=== PATIENT | male | born 1940 | race Caucasian/White ===

== ENCOUNTER 2018-05-14 09:37 | Inpatient (IN) | payer MEDICARE ==
[2018-05-14 10:08] LABS: #Basophils 0.1 thou/uL (0.0-0.2); #Eosinphils 0.3 thou/uL (0.0-0.7); #Lymphocytes 1.8 thou/uL (1.20-3.40); #Monocytes 0.8 thou/uL (0.11-0.59); #Neutrophils 2.3 thou/uL (1.40-6.50); %Basophils 1.3 % (0.0-1.0); %Eosinophils 5.2 % (0.0-10.0); %Lymphocytes 34.8 % (21.0-51.0); %Monocytes 14.3 % (0.0-10.0); %Neutrophils 44.4 % (42.0-75.0); Hemoglobin 14.4 g/dL (14.0-18.0); Mean Corpuscular HGB CONC 33.8 g/dL (32.0-36.0); Mean Corpuscular Hemoglobin 32.2 pg (27.0-31.0); Mean Corpuscular Volume 95.3 fL (78.0-98.0); Mean Platelet Volume 9.7 fL (7.4-10.4); Platelet Count 195 thou/uL (130-400); RBC Distribution Width 12.7 % (11.5-14.5); Red Blood Cell (RBC) Count 4.46 mill/uL (4.70-6.10); White Blood Cell (WBC) Count 5.2 thou/uL (4.8-10.8)
--- NOTE | 2018-05-14 10:18 | RAD ---
FPortable chest radiograph: 05/14/2018 COMPARISON: 12/10/2015 HISTORY:Chest pain FINDINGS: Mild stable increased linear interstitial density. Stable mild prominence of the cardiac si lhouette. No pneumothorax, pleural fluid, focal consolidation, or alveolar edema. IMPRESSION: No acute findings are seen. Recommend PA and lateral imaging of the chest if symptoms per sist.
[2018-05-14 10:28] LABS: ALT (SGPT) 25 U/L (8-55); AST (SGOT) 19 U/L (5-34); Albumin 3.8 g/dL (3.4-4.8); Alkaline Phosphatase 77 U/L (40-150); Anion Gap 12 mmol/L (10-20); BUN (Urea Nitrogen) 21 mg/dL (8.4-25.7); Bilirubin, Total 0.6 mg/dL (0.2-1.2); CK (CPK) 79 U/L (30-200); Calc. Creatinine Clearance 0 mL/min (70-130); Calcium 9.2 mg/dL (7.8-10.44); Carbon Dioxide 26 mmol/L (23-31); Chloride 103 mmol/L (98-107); Estimated GFR-MDRD 69; Globulin 2.6 g/dL (2.4-3.5); Glucose 279 mg/dL (83-110); Lipase 70 U/L (8-78); Potassium 4.3 mmol/L (3.5-5.1); Protein, Total 6.4 g/dL (5.8-8.1); Sodium 137 mmol/L (136-145)
[2018-05-14 10:50] LABS: CKMB 1.1 ng/mL (0-6.6)
[2018-05-14] MEDS ORDERED: Enoxaparin Sodium 100 MG/ML SYRINGE ONE (11:09)
[2018-05-14] MEDS ORDERED: Ondansetron PF 4 MG/2 ML Vial IVP PRN (11:59)
[2018-05-14] MEDS ORDERED: Acetaminophen 650 MG Suppository PR PRN (11:59)
[2018-05-14] MEDS ORDERED: Zolpidem Tartrate 5 MG TAB PO PRN (11:59)
[2018-05-14] MEDS ORDERED: HYDROcodone/Acetaminophen 5/325 mg Tablet PO PRN (11:59)
[2018-05-14] MEDS ORDERED: Guaifenesin DM 100-10/5 ML UDCUP PO PRN (11:59)
[2018-05-14] MEDS ORDERED: Dextrose 50% Abboject 50 ML SYRINGE SLOW IVP PRN (12:02)
[2018-05-14] MEDS ORDERED: Dextrose 5% in Water 1,000 ML IV PRN (12:02)
--- NOTE | 2018-05-14 12:06 | PDOC.EVN ---
Event Note - Event Note Event Note: H&P #[id number]
[2018-05-14] MEDS ORDERED: TICAGRELOR 90 MG TABLET PO SCH (12:30)
[2018-05-14] MEDS: Sodium Chloride 0.9% 1,000 ML IV SCH (14:21)
--- NOTE | 2018-05-14 18:14 | HP ---
CHIEF COMPLAINT: Chest pain. HISTORY OF PRESENT ILLNESS: This is a 77-year-old male, with substernal chest pain. Stated the pain was about pressure like, radiating to his jaw as well as left arm. The patient states that he has never had this symptom before. Admits to a past medical history of hypertension, diabetes mellitus, and hyperlipidemia. The patient does acknowledge family history of chest pains and coronary disease and obesity. The patient states that the pain was worse earlier in the day. There was no alleviating or aggravating pattern. No other associated symptoms or complaints. Of note, on admission to the ER today, the patient's troponin was found to be 0.154. The patient is seen and examined in the ER, at bedside. All questions answered. ALLERGIES: TO IV CONTRAST AND IODINE. MEDICATIONS: See MAR. FAMILY HISTORY: For obesity, hypertension, and diabetes mellitus. SOCIAL HISTORY: Nondrinker. Smoked up into the age of 61, had smoked for 35 years 1 pack a day, quit at the age of 61, so has been nonsmoker for 16 years. REVIEW OF SYSTEMS: All systems reviewed pertinent positive in HPI, otherwise negative. PHYSICAL EXAMINATION: VITAL SIGNS: Blood pressure is 147/94, pulse 73, O2 saturation of 97% on room air, respiratory rate 18, and temperature of 98.5. GENERAL: The patient obese, lying in bed, in no acute distress. HEENT: Pupils equal, round, and reactive to light and accommodation. Oral cavity moist and pink. Extraocular muscles intact. NECK: Supple and nontender. Thyroid appreciated. CARDIOVASCULAR: Regular rate and rhythm. S1 and S2. No murmurs, rubs, or gallops appreciated. PULMONARY: Clear to auscultation bilaterally. Distant lung sounds. No respiratory distress. ABDOMEN: Positive bowel sounds. Soft and nontender. EXTREMITIES: Trace pitting edema. No cyanosis or clubbing noted. NEUROLOGIC: Cranial nerves 2 through 12 intact and no loss of motor or sensory function. LABORATORY DATA: Labs reviewed. CBC reviewed. BMP reviewed. Chest x-ray reviewed. ASSESSMENT: 1. Tqf-QN-[id number] myocardial infarction. 2. Diabetes mellitus. 3. Obesity. 4. Hyperlipidemia. 5. Hypertension. PLAN: At this point in time, we will place the patient n.p.o. We will start the patient on aspirin and Brilinta. We will also do full-dose Lovenox given high suspicion for coronary artery disease and NSTEMI, especially with elevated enzymes. We will trend troponins. Insulins for his diabetes. We will hold off on the echo as there is a high possibility that the patient likely will be getting a cardiac cath. However, final decision on cardiac cath to be decided by the powder room attendant after cardiac evaluation. Cardiology has been consulted. Case and plan discussed with the patient and at length. They understood and agreed with this plan. Job ID: [id number]
[2018-05-14 18:55] LABS: Troponin I 0.517 ng/mL (< 0.028)
--- NOTE | 2018-05-14 19:16 | CON ---
DATE OF CONSULTATION: 05/14/2018 REASON FOR CONSULTATION: Unstable angina. HISTORY OF PRESENT ILLNESS: Mr. Salas is a very pleasant 77-year-old gentleman with no significant cardiac history, who re-presented with chest pain. He states he had acute onset chest pain lasting for an hour. He had associated diaphoresis and nausea and no other associated symptoms. No ameliorating, exacerbating, or precipitating factors present. He presented to the emergency room with nonspecific ST-T wave changes and mildly elevated troponin. He is currently pain free. PAST MEDICAL HISTORY: Obesity, hypertension, and diabetes mellitus. SOCIAL HISTORY: No current tobacco use. He did smoke for 35 years. HOME MEDICATIONS: 1. Crestor. 2. Protonix. 3. Glipizide. 4. Aspirin. 5. Glucosamine. 6. Fish oil. 7. Niacin. REVIEW OF SYSTEMS: A 10-point review of systems is reviewed and as above, otherwise negative. PHYSICAL EXAMINATION: GENERAL: Patient is a pleasant morbidly obese with a BMI of 48, who is in no acute distress. The patient appears their stated age. VITAL SIGNS: Blood pressure 117/58, pulse 65, and temperature 97.5. NEUROLOGIC: The patient is alert and oriented x3 with no focal neurologic deficits. HEENT: Sclerae without icterus. Mouth has moist mucous membranes with normal pallor. NECK: No JVD. Carotid upstroke brisk. No bruits bilaterally. LUNGS: Clear to auscultation with unlabored respirations. BACK: No scoliosis or kyphosis. CARDIAC: Regular rate and rhythm with normal S1 and S2. No S3 or S4 noted. No significant rubs, murmurs, thrills, or gallops noted throughout the precordium. PMI is not displaced. There is no parasternal heave. ABDOMEN: Soft, nontender, nondistended. No peritoneal signs present. No hepatosplenomegaly. No abnormal striae. EXTREMITIES: 2+ femoral and 2+ dorsalis pedis pulses. No cyanosis, clubbing, or edema. SKIN: No gross abnormalities. DIAGNOSTIC DATA: EKG shows normal sinus rhythm, right bundle-branch block, nonspecific ST-T wave changes. LABORATORY DATA: Creatinine 1.05. Hemoglobin 14.4. IMPRESSION: Unstable angina. RECOMMENDATIONS: Mr. Salas does have risk factors for underlying coronary artery disease including remote tobacco use in addition to diabetes mellitus. His symptoms suggest unstable angina. I discussed noninvasive stress study versus coronary angiography. After discussing risks and benefits, he decided to proceed with coronary angiography. I discussed the procedure in full detail with Mr. Salas. Risks included, but not limited to the following: I discussed the procedure in full detail with the patient. The risks of the procedure were also discussed. The risks of the procedure include but are not limited to the following: , stroke, [place], need for emergency surgery, loss of limb, bleeding, and infection, as well as a reaction to the dye causing kidney failure and needing long-term dialysis. I also discussed the risks of PCI to include all of the above including coronary dissection and perforation in addition to acute stent thrombosis and restenosis. All questions were answered. I also discussed drug coated and non drug coated stent placement. There were no contraindications to proceed if needed. Further recommendations pending the above. Job ID: [id number]
[2018-05-14] MEDS: Enoxaparin Sodium 80 MG/0.8 ML SYRINGE SC SCH (21:12)
[2018-05-14] MEDS: Lisinopril 5 MG TAB PO SCH (21:12)
[2018-05-14] MEDS: Atorvastatin Calcium 40 MG TAB PO SCH (21:12)
[2018-05-14] MEDS: Metoprolol Tartrate 25 MG TAB PO SCH (21:13)
[2018-05-14] MEDS: Famotidine 20 MG TAB PO SCH (21:13)
[2018-05-14] MEDS: HumaLOG 300 UNITS/3 ML VIAL SC PRN (21:27)
[2018-05-14 22:26] LABS: Hemoglobin 13.9 g/dL (14.0-18.0); Platelet Count 186 thou/uL (130-400)
[2018-05-14 23:09] LABS: CKMB 1.8 ng/mL (0-6.6)
[2018-05-15 02:24] LABS: Critical Call Chem Troponin I RESULT DECREASING
[2018-05-15] MEDS: Sodium Chloride 0.9% 1,000 ML IV SCH ×4 (03:22→20:35)
[2018-05-15 06:07] LABS: #Basophils 0.1 thou/uL (0.0-0.2); #Eosinphils 0.4 thou/uL (0.0-0.7); #Lymphocytes 1.7 thou/uL (1.20-3.40); #Monocytes 0.6 thou/uL (0.11-0.59); %Basophils 1.6 % (0.0-1.0); %Eosinophils 7.6 % (0.0-10.0); %Lymphocytes 35.8 % (21.0-51.0); %Monocytes 12.6 % (0.0-10.0); %Neutrophils 42.3 % (42.0-75.0); Mean Corpuscular HGB CONC 33.2 g/dL (32.0-36.0); Mean Corpuscular Hemoglobin 31.7 pg (27.0-31.0); Mean Corpuscular Volume 95.7 fL (78.0-98.0); Mean Platelet Volume 9.9 fL (7.4-10.4); Platelet Count 189 thou/uL (130-400); RBC Distribution Width 12.6 % (11.5-14.5); Red Blood Cell (RBC) Count 4.41 mill/uL (4.70-6.10); White Blood Cell (WBC) Count 4.7 thou/uL (4.8-10.8)
[2018-05-15 06:29] LABS: Anion Gap 14 mmol/L (10-20); BUN (Urea Nitrogen) 16 mg/dL (8.4-25.7); Calc. Creatinine Clearance 154 mL/min (70-130); Calcium 8.7 mg/dL (7.8-10.44); Carbon Dioxide 21 mmol/L (23-31); Chloride 105 mmol/L (98-107); Estimated GFR-MDRD 90; Glucose 202 mg/dL (83-110); Potassium 3.7 mmol/L (3.5-5.1); Sodium 136 mmol/L (136-145)
[2018-05-15] MEDS: Lisinopril 5 MG TAB PO SCH ×2 (09:55→20:36)
[2018-05-15] MEDS: Famotidine 20 MG TAB PO SCH ×3 (09:55→21:47)
[2018-05-15] MEDS: Aspirin 81 mg Enteric Coated Tablet PO SCH (09:55)
[2018-05-15] MEDS: Enoxaparin Sodium 80 MG/0.8 ML SYRINGE SC SCH ×2 (09:55→20:38)
[2018-05-15] MEDS: HumaLOG 300 UNITS/3 ML VIAL SC PRN ×3 (09:56→18:15)
[2018-05-15] MEDS: TICAGRELOR 90 MG TABLET PO SCH ×2 (09:56→20:37)
[2018-05-15] MEDS: Metoprolol Tartrate 25 MG TAB PO SCH ×2 (09:56→20:36)
[2018-05-15] MEDS ORDERED: diphenhydrAMINE 25 MG CAP PO PRN (10:05)
[2018-05-15] MEDS ORDERED: Communication Order-Pharmacy FS SCH (10:15)
[2018-05-15] MEDS: predniSONE 20 MG TAB PO SCH ×3 (11:37→23:49)
--- NOTE | 2018-05-15 12:23 | PDOC.PN ---
- Subjective Encounter Start Date: 05/15/18 Encounter Start Time: 12:22 Patient seen and examined, no new issues or complaints, at bedside, all questions answered. - Objective Vital Signs & Weight: Vital Signs (12 hours) Temp Pulse Resp BP Pulse Ox 05/15/18 11:34 97.5 F L 61 18 130/62 93 L 05/15/18 09:55 66 05/15/18 07:07 97.5 F L 66 20 117/72 95 05/15/18 05:00 97.6 F 62 18 117/58 L 95 05/15/18 00:30 97.5 F L 66 17 102/56 L 96 Weight Weight 317 lb 3.2 oz I&O: 05/14/18 05/15/18 05/16/18 06:59 06:59 06:59 Intake Total 375 Balance 375 Result Diagrams: 05/15/18 05:17 05/15/18 05:17 Additional Labs: Accuchecks 05/15/18 05/15/18 05/14/18 11:02 05:44 20:53 POC Glucose 215 H 206 H 223 H 05/14/18 19:08 POC Glucose 162 H Phys Exam - Physical Examination Constitutional: NAD (obese) HEENT: PERRLA, moist MMs, sclera anicteric Neck: no nodes, no JVD, supple Respiratory: no wheezing, no rales, no rhonchi Cardiovascular: RRR, no significant murmur, no rub Gastrointestinal: soft, non-tender, no distention Musculoskeletal: pulses present, edema present Dx/Plan (1) NSTEMI (non-ST elevated myocardial infarction) Code(s): I21.4 - NON-ST ELEVATION (NSTEMI) MYOCARDIAL INFARCTION Status: Acute (2) Diabetes Code(s): E11.9 - TYPE 2 DIABETES MELLITUS WITHOUT COMPLICATIONS Status: Acute (3) Hyperlipidemia Code(s): E78.5 - HYPERLIPIDEMIA, UNSPECIFIED Status: Acute (4) Hypertension Code(s): I10 - ESSENTIAL (PRIMARY) HYPERTENSION Status: Acute (5) Obesity Code(s): E66.9 - OBESITY, UNSPECIFIED Status: Acute - Plan * cont current plan of care * cath in AM * no other changes in plan * labs in AM * case and plan d/w patient and at length, they understand and agree with this plan.
--- NOTE | 2018-05-15 13:41 | PDOC.CTH ---
Cardiology Progress Note - Subjective No complaints. no CP overnight. - Objective Vital Signs Temp Pulse Resp BP Pulse Ox 05/15/18 11:34 97.5 F L 61 18 130/62 93 L 05/15/18 09:55 66 05/15/18 07:07 97.5 F L 66 20 117/72 95 05/15/18 05:00 97.6 F 62 18 117/58 L 95 Weight 317 lb 3.2 oz 05/14/18 05/15/18 05/16/18 06:59 06:59 06:59 Intake Total 375 Balance 375 - Physical Examination General/Neuro: alert & oriented x3 Neck: no JVD present Lungs: CTA Heart: RRR Abdomen: NT/ND - Telemetry Telemetry Rhythm: SR - Labs Result Diagrams: 05/15/18 05:17 05/15/18 05:17 Troponin/CKMB CK-MB (CK-2) 1.8 ng/mL (0-6.6) 05/14/18 22:16 Troponin I 0.480 ng/mL (< 0.028) H* 05/15/18 01:50 - Assessment/Plan 1. UA 2. NSTEMI-1 3. HLD 4. DM-II 5. Obesity Stable. Plan for diagnostic C tomorrow.
[2018-05-15] MEDS: Atorvastatin Calcium 40 MG TAB PO SCH (20:36)
[2018-05-15] MEDS: Montelukast Sodium 10 mg Tablet PO SCH (20:37)
[2018-05-15] MEDS: Insulin Glargine 10 UNITS in Pre-Filled Syringe 1 EACH SC SCH (20:38)
[2018-05-16 05:52] LABS: #Lymphocytes 1.1 thou/uL (1.20-3.40); #Monocytes 0.3 thou/uL (0.11-0.59); #Neutrophils 6.2 thou/uL (1.40-6.50); %Basophils 0.2 % (0.0-1.0); %Eosinophils 0.2 % (0.0-10.0); %Lymphocytes 14.3 % (21.0-51.0); %Monocytes 4.3 % (0.0-10.0); Hemoglobin 14.6 g/dL (14.0-18.0); Mean Corpuscular HGB CONC 34.5 g/dL (32.0-36.0); Mean Corpuscular Hemoglobin 32.4 pg (27.0-31.0); Mean Corpuscular Volume 93.8 fL (78.0-98.0); Platelet Count 220 thou/uL (130-400); RBC Distribution Width 12.5 % (11.5-14.5); Red Blood Cell (RBC) Count 4.52 mill/uL (4.70-6.10); White Blood Cell (WBC) Count 7.6 thou/uL (4.8-10.8)
[2018-05-16] MEDS: predniSONE 20 MG TAB PO SCH ×4 (05:52→23:48)
[2018-05-16] MEDS: Lisinopril 5 MG TAB PO SCH ×2 (05:53→20:58)
[2018-05-16] MEDS: Metoprolol Tartrate 25 MG TAB PO SCH ×2 (05:54→20:58)
[2018-05-16] MEDS: Famotidine 20 MG TAB PO SCH ×2 (05:54→20:58)
[2018-05-16] MEDS: Aspirin 81 mg Enteric Coated Tablet PO SCH (05:54)
[2018-05-16] MEDS: Sodium Chloride 0.9% 1,000 ML IV SCH ×2 (05:57→06:09)
[2018-05-16] MEDS ORDERED: Diazepam 5 MG TAB PO SCH (06:00)
[2018-05-16 06:20] LABS: Anion Gap 14 mmol/L (10-20); BUN (Urea Nitrogen) 15 mg/dL (8.4-25.7); Calc. Creatinine Clearance 139 mL/min (70-130); Calcium 9.2 mg/dL (7.8-10.44); Carbon Dioxide 21 mmol/L (23-31); Cardiac Risk 3.5 (Less than 4.5); Chloride 105 mmol/L (98-107); Cholesterol 172 mg/dl (< 200 Desired); Estimated GFR-MDRD 80; Glucose 280 mg/dL (83-110); HDL Cholesterol 49 mg/dL (>60 Neg Risk); LDL Cholesterol, Calculated 86 mg/dL; Sodium 136 mmol/L (136-145); Triglycerides 185 mg/dL (Less than 150)
[2018-05-16] MEDS ORDERED: Verapamil 5 MG/2 ML VIAL ONE (07:01)
[2018-05-16] MEDS ORDERED: Nitroglycerin 100MG/250ML BOT 250 ML ONE (07:01)
[2018-05-16] MEDS ORDERED: Fentanyl 100 MCG/2 ML VIAL ONE (07:34)
[2018-05-16] MEDS ORDERED: Midazolam HCl 2 mg/2 ml Vial ONE (07:34)
[2018-05-16] MEDS ORDERED: Heparin 10,000 UNITS/1 ML VIAL ONE (07:34)
--- NOTE | 2018-05-16 08:31 | PDOC.PN ---
- Subjective Encounter Start Date: 05/16/18 Encounter Start Time: 08:31 Patient seen and examined, no new issues. - Objective Vital Signs & Weight: Vital Signs (12 hours) Temp Pulse Resp BP BP Pulse Ox 05/16/18 05:53 73 125/76 05/16/18 04:00 97.4 F L 73 20 125/76 94 L 05/15/18 20:36 83 132/71 Weight Weight 317 lb 3.2 oz I&O: 05/15/18 05/16/18 05/17/18 06:59 06:59 06:59 Intake Total 375 2905 Balance 375 2905 Result Diagrams: 05/16/18 05:35 05/16/18 05:35 Additional Labs: Accuchecks 05/16/18 05/15/18 05/15/18 05:38 20:09 17:27 POC Glucose 284 H 302 H 333 H 05/15/18 11:02 POC Glucose 215 H Phys Exam - Physical Examination Constitutional: NAD obese HEENT: PERRLA, moist MMs, sclera anicteric Neck: no nodes, no JVD, supple Respiratory: no wheezing, no rales, no rhonchi Cardiovascular: RRR, no significant murmur, no rub Gastrointestinal: soft, non-tender, no distention Musculoskeletal: pulses present, edema present Dx/Plan (1) NSTEMI (non-ST elevated myocardial infarction) Code(s): I21.4 - NON-ST ELEVATION (NSTEMI) MYOCARDIAL INFARCTION Status: Acute (2) Diabetes Code(s): E11.9 - TYPE 2 DIABETES MELLITUS WITHOUT COMPLICATIONS Status: Acute (3) Hyperlipidemia Code(s): E78.5 - HYPERLIPIDEMIA, UNSPECIFIED Status: Acute (4) Hypertension Code(s): I10 - ESSENTIAL (PRIMARY) HYPERTENSION Status: Acute (5) Obesity Code(s): E66.9 - OBESITY, UNSPECIFIED Status: Acute - Plan * cardiac cath for today * vital signs stable * monitor for now * labs in AM
[2018-05-16] MEDS ORDERED: Nitroglycerin 0.4 MG TAB (25 Tab Bottle) SL PRN (08:40)
[2018-05-16] MEDS ORDERED: Acetaminophen/Codeine 30-300mg Tablet PO PRN ×2 (08:40)
[2018-05-16] MEDS ORDERED: Sodium Chloride 0.9% 200 ML IV PRN (08:40)
[2018-05-16] MEDS ORDERED: Sodium Chloride 0.9% 1,000 ML IV SCH (08:45)
[2018-05-16] MEDS ORDERED: Iopamidol 370 76% 100 ML VIAL ONE (10:11)
[2018-05-16] MEDS: HumaLOG 300 UNITS/3 ML VIAL SC PRN ×3 (10:45→20:59)
--- NOTE | 2018-05-16 13:37 | EKG ---
Test Reason : STAT (NO CALL) Blood Pressure : / mmHG Vent. Rate : 065 BPM Atrial Rate : 065 BPM P-R Int : 142 ms QRS Dur : 086 ms QT Int : 394 ms P-R-T Axes : 063 073 030 degrees QTc Int : 409 ms Normal sinus rhythm Normal ECG When compared with ECG of 10-DEC-2015 14:22, Premature supraventricular complexes are no longer Present Nonspecific T wave abnormality now evident in Inferior leads Confirmed by OCTAVIO SMITH, DR. Montes ([id number]) on 05/16/2018 1:37:22 PM Referred By: Senthil PRITCHETT Confirmed By:DR. Simon CUNNINGHAM MD
[2018-05-16] MEDS: Atorvastatin Calcium 40 MG TAB PO SCH (20:58)
[2018-05-16] MEDS: Insulin Glargine 10 UNITS in Pre-Filled Syringe 1 EACH SC SCH (20:58)
[2018-05-16] MEDS: Montelukast Sodium 10 mg Tablet PO SCH (20:58)
--- NOTE | 2018-05-16 22:52 | CON ---
DATE OF CONSULTATION: 05/16/2018 REASON FOR CONSULTATION: Evaluate patient for coronary artery bypass grafting. HISTORY OF PRESENT ILLNESS: Mr. Salas is a 77-year-old morbidly obese gentleman who is admitted with substernal chest pain. He underwent appropriate workup followed by coronary angiography today. At the time of his angiography, he was found to have severe stenosis of both the LAD and right coronary artery. I have been asked to see him to discuss coronary artery bypass grafting. PAST MEDICAL HISTORY: 1. Morbid obesity. 2. Coronary artery disease. 3. Hypertension. 4. Diabetes mellitus. 5. Dyslipidemia. HOME MEDICATIONS: Noted. ALLERGIES: IODINE. SOCIAL HISTORY: He does not use tobacco. He quit smoking a number of years ago. REVIEW OF SYSTEMS: A 10-point review of systems is performed and is negative except as above. PHYSICAL EXAMINATION: GENERAL: This is a morbidly obese gentleman, resting comfortably on the telemetry. VITAL SIGNS: Height 5 feet 8 inches, weight is 317 pounds. BSA is 2.63. Temperature is 97.4, pulse is 63 and regular, blood pressure is 106/63. NECK: Supple without bruit. CHEST: Clear with diminished breath sounds bilaterally. HEART: Rhythm is regular. ABDOMEN: Soft and nontender without mass. EXTREMITIES: He has bilateral edema with venous stasis changes. ASSESSMENT AND PLAN: This is a 77-year-old gentleman who is admitted with [id number] myocardial infarction with a peak troponin of 0.517. He is currently resting chest pain free. Catheterization has revealed severe two-vessel disease. Coronary artery bypass grafting has been discussed with him. Unfortunately, he has received Brilinta by the hospitalist. This gives him a week before we can electively perform any surgical intervention. Job ID: [id number]
[2018-05-17] MEDS: predniSONE 20 MG TAB PO SCH ×2 (05:51→20:13)
[2018-05-17 06:59] LABS: #Lymphocytes 1.2 thou/uL (1.20-3.40); #Monocytes 0.6 thou/uL (0.11-0.59); #Neutrophils 9.6 thou/uL (1.40-6.50); %Basophils 0.1 % (0.0-1.0); %Eosinophils 0.2 % (0.0-10.0); %Lymphocytes 10.3 % (21.0-51.0); %Monocytes 5.6 % (0.0-10.0); %Neutrophils 83.7 % (42.0-75.0); Hemoglobin 14.2 g/dL (14.0-18.0); Mean Corpuscular HGB CONC 34.2 g/dL (32.0-36.0); Mean Corpuscular Hemoglobin 32.9 pg (27.0-31.0); Mean Corpuscular Volume 96.2 fL (78.0-98.0); Mean Platelet Volume 10.1 fL (7.4-10.4); Platelet Count 206 thou/uL (130-400); RBC Distribution Width 12.8 % (11.5-14.5); Red Blood Cell (RBC) Count 4.31 mill/uL (4.70-6.10); White Blood Cell (WBC) Count 11.4 thou/uL (4.8-10.8)
[2018-05-17 07:11] LABS: Anion Gap 13 mmol/L (10-20); BUN (Urea Nitrogen) 23 mg/dL (8.4-25.7); Calc. Creatinine Clearance 135 mL/min (70-130); Carbon Dioxide 22 mmol/L (23-31); Chloride 103 mmol/L (98-107); Estimated GFR-MDRD 77; Glucose 292 mg/dL (83-110); Potassium 4.3 mmol/L (3.5-5.1); Sodium 134 mmol/L (136-145)
[2018-05-17] MEDS: Aspirin 81 mg Enteric Coated Tablet PO SCH (08:56)
[2018-05-17] MEDS: Metoprolol Tartrate 25 MG TAB PO SCH ×2 (08:56→20:33)
[2018-05-17] MEDS: Famotidine 20 MG TAB PO SCH ×2 (08:57→20:12)
[2018-05-17] MEDS: Lisinopril 5 MG TAB PO SCH ×2 (08:58→20:32)
[2018-05-17] MEDS: HumaLOG 300 UNITS/3 ML VIAL SC PRN ×4 (09:00→20:23)
--- NOTE | 2018-05-17 10:08 | PDOC.PN ---
- Subjective Encounter Start Date: 05/17/18 Encounter Start Time: 10:06 Subjective: Admitted due to NSTEMI. -: cardiac cath showed severe 2 vessel disease. CABG is planned -: No new problem. No chest pain or SOB. - Objective Vital Signs & Weight: Vital Signs (12 hours) Temp Pulse Resp BP BP Pulse Ox 05/17/18 08:58 75 115/62 05/17/18 07:30 97.5 F L 66 20 128/65 96 05/17/18 04:00 97.7 F 63 18 115/57 L 94 L Weight Weight 317 lb I&O: 05/16/18 05/17/18 05/18/18 06:59 06:59 06:59 Intake Total 2905 1440 Balance 2905 1440 Result Diagrams: 05/17/18 06:14 05/17/18 06:14 Additional Labs: Accuchecks 05/17/18 05/16/18 05/16/18 05:34 20:27 16:26 POC Glucose 299 H 300 H 285 H 05/16/18 10:40 POC Glucose 266 H Phys Exam - Physical Examination Constitutional: NAD morbidly obese HEENT: PERRLA, moist MMs Neck: no JVD, supple fair air entry bilaterally Cardiovascular: RRR, no significant murmur Gastrointestinal: soft, non-tender, no distention, positive bowel sounds obese Musculoskeletal: no edema Neurological: non-focal, moves all 4 limbs Psychiatric: A&O x 3 Dx/Plan (1) Type 2 diabetes mellitus Status: Acute Comment: Control is suboptimal (2) Morbid obesity Code(s): E66.01 - MORBID (SEVERE) OBESITY DUE TO EXCESS CALORIES Status: Acute (3) CAD (coronary artery disease), [place] coronary artery Code(s): I25.10 - ATHSCL HEART DISEASE OF [place] CORONARY ARTERY W/O ANG PCTRS Status: Acute (4) Hyperlipidemia Code(s): E78.5 - HYPERLIPIDEMIA, UNSPECIFIED Status: Acute (5) Hypertension Code(s): I10 - ESSENTIAL (PRIMARY) HYPERTENSION Status: Acute (6) NSTEMI (non-ST elevated myocardial infarction) Code(s): I21.4 - NON-ST ELEVATION (NSTEMI) MYOCARDIAL INFARCTION Status: Acute - Plan Increase lantus to 20 units daily. Continue sliding scale insulin -: Continue other treatments. -: CABG planning is progress * .
[2018-05-17] MEDS ORDERED: Amiodarone 150 MG/3 ML VIAL ONE (12:20)
[2018-05-17] MEDS: Atorvastatin Calcium 40 MG TAB PO SCH (20:12)
[2018-05-17] MEDS: Montelukast Sodium 10 mg Tablet PO SCH (20:12)
[2018-05-17] MEDS ORDERED: Insulin Glargine 20 UNITS in Pre-Filled Syringe 1 EACH SC SCH (21:00)
--- NOTE | 2018-05-17 22:32 | EKG ---
Test Reason : C/O CHEST PAIN Blood Pressure : / mmHG Vent. Rate : 060 BPM Atrial Rate : 060 BPM P-R Int : 154 ms QRS Dur : 084 ms QT Int : 390 ms P-R-T Axes : 057 063 -21 degrees QTc Int : 390 ms Normal sinus rhythm Nonspecific T wave abnormality Abnormal ECG When compared with ECG of 14-MAY-2018 22:46, No significant change was found Confirmed by Clarke LOPES ([id number]) on 05/17/2018 10:32:07 PM Referred By: HEBERT Confirmed By:Clarke LOPES
[2018-05-18] MEDS: HumaLOG 300 UNITS/3 ML VIAL SC PRN ×4 (06:06→20:55)
[2018-05-18] MEDS: Aspirin 81 mg Enteric Coated Tablet PO SCH (08:15)
[2018-05-18] MEDS: predniSONE 20 MG TAB PO SCH (08:15)
[2018-05-18] MEDS: Metoprolol Tartrate 25 MG TAB PO SCH ×2 (08:15→20:50)
[2018-05-18] MEDS: Lisinopril 5 MG TAB PO SCH ×2 (08:16→20:50)
[2018-05-18] MEDS: Famotidine 20 MG TAB PO SCH ×2 (08:16→20:50)
--- NOTE | 2018-05-18 13:04 | PDOC.PN ---
- Subjective Encounter Start Date: 05/18/18 Encounter Start Time: 13:03 Subjective: No new problem. -: Awaitin CABG - Objective Vital Signs & Weight: Vital Signs (12 hours) Temp Pulse Resp BP Pulse Ox 05/18/18 12:15 97.8 F 66 18 136/72 96 05/18/18 08:24 97.1 F L 65 18 128/69 93 L 05/18/18 04:46 97.7 F 65 16 123/63 93 L Weight Weight 310 lb 3.2 oz I&O: 05/17/18 05/18/18 05/19/18 06:59 06:59 06:59 Intake Total 1440 1290 Balance 1440 1290 Result Diagrams: 05/17/18 06:14 05/17/18 06:14 Additional Labs: Accuchecks 05/18/18 05/17/18 05/17/18 05:30 20:23 16:46 POC Glucose 363 H 324 H 290 H Phys Exam - Physical Examination Constitutional: NAD morbidly obese HEENT: PERRLA, moist MMs Neck: no JVD, supple Respiratory: no wheezing, no rales, no rhonchi, clear to auscultation bilateral Cardiovascular: RRR Gastrointestinal: soft, non-tender, no distention, positive bowel sounds obese Musculoskeletal: no edema, pulses present Neurological: non-focal, moves all 4 limbs ambulant Psychiatric: A&O x 3 Dx/Plan (1) Type 2 diabetes mellitus Status: Acute Comment: Control is suboptimal (2) Morbid obesity Code(s): E66.01 - MORBID (SEVERE) OBESITY DUE TO EXCESS CALORIES Status: Acute (3) CAD (coronary artery disease), [place] coronary artery Code(s): I25.10 - ATHSCL HEART DISEASE OF [place] CORONARY ARTERY W/O ANG PCTRS Status: Acute (4) Hyperlipidemia Code(s): E78.5 - HYPERLIPIDEMIA, UNSPECIFIED Status: Acute (5) Hypertension Code(s): I10 - ESSENTIAL (PRIMARY) HYPERTENSION Status: Acute (6) NSTEMI (non-ST elevated myocardial infarction) Code(s): I21.4 - NON-ST ELEVATION (NSTEMI) MYOCARDIAL INFARCTION Status: Acute (7) Allergy to iodine Code(s): Z88.8 - ALLERGY STATUS TO OTH DRUG/MEDS/BIOL SUBST STATUS Status: Acute - Plan Increase lantus to 30 unit hs. -: DC steroid. -: Continue other treatments. -: Possible CABG on 05/20/2018 -: get Hba1c in the am * .
--- NOTE | 2018-05-18 17:29 | PDOC.CTH ---
Cardiology Progress Note - Subjective No complaints - Objective Vital Signs Temp Pulse Pulse Pulse Resp BP BP 05/18/18 15:58 97.1 F L 77 18 05/18/18 12:15 97.8 F 66 18 05/18/18 11:35 64 61 136/72 109/65 05/18/18 08:24 97.1 F L 65 18 BP Pulse Ox Pulse Ox Pulse Ox 05/18/18 15:58 126/66 94 L 05/18/18 12:15 136/72 96 05/18/18 11:35 96 91 L 05/18/18 08:24 128/69 93 L Weight 310 lb 3.2 oz 05/17/18 05/18/18 05/19/18 06:59 06:59 06:59 Intake Total 1440 1290 Balance 1440 1290 - Physical Examination General/Neuro: alert & oriented x3, NAD Neck: carotid US brisk, no JVD present Lungs: CTA, unlabored respirations Heart: PMI normal, RRR Abdomen: NT/ND, soft Extremities: + femoral B - Labs Result Diagrams: 05/17/18 06:14 05/17/18 06:14 Troponin/CKMB CK-MB (CK-2) 1.8 ng/mL (0-6.6) 05/14/18 22:16 Troponin I 0.480 ng/mL (< 0.028) H* 05/15/18 01:50 - Assessment/Plan [facility] Severe CAD Plan is CABG on 05/20 No changes Statin and BB
[2018-05-18] MEDS: Montelukast Sodium 10 mg Tablet PO SCH (20:50)
[2018-05-18] MEDS: Atorvastatin Calcium 40 MG TAB PO SCH (20:50)
[2018-05-18] MEDS ORDERED: Insulin Glargine 30 UNITS in Pre-Filled Syringe 1 EACH SC SCH (21:00)
[2018-05-19 04:49] LABS: #Eosinphils 0.2 thou/uL (0.0-0.7); #Lymphocytes 2.9 thou/uL (1.20-3.40); #Monocytes 1.2 thou/uL (0.11-0.59); #Neutrophils 5.4 thou/uL (1.40-6.50); %Basophils 0.4 % (0.0-1.0); %Eosinophils 2.1 % (0.0-10.0); %Lymphocytes 29.4 % (21.0-51.0); %Monocytes 12.3 % (0.0-10.0); %Neutrophils 55.8 % (42.0-75.0); Hemoglobin 14.8 g/dL (14.0-18.0); Mean Corpuscular HGB CONC 34.1 g/dL (32.0-36.0); Mean Corpuscular Hemoglobin 32.7 pg (27.0-31.0); Mean Corpuscular Volume 96.1 fL (78.0-98.0); Mean Platelet Volume 10.2 fL (7.4-10.4); Platelet Count 191 thou/uL (130-400); RBC Distribution Width 12.9 % (11.5-14.5); Red Blood Cell (RBC) Count 4.52 mill/uL (4.70-6.10); White Blood Cell (WBC) Count 9.7 thou/uL (4.8-10.8)
[2018-05-19 05:11] LABS: Anion Gap 14 mmol/L (10-20); BUN (Urea Nitrogen) 29 mg/dL (8.4-25.7); Calc. Creatinine Clearance 129 mL/min (70-130); Carbon Dioxide 25 mmol/L (23-31); Chloride 101 mmol/L (98-107); Estimated GFR-MDRD 75; Glucose 220 mg/dL (83-110); Potassium 4.4 mmol/L (3.5-5.1); Sodium 136 mmol/L (136-145)
[2018-05-19] MEDS ORDERED: Communication Order-Pharmacy FS SCH (08:39)
--- NOTE | 2018-05-19 09:06 | PDOC.PN ---
- Subjective Encounter Start Date: 05/19/18 Encounter Start Time: 09:04 Subjective: No new problem. -: awaiting CABG tomorrow - Objective Vital Signs & Weight: Vital Signs (12 hours) Temp Pulse Resp BP Pulse Ox 05/19/18 07:21 97.5 F L 62 16 119/57 L 95 05/19/18 04:30 97.4 F L 60 16 123/69 95 05/19/18 00:10 118/67 Weight Weight 308 lb I&O: 05/18/18 05/19/18 05/20/18 06:59 06:59 06:59 Intake Total 1290 1744 Output Total 580 Balance 1290 1164 Result Diagrams: 05/19/18 04:19 05/19/18 04:19 Additional Labs: Accuchecks 05/19/18 05/18/18 05/18/18 05:19 20:39 16:46 POC Glucose 198 H 296 H 286 H 05/18/18 11:15 POC Glucose 345 H Phys Exam - Physical Examination Constitutional: NAD obese HEENT: PERRLA, moist MMs Neck: no JVD, supple Respiratory: no rales, no rhonchi, clear to auscultation bilateral Cardiovascular: RRR, no significant murmur Gastrointestinal: soft, non-tender, positive bowel sounds morbidly obese Musculoskeletal: no edema, pulses present Neurological: non-focal, moves all 4 limbs Psychiatric: A&O x 3 Dx/Plan (1) NSTEMI (non-ST elevated myocardial infarction) Code(s): I21.4 - NON-ST ELEVATION (NSTEMI) MYOCARDIAL INFARCTION Status: Acute (2) Type 2 diabetes mellitus Status: Acute Comment: Control is suboptimal. Hba1c of 9 (3) Morbid obesity Code(s): E66.01 - MORBID (SEVERE) OBESITY DUE TO EXCESS CALORIES Status: Acute (4) CAD (coronary artery disease), [place] coronary artery Code(s): I25.10 - ATHSCL HEART DISEASE OF [place] CORONARY ARTERY W/O ANG PCTRS Status: Acute (5) Hyperlipidemia Code(s): E78.5 - HYPERLIPIDEMIA, UNSPECIFIED Status: Acute (6) Hypertension Code(s): I10 - ESSENTIAL (PRIMARY) HYPERTENSION Status: Acute (7) Allergy to iodine Code(s): Z88.8 - ALLERGY STATUS TO OTH DRUG/MEDS/BIOL SUBST STATUS Status: Acute - Plan Increase lantus to 40 hs -: continue sliding scale insulin and other treatments. -: For CABG tomorrow * .
[2018-05-19] MEDS: Aspirin 81 mg Enteric Coated Tablet PO SCH (09:40)
[2018-05-19] MEDS: Famotidine 20 MG TAB PO SCH ×2 (09:40→20:29)
[2018-05-19] MEDS: Lisinopril 5 MG TAB PO SCH ×2 (09:40→20:29)
[2018-05-19] MEDS: Metoprolol Tartrate 25 MG TAB PO SCH ×2 (09:41→20:30)
[2018-05-19] MEDS: HumaLOG 300 UNITS/3 ML VIAL SC PRN ×3 (09:42→17:15)
[2018-05-19] MEDS: Montelukast Sodium 10 mg Tablet PO SCH (20:29)
[2018-05-19] MEDS: Atorvastatin Calcium 40 MG TAB PO SCH (20:29)
[2018-05-19] MEDS ORDERED: Insulin Glargine 40 UNITS in Pre-Filled Syringe 1 EACH SC SCH (21:00)
[2018-05-20] MEDS ORDERED: CEFAZOLIN 2 GM in Premix Bag 1 BAG IVPB SCH (04:15)
[2018-05-20] MEDS: Metoprolol Tartrate 25 MG TAB PO SCH (05:53)
[2018-05-20] MEDS: Lisinopril 5 MG TAB PO SCH (05:53)
[2018-05-20] MEDS ORDERED: Heparin 10,000 UNITS/1 ML VIAL 30,000 UNITS in Sodium Chloride 0.9% 1,000 ML FS SCH (06:45)
[2018-05-20] MEDS ORDERED: Dexamethasone 4 mg/ml Vial ONE (07:09)
[2018-05-20] MEDS ORDERED: Albumin 5% 500 ML ONE (07:09)
[2018-05-20] MEDS ORDERED: Bupivacaine HCl 0.5%/Epinephrine 1:200,000/PF 30 ml Vial ONE (07:09)
--- NOTE | 2018-05-20 07:22 | PDOC.PN ---
- Subjective Encounter Start Date: 05/20/18 Encounter Start Time: 07:20 Subjective: Seen and examined. No new problem. -: Going to OR for bypass surgery. - Objective Vital Signs & Weight: Vital Signs (12 hours) Temp Pulse Resp BP BP BP Pulse Ox 05/20/18 05:53 82 116/62 05/20/18 05:20 82 116/62 05/20/18 04:35 98.5 F 68 18 105/61 93 L 05/19/18 20:29 65 111/65 05/19/18 20:00 96 05/19/18 19:54 98.5 F 65 18 111/65 96 Weight Weight 304 lb 8 oz I&O: 05/19/18 05/20/18 05/21/18 06:59 06:59 06:59 Intake Total 1744 1180 Output Total 580 850 Balance 1164 330 Result Diagrams: 05/19/18 04:19 05/19/18 04:19 Additional Labs: Accuchecks 05/20/18 05/19/18 05/19/18 05:17 20:27 16:45 POC Glucose 204 H 240 H 293 H 05/19/18 10:41 POC Glucose 245 H Phys Exam - Physical Examination Constitutional: NAD obese HEENT: PERRLA, moist MMs Neck: supple fair air entry bilaterally Cardiovascular: RRR Gastrointestinal: soft, non-tender, no distention, positive bowel sounds obese Musculoskeletal: no edema, pulses present Neurological: non-focal, moves all 4 limbs Psychiatric: A&O x 3 Dx/Plan (1) NSTEMI (non-ST elevated myocardial infarction) Code(s): I21.4 - NON-ST ELEVATION (NSTEMI) MYOCARDIAL INFARCTION Status: Acute Comment: s/p Cardiac cath which showed severe 2 vessel disease including LAD. For CABG (2) Type 2 diabetes mellitus Status: Acute Comment: Inadequately controlled with Hba1c of 9. Glycemic control is better (3) Morbid obesity Code(s): E66.01 - MORBID (SEVERE) OBESITY DUE TO EXCESS CALORIES Status: Acute (4) CAD (coronary artery disease), [place] coronary artery Code(s): I25.10 - ATHSCL HEART DISEASE OF [place] CORONARY ARTERY W/O ANG PCTRS Status: Acute (5) Hyperlipidemia Code(s): E78.5 - HYPERLIPIDEMIA, UNSPECIFIED Status: Acute Comment: On statin (6) Hypertension Code(s): I10 - ESSENTIAL (PRIMARY) HYPERTENSION Status: Acute Comment: Control acceptable (7) Allergy to iodine Code(s): Z88.8 - ALLERGY STATUS TO OTH DRUG/MEDS/BIOL SUBST STATUS Status: Acute - Plan For CABG today. -: Will be admitted to ICU after Surgery. -: Will start insulin infusion after surgery. * .
[2018-05-20] MEDS ORDERED: Fentanyl 250 MCG/5 ML VIAL ONE ×2 (07:28→09:19)
[2018-05-20] MEDS ORDERED: Midazolam HCl 5 mg/5 ml Vial ONE (07:29)
[2018-05-20] MEDS ORDERED: Insulin Regular 300 UNITS/3 ML VIAL ONE (08:18)
[2018-05-20] MEDS ORDERED: PHENYLEPHRINE-NS 100 MCG/ML 10 ML SYRINGE ONE ×2 (09:50→16:32)
[2018-05-20] MEDS ORDERED: Post-Op Insulin Drip Protocol IVPB ONE (11:15)
[2018-05-20] MEDS ORDERED: Promethazine HCl 25 MG/ML VIAL IM PRN (11:15)
[2018-05-20] MEDS ORDERED: Mag-Al 1200 mg/1200 mg/30 ML UDCUP PO PRN (11:15)
[2018-05-20] MEDS ORDERED: Potassium Chloride 20 MEQ/100 ML PREMIX BAG IVPB PRN (11:15)
[2018-05-20] MEDS ORDERED: Acetaminophen 325 MG TAB PO PRN (11:15)
[2018-05-20] MEDS ORDERED: Ondansetron PF 4 MG/2 ML Vial IVP PRN (11:15)
[2018-05-20] MEDS ORDERED: Hetastarch 6% 500 ML 500 ML IVPB PRN (11:15)
[2018-05-20] MEDS ORDERED: Nitroglycerin 50 MG/250 ML BOT 250 ML IVPB PRN (11:15)
[2018-05-20] MEDS ORDERED: Bisacodyl 10 MG SUPP PR PRN (11:15)
[2018-05-20] MEDS ORDERED: D5 1/2 NS w/20 mEq KCL 1,000 ML IV SCH (11:15)
[2018-05-20] MEDS ORDERED: Bisacodyl 5 MG TAB PO PRN (11:15)
[2018-05-20] MEDS ORDERED: Norepinephrine 8 MG/0.9% NS 250 ML IVPB PRN (11:15)
[2018-05-20] MEDS ORDERED: hydrALAZINE 20 MG/ML VIAL SLOW IVP PRN (11:15)
[2018-05-20] MEDS ORDERED: Fentanyl 100 MCG/2 ML VIAL SLOW IVP PRN (11:15)
[2018-05-20] MEDS ORDERED: Guaifenesin DM 100-10/5 ML UDCUP PO PRN (11:15)
[2018-05-20] MEDS ORDERED: Dextrose 5% in Water 1,000 ML IV PRN (11:18)
[2018-05-20] MEDS ORDERED: Insulin Regular 300 UNITS/3 ML VIAL SC PRN (11:18)
[2018-05-20] MEDS ORDERED: Dextrose 50% Abboject 50 ML SYRINGE SLOW IVP PRN (11:18)
[2018-05-20] MEDS ORDERED: HUMULIN R 100 UNITS in Sodium Chloride 0.9% 100 ML IVPB SCH (11:18)
[2018-05-20] MEDS: Aspirin 81 mg Enteric Coated Tablet PO SCH (11:22)
[2018-05-20] MEDS: Famotidine 20 MG TAB PO SCH ×2 (11:23→20:11)
[2018-05-20] MEDS ORDERED: Magnesium 2 GM/50 ML 2 GM in Premix Bag 1 BAG IVPB SCH (11:30)
[2018-05-20 11:49] LABS: #Eosinphils 0.4 thou/uL (0.0-0.7); #Lymphocytes 2.7 thou/uL (1.20-3.40); #Monocytes 1.6 thou/uL (0.11-0.59); #Neutrophils 15.1 thou/uL (1.40-6.50); %Basophils 0.1 % (0.0-1.0); %Eosinophils 1.8 % (0.0-10.0); %Lymphocytes 13.6 % (21.0-51.0); %Monocytes 7.9 % (0.0-10.0); %Neutrophils 76.5 % (42.0-75.0); Hemoglobin 13.2 g/dL (14.0-18.0); Mean Corpuscular HGB CONC 33.2 g/dL (32.0-36.0); Mean Corpuscular Hemoglobin 32.2 pg (27.0-31.0); Mean Platelet Volume 10.3 fL (7.4-10.4); Platelet Count 173 thou/uL (130-400); White Blood Cell (WBC) Count 19.7 thou/uL (4.8-10.8)
[2018-05-20] MEDS: Morphine 2 MG/ML SYRINGE SLOW IVP PRN ×2 (11:52→13:44)
[2018-05-20] MEDS: Ketorolac Tromethamine 30 MG/ML VIAL IVP SCH ×2 (11:54→17:45)
--- NOTE | 2018-05-20 11:59 | RAD ---
Exam: Chest one view HISTORY:Status post open heart surgery Comparison: 05/14/2018 FINDINGS: There are sternotomy wires and endotracheal tube. Left-sided chest tube, mediastinal drainage cathete r are noted. There appear to be pleural and parenchymal changes in the left lung base. No obvious pneumothorax. IMPRESSION: Findings compatible with recent open heart surgery.
[2018-05-20 12:07] LABS: Actual Bicarbonate (HCO3a) 20.5 mEq/L (22-28); Base Excess (BEa) -5.1 mEq/L (-2.0 to +3.0); CO2 Tension 39.9 mmHg (35.0-45.0); Calcium, Ionized 1.12 mmol/L (1.12-1.30); Carboxyhemoglobin (COHb) 0.7 gm% (0.0-3.0); Hemoglobin (Hb) 13.6 g/dL (14.0-18.0); O2 Tension (PaO2) 89.5 mmHg (> 70.0); Potassium - ABG Lab 3.36 mmol/L (3.70-5.30); pH, Arterial 7.33 (7.35-7.45)
[2018-05-20 12:14] LABS: ALV-art Gradient 573.625 (0-20); Puncture Site ALINE
[2018-05-20 12:25] LABS: Anion Gap 16 mmol/L (10-20); BUN (Urea Nitrogen) 22 mg/dL (8.4-25.7); Calc. Creatinine Clearance 152 mL/min (70-130); Calcium 8.1 mg/dL (7.8-10.44); Carbon Dioxide 21 mmol/L (23-31); Chloride 105 mmol/L (98-107); Estimated GFR-MDRD Greater than 90; Glucose 202 mg/dL (83-110); Potassium 4.7 mmol/L (3.5-5.1); Sodium 137 mmol/L (136-145)
[2018-05-20 12:25] LABS: INR-International Normal Ratio 1.3; PTT 31.1 SEC (22.9-36.1); Prothrombin Time 15.8 SEC (12.0-14.7)
[2018-05-20] MEDS: CEFAZOLIN 2 GM in Premix Bag 1 BAG IVPB SCH ×2 (13:41→22:02)
[2018-05-20] MEDS: Fentanyl 100 MCG/2 ML VIAL SLOW IVP PRN ×3 (14:39→20:11)
--- NOTE | 2018-05-20 14:55 | OP ---
DATE OF PROCEDURE: 05/20/2018 PREOPERATIVE DIAGNOSES: Coronary artery disease/diabetes mellitus/hypertension/hyperlipidemia/morbid obesity. POSTOPERATIVE DIAGNOSES: Coronary artery disease/diabetes mellitus/hypertension/hyperlipidemia/morbid obesity. PROCEDURES PERFORMED: 1. Coronary artery bypass grafting x2-left internal mammary artery to 0.8 mm mid LAD-good conduit and small sclerotic target. 2. Reverse saphenous vein to 3.0 mm distal RCA-good conduit targets. Note: The patient's heart was rotated into the right chest. His aorta, right ventricle, and right coronary system were almost unapproachable due to this rotation and his size. I would not consider him for redo bypass under any circumstance. CO-SURGEON: Mj Godfrey MD ANESTHESIA: General endotracheal, Dr. David Manzo. PUMP TIME: 54 minutes. CROSS-CLAMP TIME: 37 minutes. LOW CORE TEMPERATURE: 34 degrees celsius. SALES SUPPORT MANAGER: Earlene Jiang. DRAINS: 24-Austrian chest tubes x3. DRIPS: None. TRANSFUSIONS: None. DESCRIPTION OF PROCEDURE: After consent was obtained, the patient was brought to the operating room and placed in supine position on the operating table. Appropriate central line was placed and general endotracheal anesthesia was induced. Chest, abdomen, and legs were prepped and draped in the usual sterile fashion. Greater saphenous vein was harvested from the left leg utilizing skip incisions. Wounds were irrigated and closed in layers. Median sternotomy was performed. Left internal mammary artery was harvested as a pedicle graft. The patient was systemically heparinized. Distal pedicle was divided and infused with papaverine. Thymic fat and pericardium were divided with electrocautery. Pericardial stay sutures were placed. The aorta was cannulated with a 20-[place] straight flexible cannula. The heart was rotated left manually. With rotation to be able to access the right atrial appendage, the patient rested. Pursestring suture was placed and the right atrial appendage rapidly cannulated. The patient was then placed on cardiopulmonary bypass. Rest time was approximately 30 seconds. Aortic cross-clamp was applied and antegrade sanguinous cardioplegic arrest was obtained. 1200 mL of cold [place] cardioplegia was given. Topical cold solution was used. Reverse saphenous vein was anastomosed to this RCA in end-to-side fashion with running 7-0 Prolene suture. Anastomosis was tested and was hemostatic. Mammary artery was brought through into the pericardium. The LAD was exposed at its midpoint. The mammary was anastomosed to LAD with running 7-0 Prolene suture. Prior to completion of the anastomosis, a 1 mm probe dilated both proximal and distal anastomoses. Anastomosis was completed and the clamp removed. There was good hemostasis. Mammary was re-clamped. Pedicle was screwed with interrupted 6-0 Prolene suture. Punch site was created for proximal anastomosis. Saphenous vein was anastomosed to the punch site in aorta with running 6-0 Prolene suture. Cross-clamp was removed. The mammary was unclamped. The patient was warmed and weaned from cardiopulmonary bypass. After resumption of sinus rhythm, good hemodynamics, temperature greater than 36.5, bypass was discontinued. Transfusion was given. Protamine was administered. Decannulation was performed. A pursestring suture secured. Hemostasis was ensured in the mediastinum. Vancomycin paste was placed on the sternal edges. After good hemostasis had been obtained, 24-[place]rian chest tubes x3 were placed in the mediastinum. The sternum was closed with #7 wire, three in the manubrium, one in the distal sternum. The mid sternum was closed with 4 zip ties. Ties were tightened and cut. The sternum was treated with platelet rich plasma. Wounds were then closed in layers and Dermabond applied to the skin. The patient tolerated the procedure well, was transferred to the intensive care unit in stable but in critical condition. Job ID: [id number]
[2018-05-20] MEDS ORDERED: Thrombin 5000 UNITS/5 ML VIAL ONE (16:32)
[2018-05-20] MEDS ORDERED: Potassium Chloride 60 MEQ/30 ML VIAL ONE (16:32)
[2018-05-20] MEDS ORDERED: Heparin 30,000 units/30 ml VIAL ONE (16:32)
[2018-05-20] MEDS ORDERED: Aminocaproic Acid 5 GM/20 ML VIAL ONE (16:32)
[2018-05-20] MEDS ORDERED: Papaverine 60 MG/2 ML VIAL ONE (16:32)
[2018-05-20] MEDS ORDERED: Protamine Sulfate 250 MG/25 ML VIAL ONE (16:32)
[2018-05-20] MEDS ORDERED: Sodium Bicarb 50 MEQ/50 ML VIAL ONE (16:32)
[2018-05-20] MEDS ORDERED: Lidocaine 2% PF 100 mg/5 ml Syringe ONE (16:32)
[2018-05-20] MEDS ORDERED: Vecuronium 10 MG VIAL ONE (16:32)
[2018-05-20] MEDS ORDERED: PROPOFOL 200 MG/20 ML VIAL ONE (16:32)
[2018-05-20] MEDS ORDERED: Magnesium 5 GM/10 ML VIAL ONE (16:32)
[2018-05-20] MEDS ORDERED: Cardioplegic Soln 1,000 ML BAG ONE (16:32)
[2018-05-20] MEDS ORDERED: Calcium Chloride 1 GM/10 ML Abboject SYRINGE ONE (16:32)
[2018-05-20] MEDS ORDERED: Rocuronium Bromide 10 MG/ML (10ML VIAL) ONE (16:32)
[2018-05-20] MEDS ORDERED: Mannitol 12.5 GM/50 ML ONE (16:32)
[2018-05-20] MEDS ORDERED: Succinylcholine Chloride 20 MG/ML 10 ml SYRINGE FS ONE (16:32)
[2018-05-20] MEDS ORDERED: Heparin 5,000 UNITS/ML VIAL ONE (16:32)
[2018-05-20 16:48] LABS: Hemoglobin 12.4 g/dL (14.0-18.0)
[2018-05-20] MEDS ORDERED: HEXTEND 6% LR 500ML 500 ML IVPB PRN (18:45)
[2018-05-20] MEDS: Atorvastatin Calcium 20 MG TAB PO SCH (20:11)
[2018-05-20] MEDS ORDERED: Famotidine/PF 20 mg/2ml Vial SLOW IVP SCH (21:00)
[2018-05-21] MEDS: Ketorolac Tromethamine 30 MG/ML VIAL IVP SCH ×2 (00:19→05:19)
[2018-05-21] MEDS: CEFAZOLIN 2 GM in Premix Bag 1 BAG IVPB SCH (05:20)
[2018-05-21 05:50] LABS: #Eosinphils 0.1 thou/uL (0.0-0.7); #Lymphocytes 1.1 thou/uL (1.20-3.40); #Monocytes 0.8 thou/uL (0.11-0.59); %Basophils 0.2 % (0.0-1.0); %Eosinophils 0.7 % (0.0-10.0); %Monocytes 7.9 % (0.0-10.0); %Neutrophils 80.2 % (42.0-75.0); Hemoglobin 11.1 g/dL (14.0-18.0); Mean Corpuscular HGB CONC 33.8 g/dL (32.0-36.0); Mean Corpuscular Hemoglobin 32.8 pg (27.0-31.0); Mean Corpuscular Volume 97.2 fL (78.0-98.0); Mean Platelet Volume 10.6 fL (7.4-10.4); Platelet Count 140 thou/uL (130-400); Red Blood Cell (RBC) Count 3.38 mill/uL (4.70-6.10); White Blood Cell (WBC) Count 9.9 thou/uL (4.8-10.8)
[2018-05-21 06:16] LABS: Anion Gap 10 mmol/L (10-20); BUN (Urea Nitrogen) 24 mg/dL (8.4-25.7); Calc. Creatinine Clearance 155 mL/min (70-130); Calcium 7.9 mg/dL (7.8-10.44); Carbon Dioxide 23 mmol/L (23-31); Chloride 108 mmol/L (98-107); Estimated GFR-MDRD Greater than 90; Glucose 153 mg/dL (83-110); Potassium 3.9 mmol/L (3.5-5.1); Sodium 137 mmol/L (136-145)
[2018-05-21] MEDS ORDERED: diphenhydrAMINE 25 MG CAP PO PRN (08:04)
[2018-05-21] MEDS ORDERED: Zolpidem Tartrate 5 MG TAB PO PRN (08:04)
[2018-05-21] MEDS ORDERED: Nitroglycerin 0.4 MG TAB (25 Tab Bottle) SL PRN (08:04)
[2018-05-21] MEDS ORDERED: Mag-Al 1200 mg/1200 mg/30 ML UDCUP PO PRN (08:04)
[2018-05-21] MEDS ORDERED: Artificial Tears 18 DROP/0.9 ML EA EYE PRN (08:04)
[2018-05-21] MEDS ORDERED: Guaifenesin DM 100-10/5 ML UDCUP PO PRN (08:04)
[2018-05-21] MEDS ORDERED: Mineral Oil ENEMA PR PRN (08:04)
[2018-05-21] MEDS ORDERED: Bisacodyl 10 MG SUPP PR PRN (08:04)
--- NOTE | 2018-05-21 08:34 | RAD ---
CHEST 1 VIEW: Date: 05/21/18 INDICATION: Status post open heart surgery. COMPARISON: Prior exam dated 05/20/18. FINDINGS: The patient has been intervally extubated. The right subclavian central venous catheter is unchanged. Left-sided thoracostomy tube is again noted. No pneumothorax is definitely evident. Cardiomegaly and mild pulmonary vascular congestion persist. Bilateral pleural effusions persist. IMPRESSION: 1. Interval extubation. 2. Persistent cardiomegaly, pulmonary vascular congestion, and small bilateral pleural effusions. 3. Stable left-sided thoracostomy tube and right subclavian central venous catheter. No pneumothorax . POS: BH
[2018-05-21] MEDS ORDERED: Dextrose 5% in Water 1,000 ML IV PRN (08:58)
[2018-05-21] MEDS ORDERED: Dextrose 50% Abboject 50 ML SYRINGE SLOW IVP PRN (08:58)
[2018-05-21] MEDS ORDERED: Aspirin 325 MG TAB PO SCH (09:00)
[2018-05-21] MEDS ORDERED: Magnesium 2 GM/50 ML 2 GM in Premix Bag 1 BAG IVPB SCH (09:00)
[2018-05-21] MEDS ORDERED: Furosemide 40 MG/4 ML VIAL SLOW IVP SCH ×2 (09:00→14:00)
[2018-05-21] MEDS: Aspirin 325 mg Enteric Coated Tablet PO SCH (09:16)
[2018-05-21] MEDS: Famotidine 20 MG TAB PO SCH ×2 (09:16→21:12)
[2018-05-21] MEDS: Docusate 100 MG CAP PO SCH ×2 (09:16→21:12)
[2018-05-21] MEDS: HYDROcodone/Acetaminophen 5/325 mg Tablet PO PRN ×2 (09:26→20:13)
--- NOTE | 2018-05-21 10:17 | EKG ---
Test Reason : Blood Pressure : / mmHG Vent. Rate : 070 BPM Atrial Rate : 070 BPM P-R Int : 120 ms QRS Dur : 076 ms QT Int : 376 ms P-R-T Axes : 000 074 045 degrees QTc Int : 406 ms Normal sinus rhythm Nonspecific ST abnormality Abnormal ECG Confirmed by FABIAN NOLASCO DO ([id number]), assignment desk editor BLAIR MERCADO ([id number]) on 05/21/2018 10:16:50 AM Referred By: Confirmed By:FABIAN NOLASCO DO
[2018-05-21] MEDS: Insulin Regular 300 UNITS/3 ML VIAL SC PRN ×3 (11:19→21:14)
--- NOTE | 2018-05-21 11:33 | PDOC.PN ---
- Subjective Encounter Start Date: 05/21/18 Encounter Start Time: 11:31 Subjective: s/p CABG 05/20/2018 -: C/o chest pain. -: Feeling good. No fever or SOB. Extubated earlier - Objective Vital Signs & Weight: Vital Signs (12 hours) Temp Pulse Resp Pulse Ox 05/21/18 08:00 98.1 F 96 05/21/18 04:00 97.8 F 05/21/18 00:06 77 19 98 05/21/18 00:00 98.4 F Weight Weight 304 lb 8 oz Most Recent Monitor Data Heart Rate from ECG 86 NIBP 127/65 NIBP BP-Mean 85 Respiration from ECG 18 SpO2 93 I&O: 05/20/18 05/21/18 05/22/18 06:59 06:59 06:59 Intake Total 1180 2394.2 346 Output Total 850 1775 880 Balance 330 619.2 -534 Result Diagrams: 05/21/18 05:36 05/21/18 05:36 Additional Labs: Accuchecks 05/21/18 05/21/18 05/21/18 11:07 06:21 05:22 POC Glucose 209 H 137 H 148 H 05/21/18 05/21/18 05/21/18 04:10 03:07 02:06 POC Glucose 131 H 131 H 112 H 05/21/18 05/21/18 05/20/18 01:27 00:23 23:09 POC Glucose 107 92 100 05/20/18 05/20/18 05/20/18 22:07 21:09 20:12 POC Glucose 115 H 120 H 135 H 05/20/18 05/20/18 05/20/18 19:08 18:38 17:39 POC Glucose 114 H 127 H 139 H 05/20/18 05/20/18 05/20/18 16:10 15:03 13:45 POC Glucose 165 H 161 H 179 H 05/20/18 05/20/18 05/20/18 12:40 11:39 09:56 POC Glucose 181 H 198 H 183 H 05/20/18 09:34 POC Glucose 174 H Phys Exam - Physical Examination Constitutional: NAD obese HEENT: PERRLA, moist MMs Neck: no JVD, supple Respiratory: no wheezing, no rales, no rhonchi, clear to auscultation bilateral Left chest tube and anterior chest dressing noted Cardiovascular: RRR Gastrointestinal: soft, non-tender, no distention, positive bowel sounds obese Musculoskeletal: pulses present mild to moderate left leg edema Neurological: non-focal, moves all 4 limbs Psychiatric: A&O x 3 Dx/Plan (1) NSTEMI (non-ST elevated myocardial infarction) Code(s): I21.4 - NON-ST ELEVATION (NSTEMI) MYOCARDIAL INFARCTION Status: Acute Comment: s/p Cardiac cath which showed severe 2 vessel disease including LAD. S/p CABG 05/20/2018 (2) Type 2 diabetes mellitus Status: Acute Comment: Inadequately controlled with Hba1c of 9. Glycemic control is better (3) Morbid obesity Code(s): E66.01 - MORBID (SEVERE) OBESITY DUE TO EXCESS CALORIES Status: Acute (4) CAD (coronary artery disease), [place] coronary artery Code(s): I25.10 - ATHSCL HEART DISEASE OF [place] CORONARY ARTERY W/O ANG PCTRS Status: Acute Comment: S/p CABG 05/20/2018 (5) Hyperlipidemia Code(s): E78.5 - HYPERLIPIDEMIA, UNSPECIFIED Status: Acute Comment: On statin (6) Hypertension Code(s): I10 - ESSENTIAL (PRIMARY) HYPERTENSION Status: Acute Comment: Control acceptable (7) Allergy to iodine Code(s): Z88.8 - ALLERGY STATUS TO OTH DRUG/MEDS/BIOL SUBST STATUS Status: Acute (8) Acute blood loss anemia Code(s): D62 - ACUTE POSTHEMORRHAGIC ANEMIA Status: Acute (9) SHEY on CPAP Code(s): G47.33 - OBSTRUCTIVE SLEEP APNEA (ADULT) (PEDIATRIC); Z99.89 - DEPENDENCE ON OTHER ENABLING MACHINES AND DEVICES Status: Acute - Plan Continue insulin therapy. Will restart metformin tomorrow -: Chest tube mgt as per CTS. -: Analgesic as needed -: IS to continue. -: Continue lipitor and antiplatets. Monitor H/H and renal function/electrolyt * .
[2018-05-21] MEDS ORDERED: Insulin Glargine 12 UNITS in Pre-Filled Syringe 1 EACH SC SCH (21:00)
[2018-05-21] MEDS: Atorvastatin Calcium 20 MG TAB PO SCH (21:12)
[2018-05-22] MEDS: HYDROcodone/Acetaminophen 5/325 mg Tablet PO PRN ×4 (04:56→22:00)
[2018-05-22 06:39] LABS: #Basophils 0.1 thou/uL (0.0-0.2); #Eosinphils 0.3 thou/uL (0.0-0.7); #Lymphocytes 1.8 thou/uL (1.20-3.40); #Monocytes 1.9 thou/uL (0.11-0.59); %Basophils 0.5 % (0.0-1.0); %Eosinophils 2.5 % (0.0-10.0); %Monocytes 14.1 % (0.0-10.0); %Neutrophils 68.9 % (42.0-75.0); Hemoglobin 12.2 g/dL (14.0-18.0); Mean Corpuscular HGB CONC 32.2 g/dL (32.0-36.0); Mean Corpuscular Hemoglobin 31.6 pg (27.0-31.0); Mean Platelet Volume 10.9 fL (7.4-10.4); Platelet Count 150 thou/uL (130-400); Red Blood Cell (RBC) Count 3.87 mill/uL (4.70-6.10); White Blood Cell (WBC) Count 13.1 thou/uL (4.8-10.8)
[2018-05-22] MEDS: Diltiazem HCl 125 MG, Admixture Fee 1 EACH in Sodium Chloride 0.9% 100 ML IVPB SCH (06:54)
[2018-05-22 06:57] LABS: Anion Gap 11 mmol/L (10-20); BUN (Urea Nitrogen) 24 mg/dL (8.4-25.7); Calc. Creatinine Clearance 131 mL/min (70-130); Calcium 8.4 mg/dL (7.8-10.44); Carbon Dioxide 28 mmol/L (23-31); Chloride 100 mmol/L (98-107); Estimated GFR-MDRD 86; Glucose 190 mg/dL (83-110); Potassium 3.9 mmol/L (3.5-5.1); Sodium 135 mmol/L (136-145)
[2018-05-22] MEDS: Insulin Regular 300 UNITS/3 ML VIAL SC PRN ×3 (07:19→18:11)
--- NOTE | 2018-05-22 08:16 | RAD ---
CHEST 1 VIEW: Date: 05/22/18 INDICATION: Status post CABG. COMPARISON: Prior exam dated 05/21/18. FINDINGS: Right subclavian central venous catheter is stable appearing. Midline sternotomy changes are similar appearing. Cardiomegaly persists. Mild pulmonary vascular congestion is similar appearing. Small bila teral pleural effusions are stable. Osseous structures are unchanged. IMPRESSION: Stable exam. No pneumothorax. POS: BH
[2018-05-22] MEDS ORDERED: Furosemide 40 MG/4 ML VIAL SLOW IVP SCH ×2 (08:45→15:00)
--- NOTE | 2018-05-22 08:55 | PDOC.PN ---
- Subjective Encounter Start Date: 05/22/18 Encounter Start Time: 08:55 Subjective: Flipped into afib with RVR and was started on cardizem infusion. -: No fever, SOB or change in bowel habit. - Objective Vital Signs & Weight: Vital Signs (12 hours) Temp 05/22/18 04:00 98.8 F 05/22/18 00:00 98.8 F Weight Weight 280 lb 3.32 oz Most Recent Monitor Data Heart Rate from ECG 97 NIBP 109/69 NIBP BP-Mean 82 Respiration from ECG 24 SpO2 93 I&O: 05/21/18 05/22/18 05/23/18 06:59 06:59 06:59 Intake Total 2394.2 906 Output Total 1775 4395 50 Balance 619.2 -3489 -50 Result Diagrams: 05/22/18 05:52 05/22/18 05:52 Additional Labs: Accuchecks 05/22/18 05/21/18 05/21/18 05:56 21:16 16:37 POC Glucose 199 H 199 H 229 H 05/21/18 11:07 POC Glucose 209 H Phys Exam - Physical Examination Constitutional: NAD morbidly obese HEENT: PERRLA, moist MMs Neck: supple Respiratory: no wheezing, no rhonchi fair air entry, decreased at the bases Cardiovascular: irregular tachycardic Gastrointestinal: soft, non-tender, no distention, positive bowel sounds obese Musculoskeletal: pulses present mild bilateral leg edema L chest tube noted Neurological: non-focal, moves all 4 limbs Psychiatric: A&O x 3 Dx/Plan (1) Paroxysmal atrial fibrillation with rapid ventricular response Code(s): I48.0 - PAROXYSMAL ATRIAL FIBRILLATION Status: Acute Comment: New onset. (2) NSTEMI (non-ST elevated myocardial infarction) Code(s): I21.4 - NON-ST ELEVATION (NSTEMI) MYOCARDIAL INFARCTION Status: Acute Comment: s/p Cardiac cath which showed severe 2 vessel disease including LAD. S/p CABG 05/20/2018 (3) Type 2 diabetes mellitus Status: Acute Comment: Inadequately controlled with Hba1c of 9. Glycemic control is better (4) Morbid obesity Code(s): E66.01 - MORBID (SEVERE) OBESITY DUE TO EXCESS CALORIES Status: Acute (5) CAD (coronary artery disease), [place] coronary artery Code(s): I25.10 - ATHSCL HEART DISEASE OF [place] CORONARY ARTERY W/O ANG PCTRS Status: Acute Comment: S/p CABG 05/20/2018 (6) Hyperlipidemia Code(s): E78.5 - HYPERLIPIDEMIA, UNSPECIFIED Status: Acute Comment: On statin (7) Hypertension Code(s): I10 - ESSENTIAL (PRIMARY) HYPERTENSION Status: Acute Comment: Control acceptable (8) Allergy to iodine Code(s): Z88.8 - ALLERGY STATUS TO OTH DRUG/MEDS/BIOL SUBST STATUS Status: Acute (9) Acute blood loss anemia Code(s): D62 - ACUTE POSTHEMORRHAGIC ANEMIA Status: Acute (10) SHEY on CPAP Code(s): G47.33 - OBSTRUCTIVE SLEEP APNEA (ADULT) (PEDIATRIC); Z99.89 - DEPENDENCE ON OTHER ENABLING MACHINES AND DEVICES Status: Acute (11) Volume overload Code(s): E87.70 - FLUID OVERLOAD, UNSPECIFIED Status: Acute - Plan Continue cardizem infusion. -: Give lasix 40 IVP q6h x 2 for volume overload. Give kcl 20 with lasix. -: Increase lantus. start metformin to get adequate glycemic control. -: PT to continue. -: Chest tube mgt as per Pulm/CTS. Monitor renal function and electrolytes * .
[2018-05-22] MEDS ORDERED: Insulin Glargine 20 UNITS in Pre-Filled Syringe 1 EACH SC SCH (09:00)
[2018-05-22] MEDS: Aspirin 325 mg Enteric Coated Tablet PO SCH (09:05)
[2018-05-22] MEDS: metFORMIN 500 MG TAB PO SCH ×2 (09:05→16:34)
[2018-05-22] MEDS: Famotidine 20 MG TAB PO SCH ×2 (09:05→21:55)
[2018-05-22] MEDS: Docusate 100 MG CAP PO SCH ×2 (09:05→21:54)
[2018-05-22] MEDS ORDERED: Digoxin 0.5 MG/2 ML AMP SLOW IVP SCH ×2 (10:00→16:00)
--- NOTE | 2018-05-22 16:28 | PRG ---
DATE OF SERVICE: 05/22/2018 SUBJECTIVE: Mr. Salas is a very pleasant 77-year-old gentleman, who underwent bypass surgery. He is postop day #2. He has developed atrial fibrillation this morning with rapid ventricular response, so we started him on IV diltiazem. He remains in atrial fibrillation. We will continue to monitor this and also change medications as needed. OBJECTIVE: VITAL SIGNS: His blood pressure is 133/86, heart rate is 115 and 120s with atrial fibrillation, and O2 saturations are 90%. GENERAL: He is asymptomatic. He did not realize he had atrial fibrillation. CHEST: His chest is actually clear to auscultation. Chest tubes are still in. HEART: He is in irregular rhythm with tachycardia. Otherwise, he has no complaints. EXTREMITIES: He has no significant lower extremity edema. ABDOMEN: Minimal bowel sounds are present. LABORATORY DATA: Shows a WBC of 13.1, hemoglobin was 12.2, platelet count is 150,000. Sodium is 135, creatinine 0.86, and blood sugar is 199. MEDICATIONS: Include: 1. IV diltiazem. 2. Insulin. 3. Aspirin 325. 4. Atorvastatin 20 mg q.p.m. He is also taking Pepcid, Lasix as needed, metformin, potassium replacement, other p.r.n. medications. IMPRESSION: 1. A 77-year-old gentleman, status post bypass surgery for coronary artery disease. He has been doing relatively well from a coronary artery standpoint. 2. Atrial fibrillation with rapid ventricular response. We will continue to medically treat this for now and hopefully will resolve. 3. History of hypercholesterolemia. We will resume his statin medications. 4. Diabetes. He is already back on his metformin. We will continue to monitor this. Otherwise, he seems to be doing quite well. Once the chest tubes are out, then most likely he can transfer to the Telemetry floor. Job ID: [id number]
[2018-05-22] MEDS: Potassium Chloride 20 MEQ TAB PO SCH (16:34)
[2018-05-22] MEDS: Bisacodyl 5 MG TAB PO PRN (16:34)
[2018-05-22] MEDS: glipiZIDE 5 MG TAB PO SCH (16:34)
[2018-05-22] MEDS: Atorvastatin Calcium 20 MG TAB PO SCH (21:55)
[2018-05-23] MEDS: Diltiazem HCl 125 MG, Admixture Fee 1 EACH in Sodium Chloride 0.9% 100 ML IVPB SCH (03:39)
--- NOTE | 2018-05-23 06:13 | PDOC.CTH ---
Cardiology Progress Note - Subjective Doing well. No complaints - Objective Vital Signs Temp Pulse Resp BP Pulse Ox 05/22/18 20:00 97.7 F 84 18 113/59 L 94 L Weight 307 lb 2 oz 05/21/18 05/22/18 05/23/18 06:59 06:59 06:59 Intake Total 2394.2 906 790 Output Total 1775 4395 2975 Balance 619.2 -4483 -9719 - Physical Examination General/Neuro: alert & oriented x3, NAD Neck: carotid US brisk, no JVD present Lungs: CTA, unlabored respirations Heart: PMI normal, RRR Abdomen: NT/ND, soft Extremities: + femoral B - Telemetry Telemetry Rhythm: sr - Labs Result Diagrams: 05/22/18 05:52 05/22/18 05:52 Troponin/CKMB CK-MB (CK-2) 1.8 ng/mL (0-6.6) 05/14/18 22:16 Troponin I 0.480 ng/mL (< 0.028) H* 05/15/18 01:50 - Assessment/Plan CAD s/p CABG DM Obesity BB, statin and ASA IS and PT Pt with post op afib now SR on IV CCB. Stop IV CCB and increase BB
[2018-05-23] MEDS ORDERED: Metolazone 5 MG TAB PO SCH (06:15)
[2018-05-23] MEDS: HYDROcodone/Acetaminophen 5/325 mg Tablet PO PRN ×3 (06:29→20:27)
[2018-05-23] MEDS: glipiZIDE 5 MG TAB PO SCH ×2 (08:23→18:36)
[2018-05-23] MEDS: Potassium Chloride 20 MEQ TAB PO SCH ×3 (08:23→18:37)
[2018-05-23] MEDS: metFORMIN 500 MG TAB PO SCH ×2 (08:23→18:36)
[2018-05-23] MEDS: Aspirin 325 mg Enteric Coated Tablet PO SCH (08:24)
[2018-05-23] MEDS: Famotidine 20 MG TAB PO SCH ×2 (08:24→20:26)
[2018-05-23] MEDS: Docusate 100 MG CAP PO SCH ×2 (08:24→20:27)
[2018-05-23] MEDS: Insulin Glargine 30 UNITS in Pre-Filled Syringe 1 EACH SC SCH (08:25)
[2018-05-23] MEDS: Furosemide 20 MG TAB PO SCH ×2 (08:25→13:10)
[2018-05-23] MEDS: Insulin Regular 300 UNITS/3 ML VIAL SC PRN ×3 (08:30→21:36)
[2018-05-23] MEDS ORDERED: Metoprolol Tartrate 25 MG TAB PO SCH (09:00)
[2018-05-23] MEDS: Metoprolol Tartrate 25 MG TAB PO SCH ×2 (09:15→20:26)
[2018-05-23 10:06] LABS: #Basophils 0.1 thou/uL (0.0-0.2); #Eosinphils 0.3 thou/uL (0.0-0.7); #Lymphocytes 1.5 thou/uL (1.20-3.40); #Monocytes 1.5 thou/uL (0.11-0.59); #Neutrophils 8.2 thou/uL (1.40-6.50); %Basophils 0.5 % (0.0-1.0); %Eosinophils 2.3 % (0.0-10.0); %Lymphocytes 13.2 % (21.0-51.0); %Monocytes 12.8 % (0.0-10.0); %Neutrophils 71.2 % (42.0-75.0); Mean Corpuscular HGB CONC 33.3 g/dL (32.0-36.0); Mean Corpuscular Hemoglobin 32.5 pg (27.0-31.0); Mean Corpuscular Volume 97.4 fL (78.0-98.0); Mean Platelet Volume 10.5 fL (7.4-10.4); Platelet Count 180 thou/uL (130-400); RBC Distribution Width 12.9 % (11.5-14.5); White Blood Cell (WBC) Count 11.6 thou/uL (4.8-10.8)
[2018-05-23 10:12] LABS: Anion Gap 12 mmol/L (10-20); BUN (Urea Nitrogen) 31 mg/dL (8.4-25.7); Calc. Creatinine Clearance 128 mL/min (70-130); Calcium 8.8 mg/dL (7.8-10.44); Carbon Dioxide 29 mmol/L (23-31); Chloride 98 mmol/L (98-107); Estimated GFR-MDRD 75; Glucose 208 mg/dL (83-110); Potassium 4.1 mmol/L (3.5-5.1); Sodium 135 mmol/L (136-145)
[2018-05-23 11:48] LABS: Actual Bicarbonate (HCO3a) 21.3 mEq/L (22-28); Analyzer IN Cardio OR; Base Excess (BEa) -3.7 mEq/L (-2.0 to +3.0); Calcium, Ionized 1.08 mmol/L (1.12-1.30); Carboxyhemoglobin (COHb) 1.3 gm% (0.0-3.0); O2 Tension (PaO2) 136.8 mmHg (> 70.0); Potassium - ABG Lab 3.74 mmol/L (3.70-5.30); pH, Arterial 7.36 (7.35-7.45)
[2018-05-23 11:49] LABS: Actual Bicarbonate (HCO3a) 21.8 mEq/L (22-28); Analyzer IN Cardio OR; Base Excess (BEa) -3.3 mEq/L (-2.0 to +3.0); CO2 Tension 39.7 mmHg (35.0-45.0); Calcium, Ionized 0.93 mmol/L (1.12-1.30); Carboxyhemoglobin (COHb) 0.3 gm% (0.0-3.0); Hemoglobin (Hb) 11.2 g/dL (14.0-18.0); O2 Tension (PaO2) 486.3 mmHg (> 70.0); Potassium - ABG Lab 4.03 mmol/L (3.70-5.30); pH, Arterial 7.36 (7.35-7.45)
[2018-05-23 11:49] LABS: Actual Bicarbonate (HCO3v) 41 mEq/L (22-28); Analyzer IN Cardio OR; Base Excess 15.6 mEq/L (-2.0 to +3.0); Calcium, Ionized 0.77 mmol/L (1.16-1.32); Chloride (ABG LAB) 99 mmol/L (98-106); Hemoglobin (Hb) 10.8 g/dL (12.6-17.4); Potassium - ABG Lab 3.49 mmol/L (3.70-5.30); Sodium 144.3 mmol/L (133-146); pH (venous) 7.48 (7.32-7.43)
[2018-05-23 11:49] LABS: Actual Bicarbonate (HCO3a) 20.8 mEq/L (22-28); Analyzer IN Cardio OR; Base Excess (BEa) -4.5 mEq/L (-2.0 to +3.0); CO2 Tension 39.4 mmHg (35.0-45.0); Calcium, Ionized 1.08 mmol/L (1.12-1.30); Carboxyhemoglobin (COHb) 0.6 gm% (0.0-3.0); Hemoglobin (Hb) 14.7 g/dL (14.0-18.0); O2 Tension (PaO2) 180.9 mmHg (> 70.0); Potassium - ABG Lab 3.65 mmol/L (3.70-5.30); pH, Arterial 7.34 (7.35-7.45)
[2018-05-23 11:50] LABS: Actual Bicarbonate (HCO3a) 22.3 mEq/L (22-28); Analyzer IN Cardio OR; Base Excess (BEa) -0.6 mEq/L (-2.0 to +3.0); CO2 Tension 30.9 mmHg (35.0-45.0); Calcium, Ionized 0.93 mmol/L (1.12-1.30); Carboxyhemoglobin (COHb) 0.2 gm% (0.0-3.0); Hemoglobin (Hb) 10.7 g/dL (14.0-18.0); O2 Tension (PaO2) 413.7 mmHg (> 70.0); Potassium - ABG Lab 4.17 mmol/L (3.70-5.30); pH, Arterial 7.48 (7.35-7.45)
[2018-05-23 11:50] LABS: Actual Bicarbonate (HCO3a) 22.7 mEq/L (22-28); Analyzer IN Cardio OR; Base Excess (BEa) -1.8 mEq/L (-2.0 to +3.0); CO2 Tension 37.5 mmHg (35.0-45.0); Calcium, Ionized 1.17 mmol/L (1.12-1.30); Carboxyhemoglobin (COHb) 0.2 gm% (0.0-3.0); Hemoglobin (Hb) 11.1 g/dL (14.0-18.0); O2 Tension (PaO2) 105.5 mmHg (> 70.0); Potassium - ABG Lab 3.86 mmol/L (3.70-5.30)
[2018-05-23 11:52] LABS: Actual Bicarbonate (HCO3a) 23.8 mEq/L (22-28); Analyzer IN Cardio OR; Base Excess (BEa) -0.7 mEq/L (-2.0 to +3.0); CO2 Tension 38.8 mmHg (35.0-45.0); Calcium, Ionized 1.19 mmol/L (1.12-1.30); Carboxyhemoglobin (COHb) 0.7 gm% (0.0-3.0); Hemoglobin (Hb) 12.4 g/dL (14.0-18.0); O2 Tension (PaO2) 300.3 mmHg (> 70.0); Potassium - ABG Lab 3.69 mmol/L (3.70-5.30); pH, Arterial 7.41 (7.35-7.45)
[2018-05-23 11:54] LABS: Puncture Site ALINE
[2018-05-23 11:54] LABS: Puncture Site ALINE
[2018-05-23 11:55] LABS: Puncture Site ALINE
[2018-05-23 11:55] LABS: Puncture Site ALINE
[2018-05-23 11:56] LABS: Puncture Site ALINE
[2018-05-23 11:56] LABS: Puncture Site ALINE
[2018-05-23] MEDS: Bisacodyl 5 MG TAB PO PRN (12:04)
--- NOTE | 2018-05-23 16:14 | PDOC.PN ---
- Subjective Encounter Start Date: 05/23/18 Encounter Start Time: 10:12 Subjective: Seen and examined. Feeling better. -: Chest tube is off. - Objective Vital Signs & Weight: Vital Signs (12 hours) Temp Pulse Pulse Pulse Resp BP BP 05/23/18 13:45 88 83 148/77 H 120/65 05/23/18 12:55 97.6 F 81 18 05/23/18 10:01 83 79 144/81 H 114/65 05/23/18 07:35 05/23/18 07:19 98.4 F 96 18 BP Pulse Ox Pulse Ox Pulse Ox 05/23/18 13:45 93 L 95 05/23/18 12:55 118/63 94 L 05/23/18 10:01 99 90 L 05/23/18 07:35 96 05/23/18 07:19 124/66 94 L Weight Weight 307 lb 2 oz Most Recent Monitor Data Heart Rate from ECG 101 NIBP 94/59 NIBP BP-Mean 70 Respiration from ECG 27 SpO2 92 I&O: 05/22/18 05/23/18 05/24/18 06:59 06:59 06:59 Intake Total 906 790 Output Total 4395 2975 Balance -7099 -8300 Result Diagrams: 05/23/18 09:45 05/23/18 09:45 Additional Labs: Accuchecks 05/23/18 05/23/18 05/22/18 10:54 05:37 20:25 POC Glucose 223 H 207 H 146 H 05/22/18 16:48 POC Glucose 251 H Phys Exam - Physical Examination Constitutional: NAD obese HEENT: PERRLA, moist MMs Neck: supple Respiratory: no rales, no rhonchi fair air entry bilaterally Cardiovascular: RRR Gastrointestinal: soft, non-tender, no distention, positive bowel sounds obese mild bilateral leg edema Neurological: non-focal, moves all 4 limbs Psychiatric: A&O x 3 Dx/Plan (1) Paroxysmal atrial fibrillation with rapid ventricular response Code(s): I48.0 - PAROXYSMAL ATRIAL FIBRILLATION Status: Acute Comment: New onset. Back in sinus (2) NSTEMI (non-ST elevated myocardial infarction) Code(s): I21.4 - NON-ST ELEVATION (NSTEMI) MYOCARDIAL INFARCTION Status: Acute Comment: s/p Cardiac cath which showed severe 2 vessel disease including LAD. S/p CABG 05/20/2018 (3) Type 2 diabetes mellitus Status: Acute Comment: Inadequately controlled with Hba1c of 9. Glycemic control is better (4) Morbid obesity Code(s): E66.01 - MORBID (SEVERE) OBESITY DUE TO EXCESS CALORIES Status: Acute (5) CAD (coronary artery disease), [place] coronary artery Code(s): I25.10 - ATHSCL HEART DISEASE OF [place] CORONARY ARTERY W/O ANG PCTRS Status: Acute Comment: S/p CABG 05/20/2018 (6) Hyperlipidemia Code(s): E78.5 - HYPERLIPIDEMIA, UNSPECIFIED Status: Acute Comment: On statin (7) Hypertension Code(s): I10 - ESSENTIAL (PRIMARY) HYPERTENSION Status: Acute Comment: Control acceptable (8) Allergy to iodine Code(s): Z88.8 - ALLERGY STATUS TO OTH DRUG/MEDS/BIOL SUBST STATUS Status: Acute (9) Acute blood loss anemia Code(s): D62 - ACUTE POSTHEMORRHAGIC ANEMIA Status: Acute (10) SHEY on CPAP Code(s): G47.33 - OBSTRUCTIVE SLEEP APNEA (ADULT) (PEDIATRIC); Z99.89 - DEPENDENCE ON OTHER ENABLING MACHINES AND DEVICES Status: Acute (11) Volume overload Code(s): E87.70 - FLUID OVERLOAD, UNSPECIFIED Status: Acute - Plan Increase lantus to 30 units qam. Continue metformin and sliding scale insul -: Rate control and BP as per cardiology. -: Continue lasix. -: Increase activity. -: Wean off oxygen. * .
[2018-05-23] MEDS: Atorvastatin Calcium 20 MG TAB PO SCH (20:27)
--- NOTE | 2018-05-23 22:33 | EKG ---
Test Reason : POST CABG Blood Pressure : / mmHG Vent. Rate : 085 BPM Atrial Rate : 085 BPM P-R Int : 142 ms QRS Dur : 086 ms QT Int : 376 ms P-R-T Axes : 047 060 020 degrees QTc Int : 447 ms Normal sinus rhythm Nonspecific T wave abnormality Abnormal ECG When compared with ECG of 17-MAY-2018 07:56, QT has lengthened Confirmed by Clarke LOPES ([id number]) on 05/23/2018 10:33:21 PM Referred By: Pawel LUOISE Confirmed By:Clarke LOPES
--- NOTE | 2018-05-23 22:44 | EKG ---
Test Reason : STAT Blood Pressure : / mmHG Vent. Rate : 124 BPM Atrial Rate : 182 BPM P-R Int : 000 ms QRS Dur : 080 ms QT Int : 300 ms P-R-T Axes : 000 053 040 degrees QTc Int : 431 ms Atrial fibrillation with rapid ventricular response Nonspecific T wave abnormality Abnormal ECG When compared with ECG of 20-MAY-2018 11:47, (Unconfirmed) Atrial fibrillation has replaced Sinus rhythm Confirmed by Clarke LOPES ([id number]) on 05/23/2018 10:44:03 PM Referred By: Frankie FULTON Confirmed By:Clarke LOPES
[2018-05-24] MEDS: HYDROcodone/Acetaminophen 5/325 mg Tablet PO PRN ×3 (04:43→21:05)
[2018-05-24 06:03] LABS: Anion Gap 15 mmol/L (10-20); BUN (Urea Nitrogen) 34 mg/dL (8.4-25.7); Calc. Creatinine Clearance 115 mL/min (70-130); Calcium 9.2 mg/dL (7.8-10.44); Carbon Dioxide 30 mmol/L (23-31); Chloride 94 mmol/L (98-107); Estimated GFR-MDRD 69; Glucose 135 mg/dL (83-110); Potassium 3.7 mmol/L (3.5-5.1); Sodium 135 mmol/L (136-145)
[2018-05-24 06:11] LABS: Band 8 % (5-11); Eosinophils 1 % (0-10); Hemoglobin 13.8 g/dL (14.0-18.0); Lymphocytes 19 % (21-51); MDiff Complete? YES; Mean Corpuscular HGB CONC 33.8 g/dL (32.0-36.0); Mean Corpuscular Hemoglobin 32.6 pg (27.0-31.0); Mean Corpuscular Volume 96.3 fL (78.0-98.0); Mean Platelet Volume 10.1 fL (7.4-10.4); Monocytes 18 % (0-10); Neutrophil 54 % (42-75); Platelet Count 225 thou/uL (130-400); RBC Distribution Width 12.8 % (11.5-14.5); Red Blood Cell (RBC) Count 4.22 mill/uL (4.70-6.10); White Blood Cell (WBC) Count 13.8 thou/uL (4.8-10.8)
[2018-05-24] MEDS: metFORMIN 500 MG TAB PO SCH (09:06)
[2018-05-24] MEDS: glipiZIDE 5 MG TAB PO SCH ×2 (09:06→17:31)
[2018-05-24] MEDS: Potassium Chloride 20 MEQ TAB PO SCH ×2 (09:06→09:07)
[2018-05-24] MEDS: Metoprolol Tartrate 25 MG TAB PO SCH ×2 (09:10→20:08)
[2018-05-24] MEDS: Furosemide 20 MG TAB PO SCH ×2 (09:10→19:11)
[2018-05-24] MEDS: Aspirin 325 mg Enteric Coated Tablet PO SCH (09:10)
[2018-05-24] MEDS: Docusate 100 MG CAP PO SCH ×2 (09:10→20:07)
[2018-05-24] MEDS: Famotidine 20 MG TAB PO SCH ×2 (09:11→20:08)
[2018-05-24] MEDS: Insulin Glargine 30 UNITS in Pre-Filled Syringe 1 EACH SC SCH (09:11)
[2018-05-24] MEDS ORDERED: metFORMIN 500 MG TAB PO SCH (15:19)
--- NOTE | 2018-05-24 15:21 | PDOC.PN ---
- Subjective Encounter Start Date: 05/24/18 Encounter Start Time: 15:20 Subjective: Complaining of dizziness on standing. -: No chest pain or SOB. - Objective Vital Signs & Weight: Vital Signs (12 hours) Temp Pulse Pulse Pulse Resp BP BP 05/24/18 14:15 05/24/18 13:50 84 121/78 111/54 L 05/24/18 12:00 97.3 F L 80 18 05/24/18 10:20 86 86 95/65 113/62 05/24/18 08:00 97.7 F 93 18 05/24/18 04:00 97.5 F L 79 20 BP BP BP BP Pulse Ox Pulse Ox Pulse Ox 05/24/18 14:15 125/62 138/70 05/24/18 13:50 124/70 97 05/24/18 12:00 123/70 95 05/24/18 10:20 136/87 96 05/24/18 08:00 137/70 93 L 05/24/18 04:00 118/68 93 L Pulse Ox 05/24/18 14:15 05/24/18 13:50 96 05/24/18 12:00 05/24/18 10:20 97 05/24/18 08:00 05/24/18 04:00 Weight Weight 298 lb 8 oz Most Recent Monitor Data Heart Rate from ECG 101 NIBP 94/59 NIBP BP-Mean 70 Respiration from ECG 27 SpO2 92 I&O: 05/23/18 05/24/18 05/25/18 06:59 06:59 06:59 Intake Total 790 1440 Output Total 2975 1400 Balance -2185 40 Result Diagrams: 05/24/18 05:30 05/24/18 05:30 Additional Labs: Accuchecks 05/24/18 05/24/18 05/23/18 10:51 05:52 20:18 POC Glucose 227 H 153 H 286 H Phys Exam - Physical Examination Constitutional: NAD morbidly obese HEENT: PERRLA, moist MMs Neck: no JVD, supple fair air entry bilaterally.No rhonchi or distress Cardiovascular: RRR, no significant murmur Gastrointestinal: soft, non-tender, no distention, positive bowel sounds obese trace bilateral leg edema Neurological: non-focal, moves all 4 limbs Psychiatric: A&O x 3 Dx/Plan (1) NSTEMI (non-ST elevated myocardial infarction) Code(s): I21.4 - NON-ST ELEVATION (NSTEMI) MYOCARDIAL INFARCTION Status: Acute Comment: s/p Cardiac cath which showed severe 2 vessel disease including LAD. S/p CABG 05/20/2018 (2) Paroxysmal atrial fibrillation with rapid ventricular response Code(s): I48.0 - PAROXYSMAL ATRIAL FIBRILLATION Status: Acute Comment: New onset. Back in sinus (3) Type 2 diabetes mellitus Status: Acute Comment: Inadequately controlled with Hba1c of 9. Glycemic control is better (4) Morbid obesity Code(s): E66.01 - MORBID (SEVERE) OBESITY DUE TO EXCESS CALORIES Status: Acute (5) CAD (coronary artery disease), [place] coronary artery Code(s): I25.10 - ATHSCL HEART DISEASE OF [place] CORONARY ARTERY W/O ANG PCTRS Status: Acute Comment: S/p CABG 05/20/2018 (6) Hyperlipidemia Code(s): E78.5 - HYPERLIPIDEMIA, UNSPECIFIED Status: Acute Comment: On statin (7) Hypertension Code(s): I10 - ESSENTIAL (PRIMARY) HYPERTENSION Status: Acute Comment: Control acceptable (8) Allergy to iodine Code(s): Z88.8 - ALLERGY STATUS TO OTH DRUG/MEDS/BIOL SUBST STATUS Status: Acute (9) Acute blood loss anemia Code(s): D62 - ACUTE POSTHEMORRHAGIC ANEMIA Status: Acute (10) SHEY on CPAP Code(s): G47.33 - OBSTRUCTIVE SLEEP APNEA (ADULT) (PEDIATRIC); Z99.89 - DEPENDENCE ON OTHER ENABLING MACHINES AND DEVICES Status: Acute (11) Volume overload Code(s): E87.70 - FLUID OVERLOAD, UNSPECIFIED Status: Acute (12) Orthostatic dizziness Code(s): R42 - DIZZINESS AND GIDDINESS Status: Acute - Plan Decrease lasix to 40 daily -: Monitor I/O, and electrolytes -: Increase metformin to 1g bid. -: Increase lantus to 40 units daily -: Increase lipitor to 80 daily. * .
--- NOTE | 2018-05-24 16:26 | PDOC.CTH ---
Cardiology Progress Note - Subjective Pt with LH noted with standing. Decrewase BP noted as well. Current wieghts felt to be inaccurante (318>280>298?) - Objective Vital Signs Temp Pulse Pulse Pulse Resp BP BP 05/24/18 14:15 05/24/18 13:50 84 121/78 111/54 L 05/24/18 12:00 97.3 F L 80 18 05/24/18 10:20 86 86 95/65 113/62 05/24/18 08:00 97.7 F 93 18 BP BP BP BP Pulse Ox Pulse Ox Pulse Ox 05/24/18 14:15 125/62 138/70 05/24/18 13:50 124/70 97 05/24/18 12:00 123/70 95 05/24/18 10:20 136/87 96 05/24/18 08:00 137/70 93 L Pulse Ox 05/24/18 14:15 05/24/18 13:50 96 05/24/18 12:00 05/24/18 10:20 97 05/24/18 08:00 Weight 298 lb 8 oz 05/23/18 05/24/18 05/25/18 06:59 06:59 06:59 Intake Total 790 1440 Output Total 2975 1400 Balance -2185 40 - Physical Examination General/Neuro: NAD Neck: carotid US brisk, no JVD present Lungs: CTA, unlabored respirations Heart: RRR Abdomen: NT/ND, soft Extremities: + femoral B - Labs Result Diagrams: 05/24/18 05:30 05/24/18 05:30 Troponin/CKMB CK-MB (CK-2) 1.8 ng/mL (0-6.6) 05/14/18 22:16 Troponin I 0.480 ng/mL (< 0.028) H* 05/15/18 01:50 - Assessment/Plan LH DM CAD s/p CABG Get accurate weights If weight truly 298 pt may be volume depleted. Stop lasix Given NS time 500cc for now. Reassess in AM
[2018-05-24] MEDS ORDERED: Sodium Chloride 0.9% 1,000 ML IV SCH (16:45)
[2018-05-24] MEDS: Insulin Regular 300 UNITS/3 ML VIAL SC PRN ×2 (17:37→21:03)
[2018-05-24] MEDS: Atorvastatin Calcium 20 MG TAB PO SCH (20:07)
[2018-05-25] MEDS: HYDROcodone/Acetaminophen 5/325 mg Tablet PO PRN ×3 (02:30→22:01)
--- NOTE | 2018-05-25 06:07 | PDOC.CTH ---
Cardiology Progress Note - Subjective Pt still compaining of dizziness noted with standing. Weight is almost 20 lbs down from admission - Objective Vital Signs Temp Pulse Resp BP Pulse Ox 05/25/18 04:00 97.7 F 80 20 122/68 92 L 05/24/18 19:33 97.9 F 91 18 114/66 94 L Weight 299 lb 05/23/18 05/24/18 05/25/18 06:59 06:59 06:59 Intake Total 790 1440 1410 Output Total 2975 1400 800 Balance -2185 40 610 - Physical Examination General/Neuro: alert & oriented x3, NAD Neck: carotid US brisk, no JVD present Lungs: CTA, unlabored respirations Heart: PMI normal, RRR Abdomen: NT/ND, soft Extremities: + femoral B - Labs Result Diagrams: 05/26/18 05:30 05/25/18 04:03 Troponin/CKMB CK-MB (CK-2) 1.8 ng/mL (0-6.6) 05/14/18 22:16 Troponin I 0.480 ng/mL (< 0.028) H* 05/15/18 01:50 - Assessment/Plan Lightheadedness DM CAD s/p CABG IVF PT and IS On BB, ASA and statin
[2018-05-25 06:56] LABS: Anion Gap 14 mmol/L (10-20); BUN (Urea Nitrogen) 39 mg/dL (8.4-25.7); Calc. Creatinine Clearance 116 mL/min (70-130); Carbon Dioxide 30 mmol/L (23-31); Chloride 93 mmol/L (98-107); Estimated GFR-MDRD 69; Glucose 118 mg/dL (83-110); Potassium 3.4 mmol/L (3.5-5.1); Sodium 134 mmol/L (136-145)
[2018-05-25] MEDS ORDERED: Furosemide 40 MG TAB PO SCH (09:00)
[2018-05-25] MEDS: Potassium Chloride 20 MEQ TAB PO SCH (09:27)
[2018-05-25] MEDS: Metoprolol Tartrate 25 MG TAB PO SCH ×3 (09:28→20:49)
[2018-05-25] MEDS: Docusate 100 MG CAP PO SCH ×2 (09:28→20:36)
[2018-05-25] MEDS: Famotidine 20 MG TAB PO SCH ×2 (09:28→20:49)
[2018-05-25] MEDS: Insulin Glargine 40 UNITS in Pre-Filled Syringe 1 EACH SC SCH (09:35)
[2018-05-25] MEDS: Aspirin 325 mg Enteric Coated Tablet PO SCH (09:40)
[2018-05-25] MEDS: glipiZIDE 5 MG TAB PO SCH (09:40)
[2018-05-25] MEDS ORDERED: Potassium Chloride 20 MEQ TAB PO SCH (11:45)
[2018-05-25 13:34] VITALS: BMI 45.4
--- NOTE | 2018-05-25 15:04 | PDOC.PN ---
- Subjective Encounter Start Date: 05/25/18 Encounter Start Time: 15:02 Subjective: No new problem -: Dizziness has subsided. -: Now agreeable to inpatient rehab. - Objective Vital Signs & Weight: Vital Signs (12 hours) Temp Pulse Pulse Pulse Pulse Resp BP 05/25/18 14:03 92 05/25/18 13:09 92 100 162/82 H 05/25/18 12:00 97.6 F 91 18 05/25/18 09:05 91 86 132/65 05/25/18 08:00 05/25/18 07:45 97.3 F L 84 18 05/25/18 04:00 97.7 F 80 20 BP BP BP BP Pulse Ox Pulse Ox Pulse Ox 05/25/18 14:03 119/58 L 05/25/18 13:09 118/62 131/78 100 97 05/25/18 12:00 142/81 H 93 L 05/25/18 09:05 107/59 L 124/80 97 05/25/18 08:00 94 L 05/25/18 07:45 135/68 94 L 05/25/18 04:00 122/68 92 L Weight Admit Weight 316 lb 4.8 oz Weight 299 lb Most Recent Monitor Data Heart Rate from ECG 101 NIBP 94/59 NIBP BP-Mean 70 Respiration from ECG 27 SpO2 92 I&O: 05/24/18 05/25/18 05/26/18 06:59 06:59 06:59 Intake Total 1440 1410 Output Total 1400 800 Balance 40 610 Result Diagrams: 05/24/18 05:30 05/25/18 04:03 Additional Labs: Accuchecks 05/25/18 05/25/18 05/24/18 11:17 05:47 20:32 POC Glucose 201 H 162 H 127 H 05/24/18 05/23/18 17:23 17:02 POC Glucose 231 H 213 H Phys Exam - Physical Examination Constitutional: NAD obese HEENT: PERRLA, moist MMs Neck: no JVD Respiratory: no wheezing, no rales, no rhonchi, clear to auscultation bilateral Cardiovascular: RRR, no significant murmur Gastrointestinal: soft, non-tender, no distention, positive bowel sounds obese Musculoskeletal: pulses present mild bilateral leg edema Neurological: non-focal, moves all 4 limbs Psychiatric: A&O x 3 Dx/Plan (1) NSTEMI (non-ST elevated myocardial infarction) Code(s): I21.4 - NON-ST ELEVATION (NSTEMI) MYOCARDIAL INFARCTION Status: Acute Comment: s/p Cardiac cath which showed severe 2 vessel disease including LAD. S/p CABG 05/20/2018 (2) Paroxysmal atrial fibrillation with rapid ventricular response Code(s): I48.0 - PAROXYSMAL ATRIAL FIBRILLATION Status: Acute Comment: Post op PAF. back insinus. Not on anticoaguolation. Back in sinus (3) Type 2 diabetes mellitus Status: Acute Comment: Inadequately controlled with Hba1c of 9. Glycemic control is better (4) Morbid obesity Code(s): E66.01 - MORBID (SEVERE) OBESITY DUE TO EXCESS CALORIES Status: Acute (5) CAD (coronary artery disease), [place] coronary artery Code(s): I25.10 - ATHSCL HEART DISEASE OF [place] CORONARY ARTERY W/O ANG PCTRS Status: Acute Comment: S/p CABG 05/20/2018 (6) Hyperlipidemia Code(s): E78.5 - HYPERLIPIDEMIA, UNSPECIFIED Status: Acute Comment: On statin (7) Hypertension Code(s): I10 - ESSENTIAL (PRIMARY) HYPERTENSION Status: Acute Comment: Control acceptable (8) Allergy to iodine Code(s): Z88.8 - ALLERGY STATUS TO OTH DRUG/MEDS/BIOL SUBST STATUS Status: Acute (9) Acute blood loss anemia Code(s): D62 - ACUTE POSTHEMORRHAGIC ANEMIA Status: Acute (10) SHEY on CPAP Code(s): G47.33 - OBSTRUCTIVE SLEEP APNEA (ADULT) (PEDIATRIC); Z99.89 - DEPENDENCE ON OTHER ENABLING MACHINES AND DEVICES Status: Acute (11) Volume overload Code(s): E87.70 - FLUID OVERLOAD, UNSPECIFIED Status: Acute Comment: Improved with diuretics. (12) Orthostatic dizziness Code(s): R42 - DIZZINESS AND GIDDINESS Status: Acute Comment: Resolved. (13) Physical deconditioning Code(s): R53.81 - OTHER MALAISE Status: Acute (14) Hypokalemia Code(s): E87.6 - HYPOKALEMIA Status: Acute - Plan Increase lantus to 40 units. Dc glipizise to reduce risk of hypoglycemia -: Continue metformin and sliding scale insulin -: Continue other medications. replete serum potassium. Get Mag in am. -: Anticipate discharge to acute [facility]. -: PT/OT to continue. * .
[2018-05-25] MEDS: Insulin Regular 300 UNITS/3 ML VIAL SC PRN (17:42)
[2018-05-25] MEDS: Atorvastatin Calcium 20 MG TAB PO SCH ×2 (20:49→20:50)
[2018-05-26 06:00] LABS: #Basophils 0.1 thou/uL (0.0-0.2); #Eosinphils 0.6 thou/uL (0.0-0.7); #Lymphocytes 1.8 thou/uL (1.20-3.40); #Monocytes 1.4 thou/uL (0.11-0.59); #Neutrophils 6.3 thou/uL (1.40-6.50); %Basophils 1.1 % (0.0-1.0); %Eosinophils 6.3 % (0.0-10.0); %Lymphocytes 17.4 % (21.0-51.0); %Neutrophils 61.3 % (42.0-75.0); Hemoglobin 12.9 g/dL (14.0-18.0); Mean Corpuscular HGB CONC 32.9 g/dL (32.0-36.0); Mean Corpuscular Hemoglobin 31.6 pg (27.0-31.0); Mean Platelet Volume 9.5 fL (7.4-10.4); Platelet Count 261 thou/uL (130-400); RBC Distribution Width 13.1 % (11.5-14.5); White Blood Cell (WBC) Count 10.3 thou/uL (4.8-10.8)
--- NOTE | 2018-05-26 06:09 | PDOC.CTH ---
Cardiology Progress Note - Subjective Cotninues to complain of dizziness on standing. Pt with (+) tilt - Objective Vital Signs Temp Pulse Resp BP Pulse Ox 05/26/18 03:55 98.1 F 79 18 120/58 L 93 L 05/25/18 19:18 98.2 F 96 18 135/84 93 L Admit Weight 316 lb 4.8 oz Weight 298 lb 05/24/18 05/25/18 05/26/18 06:59 06:59 06:59 Intake Total 1440 1410 970 Output Total 1400 800 500 Balance 40 610 470 - Physical Examination General/Neuro: alert & oriented x3, NAD Neck: carotid US brisk, no JVD present Lungs: CTA, unlabored respirations Heart: RRR Abdomen: NT/ND, soft Extremities: + femoral B - Labs Result Diagrams: 05/26/18 05:30 05/26/18 05:30 Troponin/CKMB CK-MB (CK-2) 1.8 ng/mL (0-6.6) 05/14/18 22:16 Troponin I 0.480 ng/mL (< 0.028) H* 05/15/18 01:50 - Assessment/Plan CAD s/p CABG DM Obesity (+) tilt noted PT and IS Statin, ASA, BB EF normal on echo Decrease BB Add NS
[2018-05-26 06:11] LABS: Anion Gap 14 mmol/L (10-20); BUN (Urea Nitrogen) 37 mg/dL (8.4-25.7); Calc. Creatinine Clearance 128 mL/min (70-130); Calcium 9.2 mg/dL (7.8-10.44); Carbon Dioxide 28 mmol/L (23-31); Chloride 98 mmol/L (98-107); Estimated GFR-MDRD 78; Glucose 149 mg/dL (83-110); Magnesium 2.1 mg/dL (1.6-2.6); Potassium 3.5 mmol/L (3.5-5.1); Sodium 136 mmol/L (136-145)
[2018-05-26] MEDS: HYDROcodone/Acetaminophen 5/325 mg Tablet PO PRN ×2 (06:25→20:46)
[2018-05-26] MEDS ORDERED: Potassium Chloride 20 MEQ TAB PO SCH (08:00)
[2018-05-26] MEDS: Docusate 100 MG CAP PO SCH ×2 (10:13→20:36)
[2018-05-26] MEDS: Metoprolol Tartrate 25 MG TAB PO SCH ×2 (10:13→20:36)
[2018-05-26] MEDS: Famotidine 20 MG TAB PO SCH ×2 (10:14→20:36)
[2018-05-26] MEDS: Insulin Glargine 40 UNITS in Pre-Filled Syringe 1 EACH SC SCH (10:14)
[2018-05-26] MEDS: Potassium Chloride 20 MEQ TAB PO SCH (10:14)
[2018-05-26] MEDS: Aspirin 325 mg Enteric Coated Tablet PO SCH (10:14)
[2018-05-26] MEDS ORDERED: Sodium Chloride 0.9% 1,000 ML IV SCH (10:45)
[2018-05-26] MEDS: Insulin Regular 300 UNITS/3 ML VIAL SC PRN ×2 (12:55→20:35)
[2018-05-26] MEDS: Sodium Chloride 0.9% 1,000 ML IV SCH (18:18)
[2018-05-26] MEDS: Atorvastatin Calcium 20 MG TAB PO SCH (20:36)
--- NOTE | 2018-05-26 22:00 | PDOC.PN ---
- Subjective Encounter Start Date: 05/26/18 Encounter Start Time: 10:00 Feels ok in general. Has had some dizziness when he stands. He had been walking farther in prior days. - Objective Vital Signs & Weight: Vital Signs (12 hours) Temp Pulse Pulse Pulse Resp BP BP 05/26/18 19:18 97.7 F 85 16 05/26/18 16:00 97.9 F 72 18 05/26/18 13:10 85 75 155/73 H 123/56 L 05/26/18 12:00 97.9 F 72 14 BP Pulse Ox Pulse Ox Pulse Ox 05/26/18 19:18 117/58 L 95 05/26/18 16:00 121/63 93 L 05/26/18 13:10 96 95 05/26/18 12:00 118/62 92 L Weight Admit Weight 316 lb 4.8 oz Weight 298 lb Most Recent Monitor Data Heart Rate from ECG 101 NIBP 94/59 NIBP BP-Mean 70 Respiration from ECG 27 SpO2 92 I&O: 05/25/18 05/26/18 05/27/18 06:59 06:59 06:59 Intake Total 1278 092 2116 Output Total 675 383 7214 Balance 610 470 860 Result Diagrams: 05/26/18 05:30 05/26/18 05:30 Additional Labs: Accuchecks 05/26/18 05/26/18 05/26/18 20:11 17:47 11:37 POC Glucose 203 H 160 H 197 H 05/26/18 05:53 POC Glucose 171 H Phys Exam - Physical Examination Constitutional: NAD Respiratory: no wheezing, no rales, no rhonchi, clear to auscultation bilateral Cardiovascular: RRR, no significant murmur, no rub Gastrointestinal: soft, non-tender, no distention, positive bowel sounds Trace edema Neurological: non-focal Deviation from normal: Sternal incision looks good. Dx/Plan - Plan * .
[2018-05-27 03:16] VITALS: TEMP 97.5
[2018-05-27] MEDS: Sodium Chloride 0.9% 1,000 ML IV SCH (04:58)
[2018-05-27] MEDS: HYDROcodone/Acetaminophen 5/325 mg Tablet PO PRN ×2 (05:58→13:29)
[2018-05-27] MEDS: Metoprolol Tartrate 25 MG TAB PO SCH (09:36)
[2018-05-27] MEDS: Famotidine 20 MG TAB PO SCH (09:37)
[2018-05-27] MEDS: Docusate 100 MG CAP PO SCH (09:37)
[2018-05-27] MEDS: Aspirin 325 mg Enteric Coated Tablet PO SCH (09:37)
[2018-05-27] MEDS: Potassium Chloride 20 MEQ TAB PO SCH (09:37)
[2018-05-27] MEDS: Insulin Glargine 40 UNITS in Pre-Filled Syringe 1 EACH SC SCH (09:43)
[2018-05-27 11:38] VITALS: BP 169/79
[2018-05-27] MEDS ORDERED: metFORMIN 500 MG TAB PO SCH (17:00)
--- NOTE | 2018-05-29 02:35 | DIS ---
DATE OF ADMISSION: 05/14/2018 DATE OF DISCHARGE: 05/27/2018 DISCHARGE DIAGNOSES: 1. Non-ST segment elevation myocardial infarction. 2. Coronary artery disease. 3. Status post bypass graft. 4. Paroxysmal atrial fibrillation. 5. Diabetes mellitus. 6. Obesity. 7. Orthostatic hypotension. 8. Diabetes mellitus. 9. Hyperlipidemia. HISTORY OF PRESENT ILLNESS: The patient is a 77-year-old male, who presented to the emergency department with chest pain. He was noted to have elevated troponins and NSTEMI. The patient received aspirin and Brilinta. He subsequently was seen in consultation by Cardiology. Subsequently, he underwent heart catheterization, which revealed 2 high-grade lesions. Subsequently, CV Surgery was consulted given the severe stenosis of both the LAD and the right coronary. He felt the bypass grafting was appropriate. However, because the patient received the Brilinta, this had to be postponed. Subsequently, the patient did undergo the bypass surgery on 05/20/[address] Nickerson. This included SOLIMAN to the mid LAD and reverse saphenous vein graft to the distal RCA. In that procedure, Dr. Nickerson noted the patient's heart was rotated into the right chest. His aorta, right ventricle, and right coronary system were almost unapproachable due to the rotation and size and he recommended no attempts at redo surgery in the future. Postoperatively, the patient did fairly well. He did subsequently develop some orthostasis and lightheadedness with attempting to get up and his weight was down considerably. It was felt that he was probably volume deplete. His beta blockers were reduced and he was given some volumes and subsequently, his symptoms improved. He initially had planned to discharge to the rehab facility, but ultimately decided that he was comfortable going home. PHYSICAL EXAMINATION: VITAL SIGNS: On the day of discharge, temperature was 97.5, pulse 75, O2 saturation 95% on room air, BP was 120/63 and O2 sats were 93%-97% on room air. GENERAL APPEARANCE: He was awake, alert, oriented, pleasant, and cooperative. HEART: Regular rate and rhythm. Sternal wound appeared to be healing nicely. LUNGS: Clear bilaterally. ABDOMEN: Benign. No peripheral edema. DISPOSITION: The patient is discharged to home. ACTIVITY: As tolerated. He will be on a heart-healthy diet. He will have home health and home PT. DISCHARGE MEDICATIONS: He will be on: 1. Lopressor 12.5 mg b.i.d. 2. Metformin 500 mg b.i.d. 3. Tramadol 25 mg q.6h p.r.n. 4. [place] 5/325 1-2 q.8 hours p.r.n. 5. Niacin 500 mg daily. 6. Glucosamine b.i.d. 7. Fish oil daily. 8. Aspirin 325 daily. 9. Glipizide 10 mg b.i.d. 10. Rosuvastatin 10 mg at bedtime. 11. Pantoprazole 40 mg daily. FOLLOWUP: He will follow up with Dr. Wilson on 06/17/2018 at 10:[address] Zafar Nickerson on 06/08/2018 at 3:00 p.m. He can return to the hospital should he have any problems prior to that time. TIME SPENT: Total time in discharge activities including [id number] time with the patient was greater than 30 minutes. Job ID: [id number]
== END 2018-05-27 16:14 | disposition home health service (06) | DRG 234 ==
LOC: ERS 09:37 → 2NO 13:06 → CCU 05-20 07:16 → 2NO 05-22 15:39
PROVIDERS: ADMIT Internal Medicine; ATTEND Internal Medicine
PROC: B2111ZZ Fluoroscopy of Multiple Coronary Arteries using Low Osmolar Contrast (ICD-10-PCS; 2018-05-16)
PROC: 4A023N7 Measurement of Cardiac Sampling and Pressure, Left Heart, Percutaneous Approach (ICD-10-PCS; 2018-05-16)
PROC: 02100Z9 Bypass Coronary Artery, One Artery from Left Internal Mammary, Open Approach (ICD-10-PCS; principal; 2018-05-20)
PROC: 021009W Bypass Coronary Artery, One Artery from Aorta with Autologous Venous Tissue, Open Approach (ICD-10-PCS; 2018-05-20)
PROC: 06BQ3ZZ Excision of Left Saphenous Vein, Percutaneous Approach (ICD-10-PCS; 2018-05-20)
PROC: 5A1221Z Performance of Cardiac Output, Continuous (ICD-10-PCS; 2018-05-20)
DX: I21.4 Non-ST elevation (NSTEMI) myocardial infarction (principal); Z68.42 Body mass index [BMI] 45.0-49.9, adult; D62 Acute posthemorrhagic anemia; I25.110 Atherosclerotic heart disease of native coronary artery with unstable angina pectoris; I48.0 Paroxysmal atrial fibrillation; E66.01 Morbid (severe) obesity due to excess calories; E11.9 Type 2 diabetes mellitus without complications; E78.00 Pure hypercholesterolemia, unspecified; I10 Essential (primary) hypertension; E87.70 Fluid overload, unspecified; G47.33 Obstructive sleep apnea (adult) (pediatric); Z88.8 Allergy status to other drugs, medicaments and biological substances; Z91.041 Radiographic dye allergy status; Z87.891 Personal history of nicotine dependence; Z79.84 Long term (current) use of oral hypoglycemic drugs; Z79.82 Long term (current) use of aspirin
CPT/HCPCS: 20605; 36415; 36416; 36430; 71045; 80048; 80053; 80061; 82550; 82553; 82805; 82947; 83036; 83690; 83735; 84484; 85025; 85610; 85730; 86850; 86900; 86901; 93005; 93010; 93306; 93458; 93798; 94002; 94150; 94640; 94760; 96372; 99152; 99213; C1769; C1887; G0463; J0282; J0670; J0690; J1030; J1100; J1160; J1642; J1644; J1650; J1815; J1825; J1885; J1940; J2001; J2150; J2250; J2270; J2405; J2440; J2704; J2720; J3010; J3370; J3475; J3480; J3490; J7050; J7512; J7620; P9016; P9045; Q0163; Q4186; Q9967; S0017

== ENCOUNTER 2018-06-17 13:31 | Outpatient (CLI) | payer MEDICARE ==
--- NOTE | 2018-06-17 14:29 | RAD ---
PA AND LATERAL CHEST: HISTORY: Coronary artery disease. COMPARISON: 05/22/2018, 05/14/2018, 12/10/2015 FINDINGS: Recent postop midline sternotomy. Minimal right-sided pleural thickening and some increased linear a nd interstitial markings bilaterally. There is a questionable focal area of minimal increased densit y in the right upper lobe region, which may just represent summation artifact between the right 2nd a nterior rib and the right 5th posterior rib. Depending upon concern, follow-up CT scan or short-term follow-up PA and lateral radiographs should be considered No confluent pneumonia or overt edema. IMPRESSION: Minimal increased linear and interstitial markings bilaterally. Minimal right-sided pleural thickeni ng. Questionable poorly circumscribed opacity in the region of the right upper lobe, which may just represent some superimposition of shadows. Consider follow-up PA and lateral chest or CT for further assessment in this regard. POS: ELIZABETH
== END 2018-06-17 13:32 | disposition home or self-care (01) ==
LOC: RAD 13:31
PROVIDERS: ATTEND Internal Medicine Cardiovascular Disease
DX: I25.810 Atherosclerosis of coronary artery bypass graft(s) without angina pectoris (principal)
CPT/HCPCS: 71046

== ENCOUNTER 2018-06-19 09:55 | Inpatient (IN) | payer MEDICARE, OTHER ==
--- NOTE | 2018-06-19 10:26 | RAD ---
EXAM: Chest Two Views 06/19/2018 10:22 AM HISTORY: History of cough COMPARISON: Chest radiograph dated June 17, 2018 FINDINGS: Heart: Normal in size and contour. Pulmonary vessels: Normal. Costophrenic angles: Clear. Lungs: There is worsening airspace consolidation the right upper lobe suspicious for worsening pneumo tarun. Pneumothorax: None. Osseous structures:No acute osseous abnormality is evident. There are stable midline sternotomy rubi es. There is scattered degenerative and osteoarthritic change present. Additional findings: None. IMPRESSION: Worsening right upper lobe pneumonia.
[2018-06-19 10:27] LABS: #Eosinphils 0.2 thou/uL (0.0-0.7); #Lymphocytes 1.3 thou/uL (1.20-3.40); #Monocytes 1.5 thou/uL (0.11-0.59); #Neutrophils 10.7 thou/uL (1.40-6.50); %Basophils 0.1 % (0.0-1.0); %Eosinophils 1.6 % (0.0-10.0); %Lymphocytes 9.3 % (21.0-51.0); %Monocytes 10.9 % (0.0-10.0); %Neutrophils 78.1 % (42.0-75.0); Hemoglobin 14.1 g/dL (14.0-18.0); Mean Corpuscular HGB CONC 33.7 g/dL (32.0-36.0); Mean Corpuscular Hemoglobin 31.8 pg (27.0-31.0); Mean Corpuscular Volume 94.4 fL (78.0-98.0); Mean Platelet Volume 9.3 fL (7.4-10.4); Platelet Count 257 thou/uL (130-400); RBC Distribution Width 13.4 % (11.5-14.5); Red Blood Cell (RBC) Count 4.44 mill/uL (4.70-6.10); White Blood Cell (WBC) Count 13.7 thou/uL (4.8-10.8)
[2018-06-19 10:43] LABS: ALT (SGPT) 15 U/L (8-55); AST (SGOT) 18 U/L (5-34); Albumin 3.8 g/dL (3.4-4.8); Alkaline Phosphatase 120 U/L (40-150); Anion Gap 20 mmol/L (10-20); BUN (Urea Nitrogen) 22 mg/dL (8.4-25.7); CK (CPK) 39 U/L (30-200); Calc. Creatinine Clearance 0 mL/min (70-130); Calcium 9.2 mg/dL (7.8-10.44); Carbon Dioxide 17 mmol/L (23-31); Chloride 100 mmol/L (98-107); Estimated GFR-MDRD 71; Globulin 2.9 g/dL (2.4-3.5); Glucose 285 mg/dL (83-110); Potassium 3.9 mmol/L (3.5-5.1); Protein, Total 6.7 g/dL (5.8-8.1); Sodium 133 mmol/L (136-145)
[2018-06-19] MEDS ORDERED: Aspirin Chewable 81 MG TAB ONE (10:49)
[2018-06-19] MEDS ORDERED: Azithromycin 500 MG VIAL ONE (10:49)
[2018-06-19] MEDS ORDERED: cefTRIAXone\\ROCEPHIN 2 GM VIAL ONE (10:51)
[2018-06-19 11:04] LABS: CKMB 0.5 ng/mL (0-6.6)
[2018-06-19] MEDS ORDERED: Acetaminophen 325 MG TAB PO PRN (13:32)
[2018-06-19] MEDS: Sodium Chloride 0.9% 1,000 ML IV SCH ×2 (13:40→22:39)
[2018-06-19 13:42] LABS: Troponin I 0.025 ng/mL (< 0.028)
[2018-06-19 14:31] LABS: Lactic Acid 2.1 mmol/L (0.5-2.2)
--- NOTE | 2018-06-19 15:34 | HP ---
PRIMARY CARE PHYSICIAN: Oc Dennison MD CHIEF COMPLAINT: Shortness of breath and weakness. HISTORY OF PRESENT ILLNESS: The patient is a 77-year-old male, who presented to the emergency room with complaints of weakness and cough. Apparently, he had CABG done a few weeks ago at [facility] and after that, he started having some cough on and off and he also noticed some swallowing problem. He gets full after eating small amount of food and he noticed that it may be parts of the food gets stuck in his esophagus. He denied any fever or chills. He has some shortness of breath on exertion. Apparently, he went to see his primary care physician, Dr. Dennison on the June 08, which is almost two weeks ago and everything looked good and he saw Dr. Nickerson, who did not see any problems and last Wednesday, which is two days ago, he saw Dr. Wilson, who did echocardiogram and chest x-ray and told everything was fine and he was sent home. Today, he decided to come to the emergency room because of the weakness and cough. This was somewhat worse than it was before and to have possible right upper lobe infiltrate/pneumonia and with elevated lactic acid at almost 5. Decision was made about further hospitalization and diagnostic workup. He was started on IV antibiotics and he is getting admitted to the hospital. PAST MEDICAL HISTORY: 1. Coronary artery disease. 2. Hyperlipidemia. 3. Diabetes mellitus. 4. Hypertension. PAST SURGICAL HISTORY: 1. Right hip replacement. 2. CABG. SOCIAL HISTORY: He used to smoke. He quit long time ago, 16 years. He does not drink alcohol. Does not use any illicit drugs. FAMILY HISTORY: Mother was 73 and she had OK and father was in his 80s and he had CHF. MEDICATIONS: He is taking at home; 1. Aspirin 325 mg once a day. 2. Glipizide 10 mg twice a day. 3. Crestor 10 mg tablet 20 mg daily. 4. Niacin 1000 mg once a day. 5. Fish oil 300 mg once a day. 6. Metoprolol 25 mg tablets 12.5 mg twice a day. 7. Metformin 500 mg twice a day. 8. Glucosamine 500 mg once a day. 9. Garlic 1000 mg once a day. 10. Vitamin E 400 units once a day. 11. Furosemide 20 mg daily. ALLERGIES: IODINE. REVIEW OF SYSTEMS: All systems were reviewed. Pertinent positive in HPI, otherwise negative. PHYSICAL EXAMINATION: VITAL SIGNS: Blood pressure is 106/82, pulse is 98, respiratory rate is 22, and O2 saturation is 97% on 2 L by nasal cannula. HEENT: His head is atraumatic and normocephalic. Eyes are PERRLA. Sclerae are nonicteric. Oral mucosa is moist. NECK: Supple. LUNGS: Breath sounds somewhat diminished at both bases. HEART: S1 and S2 normal. No S3. No S4. ABDOMEN: Soft, nontender, and nondistended. EXTREMITIES: No clubbing or cyanosis. He has 1 to 1.5 peripheral edema, similar bilaterally on lower extremities. NEUROLOGIC: He is alert and oriented x4. There is no any motor or sensory deficit present. Cranial nerves are intact. LABORATORY DATA: Labs showed white count of 13.7, hemoglobin of 14.1, hematocrit 41.9, and platelet count is 257,000. He has 78% neutrophils. Sodium of 133, potassium 3.9, chloride 100, CO2 of 17, BUN is 22, creatinine 1.02, glucose 285, and lactic acid is 4.9. Troponin 0.033. BNP is 160.7 and the rest of chemistry is within normal limits. An EKG showed sinus tachycardia, 111 beats per minute with some flipped T-waves in precordial leads. Chest x-ray done on the , which is two days ago showed minimal increased linear and interstitial markings bilaterally. Minimal right-sided pleural thickening and some questionable opacity in the right upper lobe and the followup x-ray, which was obtained today, two days later shows right upper lobe pneumonia, worsening. IMPRESSION: 1. Right upper lobe pneumonia. 2. Coronary artery disease status post coronary artery bypass grafting recently. 3. Hypertension. 4. Hyperlipidemia. 5. Acidosis that is secondary to elevated lactic acid, most likely secondary to his pulmonary status. 6. Elevated troponin I. we are going to have 2 additional sets to rule out acute coronary event. PLAN: Full admission to telemetry. Condition is fair. Activity is bedrest and bathroom privileges. IV Hep-Lock. Obtain lactic acid at 1600 hours today. Continue his Rocephin and azithromycin. We will have p.rmorgan Otero. We will get Gastroenterology involved since he complains about early satiety and inability to swallow without any problems. He feels like the food gets stuck in his esophagus. Dr. Arrington will be consulted for GI evaluation. We will reconcile his home medications as soon as the list is available in our system and we will have before meals and at bedtime Accu-Cheks and coverage with mild sliding scale. He is going to have DVT prophylaxis with SCDs and 40 mg of Lovenox. Job ID: [id number]
[2018-06-19 16:16] LABS: Troponin I 0.031 ng/mL (< 0.028)
[2018-06-19] MEDS ORDERED: HumaLOG 300 UNITS/3 ML VIAL SC PRN (17:45)
[2018-06-19] MEDS ORDERED: Dextrose 5% in Water 1,000 ML IV PRN (17:45)
[2018-06-19] MEDS ORDERED: Dextrose 50% Abboject 50 ML SYRINGE SLOW IVP PRN (17:45)
[2018-06-19] MEDS ORDERED: Benzonatate 100 MG CAP PO SCH (18:00)
[2018-06-19 20:17] LABS: Lactic Acid 2.3 mmol/L (0.5-2.2)
[2018-06-19] MEDS: Benzonatate 100 MG CAP PO SCH (20:46)
[2018-06-20] MEDS ORDERED: Ondansetron PF 4 MG/2 ML Vial IVP SCH (03:15)
[2018-06-20 05:30] LABS: #Basophils 0.1 thou/uL (0.0-0.2); #Eosinphils 0.3 thou/uL (0.0-0.7); #Lymphocytes 1.6 thou/uL (1.20-3.40); #Monocytes 1.5 thou/uL (0.11-0.59); #Neutrophils 7.6 thou/uL (1.40-6.50); %Basophils 0.7 % (0.0-1.0); %Eosinophils 2.5 % (0.0-10.0); %Lymphocytes 14.6 % (21.0-51.0); %Monocytes 13.3 % (0.0-10.0); %Neutrophils 68.9 % (42.0-75.0); Hemoglobin 12.5 g/dL (14.0-18.0); Mean Corpuscular HGB CONC 33.9 g/dL (32.0-36.0); Mean Corpuscular Volume 94.6 fL (78.0-98.0); Mean Platelet Volume 9.3 fL (7.4-10.4); Platelet Count 249 thou/uL (130-400); RBC Distribution Width 13.3 % (11.5-14.5); Red Blood Cell (RBC) Count 3.89 mill/uL (4.70-6.10); White Blood Cell (WBC) Count 11.1 thou/uL (4.8-10.8)
[2018-06-20 06:08] LABS: Anion Gap 15 mmol/L (10-20); BUN (Urea Nitrogen) 19 mg/dL (8.4-25.7); Calc. Creatinine Clearance 145 mL/min (70-130); Calcium 9.2 mg/dL (7.8-10.44); Carbon Dioxide 23 mmol/L (23-31); Chloride 103 mmol/L (98-107); Estimated GFR-MDRD Greater than 90; Glucose 161 mg/dL (83-110); Potassium 3.5 mmol/L (3.5-5.1); Sodium 137 mmol/L (136-145)
[2018-06-20] MEDS: Enoxaparin Sodium 40 MG/0.4 ML SYRINGE SC SCH (10:07)
[2018-06-20] MEDS: Benzonatate 100 MG CAP PO SCH ×3 (10:07→20:07)
--- NOTE | 2018-06-20 10:35 | PQF ---
DATE: 06-20-18 ATTN: KAHLIL FULTON Please exercise your independent, professional judgment in responding to the clarification form. Clinical indicators are provided on the bottom of this form for your review Please check appropriate box(s): [x ] Aspiration Pneumonia [ ] Empirically treating Gram Negative Pneumonia [ ] Other diagnosis [ ] Unable to determine In addition, please specify: Present on Admission (POA): [ x ] Yes [ ] No [ ] Unable to determine For continuity of documentation, please document condition throughout progress notes and discharge summary. Thank You. CLINICAL INDICATORS - SIGNS / SYMPTOMS / LABS; H&P: COMPLAINTS OF WEAKNESS AND COUGH, HE GETS FULL AFTER EATING SMALL AMOUNTS OF FOOD AND HE ALSO NOTICED THAT IT MAY BE PARTS OF FOOD GETS STUCK IN HIS ESOPHAGUS. H&P: RIGHT UPPER LOBE PNEUMONIA WBC: 06-19-18: 13.7, 06-20-18: 11.1 MAR: ZOSYN IV 06-20-18 RISK FACTORS: H&P: COMPLAINTS OF WEAKNESS AND COUGH, HE GETS FULL AFTER EATING SMALL AMOUNTS OF FOOD AND HE ALSO NOTICED THAT IT MAY BE PARTS OF FOOD GETS STUCK IN HIS ESOPHAGUS. TREATMENTS: MAR: ZOSYN IV 06-20-18 CXR: 06-19-18: WORSENING RUL PNEUMONIA (This form is maintained as a part of the permanent medical record) 2014 [employer]. All Rights Reserved LASHANDA [email or web address] Office: [phone] [facility] HOSPITALJuan Pablo
--- NOTE | 2018-06-20 10:52 | PQF ---
DATE: 06-20-18 ATTN: DR. GUILLORY Please exercise your independent, professional judgment in responding to the clarification form. Clinical indicators are provided on the bottom of this form for your review Please check appropriate box(s) to clarify if the following diagnosis has been ruled in or ruled out: SEPSIS [ ] Ruled in diagnosis [ ] Continue to treat [ x ] Resolved [ ] Ruled out diagnosis [ ] Other diagnosis [ ] Unable to determine In addition, please specify: Present on Admission (POA): [x ] Yes [ ] No [ ] Unable to determine For continuity of documentation, please document condition throughout progress notes and discharge summary. Thank You. CLINICAL INDICATORS - SIGNS / SYMPTOMS / LABS ER DX: PNEUMONIA, SEPSIS WBC: 06-19-18: 13.7 06-20-18: 11.1 LACTIC ACID: 06-19-18: 4.9 06-19-18: 2.3 PULSE: 101, 107 RISK FACTORS: ER DX: PNEUMONIA, SEPSIS H&P: HX REFLUX, HYPERLIPIDEMIA, DM , CAD TREATMENTS: MAR: 06-20-18: ZOSYN MAR: 06-19-18: IVF (This form is maintained as a part of the permanent medical record) 2014 [employer]. All Rights Reserved [email or web address] [email or web address] Office: [phone] OMER
[2018-06-20] MEDS: Piperacillin/Tazobactam 3.375 GM in Sodium Chloride 0.9% 100 ML IVPB SCH ×3 (12:16→23:42)
--- NOTE | 2018-06-20 12:32 | CON ---
DATE OF CONSULTATION: HISTORY OF PRESENT ILLNESS: Mr. Salas is a 77-year-old gentleman, who underwent coronary artery bypass grafting x2 in May. He pre-coronary artery bypass grafting says that he was having some difficulties eating - this is actually surprising as he weighed over 300 pounds at that time, but he had difficulties with eating. He says that ever since he had surgery, he is unable to keep any food down. He has lost weight down to 276 pounds at this admission. He says that now even with drinking he feels full fairly quickly and has had multiple episodes of emesis. He had a taco and immediately through the whole taco up. This is an unusual practice for him as he would normally eat between 6 and 10 tacos at a setting. He is currently resting comfortably on the telemetry unit. He was admitted with a diagnosis of pneumonia, although his chest x-ray really does not show any significant infiltrate at all. The patient states that his bowels have been loose. He does pass gas. His abdomen is not tender nor distended more than its usual state. PAST MEDICAL HISTORY: 1. Morbid obesity. 2. Diabetes mellitus. 3. Hypertension. 4. Dyslipidemia. 5. Coronary artery disease. PAST SURGICAL HISTORY: Coronary artery bypass grafting x2 with left internal mammary artery to LAD and saphenous vein graft to PDA on 05/20. MEDICATIONS AT HOME: 1. Niacin 500 mg nightly. 2. Lipitor 20 mg nightly. 3. Glipizide 10 mg b.i.d. 4. Metoprolol 12.5 mg b.i.d. 5. Fish oil 1000 mg daily. 6. Aspirin 325 mg daily. 7. Glucophage 500 mg b.i.d. ALLERGIES: IODINE. PHYSICAL EXAMINATION: GENERAL: This is a morbidly obese gentleman, resting in bed. VITAL SIGNS: Height 5 feet 8 inches, weight is 276 pounds, BSA is 2.45, heart rate is 90 and regular, and blood pressure is 123/72. HEENT: Sclerae nonicteric. Pupils are equal and round bilaterally. NECK: Supple without bruit. CHEST: His incision is healing nicely. There is no erythema or induration. Sternum is stable. HEART: Rhythm is regular without murmur. ABDOMEN: Morbidly obese. Soft and nontender. There are active bowel sounds. EXTREMITIES: There is no edema. LABORATORY DATA: Of note, hemoglobin is 12.5, white blood cell count is 11.1, and platelet count is 249,000. Potassium is 3.5 and creatinine is 0.77. I reviewed his chest x-ray series. ASSESSMENT AND PLAN: Dysphagia with emesis. I am going to order a swallowing study with upper GI and small-bowel follow-through. He does not on physical exam appear to have any sort of obstruction, but we certainly cannot rule that out without further studies. I think Gastroenterology has also already been consulted and signed. Job ID: [id number]
[2018-06-20] MEDS ORDERED: Azithromycin 500 MG in Sodium Chloride 0.9% 250 ML 250 ML IVPB SCH (13:00)
[2018-06-20] MEDS ORDERED: cefTRIAXone\\ROCEPHIN 1 GM in Sodium Chloride 0.9% 100 ML IVPB SCH (13:00)
[2018-06-20] MEDS ORDERED: Piperacillin/Tazobactam 3.375 GM VIAL ONE (17:38)
[2018-06-20] MEDS: Dextrose 5 % And 0.9 % NaCl 1,000 ML IV SCH (20:07)
[2018-06-21] MEDS: Piperacillin/Tazobactam 3.375 GM in Sodium Chloride 0.9% 100 ML IVPB SCH ×3 (05:21→17:39)
--- NOTE | 2018-06-21 07:51 | CON ---
DATE OF CONSULTATION: REASON FOR CONSULTATION: Dysphagia and weight loss. HISTORY OF PRESENT ILLNESS: Mr. Lott is a 77-year-old gentleman, who was admitted from the emergency room with diagnosis of pneumonia, sepsis, and dysphagia. I have been asked to see him with regard to dysphagia. He reports that earlier this year back in April and May, he was having vague chest symptoms. Initially, he was treated as possible reflux, but ultimately he came to the emergency room in early April. He had a cardiac evaluation. He was told to have an unstable angina. 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 He had severe LAD and right coronary artery disease. He did well after that, but returned to the emergency room last night and states that he has just been getting more and more weak. He complains of "reflux." He also states that he has been coughing and he just cannot eat. He describes 2 things; one, he says he seems to eat a little bit and gets full. He thinks this was probably going on a little bit before his bypass, although he is unsure how related to his symptoms of his "reflux" that he was having before his bypass, but also he distinctly reports that when he tries to eat things, he chews and chews, and chews, but the will not go down. He does report things will stick or sometimes a few hours later, he will throw something back up. When I asked if this is the same as not being able to eat much, he states that is different. He states that used to when he would eat and he would get full, but only after eating up to 7 to 10 homemade tacos because his makes very good homemade tacos, but now he is just eating a couple of tacos 1 to 1-1/2 he would feel full. He states he has lost weight, about 325 pounds, now down to 270. He denies hematemesis. He denies melena. When I asked specifically, he notes the liquids would tend to cough. He denies fever or chills. He denies productive cough. He denies any focal weakness in arms or legs, difficulty with speech. PAST MEDICAL HISTORY: Coronary artery disease, status post bypass grafting, diabetes, hyperlipidemia, and hypertension. PAST SURGICAL HISTORY: Right hip replacement and CABG. He reports he had multiple colonoscopies at [facility] that have been normal. SOCIAL HISTORY: He used to smoke, but he has not for 16 years. He does not drink. He does not use drugs. FAMILY HISTORY: Mother had UT in her 70s and father was in his 80s and he had heart failure. MEDICATIONS AT HOME: 1. Aspirin. 2. Glipizide. 3. Crestor. 4. Niacin. 5. Fish oil. 6. Metoprolol. 7. Metformin. 8. Glucosamine. 9. Garlic. 10. Vitamin E. 11. Furosemide. ALLERGIES: IODINE. REVIEW OF SYSTEMS: Negative for fever, chills, hemoptysis, hematuria, dysuria, frequency, or urgency. No hematochezia, hematemesis, nausea, vomiting, or diarrhea. PRESENT MEDICATIONS: 1. Albuterol. 2. Tessalon. 3. D5W. 4. Hep-lock. 5. Lovenox. 6. Glucagon. 7. Humalog. 8. Zosyn. PHYSICAL EXAMINATION: VITAL SIGNS: He has been afebrile since admission. Temperature is 98, pulse 96, and blood pressure 138/72. GENERAL: The patient is obese. NECK: Supple without any adenopathy. LUNGS: Clear. Chest incisions are well healed. HEART: Regular rate and rhythm without clicks, rubs, or murmurs. ABDOMEN: Soft and nontender with no rebound or guarding. EXTREMITIES: No clubbing, cyanosis, or edema. NEUROLOGIC: His cranial nerves are intact. Strength is intact in the upper and lower extremities. LABORATORY DATA: White count is 11.1, it was 13.7 yesterday; hemoglobin is 12.5, it was 12.9 on 05/26; platelet count 249. On 05/20/2018; ABG showed pH of 7.4, normal saturation. Sodium 137, potassium 3.5, BUN and creatinine are 19 and 0.7, glucose 132. Troponin was 0.031. Lactic acid was 4.9 on admission and it is 2.2 today. Liver function tests were normal. Lipase was normal. DIAGNOSTIC DATA: Chest x-ray was reported normal. Upper GI series ordered by Dr. Nickerson today, that has been performed, but not read. I have reviewed with Radiology. It seems he has jennifer aspiration into the trachea. They did not see any overt other lesions. Formal report is pending. They were unsure if barium tablet was used in this study. There was some airspace consolidation in the right upper lung on those studies. ASSESSMENT: 1. Dysphagia and weight loss. It seems he has a definite component of oropharyngeal dysphagia and he has jennifer aspiration on the upper GI today. His symptoms, however, would indicate maybe something else is going on as well. He reports solids, he has to chew excessively before he can swallow, and at times, will swallow things and they will stay down for a while and then come back up. 2. He may have a little bit of aspiration. He shows no signs of sepsis. RECOMMENDATIONS: N.p.o. EGD tomorrow to rule out primary esophageal lesions or gastric lesions dramatic weight loss. If this is negative, he needs a neurologic evaluation and he will need a modified barium swallow. Job ID: [id number]
[2018-06-21] MEDS ORDERED: Ondansetron HCl/PF 4 MG/2 ML Vial IVP PRN (08:33)
[2018-06-21] MEDS ORDERED: Promethazine HCl 25 MG/ML VIAL SLOW IVP PRN (08:33)
[2018-06-21] MEDS ORDERED: Promethazine HCl 25 MG/ML VIAL IM PRN (08:33)
[2018-06-21] MEDS ORDERED: Pantoprazole 40 MG VIAL IVP SCH (09:00)
--- NOTE | 2018-06-21 09:25 | RAD ---
BIPHASIC UPPER GI AND SMALL BOWEL SERIES: HISTORY: Dysphagia with emesis. FINDINGS: There is aspiration. Unobstructed flow of contrast is seen from the esophagus into the stomach, duod enum, and loops of small bowel into the right colon. No obstructing mass, stricture, or diverticulum is seen in the esophagus, stomach, duodenum, jejunum, or ileal loops. No spontaneous or Valsalva in duced GE reflux is demonstrated. IMPRESSION: 1. Aspiration. 2. Otherwise unremarkable upper gastrointestinal and small bowel series. POS: FERNANDO
[2018-06-21] MEDS: Dextrose 5 % And 0.9 % NaCl 1,000 ML IV SCH ×2 (09:28→20:14)
[2018-06-21] MEDS ORDERED: PROPOFOL 200 MG/20 ML VIAL ONE (10:12)
[2018-06-21] MEDS: Enoxaparin Sodium 40 MG/0.4 ML SYRINGE SC SCH (10:27)
[2018-06-21] MEDS: Benzonatate 100 MG CAP PO SCH ×3 (10:28→20:07)
[2018-06-21] MEDS: Pantoprazole 40 MG VIAL IVP SCH ×2 (10:30→20:07)
--- NOTE | 2018-06-21 12:10 | OP ---
DATE OF PROCEDURE: 06/21/2018 PROCEDURE PERFORMED: Esophagogastroduodenoscopy with biopsy. INDICATION FOR PROCEDURE: Dysphagia. DESCRIPTION OF PROCEDURE: After the risks and benefits of the procedure were explained to the patient including risks of bleeding, infection, perforation, reactions to anesthesia, aspiration and/or pain, informed consent was obtained. The patient was then taken to the endoscopy suite, where deep sedation was administered via propofol and anesthesia support. Once adequate sedation was achieved, the standard gastroscope was introduced into the mouth with intubation of the esophagus, stomach, and the proximal small intestines with the findings listed below. The patient tolerated the procedure well with no immediate perioperative complications. Upon conclusion of the procedure, the patient was taken to PACU in satisfactory condition. FINDINGS: Esophagus: Normal-appearing mucosa was seen in the proximal and mid esophagus; however, circumferential ulceration was seen in the distal esophagus extending proximally from the GE junction. The circumferential ulceration extended from approximately 41 cm to 43 cm. The underlying mucosa did have a mild nodular type appearance and was friable to the passage of the gastroscope. Multiple biopsies were taken from this region for evaluation and placed in a specimen jar. Otherwise, there was no evidence of overt mass lesions. Stomach: Normal-appearing mucosa was seen in the gastric cardia, fundus, body, greater curvature, and incisura. However, in the gastric antrum, there were two 2 mm deep cratered ulcerations with clean bases at the bottom that were in the pre-pyloric region(adjacent to the pylorus itself). These ulcerations did not exhibit any high-risk stigmata of active or recent bleeding. Multiple biopsies were taken from these ulcerations and placed in a specimen jar for evaluation. Otherwise, there was no evidence of erosions, mass lesions, or active/recent bleeding. Duodenum: Multiple superficial linear erosions were seen in the duodenal bulb without overt ulceration. These linear erosions measured approximately 4 to 7 mm in length. No intervention was taken in this region. Upon inspection of the second portion of the duodenum, there was normal findings. IMPRESSION: 1. Circumferential ulceration of the distal esophagus with mild nodularity and friability consistent with ulcerative acid reflux, but also concerning for extension of possible Cornejo's esophagus and/or transformation. 2. Two 2 mm deep cratered ulceration seen in the gastric antrum/pre-pyloric region, status post biopsies. 3. [id number] duodenitis seen within the duodenal bulb. RECOMMENDATIONS: 1. We will follow up on the biopsies with further care based on pathology report. 2. Would place the patient on PPI b.i.d. while inpatient, given the presence of gastric ulcerations and severe ulcerative esophagitis. 3. We will consider CT scan of the chest, given the nodularity of the distal esophagus and possibility of Cornejo esophagus and/or transformation to adenocarcinoma. 4. Would maintain strict acid reflux precautions while inpatient as well as strict aspiration precautions, given the results of the upper GI series yesterday. 5. Would consult Speech Pathology if not done so already given aspiration on the study yesterday. We will continue to follow. Please call with any questions. Job ID: [id number]
[2018-06-21] MEDS: Metoprolol Tartrate 25 MG TAB PO SCH ×2 (12:23→20:08)
[2018-06-21 13:33] VITALS: BMI 42.8
--- NOTE | 2018-06-21 14:44 | RAD ---
MODIFIED BARIUM SWALLOW IN THE PRESENCE OF THE SPEECH THERAPIST: HISTORY: Dysphagia, oropharyngeal phase. Feeding difficulties. FINDINGS: There is jennifer aspiration with thin liquids. There is residua in the valleculae, despite multiple sw allows. Please see the recommendations of the speech therapist for further management. POS: FERNANDO
--- NOTE | 2018-06-21 15:42 | PDOC.PN ---
- Subjective Encounter Start Date: 06/20/18 Encounter Start Time: 10:00 Subjective: pt up in bed very upset that he is unable to eat - Objective Resuscitation Status - Order Detail: 06/19/18 13:08 Resuscitation Status Routine Resuscitation Status: FULL: Full Resuscitation Vital Signs & Weight: Vital Signs (12 hours) Temp Pulse Resp BP Pulse Ox 06/21/18 15:15 98.2 F 83 16 141/73 H 93 L 06/21/18 11:40 98.4 F 80 18 131/82 100 06/21/18 09:45 95 06/21/18 09:17 98.1 F 89 18 146/75 H 95 06/21/18 03:47 97.6 F 84 16 116/62 95 Weight Admit Weight 276 lb 4.8 oz Weight 281 lb 14.4 oz I&O: 06/20/18 06/21/18 06/22/18 06:59 06:59 06:59 Intake Total 595 Balance 595 Result Diagrams: 06/20/18 04:49 06/20/18 04:49 Additional Labs: Accuchecks 06/21/18 06/21/18 06/20/18 11:28 05:58 20:35 POC Glucose 175 H 150 H 142 H 06/20/18 16:56 POC Glucose 203 H Phys Exam - Physical Examination Respiratory: no wheezing, no rales, no rhonchi, wheezing present, clear to auscultation bilateral Cardiovascular: RRR, no significant murmur, no rub, gallop, irregular Gastrointestinal: soft, non-tender, no distention, positive bowel sounds Dx/Plan (1) Aspiration pneumonia Code(s): J69.0 - PNEUMONITIS DUE TO INHALATION OF FOOD AND VOMIT Status: Acute (2) CAD (coronary artery disease), [place] coronary artery Code(s): I25.10 - ATHSCL HEART DISEASE OF [place] CORONARY ARTERY W/O ANG PCTRS Status: Acute Comment: S/p CABG 05/20/2018 (3) Obesity Code(s): E66.9 - OBESITY, UNSPECIFIED Status: Acute (4) Physical deconditioning Code(s): R53.81 - OTHER MALAISE Status: Acute (5) Type 2 diabetes mellitus Status: Acute (6) Dysphagia Code(s): R13.10 - DYSPHAGIA, UNSPECIFIED Status: Acute - Plan will switch abx to zosyn, CV surgery consulted -: gi consulted for dysphagia * . Review of Systems - Review of Systems Respiratory: negative: Cough, Dry, Shortness of Breath, Hemoptysis, SOB with Excertion, Pleuritic Pain, Sputum, Wheezing Cardiovascular: negative: chest pain, palpitations, orthopnea, paroxysmal nocturnal dyspnea, edema, light headedness, other Gastrointestinal: Other (unable to swallow) - Medications/Allergies Allergies/Adverse Reactions: Allergies Allergy/AdvReac Type Severity Reaction Status Date / Time iodine Allergy Verified 05/14/18 13:23 Medications: Current Medications Albuterol/Ipratropium (Duoneb) 3 ml NEB [id number] PRN PRN Reason: SOB &/or Wheezing Atorvastatin Calcium (Lipitor) 20 mg PO HS [facility] Benzonatate (Tessalon) 100 mg PO TID [facility] Last Admin: 06/21/18 10:28 Dose: Not Given Dextrose/Water (Dextrose 50%) 25 gm SLOW IVP PRN PRN PRN Reason: Hypoglycemia Enoxaparin Sodium (Lovenox) 40 mg SC 0900 [facility] Last Admin: 06/21/18 10:27 Dose: Not Given Glucagon (Glucagon) 1 mg IM PRN PRN PRN Reason: Hypoglycemia Dextrose/Water (D5w) 1,000 mls @ 0 mls/hr IV .Q0M PRN PRN Reason: Hypoglycemia Piperacillin Sod/Tazobactam (Sod 3.375 gm/ Sodium Chloride) 100 mls @ 200 mls/ hr IVPB Q6HR [facility] Last Admin: 06/21/18 13:13 Dose: 100 mls Dextrose/Sodium Chloride (D5 0.9% Ns) 1,000 mls @ 75 mls/hr IV .[id number] [facility] Last Admin: 06/21/18 09:28 Dose: Not Given Insulin Human Lispro (Humalog) 0 units SC .MILD SLIDING SCALE PRN PRN Reason: Mild Correctional Scale Metoprolol Tartrate (Lopressor) 12.5 mg PO BID [facility] Last Admin: 06/21/18 12:23 Dose: Not Given Pantoprazole Sodium (Protonix) 40 mg IVP Q12HR [facility] Last Admin: 06/21/18 10:30 Dose: 40 mg Sodium Chloride (Flush - Normal Saline) 10 ml IVF Q12HR [facility] Last Admin: 06/21/18 10:31 Dose: 10 ml Sodium Chloride (Flush - Normal Saline) 10 ml IVF PRN PRN PRN Reason: Saline Flush Last Admin: 06/20/18 12:55 Dose: 10 ml Sodium Chloride (Flush - Normal Saline) 10 ml IVF PRN PRN PRN Reason: Saline Flush Sodium Chloride (Normal Saline Pf) 10 ml FS PRN PRN PRN Reason: RECONSTITUTION
--- NOTE | 2018-06-21 15:46 | PDOC.PN ---
- Subjective Encounter Start Date: 06/21/18 Encounter Start Time: 10:15 Subjective: pt up in bed post egd - Objective Resuscitation Status - Order Detail: 06/19/18 13:08 Resuscitation Status Routine Resuscitation Status: FULL: Full Resuscitation Vital Signs & Weight: Vital Signs (12 hours) Temp Pulse Resp BP Pulse Ox 06/21/18 15:15 98.2 F 83 16 141/73 H 93 L 06/21/18 11:40 98.4 F 80 18 131/82 100 06/21/18 09:45 95 06/21/18 09:17 98.1 F 89 18 146/75 H 95 06/21/18 03:47 97.6 F 84 16 116/62 95 Weight Admit Weight 276 lb 4.8 oz Weight 281 lb 14.4 oz I&O: 06/20/18 06/21/18 06/22/18 06:59 06:59 06:59 Intake Total 595 Balance 595 Result Diagrams: 06/20/18 04:49 06/20/18 04:49 Additional Labs: Accuchecks 06/21/18 06/21/18 06/20/18 11:28 05:58 20:35 POC Glucose 175 H 150 H 142 H 06/20/18 16:56 POC Glucose 203 H Phys Exam - Physical Examination Respiratory: no wheezing, no rales, no rhonchi, wheezing present, clear to auscultation bilateral Cardiovascular: RRR, no significant murmur, no rub, gallop, irregular Gastrointestinal: soft, non-tender, no distention, positive bowel sounds Dx/Plan (1) Aspiration pneumonia Code(s): J69.0 - PNEUMONITIS DUE TO INHALATION OF FOOD AND VOMIT Status: Acute (2) CAD (coronary artery disease), [place] coronary artery Code(s): I25.10 - ATHSCL HEART DISEASE OF [place] CORONARY ARTERY W/O ANG PCTRS Status: Acute Comment: S/p CABG 05/20/2018 (3) Obesity Code(s): E66.9 - OBESITY, UNSPECIFIED Status: Acute (4) Physical deconditioning Code(s): R53.81 - OTHER [place]AISE Status: Acute (5) Type 2 diabetes mellitus Status: Acute (6) Dysphagia Code(s): R13.10 - DYSPHAGIA, UNSPECIFIED Status: Acute - Plan will continue abx, pt to get speech eval for aspiration -: ppi for ulcerative gastritis and gastric ulcers * . Review of Systems - Review of Systems Respiratory: negative: Cough, Dry, Shortness of Breath, Hemoptysis, SOB with Excertion, Pleuritic Pain, Sputum, Wheezing Cardiovascular: negative: chest pain, palpitations, orthopnea, paroxysmal nocturnal dyspnea, edema, light headedness, other Gastrointestinal: negative: Nausea, Vomiting, Abdominal Pain, Diarrhea, Constipation, Melena, Hematochezia, Other - Medications/Allergies Allergies/Adverse Reactions: Allergies Allergy/AdvReac Type Severity Reaction Status Date / Time iodine Allergy Verified 05/14/18 13:23 Medications: Current Medications Albuterol/Ipratropium (Duoneb) 3 ml NEB [id number] PRN PRN Reason: SOB &/or Wheezing Atorvastatin Calcium (Lipitor) 20 mg PO HS [facility] Benzonatate (Tessalon) 100 mg PO TID [facility] Last Admin: 06/21/18 10:28 Dose: Not Given Dextrose/Water (Dextrose 50%) 25 gm SLOW IVP PRN PRN PRN Reason: Hypoglycemia Enoxaparin Sodium (Lovenox) 40 mg SC 0900 [facility] Last Admin: 06/21/18 10:27 Dose: Not Given Glucagon (Glucagon) 1 mg IM PRN PRN PRN Reason: Hypoglycemia Dextrose/Water (D5w) 1,000 mls @ 0 mls/hr IV .Q0M PRN PRN Reason: Hypoglycemia Piperacillin Sod/Tazobactam (Sod 3.375 gm/ Sodium Chloride) 100 mls @ 200 mls/ hr IVPB Q6HR [facility] Last Admin: 06/21/18 13:13 Dose: 100 mls Dextrose/Sodium Chloride (D5 0.9% Ns) 1,000 mls @ 75 mls/hr IV .[id number] [facility] Last Admin: 06/21/18 09:28 Dose: Not Given Insulin Human Lispro (Humalog) 0 units SC .MILD SLIDING SCALE PRN PRN Reason: Mild Correctional Scale Metoprolol Tartrate (Lopressor) 12.5 mg PO BID [facility] Last Admin: 06/21/18 12:23 Dose: Not Given Pantoprazole Sodium (Protonix) 40 mg IVP Q12HR [facility] Last Admin: 06/21/18 10:30 Dose: 40 mg Sodium Chloride (Flush - Normal Saline) 10 ml IVF Q12HR [facility] Last Admin: 06/21/18 10:31 Dose: 10 ml Sodium Chloride (Flush - Normal Saline) 10 ml IVF PRN PRN PRN Reason: Saline Flush Last Admin: 06/20/18 12:55 Dose: 10 ml Sodium Chloride (Flush - Normal Saline) 10 ml IVF PRN PRN PRN Reason: Saline Flush Sodium Chloride (Normal Saline Pf) 10 ml FS PRN PRN PRN Reason: RECONSTITUTION
[2018-06-21] MEDS: Atorvastatin Calcium 20 MG TAB PO SCH (20:07)
[2018-06-21] MEDS: Sodium Chloride 0.9% (PF) 10 ML VIAL FS PRN (20:10)
[2018-06-22] MEDS: Piperacillin/Tazobactam 3.375 GM in Sodium Chloride 0.9% 100 ML IVPB SCH ×5 (00:48→23:48)
[2018-06-22] MEDS: Pantoprazole 40 MG VIAL IVP SCH ×2 (08:38→20:38)
[2018-06-22] MEDS: Benzonatate 100 MG CAP PO SCH ×3 (08:38→20:37)
[2018-06-22] MEDS: Sodium Chloride 0.9% (PF) 10 ML VIAL FS PRN ×2 (08:38→20:37)
[2018-06-22] MEDS: Metoprolol Tartrate 25 MG TAB PO SCH ×2 (08:39→20:35)
[2018-06-22] MEDS: Enoxaparin Sodium 40 MG/0.4 ML SYRINGE SC SCH (08:41)
[2018-06-22] MEDS ORDERED: Aspirin 325 mg Enteric Coated Tablet PO SCH (09:00)
[2018-06-22] MEDS ORDERED: Aspirin 325 MG TAB PO SCH (10:30)
[2018-06-22] MEDS: Dextrose 5 % And 0.9 % NaCl 1,000 ML IV SCH (10:44)
[2018-06-22 16:25] LABS: ANA Symphony (Qualitative) Negative (Negative); ANA Symphony (Quantitative) Less than 0.1 Ratio (< 0.7 Negative); dsDNA IgG Antibody Less than 0.5 IU/mL (<10 Negative)
[2018-06-22] MEDS: glipiZIDE 10 MG TAB PO SCH (16:50)
--- NOTE | 2018-06-22 17:45 | MRI ---
Brain MRI without contrast: 06/22/2018 COMPARISON: None HISTORY: Dysphasia, confusion, assess for acute infarction TECHNIQUE: Multiplanar multisequence MR imaging of the brain obtained without contrast. FINDINGS: The diffusion weighted imaging demonstrates no evidence for acute infarction. The axial gradient echo imaging demonstrates no evidence for intracranial hemorrhage. There is partial nonspecific opacification of the mastoid air cells bilaterally. The imaged paranasal sinuses appear grossly unremarkable. Arterial flow voids at the axial level of the skull base appear unremarkable on the T2-weighted imagi ng. There is mild/moderate diffuse cerebral volume loss. The regional bone marrow signal intensity appears grossly unremarkable. IMPRESSION: No evidence for acute infarction or intracranial hemorrhage.
[2018-06-22] MEDS: Atorvastatin Calcium 20 MG TAB PO SCH (20:36)
--- NOTE | 2018-06-22 21:37 | PDOC.PN ---
- Subjective Encounter Start Date: 06/22/18 Encounter Start Time: 10:00 Subjective: pt up in bed still has dysphagia - Objective Resuscitation Status - Order Detail: 06/19/18 13:08 Resuscitation Status Routine Resuscitation Status: FULL: Full Resuscitation Vital Signs & Weight: Vital Signs (12 hours) Temp Pulse Resp BP Pulse Ox 06/22/18 15:47 98.2 F 74 18 128/71 97 06/22/18 11:56 97.6 F 68 18 100/65 97 Weight Admit Weight 276 lb 4.8 oz Weight 281 lb 14.4 oz I&O: 06/21/18 06/22/18 06/23/18 06:59 06:59 06:59 Intake Total 595 1350 120 Output Total 200 Balance 595 1150 120 Result Diagrams: 06/20/18 04:49 06/20/18 04:49 Additional Labs: Accuchecks 06/22/18 06/22/18 06/22/18 16:34 11:06 06:15 POC Glucose 124 H 202 H 151 H Phys Exam - Physical Examination Neck: no nodes, no JVD, supple, full ROM Respiratory: no wheezing, no rales, no rhonchi Cardiovascular: RRR, no significant murmur, no rub, gallop, irregular Gastrointestinal: soft, non-tender, no distention, positive bowel sounds Dx/Plan (1) Aspiration pneumonia Code(s): J69.0 - PNEUMONITIS DUE TO INHALATION OF FOOD AND VOMIT Status: Acute (2) CAD (coronary artery disease), [place] coronary artery Code(s): I25.10 - ATHSCL HEART DISEASE OF [place] CORONARY ARTERY W/O ANG PCTRS Status: Acute Comment: S/p CABG 05/20/2018 (3) Obesity Code(s): E66.9 - OBESITY, UNSPECIFIED Status: Acute (4) Physical deconditioning Code(s): R53.81 - OTHER [place] Status: Acute (5) Type 2 diabetes mellitus Status: Acute (6) Dysphagia Code(s): R13.10 - DYSPHAGIA, UNSPECIFIED Status: Acute - Plan MRI ordered, esr/crp and quinn checked. -: inpatient rehab eval -: continue iv abx may switch to po * . Review of Systems - Review of Systems Respiratory: Cough Cardiovascular: negative: chest pain, palpitations, orthopnea, paroxysmal nocturnal dyspnea, edema, light headedness, other - Medications/Allergies Allergies/Adverse Reactions: Allergies Allergy/AdvReac Type Severity Reaction Status Date / Time iodine Allergy Verified 05/14/18 13:23 Medications: Current Medications Albuterol/Ipratropium (Duoneb) 3 ml NEB [id number] PRN PRN Reason: SOB &/or Wheezing Aspirin (Aspirin) 325 mg PO DAILY [facility] Atorvastatin Calcium (Lipitor) 20 mg PO HS [facility] Last Admin: 06/22/18 20:36 Dose: 20 mg Benzonatate (Tessalon) 100 mg PO TID [facility] Last Admin: 06/22/18 20:37 Dose: Not Given Dextrose/Water (Dextrose 50%) 25 gm SLOW IVP PRN PRN PRN Reason: Hypoglycemia Enoxaparin Sodium (Lovenox) 40 mg SC 0900 [facility] Last Admin: 06/22/18 08:41 Dose: 40 mg Glipizide (Glucotrol) 10 mg PO BID[facility] Last Admin: 06/22/18 16:50 Dose: 10 mg Glucagon (Glucagon) 1 mg IM PRN PRN PRN Reason: Hypoglycemia Dextrose/Water (D5w) 1,000 mls @ 0 mls/hr IV .Q0M PRN PRN Reason: Hypoglycemia Piperacillin Sod/Tazobactam (Sod 3.375 gm/ Sodium Chloride) 100 mls @ 200 mls/ hr IVPB Q6HR [facility] Last Admin: 06/22/18 17:44 Dose: 100 mls Insulin Human Lispro (Humalog) 0 units SC .MILD SLIDING SCALE PRN PRN Reason: Mild Correctional Scale Last Admin: 06/22/18 12:17 Dose: 3 units Metoprolol Tartrate (Lopressor) 12.5 mg PO BID [facility] Last Admin: 06/22/18 20:35 Dose: 12.5 mg Pantoprazole Sodium (Protonix) 40 mg IVP Q12HR [facility] Last Admin: 06/22/18 20:38 Dose: 40 mg Sodium Chloride (Flush - Normal Saline) 10 ml IVF Q12HR [facility] Last Admin: 06/22/18 20:37 Dose: 10 ml Sodium Chloride (Normal Saline Pf) 10 ml FS PRN PRN PRN Reason: RECONSTITUTION Last Admin: 06/22/18 20:37 Dose: 10 ml
[2018-06-23] MEDS: Piperacillin/Tazobactam 3.375 GM in Sodium Chloride 0.9% 100 ML IVPB SCH ×4 (05:33→23:41)
[2018-06-23] MEDS ORDERED: Ondansetron ODT 4 MG TAB PO PRN (08:02)
[2018-06-23] MEDS ORDERED: hydrALAZINE 20 MG/ML VIAL SLOW IVP PRN (08:02)
[2018-06-23] MEDS ORDERED: Sodium Chloride 0.65% Nasal 44 ML BOT EA NARE PRN (08:02)
[2018-06-23] MEDS ORDERED: Senokot S 8.6-50 MG TAB PO PRN (08:02)
[2018-06-23] MEDS ORDERED: Artificial Tears 18 DROP/0.9 ML EA EYE PRN (08:02)
[2018-06-23] MEDS ORDERED: Loratadine 10 MG TAB PO PRN (08:02)
[2018-06-23] MEDS ORDERED: Bisacodyl 10 MG SUPP PR PRN (08:02)
[2018-06-23] MEDS ORDERED: Ondansetron PF 4 MG/2 ML Vial IVP PRN (08:02)
[2018-06-23] MEDS ORDERED: Cepastat Lozenges 1 LOZ PO PRN (08:02)
[2018-06-23] MEDS ORDERED: Eucerin (Mineral Oil/Petrolatum,White) 30 gm Jar TOP PRN (08:02)
[2018-06-23] MEDS ORDERED: Loperamide HCl 2 MG CAP PO PRN (08:02)
[2018-06-23] MEDS ORDERED: Nitroglycerin 0.4 MG TAB (25 Tab Bottle) SL PRN (08:02)
[2018-06-23] MEDS: Pantoprazole 40 MG VIAL IVP SCH ×2 (08:25→20:58)
[2018-06-23] MEDS: Benzonatate 100 MG CAP PO SCH ×3 (08:26→20:53)
[2018-06-23] MEDS: glipiZIDE 10 MG TAB PO SCH ×2 (08:26→17:43)
[2018-06-23] MEDS: Metoprolol Tartrate 25 MG TAB PO SCH ×2 (08:26→20:54)
[2018-06-23] MEDS: Aspirin 325 MG TAB PO SCH (08:26)
[2018-06-23] MEDS: Enoxaparin Sodium 40 MG/0.4 ML SYRINGE SC SCH (08:26)
--- NOTE | 2018-06-23 11:37 | PDOC.PN ---
- Subjective Encounter Start Date: 06/23/18 Encounter Start Time: 08:15 -: old records requested/rev pt has dysphagia and pt and his concerned about finding etiology, no fever Patient seen and examined. No overnight events - Objective Resuscitation Status - Order Detail: 06/19/18 13:08 Resuscitation Status Routine Resuscitation Status: FULL: Full Resuscitation MAR Reviewed: Yes Vital Signs & Weight: Vital Signs (12 hours) Temp Pulse Resp BP Pulse Ox 06/23/18 11:07 98.3 F 77 15 125/68 95 06/23/18 07:17 97.9 F 72 18 122/73 96 06/23/18 03:35 98.0 F 80 20 154/80 H 98 Weight Admit Weight 276 lb 4.8 oz Weight 281 lb 14.4 oz I&O: 06/22/18 06/23/18 06/24/18 06:59 06:59 06:59 Intake Total 1350 520 Output Total 200 Balance 1150 520 Result Diagrams: 06/20/18 04:49 06/20/18 04:49 Additional Labs: Accuchecks 06/23/18 06/22/18 05:15 16:34 POC Glucose 101 124 H Radiology Reviewed by me: Yes EKG Reviewed by me: Yes Phys Exam - Physical Examination Constitutional: NAD HEENT: PERRLA, moist MMs, sclera anicteric Neck: no JVD, supple Respiratory: no wheezing, no rales, no rhonchi Cardiovascular: RRR, no significant murmur, no rub Gastrointestinal: soft, non-tender, no distention, positive bowel sounds Musculoskeletal: no edema, pulses present Neurological: non-focal, normal sensation, moves all 4 limbs Lymphatic: no nodes Psychiatric: normal affect, A&O x 3 Skin: no rash, normal turgor Dx/Plan (1) Aspiration pneumonia Code(s): J69.0 - PNEUMONITIS DUE TO INHALATION OF FOOD AND VOMIT Status: Acute (2) Dysphagia Code(s): R13.10 - DYSPHAGIA, UNSPECIFIED Status: Acute Qualifiers: Dysphagia type: oropharyngeal phase Qualified Code(s): R13.12 - Dysphagia, oropharyngeal phase (3) Esophagitis Code(s): K20.9 - ESOPHAGITIS, UNSPECIFIED Status: Acute (4) PUD (peptic ulcer disease) Code(s): K27.9 - PEPTIC ULC, SITE UNSP, UNSP AC OR CHR, W/O HEMOR OR PERF Status: Acute (5) CAD (coronary artery disease), [place] coronary artery Code(s): I25.10 - ATHSCL HEART DISEASE OF [place] CORONARY ARTERY W/O ANG PCTRS Status: Chronic Comment: S/p CABG 05/20/2018 (6) Hyperlipidemia Code(s): E78.5 - HYPERLIPIDEMIA, UNSPECIFIED Status: Chronic Comment: On statin (7) Hypertension Code(s): I10 - ESSENTIAL (PRIMARY) HYPERTENSION Status: Chronic Comment: Control acceptable (8) Morbid obesity with BMI of 40.0-44.9, adult Code(s): E66.01 - MORBID (SEVERE) OBESITY DUE TO EXCESS CALORIES; Z68.41 - BODY MASS INDEX (BMI) 40.0-44.9, ADULT Status: Chronic (9) SHEY on CPAP Code(s): G47.33 - OBSTRUCTIVE SLEEP APNEA (ADULT) (PEDIATRIC); Z99.89 - DEPENDENCE ON OTHER ENABLING MACHINES AND DEVICES Status: Chronic (10) Type 2 diabetes mellitus Status: Chronic - Plan cont current plan of care, plan discussed w/ family, continue antibiotics, speech therapy * medication reviewed as below * symptomatic treatment * will consult ENT as per family request to rule out any local laryngopharyngeal pathology * he does not have any neurological symptoms to explain dysphagia and MRI normal * continue current antibiotics and modified diet. Review of Systems - Review of Systems ENT: negative: Ear Pain, Ear Discharge, Nose Pain, Nose Discharge, Nose Congestion, Mouth Pain, Mouth Swelling, Throat Pain, Throat Swelling, Other Respiratory: negative: Cough, Dry, Shortness of Breath, Hemoptysis, SOB with Excertion, Pleuritic Pain, Sputum, Wheezing Cardiovascular: negative: chest pain, palpitations, orthopnea, paroxysmal nocturnal dyspnea, edema, light headedness, other Gastrointestinal: negative: Nausea, Vomiting, Abdominal Pain, Diarrhea, Constipation, Melena, Hematochezia, Other Genitourinary: negative: Dysuria, Frequency, Incontinence, Hematuria, Retention , Other Musculoskeletal: negative: Neck Pain, Shoulder Pain, Arm Pain, Back Pain, Hand Pain, Leg Pain, Foot Pain, Other Skin: negative: Rash, Lesions, Fazal, Bruising, Other - Medications/Allergies Allergies/Adverse Reactions: Allergies Allergy/AdvReac Type Severity Reaction Status Date / Time iodine Allergy Verified 05/14/18 13:23 Medications: Current Medications Albuterol/Ipratropium (Duoneb) 3 ml NEB [id number] PRN PRN Reason: SOB &/or Wheezing Artificial Tears (Tears Naturale) 2 drop EA EYE PRN PRN PRN Reason: Dry Eyes Aspirin (Aspirin) 325 mg PO DAILY [facility] Last Admin: 06/23/18 08:26 Dose: 325 mg Atorvastatin Calcium (Lipitor) 20 mg PO HS [facility] Last Admin: 06/22/18 20:36 Dose: 20 mg Benzonatate (Tessalon) 100 mg PO TID [facility] Last Admin: 06/23/18 08:26 Dose: 100 mg Bisacodyl (Dulcolax) 10 mg [place] DAILYPRN PRN PRN Reason: Constipation Dextrose/Water (Dextrose 50%) 25 gm SLOW IVP PRN PRN PRN Reason: Hypoglycemia Enoxaparin Sodium (Lovenox) 40 mg SC 0900 [facility] Last Admin: 06/23/18 08:26 Dose: 40 mg Glipizide (Glucotrol) 10 mg PO BID[facility] Last Admin: 06/23/18 08:26 Dose: 10 mg Glucagon (Glucagon) 1 mg IM PRN PRN PRN Reason: Hypoglycemia Hydralazine HCl (Apresoline) 10 mg SLOW IVP Q4H PRN PRN Reason: SBP > 180 and HR < 70 Dextrose/Water (D5w) 1,000 mls @ 0 mls/hr IV .Q0M PRN PRN Reason: Hypoglycemia Piperacillin Sod/Tazobactam (Sod 3.375 gm/ Sodium Chloride) 100 mls @ 200 mls/ hr IVPB Q6HR [facility] Last Admin: 06/23/18 05:33 Dose: 100 mls Insulin Human Lispro (Humalog) 0 units SC .MILD SLIDING SCALE PRN PRN Reason: Mild Correctional Scale Last Admin: 06/22/18 12:17 Dose: 3 units Loperamide HCl (Imodium) 2 mg PO PRN PRN PRN Reason: Diarrhea/Loose Stools Loratadine (Claritin) 10 mg PO DAILYPRN PRN PRN Reason: Sinus Symptoms Metoprolol Tartrate (Lopressor) 12.5 mg PO BID [facility] Last Admin: 06/23/18 08:26 Dose: 12.5 mg Mineral Oil/White Petrolatum (Eucerin Cream) 0 gm TOP BIDPRN PRN PRN Reason: Dry Skin Nitroglycerin (Nitrostat) 0.4 mg SL Q5MIN PRN PRN Reason: Chest Pain Ondansetron HCl (Zofran Odt) 4 mg PO Q6H PRN PRN Reason: Nausea/Vomiting Ondansetron HCl (Zofran) 4 mg IVP Q6H PRN PRN Reason: Nausea/Vomiting Pantoprazole Sodium (Protonix) 40 mg IVP Q12HR [facility] Last Admin: 06/23/18 08:25 Dose: 40 mg Senna/Docusate Sodium (Senokot S) 2 tab PO BID PRN PRN Reason: Constipation Sodium Chloride (Flush - Normal Saline) 10 ml IVF Q12HR [facility] Last Admin: 06/23/18 08:27 Dose: 10 ml Sodium Chloride (Normal Saline Pf) 10 ml FS PRN PRN PRN Reason: RECONSTITUTION Last Admin: 06/22/18 20:37 Dose: 10 ml Sodium Chloride ([place] 0.65%) 0 ml EA NARE QIDPRN PRN PRN Reason: Nasal Congestion Throat Lozenges (Cepastat Lozenges) 1 lilia PO Q2H PRN PRN Reason: Sore Throat
[2018-06-23] MEDS: Pyridostigmine Bromide IR 60 MG TAB PO SCH ×2 (15:14→20:57)
--- NOTE | 2018-06-23 16:03 | PRG ---
DATE OF SERVICE: 06/23/2018 SUBJECTIVE: Mr. Salas still is having oropharyngeal dysphagia. Reports he has not been making very good progress with speech pathology. He has had no fever. He is breathing okay. OBJECTIVE: VITAL SIGNS: Temperature is 98, pulse is 77, blood pressure is 125/68. ABDOMEN: Soft and nontender. LABORATORY DATA: CRP yesterday of 10.22. He had THOMAS screen and double-stranded DNA that were negative. He has had an MRI of the brain that was done yesterday that showed no evidence for acute infarction or intracranial hemorrhage. ASSESSMENT: 1. Severe oropharyngeal dysphagia. The patient notes that speech pathologist said he may ultimately need a PEG feeding tube. We discussed this, and I explained to him how this would mean and he does not eat anything by mouth and it would not obviate the risk of aspiration. He would still have a risk of aspirating regurgitated food, also even secretions with this, which I think this is true risk with as bad as oropharyngeal dysphagia is. He needs a Neurology evaluation to make sure he does not have ALS or myasthenia or atypical variant of Guillain-Enon etc., causing his symptoms. ENT evaluation is not unreasonable for structural abnormalities. 2. Regarding his EGD, he had reflux esophagitis. Biopsy showed no evidence of Cornejo's or dysplasia or fungal or viral organisms and he will need to stay out of PPI for this and will change to oral. 3. At this time, we will follow from a distance. I can see him back in if ultimately his treatment team and he and his family decide that they would like to have a PEG tube placed, but again this really does not negate the risk of aspiration, especially in someone who is having as much oropharyngeal dysphagia as he is. I think he would be at risk to aspirate even just secretions and is very difficult for individuals, who are completely conscious and speaking well to go on a tube feed diet only and not eat or drink by mouth at all and. If he is going to eat and drink, obviously it would negate any benefit again by placing a PEG, so I think that is probably the last resort in the situation. We will follow from a distance at this point of time. If I can be of any further assistance, please do not hesitate to contact me. These issues were discussed with the hospitalist. Job ID: [id number]
[2018-06-23] MEDS: Atorvastatin Calcium 20 MG TAB PO SCH (20:53)
--- NOTE | 2018-06-23 20:56 | PRG ---
DATE OF SERVICE: SUBJECTIVE: Mr. Salas is currently in the hospital for complaints of dysphagia and aspiration pneumonia. This has been ongoing since he had a procedure for his heart. He has never had any previous issues with swallowing or vomiting prior to this. He had an MRI, which ruled out any kind of a stroke, though they noted that his epiglottis is not functioning normally and this was discovered on barium swallow. ENT was asked to check for any kind of laryngopharyngeal abnormality. OBJECTIVE: GENERAL: The patient is well developed, well nourished. He is in no acute distress at this time. VITAL SIGNS: Stable. HEENT: The patient was sprayed using combo spray in preparation for a flexible scope examination. Flexible scope examination revealed no abnormalities through the nasal passages or through the nasopharyngeal region. Upon looking below this to the larynx, both cords appear to be moving normally with both phonation and inspiration, though it is noted that the epiglottis did appear to be somewhat hypoactive. At times, would even move over and block view during the exam. The patient was asked to swallow and did so without difficulty. ASSESSMENT: 1. Dysphagia. 2. Aspiration pneumonia. PLAN: At this time, there appears to be no laryngeal cause for his aspiration, still most likely due to the epiglottis being somewhat hypoactive. The patient may follow up with Ear, Nose, and Throat upon discharge where a more thorough exam could possibly be done in the office. Job ID: [id number]
--- NOTE | 2018-06-24 00:21 | CON ---
DATE OF CONSULTATION: 06/23/2018 CONSULTING PHYSICIAN: Hospitalist Service. IMPRESSION: Probable myasthenia gravis. PLAN: 1. Continue Mestinon 60 mg three times a day. 2. Have Speech Therapy reassess his swallow function. 3. Await acetylcholine receptor antibody results. HISTORY OF PRESENT ILLNESS: Mr. Salas is a 77-year-old man, who has a history of obesity and coronary artery disease. He underwent cardiac surgery a few weeks ago. Postoperatively, he developed difficulty with swallowing. He has actually had 40 to 50 pounds weight loss since then. He was noted to have a bit of nasal speech. His swallow study revealed penetration with thin liquids. He had an MRI of the brain done, which was completely normal. He is without any complaints of weakness in any other region of his body. PAST MEDICAL HISTORY: Coronary artery disease, obesity, hyperlipidemia, and diabetes. ALLERGIES: IODINE. SOCIAL HISTORY: He is . No tobacco or illicit drug use. FAMILY HISTORY: Noncontributory. MEDICATIONS: Medication list was reviewed. REVIEW OF SYSTEMS: Ten system review of systems is otherwise negative. PHYSICAL EXAMINATION: GENERAL: He is a morbidly obese elderly man, lying in bed, in no distress. VITAL SIGNS: Blood pressure 114/76, pulse 105, respirations 16. Temperature has been afebrile. HEENT: Pupils equal and reactive. Conjunctivae clear. Oropharynx clear. Palate elevates of midline. Cranium, normocephalic and atraumatic. NECK: No lymphadenopathy. EXTREMITIES: No edema. NEUROLOGIC: He is alert and cooperative. His speech is fluent and clear. Cranial nerves 2 through 12 are intact. Motor exam showed good strength throughout. Sensations intact to touch. Gait was not tested. No abnormal movements were seen. No tremor or dysmetria is present. I had him drink some water through a straw and he had absolutely no difficulty. SUMMARY: Based on the fact that his nasal speech is improved and his ability to swallow thin liquids seems to be better as well, I suspect that we are on the right track with diagnosis of myasthenia. Continue Mestinon and can follow in his care. Job ID: [id number]
[2018-06-24] MEDS: Piperacillin/Tazobactam 3.375 GM in Sodium Chloride 0.9% 100 ML IVPB SCH ×2 (05:59→13:50)
[2018-06-24 06:10] LABS: Anion Gap 12 mmol/L (10-20); BUN (Urea Nitrogen) 12 mg/dL (8.4-25.7); Calc. Creatinine Clearance 146 mL/min (70-130); Calcium 8.8 mg/dL (7.8-10.44); Carbon Dioxide 24 mmol/L (23-31); Chloride 109 mmol/L (98-107); Estimated GFR-MDRD Greater than 90; Glucose 103 mg/dL (83-110); Sodium 142 mmol/L (136-145)
[2018-06-24 06:15] LABS: #Eosinphils 1.1 thou/uL (0.0-0.7); #Lymphocytes 1.5 thou/uL (1.20-3.40); #Monocytes 0.9 thou/uL (0.11-0.59); #Neutrophils 4.7 thou/uL (1.40-6.50); %Basophils 0.1 % (0.0-1.0); %Eosinophils 13.1 % (0.0-10.0); %Lymphocytes 18.2 % (21.0-51.0); %Monocytes 10.9 % (0.0-10.0); %Neutrophils 57.7 % (42.0-75.0); Hemoglobin 12.4 g/dL (14.0-18.0); Mean Corpuscular HGB CONC 33.7 g/dL (32.0-36.0); Mean Corpuscular Hemoglobin 31.8 pg (27.0-31.0); Mean Corpuscular Volume 94.3 fL (78.0-98.0); Mean Platelet Volume 8.7 fL (7.4-10.4); Platelet Count 269 thou/uL (130-400); RBC Distribution Width 13.4 % (11.5-14.5); Red Blood Cell (RBC) Count 3.91 mill/uL (4.70-6.10); White Blood Cell (WBC) Count 8.2 thou/uL (4.8-10.8)
[2018-06-24] MEDS ORDERED: Potassium Chloride 40 MEQ in Premix Bag 1 BAG IVPB SCH (07:15)
[2018-06-24] MEDS: glipiZIDE 10 MG TAB PO SCH ×2 (09:14→16:55)
[2018-06-24] MEDS: Metoprolol Tartrate 25 MG TAB PO SCH (09:14)
[2018-06-24] MEDS: Aspirin 325 MG TAB PO SCH (09:14)
[2018-06-24] MEDS: Benzonatate 100 MG CAP PO SCH ×2 (09:14→16:55)
[2018-06-24] MEDS: Enoxaparin Sodium 40 MG/0.4 ML SYRINGE SC SCH (09:14)
[2018-06-24] MEDS: Pyridostigmine Bromide IR 60 MG TAB PO SCH ×2 (09:15→16:55)
[2018-06-24] MEDS: Pantoprazole 40 MG VIAL IVP SCH (09:16)
[2018-06-24] MEDS: Potassium Chloride 20 MEQ in Premix Bag 1 BAG IVPB SCH ×2 (10:25→12:14)
--- NOTE | 2018-06-24 11:05 | DIS ---
DATE OF ADMISSION: 06/19/2018 DATE OF DISCHARGE: 06/24/2018 PRIMARY CARE PHYSICIAN: Dr. Oc Dennison. DISCHARGE DISPOSITION: Home. PRIMARY DISCHARGE DIAGNOSES: 1. Aspiration pneumonia. 2. Peptic ulcer disease with erosive esophagitis, gastritis, and duodenitis. 3. Oropharyngeal dysphagia suspecting from myasthenia. 4. Hypokalemia, replaced. SECONDARY DISCHARGE DIAGNOSES: 1. Diabetes, type 2. 2. Obstructive sleep apnea, on CPAP. 3. Morbid obesity with BMI of 42. 4. Hypertension. 5. Dyslipidemia. 6. Coronary artery disease. PRIMARY PROCEDURE/OPERATION: Payment Manager did upper endoscopy and the patient was found with ulcerative esophagitis, duodenitis, and gastritis. RADIOLOGICAL INVESTIGATION: Chest x-ray showed multifocal pneumonia. Upper GI series showed aspiration. Modified barium swallow with speech therapy. MRI brain was normal. SIGNIFICANT LABORATORY DATA: Hemoglobin 12.4, WBC 8.2. Creatinine 0.78. Autoimmune biomarker came back negative. Blood culture negative. DISCHARGE MEDICATIONS: 1. Aspirin 325 mg daily. 2. Lipitor 20 mg p.o. at bedtime. 3. Fish oil 1000 mg p.o. daily. 4. Garlic 1000 mg daily. 5. Glipizide 10 mg b.i.d. 6. Glucosamine and chondroitin sulfate one tablet at bedtime. 7. Slo-Niacin 500 mg p.o. at bedtime. 8. Vitamin E 400 units p.o. daily. 9. Augmentin 875 mg p.o. b.i.d. for 5 more days. 10. Metformin 500 mg b.i.d. 11. Lopressor 12.5 mg b.i.d. 12. Mestinon 60 mg t.i.d. (dose will be adjusted by Dr. Dominic Salmeron). CONTRAINDICATION: None. CODE STATUS: Full code. INPATIENT CONSULTANTS: 1. Dr. Zafar Nickerson was consulted for dysphagia and emesis. 2. Dr. Koroma was consulted for dysphagia. 3. Dr. Dominic Salmeron was consulted for oropharyngeal dysphagia. 4. Derek Riddle was consulted to rule out ENT etiology. DISCHARGE PLAN: Post hospital, the patient will follow up with primary care physician in one week as well as Dr. Dominic Salmeron in one week. HOSPITAL COURSE: A 77-year-old male with above-mentioned medical problem, who was admitted by Dr. Bazan on June 19, 2018, please see his H and P for further details. The patient was having shortness of breath, weakness. He was found with multifocal pneumonia based on x-ray. He was having difficulty swallowing. This patient was continuously having problem with difficulty swallowing and that made him aspiration pneumonia. In the emergency room, he had a chest x-ray, which showed multifocal pneumonia, which was treated with vancomycin and Zosyn. He had upper GI series, which showed aspiration. Payment Manager was consulted and they did upper endoscopy and found with ulcerative esophagitis, gastritis, and duodenitis, which were treated with proton pump inhibitor. Speech therapy was following and they did modified barium swallow therapy and which also showed aspiration. At that point, we did not have any clear-cut explanation for his oropharyngeal dysphagia. We did MRI and ruled out any space-occupying lesion. We have ruled out stroke. The patient did not have any classic clinical features of myasthenia gravis, but we consulted Neurology and they were suspecting myasthenia. Acetylcholinesterase antibody test result was sent and started on Mestinon. After starting that therapy, the patient subjectively showed some improvement. We are waiting for Speech Therapy evaluation today. This patient needs to follow up with Neurology on an outpatient basis to rule in or rule out diagnosis of myasthenia gravis after discharge. At this point, the patient is pretty much not interested in going for any kind of further aggressive measures like a PEG tube, rather he wanted to take second opinion before he decides that. Necessary precaution about aspiration discussed with the patient. Dietary modification discussed with the patient. The patient is clinically doing much better. His pneumonia part has much improved. Otherwise, the patient is medically stable, but he needs to continue to follow up with them on an outpatient basis. ENT already ruled out local pathology. The patient is seen and examined at bedside. All review of systems reviewed with him and negative, and plan of care discussed with the patient and his . All new medication prescription sent to his pharmacy. Job ID: [id number]
--- NOTE | 2018-06-24 11:19 | PDOC.PN ---
- Subjective Encounter Start Date: 06/24/18 Encounter Start Time: 08:30 Patient seen and examined. No new complaints. No overnight events - Objective Resuscitation Status - Order Detail: 06/19/18 13:08 Resuscitation Status Routine Resuscitation Status: FULL: Full Resuscitation MAR Reviewed: Yes Vital Signs & Weight: Vital Signs (12 hours) Temp Pulse Resp BP Pulse Ox 06/24/18 09:09 97.5 F L 64 19 136/63 95 06/24/18 04:00 98.3 F 78 18 166/80 H 94 L Weight Admit Weight 276 lb 4.8 oz Weight 281 lb 14.4 oz I&O: 06/23/18 06/24/18 06/25/18 06:59 06:59 06:59 Intake Total 520 1611 Balance 520 1611 Result Diagrams: 06/24/18 05:29 06/24/18 05:29 Additional Labs: Accuchecks 06/24/18 06/24/18 06/23/18 10:35 05:57 20:50 POC Glucose 161 H 107 102 06/23/18 06/23/18 06/22/18 17:19 11:44 20:29 POC Glucose 83 143 H 70 EKG Reviewed by me: Yes Phys Exam - Physical Examination Constitutional: NAD HEENT: PERRLA, moist MMs, sclera anicteric Neck: no JVD, supple Respiratory: no wheezing, no rales, no rhonchi Cardiovascular: RRR, no significant murmur, no rub Gastrointestinal: soft, non-tender, no distention, positive bowel sounds Musculoskeletal: no edema, pulses present Neurological: non-focal, normal sensation Lymphatic: no nodes Psychiatric: normal affect, A&O x 3 Skin: no rash, normal turgor Dx/Plan (1) Aspiration pneumonia Code(s): J69.0 - PNEUMONITIS DUE TO INHALATION OF FOOD AND VOMIT Status: Acute (2) Dysphagia Code(s): R13.10 - DYSPHAGIA, UNSPECIFIED Status: Acute Qualifiers: Dysphagia type: oropharyngeal phase Qualified Code(s): R13.12 - Dysphagia, oropharyngeal phase (3) Esophagitis Code(s): K20.9 - ESOPHAGITIS, UNSPECIFIED Status: Acute (4) PUD (peptic ulcer disease) Code(s): K27.9 - PEPTIC ULC, SITE UNSP, UNSP AC OR CHR, W/O HEMOR OR PERF Status: Acute (5) CAD (coronary artery disease), [place] coronary artery Code(s): I25.10 - ATHSCL HEART DISEASE OF [place] CORONARY ARTERY W/O ANG PCTRS Status: Chronic Comment: S/p CABG 05/20/2018 (6) Hyperlipidemia Code(s): E78.5 - HYPERLIPIDEMIA, UNSPECIFIED Status: Chronic Comment: On statin (7) Hypertension Code(s): I10 - ESSENTIAL (PRIMARY) HYPERTENSION Status: Chronic Comment: Control acceptable (8) Morbid obesity with BMI of 40.0-44.9, adult Code(s): E66.01 - MORBID (SEVERE) OBESITY DUE TO EXCESS CALORIES; Z68.41 - BODY MASS INDEX (BMI) 40.0-44.9, ADULT Status: Chronic (9) SHEY on CPAP Code(s): G47.33 - OBSTRUCTIVE SLEEP APNEA (ADULT) (PEDIATRIC); Z99.89 - DEPENDENCE ON OTHER ENABLING MACHINES AND DEVICES Status: Chronic (10) Type 2 diabetes mellitus Status: Chronic (11) Hypokalemia Code(s): E87.6 - HYPOKALEMIA Status: Acute (12) Myasthenia gravis Code(s): G70.00 - MYASTHENIA GRAVIS WITHOUT (ACUTE) EXACERBATION Status: Suspected - Plan cont current plan of care, plan discussed w/ family, continue antibiotics * replace potassium * augmentin on discharge * advised to follow up with neurology * speech evaluation today * likely discharge later today. Review of Systems - Review of Systems ENT: negative: Ear Pain, Ear Discharge, Nose Pain, Nose Discharge, Nose Congestion, Mouth Pain, Mouth Swelling, Throat Pain, Throat Swelling, Other Respiratory: negative: Cough, Dry, Shortness of Breath, Hemoptysis, SOB with Excertion, Pleuritic Pain, Sputum, Wheezing Cardiovascular: negative: chest pain, palpitations, orthopnea, paroxysmal nocturnal dyspnea, edema, light headedness, other Gastrointestinal: negative: Nausea, Vomiting, Abdominal Pain, Diarrhea, Constipation, Melena, Hematochezia, Other Genitourinary: negative: Dysuria, Frequency, Incontinence, Hematuria, Retention , Other Musculoskeletal: negative: Neck Pain, Shoulder Pain, Arm Pain, Back Pain, Hand Pain, Leg Pain, Foot Pain, Other Skin: negative: Rash, Lesions, Fazal, Bruising, Other - Medications/Allergies Allergies/Adverse Reactions: Allergies Allergy/AdvReac Type Severity Reaction Status Date / Time iodine Allergy Verified 05/14/18 13:23 Medications: Current Medications Albuterol/Ipratropium (Duoneb) 3 ml NEB [id number] PRN PRN Reason: SOB &/or Wheezing Artificial Tears (Tears Naturale) 2 drop EA EYE PRN PRN PRN Reason: Dry Eyes Aspirin (Aspirin) 325 mg PO DAILY [facility] Last Admin: 06/24/18 09:14 Dose: 325 mg Atorvastatin Calcium (Lipitor) 20 mg PO HS [facility] Last Admin: 06/23/18 20:53 Dose: 20 mg Benzonatate (Tessalon) 100 mg PO TID [facility] Last Admin: 06/24/18 09:14 Dose: 100 mg Bisacodyl (Dulcolax) 10 mg [place] DAILYPRN PRN PRN Reason: Constipation Dextrose/Water (Dextrose 50%) 25 gm SLOW IVP PRN PRN PRN Reason: Hypoglycemia Enoxaparin Sodium (Lovenox) 40 mg SC 0900 [facility] Last Admin: 06/24/18 09:14 Dose: 40 mg Glipizide (Glucotrol) 10 mg PO BID[facility] Last Admin: 06/24/18 09:14 Dose: 10 mg Glucagon (Glucagon) 1 mg IM PRN PRN PRN Reason: Hypoglycemia Hydralazine HCl (Apresoline) 10 mg SLOW IVP Q4H PRN PRN Reason: SBP > 180 and HR < 70 Dextrose/Water (D5w) 1,000 mls @ 0 mls/hr IV .Q0M PRN PRN Reason: Hypoglycemia Piperacillin Sod/Tazobactam (Sod 3.375 gm/ Sodium Chloride) 100 mls @ 200 mls/ hr IVPB Q6HR [facility] Last Admin: 06/24/18 05:59 Dose: 100 mls Potassium Chloride 20 meq/ (Device) 100 mls @ 50 mls/hr IVPB Q2H [facility] Stop: 06/24/18 11:59 Last Admin: 06/24/18 10:25 Dose: 100 mls Insulin Human Lispro (Humalog) 0 units SC .MILD SLIDING SCALE PRN PRN Reason: Mild Correctional Scale Last Admin: 06/22/18 12:17 Dose: 3 units Loperamide HCl (Imodium) 2 mg PO PRN PRN PRN Reason: Diarrhea/Loose Stools Loratadine (Claritin) 10 mg PO DAILYPRN PRN PRN Reason: Sinus Symptoms Metoprolol Tartrate (Lopressor) 12.5 mg PO BID [facility] Last Admin: 06/24/18 09:14 Dose: 12.5 mg Mineral Oil/White Petrolatum (Eucerin Cream) 0 gm TOP BIDPRN PRN PRN Reason: Dry Skin Nitroglycerin (Nitrostat) 0.4 mg SL Q5MIN PRN PRN Reason: Chest Pain Ondansetron HCl (Zofran Odt) 4 mg PO Q6H PRN PRN Reason: Nausea/Vomiting Ondansetron HCl (Zofran) 4 mg IVP Q6H PRN PRN Reason: Nausea/Vomiting Pantoprazole Sodium (Protonix) 40 mg IVP Q12HR [facility] Last Admin: 06/24/18 09:16 Dose: 40 mg Pyridostigmine [place] (Mestinon) 60 mg PO TID [facility] Last Admin: 06/24/18 09:15 Dose: 60 mg Senna/Docusate Sodium (Senokot S) 2 tab PO BID PRN PRN Reason: Constipation Sodium Chloride (Flush - Normal Saline) 10 ml IVF Q12HR [facility] Last Admin: 06/24/18 09:16 Dose: 10 ml Sodium Chloride (Normal Saline Pf) 10 ml FS PRN PRN PRN Reason: RECONSTITUTION Last Admin: 06/22/18 20:37 Dose: 10 ml Sodium Chloride ([place] 0.65%) 0 ml EA NARE QIDPRN PRN PRN Reason: Nasal Congestion Throat Lozenges (Cepastat Lozenges) 1 lilia PO Q2H PRN PRN Reason: Sore Throat
--- NOTE | 2018-06-24 16:17 | PRG ---
DATE OF SERVICE: SUBJECTIVE: Mr. Salas is eating much better. He attributes this to starting Mestinon. The speech pathologist reports on re-evaluation, he is not aspirating anymore. OBJECTIVE: VITAL SIGNS: Temperature is 97.7, pulse 67, blood pressure 113/69. ABDOMEN: Soft and nontender. LABORATORY DATA: White count 8.2, hemoglobin 12.2, platelet count 269. Sodium 142, potassium 3, BUN and creatinine are 12 and 0.79. ASSESSMENT: 1. Reflux esophagitis, on PPI therapy. 2. Oropharyngeal dysphagia. 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 RECOMMENDATIONS: 1. From a GI standpoint, he can continue the PPI. Biopsies were negative for Cornejo's. 2. With regard to his oropharyngeal dysphagia, would defer diet to speech pathology and he will need to follow up with Neurology with regard to ultimate diagnosis. His labs are still pending and ultimate treatment as it seems he is improving with Mestinon. We will be available to see him on an as needed basis. Job ID: [id number]
[2018-06-24 16:57] VITALS: BP 127/64; TEMP 98.8
[2018-06-24 18:53] LABS: Anion Gap 12 mmol/L (10-20); BUN (Urea Nitrogen) 10 mg/dL (8.4-25.7); Calc. Creatinine Clearance 140 mL/min (70-130); Carbon Dioxide 24 mmol/L (23-31); Chloride 108 mmol/L (98-107); Estimated GFR-MDRD Greater than 90; Glucose 116 mg/dL (83-110); Potassium 3.1 mmol/L (3.5-5.1); Sodium 141 mmol/L (136-145)
[2018-06-24] MEDS ORDERED: Potassium Chloride 40 MEQ in Sodium Chloride 0.9% 250 ML 250 ML IVPB SCH (19:15)
[2018-06-24] MEDS ORDERED: Potassium Chloride 20 MEQ TAB PO SCH (19:45)
--- NOTE | 2018-06-25 10:28 | EKG ---
Test Reason : Blood Pressure : / mmHG Vent. Rate : 111 BPM Atrial Rate : 111 BPM P-R Int : 130 ms QRS Dur : 082 ms QT Int : 320 ms P-R-T Axes : 021 067 078 degrees QTc Int : 435 ms Sinus tachycardia with Premature supraventricular complexes Abnormal ECG Confirmed by ADELITA MARIO ([id number]), book or script editor BLAIR MERCADO ([id number]) on 06/25/2018 10:28:25 AM Referred By: Confirmed By:ADELITA MARIO
== END 2018-06-24 19:44 | disposition home or self-care (01) | DRG 871 ==
LOC: ERS 09:55 → ERHOLD 12:30 → 2NO 17:20
PROVIDERS: ADMIT Internal Medicine; ATTEND Internal Medicine
PROC: 0DB78ZX Excision of Stomach, Pylorus, Via Natural or Artificial Opening Endoscopic, Diagnostic (ICD-10-PCS; principal; 2018-06-19)
DX: A41.9 Sepsis, unspecified organism (principal); J69.0 Pneumonitis due to inhalation of food and vomit; E87.2 Acidosis; Z68.41 Body mass index [BMI] 40.0-44.9, adult; E78.00 Pure hypercholesterolemia, unspecified; I25.10 Atherosclerotic heart disease of native coronary artery without angina pectoris; E66.01 Morbid (severe) obesity due to excess calories; G47.33 Obstructive sleep apnea (adult) (pediatric); K27.9 Peptic ulcer, site unspecified, unspecified as acute or chronic, without hemorrhage or perforation; E11.9 Type 2 diabetes mellitus without complications; G70.00 Myasthenia gravis without (acute) exacerbation; K29.80 Duodenitis without bleeding; K20.9 Esophagitis, unspecified; E87.6 Hypokalemia; Z95.1 Presence of aortocoronary bypass graft; Z79.82 Long term (current) use of aspirin; Z79.84 Long term (current) use of oral hypoglycemic drugs; Z79.899 Other long term (current) drug therapy; Z87.891 Personal history of nicotine dependence
CPT/HCPCS: 36415; 36416; 70551; 71046; 74230; 74249; 80048; 80053; 82550; 82553; 83519; 83605; 83690; 83880; 84484; 85025; 85652; 86038; 86140; 86225; 87040; 88305; 88312; 88313; 93005; 94760; 96365; 96367; C9113; J0360; J0456; J0696; J1650; J1956; J2405; J2543; J2704; J3480; J3490; J7050

== ENCOUNTER 2018-08-02 12:34 | Outpatient (CLI) | payer MEDICARE, OTHER ==
--- NOTE | 2018-08-02 12:45 | RAD ---
XR Chest Pa Lat @ [facility] HISTORY: Dyspnea COMPARISON: 06/19/2018 study FINDINGS: Heart size appears slightly enlarged. Postop sternotomy changes are present. The right uppe r lobe infiltrate has resolved. There are arthritic changes of the spine. IMPRESSION: Resolution of the right upper lobe infiltrate.
== END 2018-08-02 12:35 | disposition home or self-care (01) ==
LOC: RAD 12:34
PROVIDERS: ATTEND Internal Medicine Pulmonary Disease
DX: R06.00 Dyspnea, unspecified (principal)
CPT/HCPCS: 71046

== ENCOUNTER 2018-08-03 10:42 | Outpatient (CLI) | payer MEDICARE, OTHER ==
--- NOTE | 2018-08-03 12:24 | MRI ---
MRI Lumbar Spine WO Con HISTORY: Back pain and bilateral leg weakness and pain COMPARISON: None. FINDINGS: The vertebral bodies are normal in height. There are generalized disc desiccation changes. Moderate disc narrowing is seen at L5-S1. 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 The visualized portions of the kidneys appear unremarkable. T12-L1: Degenerative facet changes without canal or foraminal narrowing. L1-2: There is a disc bulge at this level there are prominent degenerative facet changes and a severe canal stenosis. There is marked bilateral foraminal narrowing. L2-3: Degenerative facet changes without canal or foraminal narrowing. L3-4: No significant canal or foraminal stenosis at this level. L4-5: Degenerative facet changes are associated with a minimal spondylolisthesis and marked canal patrick nosis. There is mild left and severe right-sided foraminal narrowing with an associated right lateral disc protrusion. L5-S1: Disc bulge is seen at this level the bulge is asymmetric to the right and may represent a smal l protrusion. There is severe right-sided foraminal narrowing and marked left foraminal stenosis. IMPRESSION: Multilevel canal and foraminal stenosis as described above.
== END 2018-08-03 10:43 | disposition home or self-care (01) ==
LOC: SCSMRI 10:42
PROVIDERS: ATTEND Orthopaedic Surgery
DX: M48.061 Spinal stenosis, lumbar region without neurogenic claudication (principal); M48.07 Spinal stenosis, lumbosacral region
CPT/HCPCS: 72148

== ENCOUNTER 2018-09-23 19:30 | Outpatient (CLI) | payer MEDICARE, OTHER | END 2018-09-23 19:31 | disposition home or self-care (01) | LOC: SLEEPLAB 19:30 | PROVIDERS: ATTEND Internal Medicine Pulmonary Disease | DX: G47.33 Obstructive sleep apnea (adult) (pediatric) (principal); R06.83 Snoring; G47.00 Insomnia, unspecified; G47.10 Hypersomnia, unspecified; G70.00 Myasthenia gravis without (acute) exacerbation | CPT/HCPCS: 95811 ==

== ENCOUNTER 2019-11-10 19:36 | Inpatient (IN) | payer MEDICARE, OTHER ==
[~2019-11-10 19:36] MED LIST: Iopamidol 370 76% 100 ML VIAL ONE
[2019-11-10] MEDS ORDERED: Senokot S 8.6-50 MG TAB PO PRN (22:03)
[2019-11-10] MEDS ORDERED: Acetaminophen 325 MG TAB PO PRN (22:03)
[2019-11-10] MEDS ORDERED: Ondansetron PF 4 MG/2 ML Vial IVP PRN (22:03)
[2019-11-10] MEDS ORDERED: Ondansetron ODT 4 MG TAB PO PRN (22:03)
[2019-11-10] MEDS ORDERED: Guaifenesin DM 100-10/5 ML UDCUP PO PRN (22:03)
[2019-11-10] MEDS ORDERED: Calcium Carbonate 500 MG ChewTAB PO PRN (22:03)
[2019-11-10] MEDS ORDERED: Dextrose 5% in Water 1,000 ML IV PRN (22:07)
[2019-11-10] MEDS ORDERED: Dextrose 50% Abboject 50 ML SYRINGE SLOW IVP PRN (22:07)
[2019-11-10] MEDS ORDERED: HumaLOG 300 UNITS/3 ML VIAL SC PRN (22:07)
[2019-11-10] MEDS ORDERED: Sodium Chloride 0.9% 1,000 ML IV SCH (22:15)
[2019-11-10 22:30] LABS: INR-International Normal Ratio 1.1; PTT 47.1 sec (22.9-36.1); Prothrombin Time 14.6 sec (12.0-14.7)
--- NOTE | 2019-11-10 22:51 | PDOC.HHP ---
Hospitalist HPI - History of Present Illness Shortness of breath History of Present Illness: PCP: Dr. Dennison The patient is a 79-year-old male with a past medical history significant for CABG x2 (2019), CAD, DM 2, dyslipidemia, morbid obesity and obstructive sleep apnea (compliant on CPAP) that presents as a transfer from [facility] via EMS for the above complaint. The patient reports developing shortness of breath with a nonproductive cough for the past 8 weeks. Reports associated dyspnea on exertion and heart palpitations. Reports his symptoms are exacerbated with any type of exertion. The patient underwent an outpatient nuc med cardiac stress test with echo 2 weeks ago and reports the findings were normal. Today, he had a follow-up appointment with his actionscript developer, Dr. Wilson, to review his test results. At that encounter, lab work was ordered. While the patient was driving home, the actionscript developer office instructed him that his labs were abnormal and he needed to go to the emergency department for further evaluation. The patient denies any lightheadedness or chest pain. He has no history of DVT/PE. He denies any unilateral swelling to his lower extremities. He is morbidly obese and sedentary according to his spouse, reporting that he mobilizes with a scooter. No recent surgeries. He does not have any history of cancer. He denies any recent fever or chills. ED Course: [facility]: Vital signs T 97.8, BP 140/67, HR 96, RR 30, SPO2 92 on 2L NC EKG sinus tach 106 bpm, ST/T changes, no ST elevation Troponin I 0.026, BNP 89.2, d-dimer 0.61 BUN 31, creatinine 1.49 WBCs 9.3, Hgb 15.4, HCT 46.6, platelets 253 Medication administration: Lovenox 1 mg/kilogram at 1551 Hospitalist ROS - Review of Systems Constitutional: denies: fever, chills Respiratory: reports: cough (Nonproductive), shortness of breath, SOB with excertion. denies: pleuritic pain, sputum, wheezing Cardiovascular: reports: palpitations. denies: chest pain, edema (Unilateral), light headedness Gastrointestinal: denies: nausea, vomiting, abdominal pain, diarrhea, hematochezia Genitourinary: denies: dysuria All other systems reviewed; all pertinent +/- noted in HPI/Subj - Medication Medications: 1. Triamterene/HCTZ 37.5 mg / 25 mg p.o. daily 2. Aspirin 81 mg p.o. daily 3. Protonix 40 mg p.o. daily 4. Glipizide 10 mg p.o. twice daily 5. Tylenol 3 as needed pain Allergies: No known drug allergies, denies previously documented allergy to iodine Hospitalist History - Past Medical History Source: patient, family, RN notes reviewed Cardiac: reports: CAD, Other (Dyslipidemia) Pulmonary: reports: Other (Obstructive sleep apnea (home CPAP)) Gastrointestinal: reports: GERD Endocrine: reports: Diabetes (Type II) Other Medical History: Morbid obesity - Past Surgical History Past Surgical History: reports: CABG (X2 (2019)), Other (Right hip replacement by Dr. Gutiérrez) - Family History Family History: reports: cancer, cardiac disorder - Social History Smoking Status: Former smoker (History 1 pack/day x 40 years) Alcohol: reports: None Drugs: reports: none Living Situation: With Family Activity level: wheelchair bound - Exam General Appearance: NAD, awake alert Eye: anicteric sclera ENT: normocephalic atraumatic Neck: supple, symmetric, no JVD Heart: RRR, no murmur, no gallops, no rubs, normal peripheral pulses Respiratory: CTAB, no wheezes, no rales, no ronchi, normal chest expansion, tachypneic (Mild, 4 L nasal cannula) Gastrointestinal: soft, non-tender, no bruit, no guarding, no rigidity Gastrointestinal - other findings: Distant bowel sounds Extremities: no cyanosis, no clubbing Skin: no rashes Neurological: no focal deficits Psychiatric: normal affect, A&O x 3 Hospitalist Results - Labs Lab results: Laboratory Tests 11/10/19 11/10/19 11/10/19 15:20 15:20 15:20 WBC 9.3 Hgb 15.4 Hct 46.6 Plt Count 253 PT INR APTT D-Dimer Sodium 136 Potassium 3.9 BUN 31 H Creatinine 1.49 H Troponin I 0.026 11/10/19 11/10/19 15:20 22:12 WBC Hgb Hct Plt Count PT 14.6 INR 1.1 APTT 47.1 H D-Dimer 0.61 H Sodium Potassium BUN Creatinine Troponin I - EKG Interpretation EKG: Sinus tachycardia, [address]/T changes, no ST elevations - Radiology Interpretation Chest x-ray Status: report reviewed by me Additional Comment: Chronic appearing lung changes. CT scan - chest Status: pending Additional Comment: CT angio chest Hospitalist H&P A/P - Problem (1) Dyspnea Code(s): R06.00 - DYSPNEA, UNSPECIFIED Status: Acute (2) Dehydration Code(s): E86.0 - DEHYDRATION Status: Acute (3) DM type 2 (diabetes mellitus, type 2) Status: Chronic (4) Obstructive sleep apnea on CPAP Code(s): G47.33 - OBSTRUCTIVE SLEEP APNEA (ADULT) (PEDIATRIC); Z99.89 - DEPENDENCE ON OTHER ENABLING MACHINES AND DEVICES Status: Chronic (5) CAD (coronary artery disease) Code(s): I25.10 - ATHSCL HEART DISEASE OF [place] CORONARY ARTERY W/O ANG PCTRS Status: Chronic (6) Morbid obesity Code(s): E66.01 - MORBID (SEVERE) OBESITY DUE TO EXCESS CALORIES Status: Chronic - Plan Plan: 79/M with PMH of CAD, SHEY, morbid obesity and DM 2 presents for shortness of breath x8 weeks. Admit to telemetry floor,Inpatient status. Expected length of stay greater than 2 midnights. Presented tachycardic, tachypneic, hypoxic, NL BP and afebrile. EKG sinus tachycardia with ST/T changes. CXR negative for acute cardiopulmonary process. DD 0.61, Trop 0.026, BNP 89.2 Given LMWH 1 mg/kg #Dyspnea CTA chest pending Continue Lovenox 1 mg/KG Venous ultrasound Trend troponins, get PT/INR Supplemental oxygen Bedrest, n.p.o. #Dehydration BUN 31, creatinine 1.49 Gentle IV fluid resuscitation Recheck levels in a.m. #DM type II Takes glipizide at home. Hold glipizide for now. Start ISS and AC/at bedtime Accu-Cheks. #Obstructive sleep apnea on CPAP Reports being compliant at home. Brought home CPAP machine. Orders to use home CPAP at night. #CAD History CABG x2 (2019) Takes baby aspirin at home. Restart aspirin when reconciled by nursing. #Morbid obesity No DVT prophylaxis. Protonix for GI prophylaxis. Full code. Medical decision maker is his spouse Ray at [phone]. Discussed case with Dr. Hassan.
[2019-11-10] MEDS: Sodium Chloride 0.9% 1,000 ML IV SCH (23:48)
[2019-11-11] MEDS ORDERED: Enoxaparin Sodium 60 MG/0.6 ML SYRINGE SC SCH (04:00)
--- NOTE | 2019-11-11 04:28 | PDOC.EVN ---
Event Note - Event Note Event Note: CTA chest negative for PE, has bilateral lower infiltrates and atelectasis. Will stop LMWH, place on droplet precautions and get covid screening.
[2019-11-11 05:00] LABS: Troponin I 0.065 ng/mL (< 0.028)
[2019-11-11 05:19] LABS: Anion Gap 20 mmol/L (10-20); BUN (Urea Nitrogen) 29 mg/dL (8.4-25.7); Calc. Creatinine Clearance 47 mL/min (70-130); Calcium 8.7 mg/dL (7.8-10.44); Carbon Dioxide 15 mmol/L (23-31); Chloride 101 mmol/L (98-107); Estimated GFR-MDRD 63; Glucose 128 mg/dL (83-110); Potassium 3.9 mmol/L (3.5-5.1); Sodium 132 mmol/L (136-145)
[2019-11-11 05:31] LABS: Band 6 % (5-11); Hemoglobin 15.4 g/dL (14.0-18.0); Lymphocytes 22 % (21-51); MDiff Complete? YES; Mean Corpuscular HGB CONC 34.4 g/dL (32.0-36.0); Mean Corpuscular Hemoglobin 33.7 pg (27.0-31.0); Mean Corpuscular Volume 97.9 fL (78.0-98.0); Mean Platelet Volume 9.2 fL (7.4-10.4); Monocytes 10 % (0-10); Neutrophil 60 % (42-75); Platelet Count 199 thou/uL (130-400); Platelet Morphology Comment Appears Adequate; RBC Distribution Width 13.2 % (11.5-14.5); RBC Morphology Normal; Red Blood Cell (RBC) Count 4.57 mill/uL (4.70-6.10); White Blood Cell (WBC) Count 5.4 thou/uL (4.8-10.8)
[2019-11-11 06:02] LABS: SARS-CoV-2 NAA Rapid Test Not Detected (NotDetected)
[2019-11-11 06:49] LABS: Troponin I 0.023 ng/mL (< 0.028)
--- NOTE | 2019-11-11 07:57 | CT ---
CTA CHEST WITH CONTRAST: Axial tomograms were obtained following angio protocol with multiplanar reconstruction and 3D post pr ocessing. INDICATION: Shortness of breath. Question pulmonary embolus. FINDINGS: Pulmonary arteries show adequate opacification. There is no evidence of pulmonary embolus identified . Thoracic aorta shows mild atherosclerotic change. No dissection or aneurysm. Mediastinum unremarkable without adenopathy. Review of the lung li shows patchy infiltrate in the peripheral right upper lobe. There is patch y infiltrate and atelectasis in the right lower lobe posteriorly. Hazy infiltrate in the peripheral left lower lobe superior segment and streaky atelectasis and/or inf iltrate in the posterior left lower lobe. Images through the upper abdomen show a right adrenal nodule which is incompletely imaged measuring 2 .5 cm. This was not present on a prior exam from 2003 which is compared. IMPRESSION: 1. No evidence of pulmonary embolus. 2. Bilateral lung infiltrates and atelectasis as described above. 3. A right adrenal nodule which is incompletely evaluated. Recommend elective followup CT abdomen w ith and without contrast following adrenal protocol. POS: AGW
[2019-11-11 08:23] LABS: Bilirubin Negative (Negative); Blood, Urine Negative (Negative); Clarity Clear (Clear); Glucose, Urine (Dipstick) Normal (Negative); Ketone, Urine Trace mg/dL (Negative); Leukocyte Negative Leu/uL (Negative); Nitrite Negative (Negative); Protein, Urine (Dipstick) 30 mg/dL (Neg-Trace); Squamous Epithelial 0-3 HPF (0-3); Urobilinogen Normal mg/dL (Less than 2); WBC/HPF 0-3 HPF (0-3); pH, Urine 5.5 (5.0-9.0)
[2019-11-11 08:38] LABS: Specific Gravity, Urine 1.048 (1.002-1.036)
[2019-11-11 08:39] LABS: Bacteria/HPF Rare-Few HPF (None Seen); Calcium Oxalate Crystals 2+ HPF (None Seen); RBC/HPF 0-3 HPF (0-3)
[2019-11-11] MEDS: Pantoprazole 40 MG VIAL IVP SCH (09:13)
[2019-11-11] MEDS: Sodium Chloride 0.9% 1,000 ML IV SCH (09:13)
[2019-11-11] MEDS ORDERED: Acetaminophen/Codeine 30-300mg Tablet PO PRN (11:35)
[2019-11-11] MEDS ORDERED: cloNIDine 0.1 MG TAB PO PRN (11:36)
[2019-11-11] MEDS ORDERED: hydrALAZINE 20 MG/ML VIAL SLOW IVP PRN (11:36)
[2019-11-11] MEDS ORDERED: Dextrose 50% Abboject 50 ML SYRINGE SLOW IVP PRN (11:38)
[2019-11-11] MEDS ORDERED: Dextrose 5% in Water 1,000 ML IV PRN (11:38)
[2019-11-11] MEDS ORDERED: predniSONE 20 MG TAB PO SCH (12:15)
[2019-11-11] MEDS ORDERED: Furosemide 20 MG TAB PO SCH (12:15)
--- NOTE | 2019-11-11 12:17 | PDOC.HOSPP ---
- Subjective Encounter Date: 11/11/19 Encounter Time: 09:30 Subjective: Patient and at bedside. They have lots and lots of questions. They are more concerned why his cough is not getting better even though he has been seen for the last 2 months. His COVID tested repeatedly and they were negative. Current CT angiogram showing bilateral infiltrate. - Objective Vital Signs & Weight: Vital Signs (12 hours) Temp Pulse Resp BP Pulse Ox 11/11/19 09:05 98.9 F 96 18 120/89 93 L 11/11/19 04:20 99.1 F 96 14 130/85 93 L 11/11/19 00:20 99 20 126/83 97 Weight Weight 135 lb 14.4 oz I&O: 11/10/19 11/11/19 11/12/19 06:59 06:59 06:59 Intake Total 240 Output Total 200 Balance 40 Result Diagrams: 11/11/19 04:16 11/11/19 04:16 Additional Labs: Accuchecks 11/11/19 11/10/19 06:16 23:38 POC Glucose 106 H 151 H Hospitalist ROS - Medication Medications: Active Medications Generic Name Dose Route Start Last Admin Trade Name Freq PRN Reason Stop Dose Admin Pantoprazole Sodium 40 mg 11/11/19 09:00 11/11/19 09:13 Pantoprazole 40 Mg Vial IVP 40 mg DAILY MARIELLA Administration - Exam General Appearance: NAD, awake alert General - other findings: Obese Eye: PERRL ENT: normocephalic atraumatic Neck: supple Heart: RRR, normal peripheral pulses Respiratory: CTAB, tachypneic Gastrointestinal: soft, normal bowel sounds, distended Psychiatric: A&O x 3 Hosp A/P - Plan 79/M with PMH of CAD, SHEY, morbid obesity and DM 2 presents for shortness of breath x8 weeks. Admit to telemetry floor,Inpatient status. Expected length of stay greater than 2 midnights. Presented tachycardic, tachypneic, hypoxic, NL BP and afebrile. EKG sinus tachycardia with ST/T changes. CXR negative for acute cardiopulmonary process. DD 0.61, Trop 0.026, BNP 89.2 Given LMWH 1 mg/kg #Dyspnea CTA chest pending Continue Lovenox 1 mg/KG Venous ultrasound Trend troponins, get PT/INR Supplemental oxygen Bedrest, n.p.o. #Dehydration BUN 31, creatinine 1.49 Gentle IV fluid resuscitation Recheck levels in a.m. #DM type II Takes glipizide at home. Hold glipizide for now. Start ISS and AC/at bedtime Accu-Cheks. #Obstructive sleep apnea on CPAP Reports being compliant at home. Brought home CPAP machine. Orders to use home CPAP at night. #CAD History CABG x2 (2019) Takes baby aspirin at home. Restart aspirin when reconciled by nursing. #Morbid obesity 3rd -Angiogram negative for pulmonary embolism however he has a bilateral infiltrate on both sides. -Started him on ceftriaxone and Zithromax. -COVID negative. -Her patient states that he has been having ongoing cough and shortness of breath of 2 months duration. I have reviewed his recent charts including discharge summary on June 2018. He had a swallow study he had a ENT evaluation he had a GI work-up and he had a cardiac cath -echo showing normal EF in June 2018. - I believe his cough is multifactorial with obesity, GERD and even consideration for neuromuscular dysfunction has been looked into it in his past admission with neurology evaluation. It is unclear whether he has gone through follow-up as an outpatient along that line. -Based on my very short encounter it does not appear that he has any clinical signs and symptoms for neuromuscular degenerative disease affecting his swallow as well as short of breath and cough. -Supportive measures including antibiotics cough Fenesin and prednisone -We will request test and research reactor operator to help us. Right adrenal nodule - follow up on CT of the abdomen as recommended by the CTA that there is a right adrenal nodule
[2019-11-11] MEDS: cefTRIAXone\\ROCEPHIN 1 GM in Sodium Chloride 0.9% 100 ML IVPB SCH (12:31)
[2019-11-11] MEDS: Azithromycin 250 MG TAB PO SCH (12:32)
[2019-11-11] MEDS: guaiFENesin 200 MG TAB PO SCH ×3 (12:33→20:29)
--- NOTE | 2019-11-11 13:04 | ULT ---
BILATERAL LOWER EXTREMITY VENOUS DUPLEX EXAM: HISTORY: Bilateral leg pain and swelling. FINDINGS: Real-time color Doppler evaluation of right and left lower extremities was performed from groin to ca lf. This includes evaluation of the common femoral, superficial and profunda femoral, saphenous, pop liteal, and posterior tibial veins. This shows patent deep venous systems bilaterally. There is nor mal compressibility and augmentation. There is no evidence of DVT. IMPRESSION: No evidence of deep vein thrombosis of either lower extremity. POS: OFF
[2019-11-11] MEDS: HumaLOG 300 UNITS/3 ML VIAL SC PRN ×2 (17:41→21:58)
[2019-11-11] MEDS: glipiZIDE 10 MG TAB PO SCH (17:41)
[2019-11-12] MEDS ORDERED: predniSONE 20 MG TAB PO SCH (08:00)
[2019-11-12] MEDS: guaiFENesin 200 MG TAB PO SCH ×4 (08:22→20:08)
[2019-11-12] MEDS: Pantoprazole 40 MG VIAL IVP SCH (08:23)
[2019-11-12] MEDS: Aspirin 325 mg Enteric Coated Tablet PO SCH (08:23)
[2019-11-12] MEDS: glipiZIDE 10 MG TAB PO SCH ×2 (08:23→17:32)
[2019-11-12] MEDS: Triamterene/Hydrochlorothiazide 37.5 mg/25 mg Tablet PO SCH (08:23)
--- NOTE | 2019-11-12 11:55 | PDOC.HOSPP ---
- Subjective Encounter Date: 11/12/19 Encounter Time: 09:30 Subjective: Patient still has some subjective short of breath and cough. He is getting breathing treatment as well as cough suppressants. He has seen Dr. Downing in the clinic in the past. His next appointment is in February. It appears his business manager Dr. Wilson visited him yesterday. No cardiac work-up required for his complaints during this inpatient stay. Inpatient pulmonary consult pending. - Objective Vital Signs & Weight: Vital Signs (12 hours) Temp Pulse Pulse Resp BP BP BP 11/12/19 11:07 78 20 11/12/19 10:25 98 120/78 138/82 11/12/19 08:10 98.5 F 78 17 126/77 11/12/19 04:00 98.2 F 79 15 135/79 Pulse Ox Pulse Ox Pulse Ox 11/12/19 11:07 11/12/19 10:25 96 94 L 11/12/19 08:10 93 L 11/12/19 04:00 94 L Weight Weight 135 lb 14.4 oz I&O: 11/11/19 11/12/19 11/13/19 06:59 06:59 06:59 Intake Total 240 1640 Output Total 200 350 Balance 40 1290 Result Diagrams: 11/11/19 04:16 11/11/19 04:16 Additional Labs: Accuchecks 11/12/19 11/12/19 11/11/19 10:40 05:43 20:47 POC Glucose 123 H 144 H 323 H 11/11/19 11/11/19 17:35 14:53 POC Glucose 335 H 214 H Hospitalist ROS - Medication Medications: Active Medications Generic Name Dose Route Start Last Admin Trade Name Freq PRN Reason Stop Dose Admin Albuterol/Ipratropium 3 ml 11/11/19 14:30 11/12/19 11:07 Ipratropium/Albuterol Sulfate 3 Ml Neb NEB 3 ml [id number] MARIELLA Administration Aspirin 325 mg 11/12/19 09:00 11/12/19 08:23 Aspirin 325 Mg Enteric Coated Tablet PO 325 mg DAILY MARIELLA Administration Azithromycin 500 mg 11/11/19 12:00 11/11/19 12:32 Azithromycin 250 Mg Tab PO 500 mg 1200 MARIELLA Administration Glipizide 10 mg 11/11/19 17:00 11/12/19 08:23 Glipizide 10 Mg Tab PO 10 mg BID-WM MARIELLA Administration Guaifenesin 400 mg 11/11/19 13:00 11/12/19 08:22 Guaifenesin 200 Mg Tab PO 400 mg QID MARIELLA Administration Ceftriaxone Sodium 1 gm/ 100 mls @ 200 mls/hr 11/11/19 12:00 11/11/19 12:31 Sodium Chloride IVPB 100 mls Q24HR MARIELLA Administration Insulin Human Lispro 0 units 11/10/19 22:07 11/11/19 21:58 Humalog 300 Units/3 Ml Vial SC 4 unit .BEDTIME SLIDING SC PRN Administration Bedtime Correctional Scale Insulin Human Lispro 0 units 11/11/19 11:38 11/11/19 17:41 Humalog 300 Units/3 Ml Vial SC 5 unit .MILD SLIDING SCALE PRN Administration Mild Correctional Scale Niacin 500 mg 11/11/19 21:00 11/11/19 20:29 Niacin Er 500 Mg Tab PO 500 mg HS MARIELLA Administration Pantoprazole Sodium 40 mg 11/11/19 09:00 11/12/19 08:23 Pantoprazole 40 Mg Vial IVP 40 mg DAILY MARIELLA Administration Prednisone 40 mg 11/12/19 08:00 11/12/19 08:23 Prednisone 20 Mg Tab PO 40 mg QAM-WM MARIELLA Administration Triamterene/HCTZ 1 tab 11/12/19 09:00 11/12/19 08:23 Triamterene/Hydrochlorothiazide 37.5 Mg/25 Mg Tablet PO 1 tab DAILY MARIELLA Administration - Exam General Appearance: NAD, awake alert Eye: PERRL ENT: normocephalic atraumatic Neck: supple Heart: RRR Respiratory: CTAB, normal chest expansion Gastrointestinal: soft, normal bowel sounds Neurological: no focal deficits Psychiatric: A&O x 3 Hosp A/P - Plan 79/M with PMH of CAD, SHEY, morbid obesity and DM 2 presents for shortness of breath x8 weeks. Admit to telemetry floor,Inpatient status. Expected length of stay greater than 2 midnights. Presented tachycardic, tachypneic, hypoxic, NL BP and afebrile. EKG sinus tachycardia with ST/T changes. CXR negative for acute cardiopulmonary process. DD 0.61, Trop 0.026, BNP 89.2 Given LMWH 1 mg/kg #Dyspnea CTA chest pending Continue Lovenox 1 mg/KG Venous ultrasound Trend troponins, get PT/INR Supplemental oxygen Bedrest, n.p.o. #Dehydration BUN 31, creatinine 1.49 Gentle IV fluid resuscitation Recheck levels in a.m. #DM type II Takes glipizide at home. Hold glipizide for now. Start ISS and AC/at bedtime Accu-Cheks. #Obstructive sleep apnea on CPAP Reports being compliant at home. Brought home CPAP machine. Orders to use home CPAP at night. #CAD History CABG x2 (2019) Takes baby aspirin at home. Restart aspirin when reconciled by nursing. #Morbid obesity 3rd -Angiogram negative for pulmonary embolism however he has a bilateral infiltrate on both sides. -Started him on ceftriaxone and Zithromax. -COVID negative. -Her patient states that he has been having ongoing cough and shortness of breath of 2 months duration. I have reviewed his recent charts including discharge summary on June 2018. He had a swallow study he had a ENT evaluation he had a GI work-up and he had a cardiac cath -echo showing normal EF in June 2018. - I believe his cough is multifactorial with obesity, GERD and even consideration for neuromuscular dysfunction has been looked into it in his past admission with neurology evaluation. It is unclear whether he has gone through follow-up as an outpatient along that line. -Based on my very short encounter it does not appear that he has any clinical signs and symptoms for neuromuscular degenerative disease affecting his swallow as well as short of breath and cough. -Supportive measures including antibiotics cough Fenesin and prednisone -We will request building principal to help us. Right adrenal nodule - follow up on CT of the abdomen as recommended by the CTA that there is a right adrenal nodule 4th Continue the current management of IV antibiotics bronchodilators and cough suppressants. He has Dr. Downing's appointment only in February. If so inpatient pulmonary consult placed and evaluation pending. Right adrenal nodule -Seems benign as his potassium in the normal range and his blood pressure also in the normal range. -We will get the CT abdomen however he probably need 24-hour urine cortisol or late salivary gland cortisol level or low-dose dexamethasone suppression test biochemically to prove whether this is active or benign adenoma.
[2019-11-12] MEDS: Azithromycin 250 MG TAB PO SCH (12:12)
[2019-11-12] MEDS: cefTRIAXone\\ROCEPHIN 1 GM in Sodium Chloride 0.9% 100 ML IVPB SCH (12:13)
[2019-11-12] MEDS ORDERED: diphenhydrAMINE 25 MG CAP PO PRN (12:39)
[2019-11-12] MEDS: HumaLOG 300 UNITS/3 ML VIAL SC PRN (17:32)
--- NOTE | 2019-11-12 18:44 | CON ---
DATE OF CONSULTATION: CONSULTING PHYSICIAN: Dr. Baez from [facility]. REASON FOR CONSULTATION: Abnormal CT scan and chronic cough. HISTORY OF PRESENT ILLNESS: This is a 79-year-old male, who says he first became ill about eight weeks ago with cough and congestion. He went to go see Dr. Oc Dennison, who performed a COVID test, which was negative. The patient was given some antitussive medication, but did not improve. He came back to the doctor's office and it sounds like he has been prescribed oral antibiotics at least twice without improvement. Subsequently, he went to a stereotyper helper for testing. I believe all that testing was negative. He was then sent to the ER to have a CT pulmonary angiogram performed. He initially went to [place], but they would not do this test because of iodine allergy. He was sent over here where the CT demonstrated no evidence of pulmonary emboli, but showed bilateral lower lobe infiltrates. The patient's cough has been nonproductive. He says he has not had fever in quite some time. He says he has improved with the IV antibiotics he has been receiving for the last 2 days in the hospital. PAST MEDICAL HISTORY: 1. He has severe SHEY with an AHI over 80 events per hour and is on CPAP at a pressure of 12. He sees Dr. Downing for this. 2. Obesity. 3. Type 2 diabetes mellitus. 4. Hyperlipidemia. 5. Coronary artery disease. PAST SURGICAL HISTORY: 1. Coronary artery bypass grafting surgery in 2019. 2. Right hip replacement. FAMILY MEDICAL HISTORY: Remarkable for cancer. SOCIAL HISTORY: He smoked a pack a day for 40 years, quit about 25 years ago. He likes to collect and restore cars. He is a businessman in the [employer] He knows of no exposures. He has no animal exposures at home. HOME MEDICATIONS: Prior to admission: 1. Triamterene/hydrochlorothiazide. 2. Aspirin. 3. Protonix. 4. Glipizide. 5. Tylenol. REVIEW OF SYSTEMS: The patient has a swallowing study performed in the hospital in June of 2018 which showed jennifer aspiration of thin liquids. He denies any choking with meals. He has had no hematemesis, melena, hematochezia, hematuria, or dysuria. Remainder review of systems is negative. PHYSICAL EXAMINATION: VITAL SIGNS: His temperature is 97.8, pulse 82, respirations 17, O2 saturation 95% on 2 L, and blood pressure 123/77. The patient is 5 feet 8 and is listed as 135 pounds in the chart, but I think this is probably 135 kg. HEENT: He has a class 4 Mallampati airway. NECK: Without adenopathy or JVD. LUNGS: He has harsh expiratory crackles at both bases posteriorly. He has clear anteriorly. CARDIOVASCULAR: S1, S2. Regular without audible murmur. ABDOMEN: Soft, obese, nontender, and nondistended. EXTREMITIES: No clubbing, cyanosis, or edema. NEUROLOGIC: Nonfocal. LABORATORY DATA: White blood cell count 5.4, hematocrit 44.7, and platelet count 199 with 60% neutrophils, 6% bands. INR is 1.1. Last chemistry demonstrates sodium 132, potassium 3.9, chloride 101, CO2 of 15, anion gap 16, BUN 29, creatinine 1.1, and glucose 128. Urinalysis showed some proteinuria. COVID serology was negative. I do not see any microbiologic specimen that has been collected. I reviewed a CT scan, which showed bilateral lower lobe infiltrates. ASSESSMENT: Mr. Lott is 79-year-old, with a history of a lingering respiratory illness for the last two months. I believe he does have pneumonitis in his lungs. I think this is aggravated by chronic aspiration. I doubt he has made any of the modifications to his diet that the speech therapist recommended in the past. Other things to include differential would be organizing pneumonia. RECOMMENDATIONS: 1. Consider repeat Speech Therapy evaluation. 2. Continue the IV antibiotics as you are doing. 3. Short course of steroids as you are doing. 4. Breathing treatments as you are doing. 5. Continue wearing CPAP at night. 6. Anti-reflux medication as you are doing. 7. Weight loss. The patient has seen Dr. Downing in the office in the past. Dr. Downing will be seeing him starting tomorrow. Job ID: [id number]
[2019-11-12] MEDS ORDERED: predniSONE 50 MG TAB PO SCH (19:15)
[2019-11-13] MEDS ORDERED: predniSONE 50 MG TAB PO SCH ×2 (02:00→08:00)
[2019-11-13] MEDS: HumaLOG 300 UNITS/3 ML VIAL SC PRN ×4 (06:07→20:56)
[2019-11-13] MEDS ORDERED: diphenhydrAMINE 50 MG CAP PO SCH (08:00)
[2019-11-13] MEDS ORDERED: Iopamidol 370 76% 100 ML VIAL ONE (09:05)
[2019-11-13] MEDS: guaiFENesin 200 MG TAB PO SCH ×4 (09:51→20:53)
[2019-11-13] MEDS: Aspirin 325 mg Enteric Coated Tablet PO SCH (09:52)
[2019-11-13] MEDS: Pantoprazole 40 MG VIAL IVP SCH (09:52)
[2019-11-13] MEDS: glipiZIDE 10 MG TAB PO SCH ×2 (09:52→16:54)
[2019-11-13] MEDS: Triamterene/Hydrochlorothiazide 37.5 mg/25 mg Tablet PO SCH (09:52)
--- NOTE | 2019-11-13 10:04 | CT ---
EXAM: CT Abdomen W WO Con PROVIDED CLINICAL HISTORY: Right adrenal lesion seen on a CT thorax. Further evaluation with CT abdomen was recommended to COMPARISON: CT angiogram thorax on 11/10/2019 FINDINGS: There is persistent small area of consolidation seen at the right lung base which may be related to p neumonia. Minimal patchy density is seen in the left lung base which may be related to volume loss or scarring. Parenchymal density at the left lung base has improved. Lateral aspect right hepatic lobe is obscured due to close proximity of the right lateral abdomen adj acent to the gantry of the CT scanner which results in artifact and limits adequate evaluation. The remainder of the visualized liver demonstrates no focal hepatic lesion. As noted on CTA thorax, there is a right adrenal nodule measuring 2.3 cm. This demonstrates an attenu ation coefficient of -2.96 Hounsfield units on the precontrast images compatible with of an adrenal adenoma. The absolute and relative washout characteristics of this nodule are also compatible with an adrenal adenoma. The left adrenal gland demonstrates a normal CT appearance. A nonobstructing 9 mm x 8 mm calculus is seen in the superior pole left kidney. No additional renal c alculi are seen. There is symmetric nonspecific bilateral perinephric stranding identified. No enhancing renal lesion is seen. The spleen and pancreas demonstrate a normal CT appearance. There are a few tiny calcifications seen in the pancreas some of which are likely due to vascular calcifications with additional tiny calcifications in the head and uncinate process which may be sequela of prior pancreatitis. Loops of small bowel are normal in caliber. Vascular calcifications are seen in the abdominal aorta and visualized proximal common iliac arteries . No free fluid, fluid collection, or lymphadenopathy is seen in the abdomen. Multilevel degenerative changes are seen in the lumbar spine. IMPRESSION: 1. Right adrenal nodule demonstrating characteristics compatible with a right adrenal adenoma. 2. Area of parenchymal consolidation posterior right lung base worrisome for pneumonia. Follow-up to resolution is recommended. There has been mild improvement in the patchy parenchymal density seen at the left lung base which may be related to improvement in atelectasis or pneumonia at the left alberta g base. 3. Nonobstructing left renal calculus.
[2019-11-13] MEDS: Azithromycin 250 MG TAB PO SCH (11:44)
[2019-11-13] MEDS: cefTRIAXone\\ROCEPHIN 1 GM in Sodium Chloride 0.9% 100 ML IVPB SCH (11:45)
--- NOTE | 2019-11-13 11:45 | PDOC.HOSPP ---
- Subjective Encounter Date: 11/13/19 Encounter Time: 10:10 Subjective: Nursing at bedside. Discussed Dr. Rutledge's recommendations with the patient. Speech therapy will evaluate him today. Patient says that it is nothing to do with his throat as he is able to swallow without much difficulty. However it appears that he is not compliant with the diet type recommended by speech therapy in the past, Putting him at increased risk for ongoing aspiration. Causing chronic pneumonitis which probably requires intermittent prednisone as well as antibiotic use. All this addressed with the patient. Dr. Downing likely to follow today. - Objective Vital Signs & Weight: Vital Signs (12 hours) Temp Pulse Resp BP Pulse Ox 11/13/19 11:33 97.8 F 85 16 137/87 94 L 11/13/19 07:21 98.3 F 95 18 139/91 H 94 L 11/13/19 05:12 82 16 11/13/19 03:00 98.2 F 87 18 128/68 92 L Weight Weight 301 lb 13.005 oz I&O: 11/12/19 11/13/19 11/14/19 06:59 06:59 06:59 Intake Total 1640 1070 Output Total 350 Balance 1290 1070 Result Diagrams: 11/11/19 04:16 11/11/19 04:16 Additional Labs: Accuchecks 11/13/19 11/12/19 11/12/19 06:05 20:40 17:30 POC Glucose 278 H 203 H 254 H Hospitalist ROS - Medication Medications: Active Medications Generic Name Dose Route Start Last Admin Trade Name Freq PRN Reason Stop Dose Admin Albuterol/Ipratropium 3 ml 11/11/19 14:30 11/13/19 11:28 Ipratropium/Albuterol Sulfate 3 Ml Neb NEB Not Given [id number] MARIELLA Aspirin 325 mg 11/12/19 09:00 11/13/19 09:52 Aspirin 325 Mg Enteric Coated Tablet PO 325 mg DAILY MARIELLA Administration Azithromycin 500 mg 11/11/19 12:00 11/12/19 12:12 Azithromycin 250 Mg Tab PO 500 mg 1200 MARIELLA Administration Glipizide 10 mg 11/11/19 17:00 11/13/19 09:52 Glipizide 10 Mg Tab PO 10 mg BID-WM MARIELLA Administration Guaifenesin 400 mg 11/11/19 13:00 11/13/19 09:51 Guaifenesin 200 Mg Tab PO 400 mg QID MRAIELLA Administration Ceftriaxone Sodium 1 gm/ 100 mls @ 200 mls/hr 11/11/19 12:00 11/12/19 12:13 Sodium Chloride IVPB 100 mls Q24HR MARIELLA Administration Insulin Human Lispro 0 units 11/10/19 22:07 11/11/19 21:58 Humalog 300 Units/3 Ml Vial SC 4 unit .BEDTIME SLIDING SC PRN Administration Bedtime Correctional Scale Insulin Human Lispro 0 units 11/11/19 11:38 11/13/19 06:07 Humalog 300 Units/3 Ml Vial SC 4 unit .MILD SLIDING SCALE PRN Administration Mild Correctional Scale Niacin 500 mg 11/11/19 21:00 11/12/19 20:08 Niacin Er 500 Mg Tab PO 500 mg HS MARIELLA Administration Pantoprazole Sodium 40 mg 11/11/19 09:00 11/13/19 09:52 Pantoprazole 40 Mg Vial IVP 40 mg DAILY MARIELLA Administration Triamterene/HCTZ 1 tab 11/12/19 09:00 11/13/19 09:52 Triamterene/Hydrochlorothiazide 37.5 Mg/25 Mg Tablet PO 1 tab DAILY MARIELLA Administration - Exam General Appearance: NAD, awake alert Eye: PERRL ENT: normocephalic atraumatic Neck: supple Heart: RRR, normal peripheral pulses Respiratory: CTAB, normal chest expansion Gastrointestinal: soft, normal bowel sounds Neurological: no focal deficits Psychiatric: A&O x 3 Hosp A/P - Plan 79/M with PMH of CAD, SHEY, morbid obesity and DM 2 presents for shortness of breath x8 weeks. Admit to telemetry floor,Inpatient status. Expected length of stay greater than 2 midnights. Presented tachycardic, tachypneic, hypoxic, NL BP and afebrile. EKG sinus tachycardia with ST/T changes. CXR negative for acute cardiopulmonary process. DD 0.61, Trop 0.026, BNP 89.2 Given LMWH 1 mg/kg #Dyspnea CTA chest pending Continue Lovenox 1 mg/KG Venous ultrasound Trend troponins, get PT/INR Supplemental oxygen Bedrest, n.p.o. #Dehydration BUN 31, creatinine 1.49 Gentle IV fluid resuscitation Recheck levels in a.m. #DM type II Takes glipizide at home. Hold glipizide for now. Start ISS and AC/at bedtime Accu-Cheks. #Obstructive sleep apnea on CPAP Reports being compliant at home. Brought home CPAP machine. Orders to use home CPAP at night. #CAD History CABG x2 (2019) Takes baby aspirin at home. Restart aspirin when reconciled by nursing. #Morbid obesity 3rd -Angiogram negative for pulmonary embolism however he has a bilateral infiltrate on both sides. -Started him on ceftriaxone and Zithromax. -COVID negative. -Her patient states that he has been having ongoing cough and shortness of breath of 2 months duration. I have reviewed his recent charts including discharge summary on June 2018. He had a swallow study he had a ENT evaluation he had a GI work-up and he had a cardiac cath -echo showing normal EF in June 2018. - I believe his cough is multifactorial with obesity, GERD and even consideration for neuromuscular dysfunction has been looked into it in his past admission with neurology evaluation. It is unclear whether he has gone through follow-up as an outpatient along that line. -Based on my very short encounter it does not appear that he has any clinical signs and symptoms for neuromuscular degenerative disease affecting his swallow as well as short of breath and cough. -Supportive measures including antibiotics cough Fenesin and prednisone -We will request account installer to help us. Right adrenal nodule - follow up on CT of the abdomen as recommended by the CTA that there is a right adrenal nodule 4th Continue the current management of IV antibiotics bronchodilators and cough suppressants. He has Dr. Downing's appointment only in February. If so inpatient pulmonary consult placed and evaluation pending. Right adrenal nodule -Seems benign as his potassium in the normal range and his blood pressure also in the normal range. -We will get the CT abdomen however he probably need 24-hour urine cortisol or late salivary gland cortisol level or low-dose dexamethasone suppression test biochemically to prove whether this is active or benign adenoma. 5th Aspiration pneumonitis versus organized pneumonia. - Speech therapy will evaluate him today. Patient says that it is nothing to do with his throat as he is able to swallow without much difficulty. However it appears that he is not compliant with the diet type recommended by speech therapy in the past, Putting him at increased risk for ongoing aspiration. Causing chronic pneumonitis which probably requires intermittent prednisone as well as antibiotic use. All this addressed with the patient. Dr. Downing likely to follow today. Obstructive sleep apnea on CPAP -Compliant with wearing CPAP. Obesity --Diet and exercise Right adrenal nodule -CT done compatible with right adrenal adenoma -it does not appear biochemically active as he is normotensive and normal potassium level. However this needs to be evaluated further. -He is sitting in a normal range. We will get a random cortisol level and consult general surgery for their input Type 2 diabetes mellitus -He is on glipizide twice a day. -Also on sliding scale insulin. Blood glucose is high because he received few doses of prednisone for contrast iodine allergy prep.
--- NOTE | 2019-11-13 12:05 | PRG ---
DATE OF SERVICE: 11/13/2019 SUBJECTIVE: This morning, he said he is still coughing and wheezing. OBJECTIVE: VITAL SIGNS: sats 90% on 2 L, blood pressure . Chest: No wheezing. No crackles. CARDIAC: Normal S1, S2. No gallops. ABDOMEN: No masses. ASSESSMENT AND PLAN: 1. Right adrenal adenoma. 2. Chronic obstructive pulmonary disease, sleep apnea, bronchitis, possibly pneumonia. I will switch over to oral antibiotics tomorrow. I have added Dulera to present regime. PT, supportive care. We will follow. Job ID: [id number]
--- NOTE | 2019-11-13 14:51 | PDOC.EVN ---
Event Note - Event Note Event Note: General surgery evaluated him and outpatient follow-up regarding his adrenal adenoma.
[2019-11-13] MEDS: HumuLIN 70/30 (300 UNITS/3 ML VIAL) SC SCH (20:56)
[2019-11-13] MEDS: Mometasone 200 MCG/Formoterol 5 MCG 120 PUFF INHALER INH SCH (22:10)
[2019-11-14] MEDS: Mometasone 200 MCG/Formoterol 5 MCG 120 PUFF INHALER INH SCH ×2 (07:02→18:08)
--- NOTE | 2019-11-14 11:12 | PRG ---
DATE OF SERVICE: 11/14/2019 SUBJECTIVE: Oren Salas, who is still coughing this morning. He is still short of breath. He says he is still wheezing. OBJECTIVE: VITAL SIGNS: Temperature 97, pulse 87, respirations 14, saturations are 97% on 2 L, blood pressure CHEST: Minimal wheezing. CARDIAC: Normal S1, S2. No gallops. ABDOMEN: No masses. ASSESSMENT: Cough 2 months duration, probably bronchitis, Coronavirus negative, cardiomyopathy, obesity, sleep apnea. PLAN: Speech is being consulted for rule out aspiration, this has been cleared. I am going to switch him over to oral medication. In the meantime, I am going to go ahead and start him on some steroids and probably deescalate in the next 24 to 48 hours. We will follow. Job ID: [id number]
--- NOTE | 2019-11-14 11:57 | PDOC.HOSPP ---
- Subjective Encounter Date: 11/14/19 Encounter Time: 10:10 Subjective: Patient is getting breathing treatment. I visited him twice and I also explained to the the plan is to get a modified barium swallow study today. Follow-up with general surgery clinic for his benign adrenal adenoma. is still concerned about his ongoing cough and shortness of breath and not interested in being discharged. - Objective Vital Signs & Weight: Vital Signs (12 hours) Temp Pulse Resp BP Pulse Ox 11/14/19 10:49 88 16 92 L 11/14/19 07:48 95 11/14/19 07:03 95 11/14/19 07:02 87 14 95 11/14/19 07:00 97.6 F 94 18 167/87 H 95 11/14/19 03:08 98.1 F 91 18 135/75 91 L 11/14/19 02:34 89 12 Weight Weight 301 lb 13.005 oz I&O: 11/13/19 11/14/19 11/15/19 06:59 06:59 06:59 Intake Total 1070 1470 Balance 1070 1470 Result Diagrams: 11/11/19 04:16 11/11/19 04:16 Additional Labs: Accuchecks 11/14/19 11/14/19 11/13/19 11:07 05:36 20:35 POC Glucose 166 H 152 H 313 H 11/13/19 11/13/19 11/13/19 18:12 18:03 11:58 POC Glucose 295 H 290 H 270 H Hospitalist ROS - Medication Medications: Active Medications Generic Name Dose Route Start Last Admin Trade Name Freq PRN Reason Stop Dose Admin Albuterol/Ipratropium 3 ml 11/11/19 14:30 11/14/19 10:49 Ipratropium/Albuterol Sulfate 3 Ml Neb NEB 3 ml [id number] MARIELLA Administration Aspirin 325 mg 11/12/19 09:00 11/13/19 09:52 Aspirin 325 Mg Enteric Coated Tablet PO 325 mg DAILY MARIELLA Administration Azithromycin 500 mg 11/11/19 12:00 11/13/19 11:44 Azithromycin 250 Mg Tab PO 500 mg 1200 MARIELLA Administration Glipizide 10 mg 11/11/19 17:00 11/13/19 16:54 Glipizide 10 Mg Tab PO 10 mg BID-WM MARIELLA Administration Guaifenesin 400 mg 11/11/19 13:00 11/13/19 20:53 Guaifenesin 200 Mg Tab PO 400 mg QID MARIELLA Administration Ceftriaxone Sodium 1 gm/ 100 mls @ 200 mls/hr 11/11/19 12:00 11/13/19 11:45 Sodium Chloride IVPB 100 mls Q24HR MARIELLA Administration Insulin Human Isoph/Insulin Regular 5 units 11/13/19 21:00 11/13/19 20:56 Humulin 70/30 (300 Units/3 Ml Vial) SC 5 unit BID MARIELLA Administration Insulin Human Lispro 0 units 11/10/19 22:07 11/13/19 20:56 Humalog 300 Units/3 Ml Vial SC 5 unit .BEDTIME SLIDING SC PRN Administration Bedtime Correctional Scale Insulin Human Lispro 0 units 11/11/19 11:38 11/13/19 18:21 Humalog 300 Units/3 Ml Vial SC 4 unit .MILD SLIDING SCALE PRN Administration Mild Correctional Scale Mometasone Furoate/Formoterol Fumar 2 puff 11/13/19 18:30 11/14/19 07:02 Mometasone 200 Mcg/Formoterol 5 Mcg 120 Puff Inhaler INH 2 puff BID-RT MARIELLA Administration Niacin 500 mg 11/11/19 21:00 11/13/19 20:53 Niacin Er 500 Mg Tab PO 500 mg HS MARIELLA Administration Pantoprazole Sodium 40 mg 11/11/19 09:00 11/13/19 09:52 Pantoprazole 40 Mg Vial IVP 40 mg DAILY MARIELLA Administration Sodium Chloride 10 ml 11/10/19 22:03 11/13/19 20:53 Flush - Normal Saline 10 Ml Syringe IVF 10 ml PRN PRN Administration Saline Flush Triamterene/HCTZ 1 tab 11/12/19 09:00 11/13/19 09:52 Triamterene/Hydrochlorothiazide 37.5 Mg/25 Mg Tablet PO 1 tab DAILY MARIELLA Administration - Exam General Appearance: NAD, awake alert General - other findings: Obese Eye: PERRL ENT: normocephalic atraumatic Neck: supple Heart: RRR Respiratory: CTAB, normal chest expansion Gastrointestinal: soft, normal bowel sounds Extremities: no cyanosis, 1+ LE edema Neurological: cranial nerve grossly intact, no focal deficits Psychiatric: A&O x 3 Hosp A/P - Plan 79/M with PMH of CAD, SHEY, morbid obesity and DM 2 presents for shortness of breath x8 weeks. Admit to telemetry floor,Inpatient status. Expected length of stay greater than 2 midnights. Presented tachycardic, tachypneic, hypoxic, NL BP and afebrile. EKG sinus tachycardia with ST/T changes. CXR negative for acute cardiopulmonary process. DD 0.61, Trop 0.026, BNP 89.2 Given LMWH 1 mg/kg #Dyspnea CTA chest pending Continue Lovenox 1 mg/KG Venous ultrasound Trend troponins, get PT/INR Supplemental oxygen Bedrest, n.p.o. #Dehydration BUN 31, creatinine 1.49 Gentle IV fluid resuscitation Recheck levels in a.m. #DM type II Takes glipizide at home. Hold glipizide for now. Start ISS and AC/at bedtime Accu-Cheks. #Obstructive sleep apnea on CPAP Reports being compliant at home. Brought home CPAP machine. Orders to use home CPAP at night. #CAD History CABG x2 (2019) Takes baby aspirin at home. Restart aspirin when reconciled by nursing. #Morbid obesity 3rd -Angiogram negative for pulmonary embolism however he has a bilateral infiltrate on both sides. -Started him on ceftriaxone and Zithromax. -COVID negative. -Her patient states that he has been having ongoing cough and shortness of breath of 2 months duration. I have reviewed his recent charts including discharge summary on June 2018. He had a swallow study he had a ENT evaluation he had a GI work-up and he had a cardiac cath -echo showing normal EF in June 2018. - I believe his cough is multifactorial with obesity, GERD and even consideration for neuromuscular dysfunction has been looked into it in his past admission with neurology evaluation. It is unclear whether he has gone through follow-up as an outpatient along that line. -Based on my very short encounter it does not appear that he has any clinical signs and symptoms for neuromuscular degenerative disease affecting his swallow as well as short of breath and cough. -Supportive measures including antibiotics cough Fenesin and prednisone -We will request small engine technician to help us. Right adrenal nodule - follow up on CT of the abdomen as recommended by the CTA that there is a right adrenal nodule 4th Continue the current management of IV antibiotics bronchodilators and cough suppressants. He has Dr. Downing's appointment only in February. If so inpatient pulmonary consult placed and evaluation pending. Right adrenal nodule -Seems benign as his potassium in the normal range and his blood pressure also in the normal range. -We will get the CT abdomen however he probably need 24-hour urine cortisol or late salivary gland cortisol level or low-dose dexamethasone suppression test biochemically to prove whether this is active or benign adenoma. 5th Aspiration pneumonitis versus organized pneumonia. - Speech therapy will evaluate him today. Patient says that it is nothing to do with his throat as he is able to swallow without much difficulty. However it appears that he is not compliant with the diet type recommended by speech therapy in the past, Putting him at increased risk for ongoing aspiration. Causing chronic pneumonitis which probably requires intermittent prednisone as well as antibiotic use. All this addressed with the patient. Dr. Downing likely to follow today. Obstructive sleep apnea on CPAP -Compliant with wearing CPAP. Obesity --Diet and exercise Right adrenal nodule -CT done compatible with right adrenal adenoma -it does not appear biochemically active as he is normotensive and normal potassium level. However this needs to be evaluated further. -He is sitting in a normal range. We will get a random cortisol level and consult general surgery for their input Type 2 diabetes mellitus -He is on glipizide twice a day. -Also on sliding scale insulin. Blood glucose is high because he received few doses of prednisone for contrast iodine allergy prep. 6th visited him twice and I also explained to the the plan is to get a modified barium swallow study today. Follow-up with general surgery clinic for his benign adrenal adenoma. is still concerned about his ongoing cough and shortness of breath and not interested in being discharged.
[2019-11-14] MEDS: cefTRIAXone\\ROCEPHIN 1 GM in Sodium Chloride 0.9% 100 ML IVPB SCH (12:02)
[2019-11-14] MEDS: methylPREDNISolone Sod Succ 40 MG VIAL IVP SCH ×2 (12:03→17:57)
--- NOTE | 2019-11-14 13:39 | RAD ---
XR Chest Pa Lat STANDARD HISTORY: Cough COMPARISON: 11/10/2019 FINDINGS: The heart size is normal. The lungs are well expanded without focal areas of consolidation, pneumothorax or pleural effusions. Chronic changes again seen. Changes of median sternotomy are redemonstrated. The aorta is tortuous. There are degenerative changes in the spine. IMPRESSION: No radiographic evidence of acute cardiopulmonary process.
[2019-11-14] MEDS: guaiFENesin 200 MG TAB PO SCH ×3 (17:12→21:53)
[2019-11-14] MEDS: HumuLIN 70/30 (300 UNITS/3 ML VIAL) SC SCH ×2 (17:12→21:51)
[2019-11-14] MEDS: glipiZIDE 10 MG TAB PO SCH ×2 (17:12→17:43)
[2019-11-14] MEDS: Aspirin 325 mg Enteric Coated Tablet PO SCH (17:43)
[2019-11-14] MEDS: Triamterene/Hydrochlorothiazide 37.5 mg/25 mg Tablet PO SCH (17:43)
[2019-11-14] MEDS: Pantoprazole 40 MG VIAL IVP SCH (17:43)
[2019-11-14] MEDS: Azithromycin 250 MG TAB PO SCH (18:07)
[2019-11-14] MEDS ORDERED: Insulin Regular 300 UNITS/3 ML VIAL SC SCH (18:15)
[2019-11-14] MEDS: HumaLOG 300 UNITS/3 ML VIAL SC PRN ×2 (18:17→21:52)
[2019-11-14 21:49] LABS: #Eosinphils 0.1 thou/uL (0.0-0.7); #Lymphocytes 0.3 thou/uL (1.20-3.40); #Monocytes 0.6 thou/uL (0.11-0.59); %Eosinophils 1.4 % (0.0-10.0); %Lymphocytes 2.8 % (21.0-51.0); %Monocytes 6.4 % (0.0-10.0); %Neutrophils 89.4 % (42.0-75.0); Hemoglobin 15.2 g/dL (14.0-18.0); Mean Corpuscular HGB CONC 33.4 g/dL (32.0-36.0); Mean Corpuscular Hemoglobin 31.8 pg (27.0-31.0); Mean Corpuscular Volume 95.4 fL (78.0-98.0); Mean Platelet Volume 9.6 fL (7.4-10.4); Platelet Count 212 thou/uL (130-400); RBC Distribution Width 13.1 % (11.5-14.5); Red Blood Cell (RBC) Count 4.77 mill/uL (4.70-6.10)
[2019-11-14 22:08] LABS: Phosphorus 2.1 mg/dL (2.3-4.7)
[2019-11-14 22:09] LABS: Anion Gap 19 mmol/L (10-20); BUN (Urea Nitrogen) 23 mg/dL (8.4-25.7); Calc. Creatinine Clearance 87 mL/min (70-130); Calcium 8.8 mg/dL (7.8-10.44); Carbon Dioxide 19 mmol/L (23-31); Chloride 97 mmol/L (98-107); Estimated GFR-MDRD 51; Glucose 291 mg/dL (83-110); Magnesium 1.9 mg/dL (1.6-2.6); Potassium 4.4 mmol/L (3.5-5.1); Sodium 131 mmol/L (136-145)
[2019-11-14] MEDS ORDERED: Sodium Phosphate 30 MMOL in Sodium Chloride 0.9% 250 ML 250 ML IVPB SCH (23:00)
[2019-11-15] MEDS: Sodium Chloride 0.9% 500 ML IV SCH ×3 (00:14→20:07)
[2019-11-15] MEDS: methylPREDNISolone Sod Succ 40 MG VIAL IVP SCH ×3 (00:15→21:15)
[2019-11-15] MEDS: HumaLOG 300 UNITS/3 ML VIAL SC PRN ×3 (06:28→21:15)
[2019-11-15] MEDS: Mometasone 200 MCG/Formoterol 5 MCG 120 PUFF INHALER INH SCH ×2 (06:53→18:06)
[2019-11-15] MEDS: Aspirin 325 mg Enteric Coated Tablet PO SCH (08:28)
[2019-11-15] MEDS: Pantoprazole 40 MG VIAL IVP SCH (08:28)
[2019-11-15] MEDS: glipiZIDE 10 MG TAB PO SCH ×2 (08:28→16:53)
[2019-11-15] MEDS: guaiFENesin 200 MG TAB PO SCH ×4 (08:28→20:14)
[2019-11-15] MEDS: HumuLIN 70/30 (300 UNITS/3 ML VIAL) SC SCH ×2 (08:28→21:15)
[2019-11-15] MEDS: Triamterene/Hydrochlorothiazide 37.5 mg/25 mg Tablet PO SCH (08:28)
[2019-11-15] MEDS ORDERED: Iopamidol-370 76% 500 ML 1 ML ONE (08:53)
--- NOTE | 2019-11-15 11:43 | RAD ---
Modified barium swallow HISTORY: Dysphagia. Feeding difficulties. FINDINGS: Exam was performed in conjunction with speech pathology with multiple consistencies. Video review is available and demonstrates good bolus formation and retropulsion. With thin liquid, there was deep penetration and suspected aspiration. Large amount of pooling. With solids, much less pooling was present. Partial clearance upon secondary swallowing. The esophagus below the level of the hypopharynx was not evaluated. Please see separate detailed report from speech pathology.
--- NOTE | 2019-11-15 12:01 | PDOC.HOSPP ---
- Subjective Encounter Date: 11/15/19 Encounter Time: 09:30 Subjective: Patient had productive cough. The first time he had some phlegm. Still has some ongoing cough. His speech therapy evaluated him and it appears that he is going to have chronic aspiration issues. - Objective Vital Signs & Weight: Vital Signs (12 hours) Temp Pulse Resp BP Pulse Ox 11/15/19 10:44 96 18 92 L 11/15/19 08:27 97.3 F L 91 24 H 141/90 H 91 L 11/15/19 06:53 103 H 20 90 L 11/15/19 04:00 97.5 F L 83 23 H 145/84 H 91 L 11/15/19 00:30 94 L 11/15/19 00:00 100 135/83 91 L Weight Weight 301 lb 13.005 oz I&O: 11/14/19 11/15/19 11/16/19 06:59 06:59 06:59 Intake Total 1470 1050 Balance 1470 1050 Result Diagrams: 11/14/19 21:34 11/14/19 21:34 Additional Labs: Accuchecks 11/15/19 11/15/19 11/14/19 11:14 05:58 20:27 POC Glucose 291 H 307 H 322 H Hospitalist ROS - Medication Medications: Active Medications Generic Name Dose Route Start Last Admin Trade Name Freq PRN Reason Stop Dose Admin Albuterol/Ipratropium 3 ml 11/11/19 14:30 11/15/19 10:44 Ipratropium/Albuterol Sulfate 3 Ml Neb NEB 3 ml [id number] MARIELLA Administration Aspirin 325 mg 11/12/19 09:00 11/15/19 08:28 Aspirin 325 Mg Enteric Coated Tablet PO 325 mg DAILY MARIELLA Administration Azithromycin 500 mg 11/11/19 12:00 11/14/19 18:07 Azithromycin 250 Mg Tab PO Not Given 1200 MARIELLA Glipizide 10 mg 11/11/19 17:00 11/15/19 08:28 Glipizide 10 Mg Tab PO 10 mg BID-WM MARIELLA Administration Guaifenesin 400 mg 11/11/19 13:00 11/15/19 08:28 Guaifenesin 200 Mg Tab PO 400 mg QID MARIELLA Administration Sodium Chloride 500 mls @ 50 mls/hr 11/14/19 22:30 11/15/19 08:29 Normal Saline 0.9% IV Not Given .Q10H MARIELLA Insulin Human Isoph/Insulin Regular 5 units 11/13/19 21:00 11/15/19 08:28 Humulin 70/30 (300 Units/3 Ml Vial) SC 5 unit BID MARIELLA Administration Insulin Human Lispro 0 units 11/10/19 22:07 11/14/19 21:52 Humalog 300 Units/3 Ml Vial SC 4 unit .BEDTIME SLIDING SC PRN Administration Bedtime Correctional Scale Insulin Human Lispro 0 units 11/14/19 18:15 11/15/19 06:28 Humalog 300 Units/3 Ml Vial SC 8 unit .MODERATE SLIDING SC PRN Administration MODERATE SLIDING SCALE Protocol Mometasone Furoate/Formoterol Fumar 2 puff 11/13/19 18:30 11/15/19 06:53 Mometasone 200 Mcg/Formoterol 5 Mcg 120 Puff Inhaler INH 2 puff BID-RT MARIELLA Administration Niacin 500 mg 11/11/19 21:00 11/14/19 21:53 Niacin Er 500 Mg Tab PO 500 mg HS MARIELLA Administration Pantoprazole Sodium 40 mg 11/11/19 09:00 11/15/19 08:28 Pantoprazole 40 Mg Vial IVP 40 mg DAILY MARIELLA Administration Sodium Chloride 10 ml 11/10/19 22:03 11/13/19 20:53 Flush - Normal Saline 10 Ml Syringe IVF 10 ml PRN PRN Administration Saline Flush Triamterene/HCTZ 1 tab 11/12/19 09:00 11/15/19 08:28 Triamterene/Hydrochlorothiazide 37.5 Mg/25 Mg Tablet PO 1 tab DAILY MARIELLA Administration - Exam General Appearance: NAD, awake alert Eye: PERRL ENT: normocephalic atraumatic Neck: supple Heart: RRR, normal peripheral pulses Respiratory: CTAB, normal chest expansion Gastrointestinal: soft, normal bowel sounds Neurological: cranial nerve grossly intact, no focal deficits Psychiatric: A&O x 3 Hosp A/P - Plan 79/M with PMH of CAD, SHEY, morbid obesity and DM 2 presents for shortness of breath x8 weeks. Admit to telemetry floor,Inpatient status. Expected length of stay greater than 2 midnights. Presented tachycardic, tachypneic, hypoxic, NL BP and afebrile. EKG sinus tachycardia with ST/T changes. CXR negative for acute cardiopulmonary process. DD 0.61, Trop 0.026, BNP 89.2 Given LMWH 1 mg/kg #Dyspnea CTA chest pending Continue Lovenox 1 mg/KG Venous ultrasound Trend troponins, get PT/INR Supplemental oxygen Bedrest, n.p.o. #Dehydration BUN 31, creatinine 1.49 Gentle IV fluid resuscitation Recheck levels in a.m. #DM type II Takes glipizide at home. Hold glipizide for now. Start ISS and AC/at bedtime Accu-Cheks. #Obstructive sleep apnea on CPAP Reports being compliant at home. Brought home CPAP machine. Orders to use home CPAP at night. #CAD History CABG x2 (2019) Takes baby aspirin at home. Restart aspirin when reconciled by nursing. #Morbid obesity 3rd -Angiogram negative for pulmonary embolism however he has a bilateral infiltrate on both sides. -Started him on ceftriaxone and Zithromax. -COVID negative. -Her patient states that he has been having ongoing cough and shortness of breath of 2 months duration. I have reviewed his recent charts including discharge summary on June 2018. He had a swallow study he had a ENT evaluation he had a GI work-up and he had a cardiac cath -echo showing normal EF in June 2018. - I believe his cough is multifactorial with obesity, GERD and even consideration for neuromuscular dysfunction has been looked into it in his past admission with neurology evaluation. It is unclear whether he has gone through follow-up as an outpatient along that line. -Based on my very short encounter it does not appear that he has any clinical signs and symptoms for neuromuscular degenerative disease affecting his swallow as well as short of breath and cough. -Supportive measures including antibiotics cough Fenesin and prednisone -We will request track inspecting supervisor to help us. Right adrenal nodule - follow up on CT of the abdomen as recommended by the CTA that there is a right adrenal nodule 4th Continue the current management of IV antibiotics bronchodilators and cough suppressants. He has Dr. Downing's appointment only in February. If so inpatient pulmonary consult placed and evaluation pending. Right adrenal nodule -Seems benign as his potassium in the normal range and his blood pressure also in the normal range. -We will get the CT abdomen however he probably need 24-hour urine cortisol or late salivary gland cortisol level or low-dose dexamethasone suppression test biochemically to prove whether this is active or benign adenoma. 5th Aspiration pneumonitis versus organized pneumonia. - Speech therapy will evaluate him today. Patient says that it is nothing to do with his throat as he is able to swallow without much difficulty. However it appears that he is not compliant with the diet type recommended by speech therapy in the past, Putting him at increased risk for ongoing aspiration. Causing chronic pneumonitis which probably requires intermittent prednisone as well as antibiotic use. All this addressed with the patient. Dr. Downing likely to follow today. Obstructive sleep apnea on CPAP -Compliant with wearing CPAP. Obesity --Diet and exercise Right adrenal nodule -CT done compatible with right adrenal adenoma -it does not appear biochemically active as he is normotensive and normal potassium level. However this needs to be evaluated further. -He is sitting in a normal range. We will get a random cortisol level and consult general surgery for their input Type 2 diabetes mellitus -He is on glipizide twice a day. -Also on sliding scale insulin. Blood glucose is high because he received few doses of prednisone for contrast iodine allergy prep. 6th visited him twice and I also explained to the the plan is to get a modified barium swallow study today. Follow-up with general surgery clinic for his benign adrenal adenoma. is still concerned about his ongoing cough and shortness of breath and not interested in being discharged. 7th Chronic bronchitis Possible aspiration pneumonitis Versus organizing pneumonia --Continue the current management as he feels slightly better with the productive phlegm. Disposition to home when track inspecting supervisor cleared him.
--- NOTE | 2019-11-15 12:03 | PRG ---
DATE OF SERVICE: 11/15/2019 SUBJECTIVE: Oren Salas is a 79-year-old gentleman. This morning, he is better. He has coughed up a large plug of sputum. OBJECTIVE: VITAL SIGNS: Temperature 97, pulse 96, respiratory rate 18, sats 92% on 3 L, blood pressure 140/90. CHEST: Minimal wheezing. CARDIAC: Normal S1, S2. No gallops. ABDOMEN: No masses. OBJECTIVE: His blood sugar is elevated from his steroids. Creatinine slightly elevated. He had a modified-swallow study and results are still pending. ASSESSMENT AND PLAN: Bronchitis, 2 months, asthmatic; sleep apnea. Switch him over to oral antibiotics. Decrease the steroids. PO prednisone tomorrow. Hopefully, he can be discharged home soon. We will follow. Job ID: [id number]
[2019-11-15] MEDS: Azithromycin 250 MG TAB PO SCH (12:18)
[2019-11-15 19:00] LABS: Actual Bicarbonate (HCO3a) 20.1 mEq/L (22-28); Base Excess (BEa) -1.4 mEq/L (-2.0 to +3.0); CO2 Tension 26.6 mmHg (35.0-45.0); O2 Tension (PaO2), arterial 43.1 mmHg (> 70.0)
[2019-11-15 19:01] LABS: Analyzer IN Cardio OR; Calcium, Ionized (arterial) 1.14 mmol/L (1.12-1.30); Carboxyhemoglobin (COHb) 0.8 gm% (0.0-3.0); Hemoglobin (Hb) 15.5 g/dL (14.0-18.0); Potassium - ABG Lab 4.02 mmol/L (3.70-5.30)
[2019-11-15 19:02] LABS: Puncture Site LRA
--- NOTE | 2019-11-15 19:10 | RAD ---
Exam: Chest one view HISTORY:Hypoxic patient Comparison: 11/10/2019 FINDINGS: Cardiac silhouette:Upper normal cardiac silhouette. Stable sternotomy wires. Aorta: Unremarkable Pulmonary vessels: Normal Costophrenic angles: Clear LUNGS: Scattered interstitial and alveolar opacities. More focal linear opacification left midlung an d left lung base may represent subsegmental atelectasis or infiltrate. Pneumothorax: None Osseous abnormalities: None IMPRESSION: 1. Acute infiltrates superimposed upon additional opacities noted on the most recent prior examinatio n. Correlate for possible subsegmental atelectasis, aspiration or pneumonia.
[2019-11-15] MEDS ORDERED: diphenhydrAMINE 50 MG/ML VIAL IVP PRN (19:46)
[2019-11-15] MEDS ORDERED: Hydrocortisone Sod Succ/PF 100 mg/2 ml Vial IVP SCH (20:00)
[2019-11-15] MEDS ORDERED: Famotidine/PF 20 mg/2ml Vial SLOW IVP SCH (20:00)
[2019-11-15] MEDS ORDERED: methylPREDNISolone Sod Succ 40 MG VIAL IVP SCH (20:00)
[2019-11-15] MEDS ORDERED: Bacteriostatic Water 30 ML VIAL FS PRN (20:00)
[2019-11-15] MEDS: Cefdinir 300 MG CAP PO SCH (20:14)
[2019-11-15] MEDS: Heparin 5,000 UNITS/ML VIAL SC SCH (20:15)
--- NOTE | 2019-11-15 21:09 | CT ---
Exam: CT angiogram of the chest HISTORY: Code Green. Hypoxic patient. COMPARISON: 11/10/2019 TECHNIQUE: CT angiogram of the chest is performed in the axial plane. Three-dimensional reformatted i mages are submitted for interpretation FINDINGS: Mediastinum: No mass, lymphadenopathy or hematoma. HEART: Normal size. No significant pericardial fluid. Aorta: No aneurysm or dissection Upper solid abdominal viscera: No abnormality enhancement. Trachea and central bronchi: Patent Pleural spaces: No effusion Lung parenchyma: Redemonstration of bibasilar consolidation. The degree of consolidation left lower l obe has progressed. Correlate for bibasilar atelectasis, aspiration or pneumonia. Interval development of patchy groundglass opacities involving the left and right upper lobe and more focal co nsolidation on the lateral aspect of the right upper lobe.. Pneumothorax: None Osseous structures: No lytic or blastic lesions Pulmonary arteries: Adequate contrast opacification pulmonary arterial system to the level of segment al arteries. No filling defect to suggest pulmonary embolism IMPRESSION: 1. No evidence of pulmonary arterial system to the level segmental arteries 2. Progression of bibasilar consolidation due to atelectasis, aspiration or pneumonia. 3. Interval development of opacities in the upper lobes which may represent edema or infiltrate. Transcribed Date/Time: 11/15/2019 9:29 PM
[2019-11-16] MEDS: HumaLOG 300 UNITS/3 ML VIAL SC PRN ×2 (06:37→21:34)
[2019-11-16] MEDS: Sodium Chloride 0.9% 500 ML IV SCH ×2 (06:37→14:19)
[2019-11-16] MEDS: Mometasone 200 MCG/Formoterol 5 MCG 120 PUFF INHALER INH SCH ×2 (08:15→18:30)
--- NOTE | 2019-11-16 09:45 | RAD ---
Chest AP view INDICATION: Shortness of breath COMPARISON: November 15, 2019 chest radiograph FINDINGS: Lungs: Bilateral lower lobe opacities persist Cardiac silhouette: Mild cardiomegaly is stable Pulmonary vasculature: Normal Pleural spaces: No pleural effusion or pneumothorax is demonstrated. Upper abdomen: No abnormality seen. Osseous structures: Midline sternotomy changes are stable. There is scattered degenerative and osteo arthritic change present. Additional findings: None. IMPRESSION: Stable bilateral lower lobe airspace disease. Stable cardiomegaly.
--- NOTE | 2019-11-16 09:51 | PRG ---
DATE OF SERVICE: 11/16/2019 SUBJECTIVE: Oren Salas is a 79-year-old morbidly obese gentleman, who was admitted with cough, bronchitis, and bibasilar atelectatic changes yesterday, became more hypoxic. CT angio was done, which showed no PE, showed bibasilar atelectatic changes. He is still on BiPAP this morning and 100% FiO2 to my surprise. OBJECTIVE: VITAL SIGNS: His saturations are still 93%, temperature 97, blood pressure 112/68, . CHEST: No wheezing. No crackles. CARDIAC: Normal S1 and S2. No gallops. ABDOMEN: No masses. LABORATORY DATA: PO2 last night was 43, pCO2 is 26%, 50 on 40% Ventimask. Emergency CT chest shows no evidence of pulmonary emboli, bibasilar consolidation. ASSESSMENT: 1. Respiratory failure, severe hypoxemia, morbid obesity, probably multifactorial. 2. Rule out cardiac dysfunction. PLAN: I have added Maxipime. He is already on steroids and frequent neb treatments. Unfortunately, we may have to continue his BiPAP until he improves. X-ray is being ordered to reassess his situation. If condition gets worse, he may very well require intubation. We will follow. Job ID: [id number]
[2019-11-16] MEDS: Aspirin 325 mg Enteric Coated Tablet PO SCH (10:24)
[2019-11-16] MEDS: glipiZIDE 10 MG TAB PO SCH ×2 (10:24→17:05)
[2019-11-16] MEDS: HumuLIN 70/30 (300 UNITS/3 ML VIAL) SC SCH ×2 (10:24→21:32)
[2019-11-16] MEDS: guaiFENesin 200 MG TAB PO SCH ×4 (10:24→21:31)
[2019-11-16] MEDS: Triamterene/Hydrochlorothiazide 37.5 mg/25 mg Tablet PO SCH (10:27)
[2019-11-16] MEDS: Cefdinir 300 MG CAP PO SCH (11:32)
[2019-11-16] MEDS: Cefepime 1 GM in Sodium Chloride 0.9% 100 ML IVPB SCH ×2 (11:52→21:31)
[2019-11-16] MEDS: methylPREDNISolone Sod Succ 40 MG VIAL IVP SCH ×2 (11:55→21:31)
[2019-11-16] MEDS: Pantoprazole 40 MG VIAL IVP SCH (11:56)
[2019-11-16] MEDS: Heparin 5,000 UNITS/ML VIAL SC SCH ×2 (11:56→21:32)
--- NOTE | 2019-11-16 15:10 | PDOC.HOSPP ---
- Subjective Encounter Date: 11/16/19 Encounter Time: 11:25 Subjective: Patient seen this morning he is in BiPAP. at bedside. He is doing well. He said recently 2 years ago roughly CPAP has been changed. After that it has not been looked at. JORDANA NIETO called last evening around 5:50 PM I was participated in it. He had a hypoxia in the upper 80s. Was on Ventimask still did not improve. CT chest did not show any pulmonary embolism. He was transferred to [facility] for BiPAP placement - Objective Vital Signs & Weight: Vital Signs (12 hours) Temp Pulse 11/16/19 14:23 78 11/16/19 07:10 97.1 F L 11/16/19 04:00 96.6 F L Weight Weight 301 lb 13.005 oz Most Recent Monitor Data Heart Rate from ECG 74 NIBP 122/74 NIBP BP-Mean 90 Respiration from ECG 31 SpO2 94 I&O: 11/15/19 11/16/19 11/17/19 06:59 06:59 06:59 Intake Total 1050 1250 Balance 1050 1250 Result Diagrams: 11/14/19 21:34 11/14/19 21:34 Additional Labs: Accuchecks 11/16/19 11/16/19 11/16/19 13:05 10:53 05:47 POC Glucose 189 H 200 H 271 H 11/15/19 11/15/19 11/15/19 20:47 18:52 17:35 POC Glucose 220 H 250 H 263 H 11/14/19 17:33 POC Glucose 405 H Hospitalist ROS - Medication Medications: Active Medications Generic Name Dose Route Start Last Admin Trade Name Chance PRN Reason Stop Dose Admin Aspirin 325 mg 11/12/19 09:00 11/16/19 10:24 Aspirin 325 Mg Enteric Coated Tablet PO Not Given DAILY MARIELLA Diphenhydramine HCl 50 mg 11/15/19 19:46 11/15/19 20:09 Diphenhydramine 50 Mg/Ml Vial IVP 11/16/19 19:47 50 mg WILLCALL PRN Administration IODINE CONTRAST ALLERGY Famotidine 20 mg 11/15/19 20:00 11/15/19 20:09 Famotidine/Pf 20 Mg/2ml Vial SLOW IVP 11/16/19 20:01 20 mg WILLCALL MARIELLA Administration Glipizide 10 mg 11/11/19 17:00 11/16/19 10:24 Glipizide 10 Mg Tab PO Not Given BID-WM [facility] Guaifenesin 400 mg 11/11/19 13:00 11/16/19 11:56 Guaifenesin 200 Mg Tab PO Not Given QID [facility] Heparin Sodium (Porcine) 5,000 units 11/15/19 21:00 11/16/19 11:56 Heparin 5,000 Units/Ml Vial SC 5,000 units BID MARIELLA Administration Hydrocortisone Sodium Succinate 100 mg 11/15/19 20:00 11/15/19 20:09 Hydrocortisone Sod Succ/Pf 100 Mg/2 Ml Vial IVP 11/16/19 20:01 100 mg WILLCALL MARIELLA Administration Sodium Chloride 500 mls @ 50 mls/hr 11/14/19 22:30 11/16/19 14:19 Normal Saline 0.9% IV Not Given .Q10H [facility] Cefepime HCl 1 gm/ Sodium 100 mls @ 200 mls/hr 11/16/19 10:00 11/16/19 11:52 Chloride IVPB 100 mls 1000,2200 MARIELLA Administration Insulin Human Isoph/Insulin Regular 5 units 11/13/19 21:00 11/16/19 10:24 Humulin 70/30 (300 Units/3 Ml Vial) SC Not Given BID [facility] Insulin Human Lispro 0 units 11/10/19 22:07 11/15/19 21:15 Humalog 300 Units/3 Ml Vial SC 2 unit .BEDTIME SLIDING SC PRN Administration Bedtime Correctional Scale Insulin Human Lispro 0 units 11/14/19 18:15 11/16/19 06:37 Humalog 300 Units/3 Ml Vial SC 6 unit .MODERATE SLIDING SC PRN Administration MODERATE SLIDING SCALE Protocol Methylprednisolone Sodium Succinate 40 mg 11/15/19 21:00 11/16/19 11:55 Methylprednisolone Sod Succ 40 Mg Vial IVP 40 mg BID MARIELLA Administration Methylprednisolone Sodium Succinate 125 mg 11/15/19 20:00 11/16/19 11:54 Methylprednisolone Sod Succ 40 Mg Vial IVP 11/16/19 20:01 Not Given WILLCALL [facility] Mometasone Furoate/Formoterol Fumar 2 puff 11/13/19 18:30 11/16/19 08:15 Mometasone 200 Mcg/Formoterol 5 Mcg 120 Puff Inhaler INH 2 puff BID-RT MARIELLA Administration Niacin 500 mg 11/11/19 21:00 11/15/19 20:14 Niacin Er 500 Mg Tab PO 500 mg HS MARIELLA Administration Pantoprazole Sodium 40 mg 11/11/19 09:00 11/16/19 11:56 Pantoprazole 40 Mg Vial IVP 40 mg DAILY MARIELLA Administration Sodium Chloride 10 ml 11/10/19 22:03 11/13/19 20:53 Flush - Normal Saline 10 Ml Syringe IVF 10 ml PRN PRN Administration Saline Flush Triamterene/HCTZ 1 tab 11/12/19 09:00 11/16/19 10:27 Triamterene/Hydrochlorothiazide 37.5 Mg/25 Mg Tablet PO Not Given DAILY MARIELLA - Exam General Appearance: NAD, awake alert General - other findings: On BiPAP Eye: PERRL ENT: normocephalic atraumatic Neck: supple Heart: RRR, normal peripheral pulses Respiratory: CTAB, normal chest expansion Gastrointestinal: soft, normal bowel sounds Neurological: no focal deficits Psychiatric: A&O x 3 Hosp A/P - Plan 79/M with PMH of CAD, SHEY, morbid obesity and DM 2 presents for shortness of breath x8 weeks. Admit to telemetry floor,Inpatient status. Expected length of stay greater than 2 midnights. Presented tachycardic, tachypneic, hypoxic, NL BP and afebrile. EKG sinus tachycardia with ST/T changes. CXR negative for acute cardiopulmonary process. DD 0.61, Trop 0.026, BNP 89.2 Given LMWH 1 mg/kg #Dyspnea CTA chest pending Continue Lovenox 1 mg/KG Venous ultrasound Trend troponins, get PT/INR Supplemental oxygen Bedrest, n.p.o. #Dehydration BUN 31, creatinine 1.49 Gentle IV fluid resuscitation Recheck levels in a.m. #DM type II Takes glipizide at home. Hold glipizide for now. Start ISS and AC/at bedtime Accu-Cheks. #Obstructive sleep apnea on CPAP Reports being compliant at home. Brought home CPAP machine. Orders to use home CPAP at night. #CAD History CABG x2 (2019) Takes baby aspirin at home. Restart aspirin when reconciled by nursing. #Morbid obesity 3rd -Angiogram negative for pulmonary embolism however he has a bilateral infiltrate on both sides. -Started him on ceftriaxone and Zithromax. -COVID negative. -Her patient states that he has been having ongoing cough and shortness of breath of 2 months duration. I have reviewed his recent charts including discharge summary on June 2018. He had a swallow study he had a ENT evaluation he had a GI work-up and he had a cardiac cath -echo showing normal EF in June 2018. - I believe his cough is multifactorial with obesity, GERD and even consideration for neuromuscular dysfunction has been looked into it in his past admission with neurology evaluation. It is unclear whether he has gone through follow-up as an outpatient along that line. -Based on my very short encounter it does not appear that he has any clinical signs and symptoms for neuromuscular degenerative disease affecting his swallow as well as short of breath and cough. -Supportive measures including antibiotics cough Fenesin and prednisone -We will request podiatrist to help us. Right adrenal nodule - follow up on CT of the abdomen as recommended by the CTA that there is a right adrenal nodule 4th Continue the current management of IV antibiotics bronchodilators and cough suppressants. He has Dr. Downing's appointment only in February. If so inpatient pulmonary cons ult placed and evaluation pending. Right adrenal nodule -Seems benign as his potassium in the normal range and his blood pressure also in the normal range. -We will get the CT abdomen however he probably need 24-hour urine cortisol or late salivary gland cortisol level or low-dose dexamethasone suppression test biochemically to prove whether this is active or benign adenoma. 5th Aspiration pneumonitis versus organized pneumonia. - Speech therapy will evaluate him today. Patient says that it is nothing to do with his throat as he is able to swallow without much difficulty. However it appears that he is not compliant with the diet type recommended by speech therapy in the past, Putting him at increased risk for ongoing aspiration. Causing chronic pneumonitis which probably requires intermittent prednisone as well as antibiotic use. All this addressed with the patient. Dr. Downing likely to follow today. Obstructive sleep apnea on CPAP -Compliant with wearing CPAP. Obesity --Diet and exercise Right adrenal nodule -CT done compatible with right adrenal adenoma -it does not appear biochemically active as he is normotensive and normal potassium level. However this needs to be evaluated further. -He is sitting in a normal range. We will get a random cortisol level and consult general surgery for their input Type 2 diabetes mellitus -He is on glipizide twice a day. -Also on sliding scale insulin. Blood glucose is high because he received few doses of prednisone for contrast iodine allergy prep. 6th visited him twice and I also explained to the the plan is to get a modified barium swallow study today. Follow-up with general surgery clinic for his benign adrenal adenoma. is still concerned about his ongoing cough and shortness of breath and not interested in being discharged. 7th Chronic bronchitis Possible aspiration pneumonitis Versus organizing pneumonia --Continue the current management as he feels slightly better with the productive phlegm. 8th Acute respiratory failure secondary to hypoxemia which is secondary to probably obesity and obstructive sleep apnea combination. JORDANA NIETO called last evening around 5:50 PM. I participated in it. He had a hypoxia in the upper 80s. Was on Ventimask still did not improve. CT chest did not show any pulmonary embolism. He was transferred to [facility] for BiPAP placement -Continue with the nebulizers and BiPAP as well as cefepime added to cover for pneumonia - 2 years ago roughly CPAP has been changed. After that it has not been looked at. Based on the current events he probably needs BiPAP at night when he is discharged. However will wait for the Dr. Downing's input regarding this.
[2019-11-16 15:54] LABS: Hemoglobin 15.1 g/dL (14.0-18.0); Mean Corpuscular HGB CONC 33.8 g/dL (32.0-36.0); Mean Corpuscular Hemoglobin 32.1 pg (27.0-31.0); Mean Corpuscular Volume 95.1 fL (78.0-98.0); Platelet Count 236 thou/uL (130-400); RBC Distribution Width 13.1 % (11.5-14.5); White Blood Cell (WBC) Count 12.8 thou/uL (4.8-10.8)
[2019-11-16 16:13] LABS: Band 26 % (5-11); MDiff Complete? YES; Monocytes 8 % (0-10); Neutrophil 63 % (42-75); Platelet Morphology Comment Appears Adequate; Polychromasia SLIGHT = 2-3 cells (100X) (0-2/hpf); Reactive Lymphocytes 3 % (0-10)
[2019-11-16 16:18] LABS: Anion Gap 15 mmol/L (10-20); BUN (Urea Nitrogen) 36 mg/dL (8.4-25.7); Calc. Creatinine Clearance 107 mL/min (70-130); Calcium 8.7 mg/dL (7.8-10.44); Carbon Dioxide 22 mmol/L (23-31); Chloride 103 mmol/L (98-107); Estimated GFR-MDRD 65; Glucose 218 mg/dL (83-110); Potassium 4.7 mmol/L (3.5-5.1); Sodium 135 mmol/L (136-145)
--- NOTE | 2019-11-16 18:01 | EKG ---
Test Reason : STAT Blood Pressure : / mmHG Vent. Rate : 103 BPM Atrial Rate : 103 BPM P-R Int : 132 ms QRS Dur : 078 ms QT Int : 436 ms P-R-T Axes : 057 078 076 degrees QTc Int : 571 ms Sinus tachycardia Nonspecific ST and T wave abnormality Abnormal ECG Confirmed by DR. Lori WHEAT ([id number]) on 11/16/2019 6:01:01 PM Referred By: STARLA Confirmed By:DR. Lori WHEAT
[2019-11-16] MEDS: Budesonide 0.5 MG/2 ML NEB NEB SCH (19:01)
[2019-11-17 04:10] LABS: #Lymphocytes 0.5 thou/uL (1.20-3.40); #Neutrophils 10.2 thou/uL (1.40-6.50); %Eosinophils 0.2 % (0.0-10.0); %Lymphocytes 3.9 % (21.0-51.0); %Monocytes 8.2 % (0.0-10.0); %Neutrophils 87.7 % (42.0-75.0); Hemoglobin 15.1 g/dL (14.0-18.0); Mean Corpuscular HGB CONC 35.8 g/dL (32.0-36.0); Mean Corpuscular Hemoglobin 33.9 pg (27.0-31.0); Mean Corpuscular Volume 94.6 fL (78.0-98.0); Platelet Count 233 thou/uL (130-400); RBC Distribution Width 13.1 % (11.5-14.5); Red Blood Cell (RBC) Count 4.45 mill/uL (4.70-6.10); White Blood Cell (WBC) Count 11.6 thou/uL (4.8-10.8)
[2019-11-17 04:35] LABS: ALT (SGPT) 34 U/L (8-55); AST (SGOT) 35 U/L (5-34); Albumin 3.1 g/dL (3.4-4.8); Alkaline Phosphatase 76 U/L (40-110); Anion Gap 12 mmol/L (10-20); BUN (Urea Nitrogen) 39 mg/dL (8.4-25.7); Bilirubin, Total 0.6 mg/dL (0.2-1.2); Calc. Creatinine Clearance 105 mL/min (70-130); Calcium 8.6 mg/dL (7.8-10.44); Carbon Dioxide 23 mmol/L (23-31); Chloride 104 mmol/L (98-107); Estimated GFR-MDRD 63; Globulin 3.3 g/dL (2.4-3.5); Glucose 244 mg/dL (83-110); Potassium 4.8 mmol/L (3.5-5.1); Protein, Total 6.4 g/dL (5.8-8.1); Sodium 134 mmol/L (136-145)
[2019-11-17] MEDS: Sodium Chloride 0.9% 500 ML IV SCH ×3 (06:01→20:00)
[2019-11-17] MEDS: HumaLOG 300 UNITS/3 ML VIAL SC PRN ×4 (06:03→20:47)
[2019-11-17] MEDS: Budesonide 0.5 MG/2 ML NEB NEB SCH ×2 (08:46→19:36)
[2019-11-17] MEDS: Mometasone 200 MCG/Formoterol 5 MCG 120 PUFF INHALER INH SCH ×2 (08:48→19:40)
[2019-11-17] MEDS: guaiFENesin 200 MG TAB PO SCH ×4 (09:16→20:45)
[2019-11-17] MEDS: Triamterene/Hydrochlorothiazide 37.5 mg/25 mg Tablet PO SCH (09:16)
[2019-11-17] MEDS: Aspirin 325 mg Enteric Coated Tablet PO SCH (09:16)
[2019-11-17] MEDS: Heparin 5,000 UNITS/ML VIAL SC SCH (09:17)
[2019-11-17] MEDS: glipiZIDE 10 MG TAB PO SCH ×2 (09:17→16:13)
[2019-11-17] MEDS: Cefepime 1 GM in Sodium Chloride 0.9% 100 ML IVPB SCH ×2 (09:17→09:18)
[2019-11-17] MEDS: methylPREDNISolone Sod Succ 40 MG VIAL IVP SCH ×2 (09:18→20:45)
[2019-11-17] MEDS: Pantoprazole 40 MG VIAL IVP SCH (09:18)
[2019-11-17] MEDS: HumuLIN 70/30 (300 UNITS/3 ML VIAL) SC SCH ×2 (09:18→20:47)
--- NOTE | 2019-11-17 09:45 | PRG ---
DATE OF SERVICE: 11/17/2019 SUBJECTIVE: This morning, he is a little bit more awake, responsive. His renal function improved. He said he is less short of breath. He is verbalizing. He is on BiPAP though his saturations are still low. OBJECTIVE: VITAL SIGNS: Temperature 98, pulse 90, respirations 18, blood pressure 132/80. CHEST: Decreased breath sounds. No wheezing. CARDIAC: Normal S1 and S2. No gallops. ABDOMEN: No masses. ASSESSMENT: Chronic obstructive pulmonary disease exacerbation, bronchitis, respiratory failure, sleep apnea, mild azotemia. PLAN: We will try and get him off the BiPAP except at nighttime. Otherwise, continue antibiotics, neb treatments, steroids, aggressive PT. We will follow. Job ID: [id number]
--- NOTE | 2019-11-17 15:39 | PDOC.HOSPP ---
- Subjective Encounter Date: 11/17/19 Encounter Time: 11:30 Subjective: Patient is off BiPAP today. He is doing well. Later in the day it is noted that he has a hematuria. I have discontinued with aspirin and Lovenox. Will see the kidney and bladder ultrasound. Patient without any acute abdominal discomfort or flank pain. We will follow-up with the UA as well - Objective Vital Signs & Weight: Vital Signs (12 hours) Temp Pulse Pulse Pulse Resp BP BP 11/17/19 15:36 97.0 F L 11/17/19 12:46 92 90 136/81 134/84 11/17/19 12:00 97.6 F 11/17/19 08:46 90 34 H 11/17/19 08:45 90 34 H 11/17/19 08:00 11/17/19 07:28 98.0 F 11/17/19 04:00 97.5 F L Pulse Ox Pulse Ox Pulse Ox 11/17/19 15:36 11/17/19 12:46 92 L 88 L 11/17/19 12:00 11/17/19 08:46 94 L 11/17/19 08:45 94 L 11/17/19 08:00 90 L 11/17/19 07:28 11/17/19 04:00 Weight Weight 301 lb 13.005 oz Most Recent Monitor Data Heart Rate from ECG 84 NIBP 132/77 NIBP BP-Mean 95 Respiration from ECG 27 SpO2 94 I&O: 11/16/19 11/17/19 11/18/19 06:59 06:59 06:59 Intake Total 1250 850 Output Total 300 Balance 1250 550 Result Diagrams: 11/17/19 03:37 11/17/19 03:37 Additional Labs: Accuchecks 11/17/19 11/17/19 11/16/19 11:03 06:08 21:34 POC Glucose 269 H 288 H 302 H Hospitalist ROS - Medication Medications: Active Medications Generic Name Dose Route Start Last Admin Trade Name Freq PRN Reason Stop Dose Admin Albuterol/Ipratropium 3 ml 11/15/19 14:00 11/17/19 08:45 Ipratropium/Albuterol Sulfate 3 Ml Neb NEB 3 ml Q4H PRN Administration SOB &/or Wheezing Budesonide 0.5 mg 11/16/19 18:30 11/17/19 08:46 Budesonide 0.5 Mg/2 Ml Neb NEB 0.5 mg BID-RT MARIELLA Administration Glipizide 10 mg 11/11/19 17:00 11/17/19 09:17 Glipizide 10 Mg Tab PO 10 mg BID-WM MARIELLA Administration Guaifenesin 400 mg 11/11/19 13:00 11/17/19 13:45 Guaifenesin 200 Mg Tab PO 400 mg QID MARIELLA Administration Sodium Chloride 500 mls @ 50 mls/hr 11/14/19 22:30 11/17/19 15:14 Normal Saline 0.9% IV Not Given .Q10H MARIELLA Cefepime HCl 1 gm/ Sodium 100 mls @ 200 mls/hr 11/16/19 10:00 11/17/19 09:18 Chloride IVPB 100 mls 1000,2200 MARIELLA Administration Insulin Human Isoph/Insulin Regular 5 units 11/13/19 21:00 11/17/19 09:18 Humulin 70/30 (300 Units/3 Ml Vial) SC 5 unit BID MARIELLA Administration Insulin Human Lispro 0 units 11/10/19 22:07 11/16/19 21:34 Humalog 300 Units/3 Ml Vial SC 4 unit .BEDTIME SLIDING SC PRN Administration Bedtime Correctional Scale Insulin Human Lispro 0 units 11/14/19 18:15 11/17/19 12:05 Humalog 300 Units/3 Ml Vial SC 6 unit .MODERATE SLIDING SC PRN Administration MODERATE SLIDING SCALE Protocol Methylprednisolone Sodium Succinate 40 mg 11/15/19 21:00 11/17/19 09:18 Methylprednisolone Sod Succ 40 Mg Vial IVP 40 mg BID MARIELLA Administration Mometasone Furoate/Formoterol Fumar 2 puff 11/13/19 18:30 11/17/19 08:48 Mometasone 200 Mcg/Formoterol 5 Mcg 120 Puff Inhaler INH Not Given BID-RT MARIELLA Niacin 500 mg 11/11/19 21:00 11/16/19 21:31 Niacin Er 500 Mg Tab PO 500 mg HS MARIELLA Administration Pantoprazole Sodium 40 mg 11/11/19 09:00 11/17/19 09:18 Pantoprazole 40 Mg Vial IVP 40 mg DAILY MARIELLA Administration Sodium Chloride 10 ml 11/10/19 22:03 11/13/19 20:53 Flush - Normal Saline 10 Ml Syringe IVF 10 ml PRN PRN Administration Saline Flush Triamterene/HCTZ 1 tab 11/12/19 09:00 11/17/19 09:16 Triamterene/Hydrochlorothiazide 37.5 Mg/25 Mg Tablet PO 1 tab DAILY MARIELLA Administration - Exam General Appearance: NAD, awake alert Eye: PERRL ENT: normocephalic atraumatic Neck: supple Heart: RRR, normal peripheral pulses Respiratory: CTAB, normal chest expansion Gastrointestinal: soft, normal bowel sounds Neurological: no weakness, no focal deficits Psychiatric: A&O x 3 Hosp A/P - Plan 79/M with PMH of CAD, SHEY, morbid obesity and DM 2 presents for shortness of breath x8 weeks. Admit to telemetry floor,Inpatient status. Expected length of stay greater than 2 midnights. Presented tachycardic, tachypneic, hypoxic, NL BP and afebrile. EKG sinus tachycardia with ST/T changes. CXR negative for acute cardiopulmonary process. DD 0.61, Trop 0.026, BNP 89.2 Given LMWH 1 mg/kg #Dyspnea CTA chest pending Continue Lovenox 1 mg/KG Venous ultrasound Trend troponins, get PT/INR Supplemental oxygen Bedrest, n.p.o. #Dehydration BUN 31, creatinine 1.49 Gentle IV fluid resuscitation Recheck levels in a.m. #DM type II Takes glipizide at home. Hold glipizide for now. Start ISS and AC/at bedtime Accu-Cheks. #Obstructive sleep apnea on CPAP Reports being compliant at home. Brought home CPAP machine. Orders to use home CPAP at night. #CAD History CABG x2 (2019) Takes baby aspirin at home. Restart aspirin when reconciled by nursing. #Morbid obesity 3rd -Angiogram negative for pulmonary embolism however he has a bilateral infiltrate on both sides. -Started him on ceftriaxone and Zithromax. -COVID negative. -Her patient states that he has been having ongoing cough and shortness of breath of 2 months duration. I have reviewed his recent charts including discharge summary on June 2018. He had a swallow study he had a ENT evaluation he had a GI work-up and he had a cardiac cath -echo showing normal EF in June 2018. - I believe his cough is multifactorial with obesity, GERD and even consideration for neuromuscular dysfunction has been looked into it in his past admission with neurology evaluation. It is unclear whether he has gone through follow-up as an outpatient along that line. -Based on my very short encounter it does not appear that he has any clinical signs and symptoms for neuromuscular degenerative disease affecting his swallow as well as short of breath and cough. -Supportive measures including antibiotics cough Fenesin and prednisone -We will request glass sagger to help us. Right adrenal nodule - follow up on CT of the abdomen as recommended by the CTA that there is a right adrenal nodule 4th Continue the current management of IV antibiotics bronchodilators and cough suppressants. He has Dr. Downing's appointment only in February. If so inpatient pulmonary consult placed and evaluation pending. Right adrenal nodule -Seems benign as his potassium in the normal range and his blood pressure also in the normal range. -We will get the CT abdomen however he probably need 24-hour urine cortisol or late salivary gland cortisol level or low-dose dexamethasone suppression test biochemically to prove whether this is active or benign adenoma. 5th Aspiration pneumonitis versus organized pneumonia. - Speech therapy will evaluate him today. Patient says that it is nothing to do with his throat as he is able to swallow without much difficulty. However it appears that he is not compliant with the diet type recommended by speech therapy in the past, Putting him at increased risk for ongoing aspiration. Causing chronic pneumonitis which probably requires intermittent prednisone as well as antibiotic use. All this addressed with the patient. Dr. Downing likely to follow today. Obstructive sleep apnea on CPAP -Compliant with wearing CPAP. Obesity --Diet and exercise Right adrenal nodule -CT done compatible with right adrenal adenoma -it does not appear biochemically active as he is normotensive and normal potassium level. However this needs to be evaluated further. -He is sitting in a normal range. We will get a random cortisol level and consult general surgery for their input Type 2 diabetes mellitus -He is on glipizide twice a day. -Also on sliding scale insulin. Blood glucose is high because he received few doses of prednisone for contrast iodine allergy prep. 6th visited him twice and I also explained to the the plan is to get a modified barium swallow study today. Follow-up with general surgery clinic for his benign adrenal adenoma. is still concerned about his ongoing cough and shortness of breath and not interested in being discharged. 7th Chronic bronchitis Possible aspiration pneumonitis Versus organizing pneumonia --Continue the current management as he feels slightly better with the p roductive phlegm. 8th Acute respiratory failure secondary to hypoxemia which is secondary to probably obesity and obstructive sleep apnea combination. JORDANA NIETO called last evening around 5:50 PM. I participated in it. He had a hypoxia in the upper 80s. Was on Ventimask still did not improve. CT chest did not show any pulmonary embolism. He was transferred to [facility] for BiPAP placement -Continue with the nebulizers and BiPAP as well as cefepime added to cover for pneumonia - 2 years ago roughly CPAP has been changed. After that it has not been looked at. Based on the current events he probably needs BiPAP at night when he is discharged. However will wait for the Dr. Downing's input regarding this. 9th Off BiPAP during daytime. Patient CPAP may have to be recalibrated. Versus may benefit with BiPAP at night at home. Hematuria -His hemoglobin is stable. Patient is not on Shane. Will get the kidney bladder ultrasound. UA done that shows all calcium oxalate crystals. Likely crystal induced hematuria. Will make sure that is not significant enough trequires any urological intervention during the stay. -CT urogram.
--- NOTE | 2019-11-17 15:39 | ULT ---
RENAL ULTARSOUND: HISTORY: Hematuria. FINDINGS: Real-time imaging of the right and left kidneys was performed. The right kidney measures 11.2 and th e left kidney 12.6 cm in size. No signs of cyst, mass, or obstruction. There is mild cortical thinn ing bilaterally. Bladder region appears unremarkable. IMPRESSION: No signs of cyst, mass, or obstruction. Mild cortical thinning involving both kidneys. POS: SARAH
[2019-11-17 15:46] LABS: Bacteria/HPF None Seen HPF (None Seen); Bilirubin Negative (Negative); Blood, Urine Negative (Negative); Clarity Clear (Clear); Glucose, Urine (Dipstick) 200 mg/dL (Negative); Ketone, Urine Negative (Negative); Leukocyte Negative Leu/uL (Negative); Nitrite Negative (Negative); Protein, Urine (Dipstick) 30 mg/dL (Neg-Trace); RBC/HPF 0-3 HPF (0-3); Specific Gravity, Urine 1.029 (1.002-1.036); Squamous Epithelial 0-3 HPF (0-3); Urobilinogen Normal mg/dL (Less than 2); WBC/HPF 0-3 HPF (0-3)
--- NOTE | 2019-11-17 19:21 | PDOC.EVN ---
Event Note - Event Note Event Note: needs follow up with [facility] for benign adrenal adenoma urologist/nephorlogist for crystal induced hematuria.
[2019-11-18 04:00] LABS: #Lymphocytes 0.6 thou/uL (1.20-3.40); #Monocytes 0.7 thou/uL (0.11-0.59); #Neutrophils 8.5 thou/uL (1.40-6.50); %Eosinophils 0.3 % (0.0-10.0); %Lymphocytes 6.4 % (21.0-51.0); %Neutrophils 86.3 % (42.0-75.0); Hemoglobin 15.8 g/dL (14.0-18.0); Mean Corpuscular HGB CONC 34.1 g/dL (32.0-36.0); Mean Corpuscular Hemoglobin 32.7 pg (27.0-31.0); Mean Platelet Volume 9.6 fL (7.4-10.4); Platelet Count 224 thou/uL (130-400); RBC Distribution Width 12.8 % (11.5-14.5); Red Blood Cell (RBC) Count 4.81 mill/uL (4.70-6.10); White Blood Cell (WBC) Count 9.9 thou/uL (4.8-10.8)
[2019-11-18 04:19] LABS: Anion Gap 18 mmol/L (10-20); BUN (Urea Nitrogen) 39 mg/dL (8.4-25.7); Calc. Creatinine Clearance 124 mL/min (70-130); Calcium 8.7 mg/dL (7.8-10.44); Carbon Dioxide 18 mmol/L (23-31); Chloride 102 mmol/L (98-107); Estimated GFR-MDRD 77; Glucose 220 mg/dL (83-110); Potassium 5.3 mmol/L (3.5-5.1); Sodium 133 mmol/L (136-145)
[2019-11-18] MEDS: HumaLOG 300 UNITS/3 ML VIAL SC PRN ×2 (06:09→21:13)
[2019-11-18] MEDS: Sodium Chloride 0.9% 500 ML IV SCH ×2 (06:11→17:15)
[2019-11-18] MEDS: Mometasone 200 MCG/Formoterol 5 MCG 120 PUFF INHALER INH SCH ×2 (07:59→19:11)
[2019-11-18] MEDS: Budesonide 0.5 MG/2 ML NEB NEB SCH ×2 (07:59→19:06)
[2019-11-18] MEDS ORDERED: Enoxaparin Sodium 40 MG/0.4 ML SYRINGE SC SCH (09:00)
[2019-11-18] MEDS: guaiFENesin 200 MG TAB PO SCH ×3 (09:05→21:07)
[2019-11-18] MEDS: glipiZIDE 10 MG TAB PO SCH ×2 (09:05→17:15)
[2019-11-18] MEDS: HumuLIN 70/30 (300 UNITS/3 ML VIAL) SC SCH ×2 (09:06→21:12)
[2019-11-18] MEDS: Triamterene/Hydrochlorothiazide 37.5 mg/25 mg Tablet PO SCH ×2 (09:06→11:36)
[2019-11-18] MEDS ORDERED: HumuLIN 70/30 (300 UNITS/3 ML VIAL) SC SCH (10:15)
--- NOTE | 2019-11-18 11:15 | RAD ---
Chest one view HISTORY: CHF. COMPARISON: 11/16/2019. FINDINGS: Cardiac silhouette is magnified by projection. Pulmonary vasculature remains engorged with bilateral perihilar infiltrate and mild reticulonodular interstitial prominence. Mediastinum is midline with postoperative changes. No lobar consolidation or evidence of pneumothorax. IMPRESSION : Pulmonary vascular congestion and other findings are stable.
--- NOTE | 2019-11-18 11:24 | PRG ---
DATE OF SERVICE: 11/18/2019 SUBJECTIVE: A 79-year-old gentleman this morning is still short of breath and high-flow 90%. His sats are only 88 and on BiPAP his sats are 90-70%. OBJECTIVE: VITAL SIGNS: Blood pressure 137/84, pulse 78, respirations 18. CHEST: Decreased breath sounds. No wheezing. CARDIAC: Normal S1, S2. No gallops. No masses. LABORATORY DATA: Unremarkable. His glucose 270. White count 9000. ASSESSMENT: Respiratory failure, morbid obesity, sleep apnea, bronchitis. PLAN: Awaiting reports of the echo. X-ray being ordered. I am concerned about his ongoing persistent hypoxemia and respiratory failure in spite of having a negative CT chest for any kind of pulmonary emboli issues. He did have some bibasilar atelectatic changes. Job ID: [id number]
[2019-11-18] MEDS: Cefepime 1 GM in Sodium Chloride 0.9% 100 ML IVPB SCH ×2 (11:36→21:08)
[2019-11-18] MEDS: Pantoprazole 40 MG VIAL IVP SCH (11:36)
[2019-11-18] MEDS: methylPREDNISolone Sod Succ 40 MG VIAL IVP SCH ×2 (11:36→21:08)
--- NOTE | 2019-11-18 14:47 | PDOC.HOSPP ---
- Subjective Encounter Date: 11/18/19 Encounter Time: 11:20 Subjective: Yesterday he was on high flow oxygen. since last night he is not able to come off the BiPAP during my rounds. A repeat chest x-ray seems to be stable without any new findings. Patient asked me whether he needs to be intubated he is very concerned about it. Patient states that this lung issues going on for the last 6 months. Wondering whether he would get better. Currently he is on BiPAP while I was on rounds. Lately the nurse informed me that he was sitting in the chair he was weaned off the BiPAP and back on high flow oxygen. - Objective Vital Signs & Weight: Vital Signs (12 hours) Temp Pulse Resp BP Pulse Ox Pulse Ox Pulse Ox 11/18/19 11:37 98 92 L 11/18/19 11:27 97.2 F L 11/18/19 07:59 80 24 H 95 11/18/19 07:51 90 L 11/18/19 07:14 96.6 F L 11/18/19 04:23 98.6 F 11/18/19 04:00 70 26 H 123/76 94 L Weight Weight 288 lb 14.4 oz Most Recent Monitor Data Heart Rate from ECG 90 NIBP 138/86 NIBP BP-Mean 103 Respiration from ECG 17 SpO2 96 I&O: 11/17/19 11/18/19 11/19/19 06:59 06:59 06:59 Intake Total 850 1954 Output Total 300 1920 Balance 550 34 Result Diagrams: 11/18/19 03:48 11/18/19 03:48 Additional Labs: Accuchecks 11/18/19 11/18/19 11/17/19 11:00 05:41 20:44 POC Glucose 176 H 270 H 202 H 11/17/19 17:11 POC Glucose 205 H Hospitalist ROS - Medication Medications: Active Medications Generic Name Dose Route Start Last Admin Trade Name Freq PRN Reason Stop Dose Admin Albuterol/Ipratropium 3 ml 11/15/19 14:00 11/17/19 19:38 Ipratropium/Albuterol Sulfate 3 Ml Neb NEB 3 ml Q4H PRN Administration SOB &/or Wheezing Budesonide 0.5 mg 11/16/19 18:30 11/18/19 07:59 Budesonide 0.5 Mg/2 Ml Neb NEB 0.5 mg BID-RT MARIELLA Administration Glipizide 10 mg 11/11/19 17:00 11/18/19 09:05 Glipizide 10 Mg Tab PO Not Given BID-WM MARIELLA Guaifenesin 400 mg 11/11/19 13:00 11/18/19 09:05 Guaifenesin 200 Mg Tab PO Not Given QID MARIELLA Sodium Chloride 500 mls @ 50 mls/hr 11/14/19 22:30 11/18/19 06:11 Normal Saline 0.9% IV 500 mls .Q10H MARIELLA Administration Cefepime HCl 1 gm/ Sodium 100 mls @ 200 mls/hr 11/16/19 10:00 11/18/19 11:36 Chloride IVPB 100 mls 1000,2200 MARIELLA Administration Insulin Human Lispro 0 units 11/10/19 22:07 11/17/19 20:47 Humalog 300 Units/3 Ml Vial SC 2 unit .BEDTIME SLIDING SC PRN Administration Bedtime Correctional Scale Insulin Human Lispro 0 units 11/14/19 18:15 11/18/19 06:09 Humalog 300 Units/3 Ml Vial SC 6 unit .MODERATE SLIDING SC PRN Administration MODERATE SLIDING SCALE Protocol Methylprednisolone Sodium Succinate 40 mg 11/15/19 21:00 11/18/19 11:36 Methylprednisolone Sod Succ 40 Mg Vial IVP 40 mg BID MARIELLA Administration Mometasone Furoate/Formoterol Fumar 2 puff 11/13/19 18:30 11/18/19 07:59 Mometasone 200 Mcg/Formoterol 5 Mcg 120 Puff Inhaler INH 2 puff BID-RT MARIELLA Administration Niacin 500 mg 11/11/19 21:00 11/17/19 20:52 Niacin Er 500 Mg Tab PO 500 mg HS MARIELLA Administration Pantoprazole Sodium 40 mg 11/11/19 09:00 11/18/19 11:36 Pantoprazole 40 Mg Vial IVP 40 mg DAILY MARIELLA Administration Sodium Chloride 10 ml 11/10/19 22:03 11/13/19 20:53 Flush - Normal Saline 10 Ml Syringe IVF 10 ml PRN PRN Administration Saline Flush Triamterene/HCTZ 1 tab 11/12/19 09:00 11/18/19 11:36 Triamterene/Hydrochlorothiazide 37.5 Mg/25 Mg Tablet PO 1 tab DAILY MARIELLA Administration - Exam General Appearance: NAD, awake alert General - other findings: Obese and on BiPAP Eye: PERRL ENT: normocephalic atraumatic Neck: supple Heart: RRR Respiratory: CTAB, normal chest expansion, rales, rhonchi Gastrointestinal: soft, normal bowel sounds Neurological: cranial nerve grossly intact, no weakness, no focal deficits Psychiatric: A&O x 3 Hosp A/P - Plan For more details please see my previous progress notes 79/M with PMH of CAD, SHEY, morbid obesity and DM 2 presents for shortness of breath x8 weeks. Admit to telemetry floor,Inpatient status. Expected length of stay greater than 2 midnights. #Dyspnea #DM type II #Obstructive sleep apnea on CPAP #CAD History CABG x2 (2018) #Morbid obesity -Angiogram negative for pulmonary embolism however he has a bilateral infiltrate on both sides. -Started him on ceftriaxone and Zithromax. -COVID negative. - Right adrenal nodule - follow up on CT of the abdomen as recommended by the CTA that there is a right adrenal nodule -General surgery wants to follow-up in the outpatient settings. And no immediate intervention. Aspiration pneumonitis versus organized pneumonia. iChronic bronchitis Possible aspiration pneumonitis Versus organizing pneumonia -Pulmonary on board. -Bronchodilators steroid and cefepime. -BiPAP as needed, currently on high flow oxygen Hematuria -His hemoglobin is stable. Patient is not on Shane. Will get the kidney bladder ultrasound. UA done that shows all calcium oxalate crystals. Persistent hypoxemia without new infiltrates on today's chest x-ray -Lately the nurse informed me that he was sitting in the chair he was weaned off the BiPAP and back on high flow oxygen. One episode of hematuria on , likely oxalate crystal induced hematuria; patient is not on Shane -UA does not show any blood in the urine, renal ultrasound negative for any abnormality. Including in the bladder. -He did have rare calcium oxalate crystals in the UA that was done on November 09. His TSH is in the normal range. -Due to calcium oxalate crystals in the urine I checked his PTH and vitamin D level which are low. He also has a benign adrenal adenoma --This needs further work-up once his pulmonary issues resolves. -We will start him on vitamin D supplement and in few days check his vitamin D level, if it improved then maybe PTH level would be normalized if not he needs further work-up, in the context of adrenal adenoma and low PTH. .
[2019-11-19 03:53] LABS: #Lymphocytes 0.4 thou/uL (1.20-3.40); #Monocytes 0.6 thou/uL (0.11-0.59); #Neutrophils 8.5 thou/uL (1.40-6.50); %Eosinophils 0.2 % (0.0-10.0); %Lymphocytes 3.9 % (21.0-51.0); %Monocytes 6.2 % (0.0-10.0); %Neutrophils 89.7 % (42.0-75.0); Hemoglobin 14.9 g/dL (14.0-18.0); Mean Corpuscular HGB CONC 34.7 g/dL (32.0-36.0); Mean Corpuscular Hemoglobin 32.8 pg (27.0-31.0); Mean Corpuscular Volume 94.4 fL (78.0-98.0); Platelet Count 262 thou/uL (130-400); Red Blood Cell (RBC) Count 4.54 mill/uL (4.70-6.10); White Blood Cell (WBC) Count 9.5 thou/uL (4.8-10.8)
[2019-11-19] MEDS: Sodium Chloride 0.9% 500 ML IV SCH ×5 (03:53→16:54)
[2019-11-19 03:59] LABS: Anion Gap 15 mmol/L (10-20); BUN (Urea Nitrogen) 41 mg/dL (8.4-25.7); Calc. Creatinine Clearance 112 mL/min (70-130); Calcium 8.7 mg/dL (7.8-10.44); Carbon Dioxide 21 mmol/L (23-31); Chloride 102 mmol/L (98-107); Estimated GFR-MDRD 71; Glucose 310 mg/dL (83-110); Potassium 5.1 mmol/L (3.5-5.1); Sodium 133 mmol/L (136-145)
[2019-11-19] MEDS: HumaLOG 300 UNITS/3 ML VIAL SC PRN ×3 (06:12→21:55)
[2019-11-19] MEDS: Budesonide 0.5 MG/2 ML NEB NEB SCH ×2 (07:22→19:28)
[2019-11-19] MEDS: Mometasone 200 MCG/Formoterol 5 MCG 120 PUFF INHALER INH SCH ×2 (07:38→19:31)
[2019-11-19] MEDS ORDERED: Loperamide HCl 2 MG CAP PO PRN (08:46)
[2019-11-19] MEDS ORDERED: Bisacodyl 5 MG TAB PO PRN (08:46)
[2019-11-19] MEDS ORDERED: Cepastat Lozenges 1 LOZ PO PRN (08:46)
[2019-11-19] MEDS ORDERED: Sodium Chloride 0.65% Nasal 44 ML BOT EA NARE PRN (08:46)
[2019-11-19] MEDS: guaiFENesin 200 MG TAB PO SCH ×4 (09:59→21:31)
[2019-11-19] MEDS: methylPREDNISolone Sod Succ 40 MG VIAL IVP SCH ×2 (10:00→21:31)
[2019-11-19] MEDS: glipiZIDE 10 MG TAB PO SCH ×2 (10:00→16:18)
[2019-11-19] MEDS: Pantoprazole 40 MG VIAL IVP SCH (10:00)
[2019-11-19] MEDS: Cholecalciferol 1,000 UNITS (25 MCG) TAB PO SCH (10:00)
[2019-11-19] MEDS: Triamterene/Hydrochlorothiazide 37.5 mg/25 mg Tablet PO SCH (10:03)
[2019-11-19] MEDS: Cefepime 1 GM in Sodium Chloride 0.9% 100 ML IVPB SCH ×2 (10:03→21:30)
--- NOTE | 2019-11-19 10:59 | PRG ---
DATE OF SERVICE: 11/19/2019 SUBJECTIVE: This morning, he is better, though he is still hypoxic. He is on high-flow, rate of 60, 85%. OBJECTIVE: VITAL SIGNS: Sats 90%, blood pressure . CHEST: Rhonchi, crackles. CARDIAC: Normal S1 and S2. No gallops. ABDOMEN: No masses. LABORATORY DATA: His numbers show that he is dehydrated, volume depleted. His white count 9000. ASSESSMENT AND PLAN: Respiratory failure, retained secretions, tracheobronchitis, azotemia, hypertension, morbid obesity, sleep apnea. Nocturnal CPAP, daytime, high-flow diuretics, increase IV fluids, Mucinex, supportive care. Job ID: [id number]
[2019-11-19] MEDS: HumuLIN 70/30 (300 UNITS/3 ML VIAL) SC SCH ×2 (12:11→21:55)
--- NOTE | 2019-11-19 12:17 | PDOC.HOSPP ---
- Subjective Encounter Date: 11/19/19 Encounter Time: 10:00 Subjective: Patient required BiPAP last night, patient is currently on high flow oxygen, family member present bedside - Objective Vital Signs & Weight: Vital Signs (12 hours) Temp Pulse Resp BP Pulse Ox 11/19/19 11:27 98.2 F 11/19/19 07:27 98.2 F 11/19/19 07:23 84 11/19/19 04:51 97.8 F 11/19/19 04:00 79 26 H 125/76 95 11/19/19 01:36 79 97 Weight Weight 287 lb 3.2 oz Most Recent Monitor Data Heart Rate from ECG 101 NIBP 123/91 NIBP BP-Mean 101 Respiration from ECG 12 SpO2 94 I&O: 11/18/19 11/19/19 11/20/19 06:59 06:59 06:59 Intake Total 1954 940 Output Total 1920 1100 Balance 34 -160 Result Diagrams: 11/19/19 03:27 11/19/19 03:27 Additional Labs: Accuchecks 11/19/19 11/19/19 11/18/19 10:48 06:04 20:33 POC Glucose 269 H 294 H 286 H Radiology Reviewed by me: Yes EKG Reviewed by me: Yes Hospitalist ROS - Review of Systems Constitutional: reports: weakness Eyes: denies: pain, vision change, conjunctivae inflammation, eyelid inflammation, redness, other ENT: denies: ear pain, ear discharge, nose pain, nose discharge, nose congestion, mouth pain, mouth swelling, throat pain, throat swelling, other Respiratory: reports: shortness of breath, SOB with excertion. denies: cough, dry, hemoptysis, pleuritic pain, sputum, wheezing, other Cardiovascular: denies: chest pain, palpitations, orthopnea, paroxysmal noc. dyspnea, edema, light headedness, other Gastrointestinal: denies: nausea, vomiting, abdominal pain, diarrhea, co nstipation, melena, hematochezia, other Genitourinary: denies: dysuria, frequency, incontinence, hematuria, retention, other Musculoskeletal: denies: neck pain, shoulder pain, arm pain, back pain, hand pain, leg pain, foot pain, other Skin: denies: rash, lesions, jesús, bruising, other - Medication Medications: Active Medications Generic Name Dose Route Start Last Admin Trade Name Freq PRN Reason Stop Dose Admin Albuterol/Ipratropium 3 ml 11/15/19 14:00 11/19/19 07:22 Ipratropium/Albuterol Sulfate 3 Ml Neb NEB 3 ml Q4H PRN Administration SOB &/or Wheezing Budesonide 0.5 mg 11/16/19 18:30 11/19/19 07:22 Budesonide 0.5 Mg/2 Ml Neb NEB 0.5 mg BID-RT MARIELLA Administration Cholecalciferol 2,000 units 11/19/19 09:00 11/19/19 10:00 Cholecalciferol 1,000 Units (25 Mcg) Tab PO 2,000 units DAILY MARIELLA Administration Glipizide 10 mg 11/11/19 17:00 11/19/19 10:00 Glipizide 10 Mg Tab PO 10 mg BID-WM MARIELLA Administration Guaifenesin 400 mg 11/11/19 13:00 11/19/19 09:59 Guaifenesin 200 Mg Tab PO 400 mg QID MARIELLA Administration Cefepime HCl 1 gm/ Sodium 100 mls @ 200 mls/hr 11/16/19 10:00 11/19/19 10:03 Chloride IVPB 100 mls 1000,2200 MARIELLA Administration Sodium Chloride 500 mls @ 75 drops/min 11/19/19 10:30 11/19/19 12:11 Normal Saline 0.9% IV Not Given .Q1H40M [facility] Insulin Human Isoph/Insulin Regular 14 units 11/18/19 21:00 11/19/19 12:11 Humulin 70/30 (300 Units/3 Ml Vial) SC Not Given BID [facility] Insulin Human Lispro 0 units 11/10/19 22:07 11/18/19 21:13 Humalog 300 Units/3 Ml Vial SC 3 unit .BEDTIME SLIDING SC PRN Administration Bedtime Correctional Scale Insulin Human Lispro 0 units 11/14/19 18:15 11/19/19 06:12 Humalog 300 Units/3 Ml Vial SC 6 unit .MODERATE SLIDING SC PRN Administration MODERATE SLIDING SCALE Protocol Methylprednisolone Sodium Succinate 40 mg 11/15/19 21:00 11/19/19 10:00 Methylprednisolone Sod Succ 40 Mg Vial IVP 40 mg BID MARIELLA Administration Mometasone Furoate/Formoterol Fumar 2 puff 11/13/19 18:30 11/19/19 07:38 Mometasone 200 Mcg/Formoterol 5 Mcg 120 Puff Inhaler INH 2 puff BID-RT MARIELLA Administration Niacin 500 mg 11/11/19 21:00 11/18/19 21:07 Niacin Er 500 Mg Tab PO 500 mg HS MARIELLA Administration Pantoprazole Sodium 40 mg 11/11/19 09:00 11/19/19 10:00 Pantoprazole 40 Mg Vial IVP 40 mg DAILY MARIELLA Administration Sodium Chloride 10 ml 11/10/19 22:03 11/18/19 21:08 Flush - Normal Saline 10 Ml Syringe IVF 10 ml PRN PRN Administration Saline Flush - Exam General Appearance: NAD, awake alert Eye: PERRL, anicteric sclera ENT: normocephalic atraumatic, no oropharyngeal lesions Neck: supple, symmetric, no JVD, no thyromegaly Heart: RRR, no murmur, no gallops, no rubs Respiratory - other findings: Reduced air entry at base Gastrointestinal: soft, non-distended, normal bowel sounds Gastrointestinal - other findings: Morbid obesity Extremities: 2+ LE edema Skin: normal turgor, no lesions Neurological: cranial nerve grossly intact, normal sensation to touch, no new deficit Musculoskeletal: normal tone, normal strength Psychiatric: normal affect, normal behavior Hosp A/P (1) Acute respiratory failure with hypoxemia Code(s): J96.01 - ACUTE RESPIRATORY FAILURE WITH HYPOXIA Status: Acute (2) CAD (coronary artery disease), [place] coronary artery Code(s): I25.10 - ATHSCL HEART DISEASE OF [place] CORONARY ARTERY W/O ANG PCTRS Status: Chronic (3) Hyperlipidemia Code(s): E78.5 - HYPERLIPIDEMIA, UNSPECIFIED Status: Chronic (4) Hypertension Code(s): I10 - ESSENTIAL (PRIMARY) HYPERTENSION Status: Chronic (5) Morbid obesity with BMI of 40.0-44.9, adult Code(s): E66.01 - MORBID (SEVERE) OBESITY DUE TO EXCESS CALORIES; Z68.41 - BODY MASS INDEX [BMI]40.0-44.9, ADULT Status: Chronic (6) HSEY on CPAP Code(s): G47.33 - OBSTRUCTIVE SLEEP APNEA (ADULT) (PEDIATRIC); Z99.89 - DEPENDENCE ON OTHER ENABLING MACHINES AND DEVICES Status: Chronic (7) Type 2 diabetes mellitus Status: Chronic - Plan old records reviewed/req, plan discussed w/ family Patient is persistently hypoxemic, currently on high flow oxygen Echocardiography result is pending If patient remains persistently hypoxic and echocardiography normal and patient may benefit from possible evaluation with bronchoscopy to rule out any PCP pneumonia, pulmonology on the case, Currently patient is on empiric antibiotic therapy, steroid, Today I have increased his insulin for hyperglycemia which is seems like related with the steroid., Change to diabetic diet Plan of care discussed with the patient's family member bedside.
[2019-11-19] MEDS: guaiFENesin ER 600 MG TAB PO SCH (21:31)
[2019-11-20] MEDS: Sodium Chloride 0.9% 500 ML IV SCH ×4 (01:53→18:13)
[2019-11-20 03:59] LABS: #Lymphocytes 0.5 thou/uL (1.20-3.40); #Monocytes 0.6 thou/uL (0.11-0.59); #Neutrophils 11.8 thou/uL (1.40-6.50); %Eosinophils 0.2 % (0.0-10.0); %Lymphocytes 3.5 % (21.0-51.0); %Monocytes 4.5 % (0.0-10.0); %Neutrophils 91.8 % (42.0-75.0); Anion Gap 17 mmol/L (10-20); BUN (Urea Nitrogen) 42 mg/dL (8.4-25.7); Calc. Creatinine Clearance 116 mL/min (70-130); Carbon Dioxide 18 mmol/L (23-31); Chloride 102 mmol/L (98-107); Estimated GFR-MDRD 75; Glucose 290 mg/dL (83-110); Hemoglobin 15.9 g/dL (14.0-18.0); Mean Corpuscular HGB CONC 35.1 g/dL (32.0-36.0); Mean Corpuscular Hemoglobin 33.5 pg (27.0-31.0); Mean Corpuscular Volume 95.2 fL (78.0-98.0); Platelet Count 283 thou/uL (130-400); Potassium 4.7 mmol/L (3.5-5.1); RBC Distribution Width 12.9 % (11.5-14.5); Red Blood Cell (RBC) Count 4.74 mill/uL (4.70-6.10); Sodium 132 mmol/L (136-145); White Blood Cell (WBC) Count 12.8 thou/uL (4.8-10.8)
[2019-11-20] MEDS: HumaLOG 300 UNITS/3 ML VIAL SC PRN ×4 (06:40→21:25)
[2019-11-20] MEDS: Budesonide 0.5 MG/2 ML NEB NEB SCH ×2 (07:15→18:51)
[2019-11-20] MEDS: glipiZIDE 10 MG TAB PO SCH ×2 (09:28→17:54)
[2019-11-20] MEDS: guaiFENesin ER 600 MG TAB PO SCH ×2 (09:28→20:52)
[2019-11-20] MEDS: guaiFENesin 200 MG TAB PO SCH ×4 (09:28→20:51)
[2019-11-20] MEDS: Cholecalciferol 1,000 UNITS (25 MCG) TAB PO SCH (09:29)
[2019-11-20] MEDS: HumuLIN 70/30 (300 UNITS/3 ML VIAL) SC SCH ×2 (09:30→21:24)
[2019-11-20] MEDS: Pantoprazole 40 MG VIAL IVP SCH (09:30)
[2019-11-20] MEDS: methylPREDNISolone Sod Succ 40 MG VIAL IVP SCH ×2 (09:30→20:52)
[2019-11-20] MEDS: Mometasone 200 MCG/Formoterol 5 MCG 120 PUFF INHALER INH SCH ×2 (10:14→18:55)
--- NOTE | 2019-11-20 10:20 | PRG ---
DATE OF SERVICE: 11/20/2019 SUBJECTIVE: This morning, he is weak, still on high-flow 70%. OBJECTIVE: VITAL SIGNS: Sats 91%, temperature 98, blood pressure 147/114. CHEST: Bilateral rhonchi. CARDIAC: Normal S1, S2. No gallops. ABDOMEN: No masses. LABORATORY DATA: Unremarkable. His sodium is 132, glucose 296. ASSESSMENT AND PLAN: 1. Respiratory failure. 2. Morbid obesity. 3. Sleep apnea. 4. Chronic obstructive pulmonary disease. 5. Bronchitis. Continue present treatment. Continue PT. We will follow. Job ID: [id number]
[2019-11-20] MEDS: Cefepime 1 GM in Sodium Chloride 0.9% 100 ML IVPB SCH ×2 (11:41→21:28)
--- NOTE | 2019-11-20 11:56 | PDOC.HOSPP ---
- Subjective Encounter Date: 11/20/19 Encounter Time: 10:10 Subjective: This morning patient was on BiPAP, patient is very weak, he is hard of hearing, - Objective Vital Signs & Weight: Vital Signs (12 hours) Temp Pulse Resp Pulse Ox 11/20/19 11:41 97.8 F 11/20/19 07:25 98.4 F 11/20/19 07:16 85 11/20/19 07:15 95 33 H 97 11/20/19 04:16 95 11/20/19 04:00 99.3 F 11/20/19 03:38 97.3 F L Weight Weight 287 lb 3.2 oz Most Recent Monitor Data Heart Rate from ECG 106 NIBP 127/76 NIBP BP-Mean 93 Respiration from ECG 14 SpO2 95 I&O: 11/19/19 11/20/19 11/21/19 06:59 06:59 06:59 Intake Total 940 1265 Output Total 1100 1075 Balance -160 190 Result Diagrams: 11/20/19 03:33 11/20/19 03:33 Additional Labs: Accuchecks 11/20/19 11/20/19 11/19/19 11:00 05:38 20:21 POC Glucose 272 H 296 H 278 H 11/19/19 17:05 POC Glucose 314 H EKG Reviewed by me: Yes Hospitalist ROS - Review of Systems Constitutional: reports: weakness, malaise ENT: denies: ear pain, ear discharge, nose pain, nose discharge, nose congestion, mouth pain, mouth swelling, throat pain, throat swelling, other Respiratory: reports: shortness of breath, SOB with excertion. denies: cough, dry, hemoptysis, pleuritic pain, sputum, wheezing, other Cardiovascular: denies: chest pain, palpitations, orthopnea, paroxysmal noc. dyspnea, edema, light headedness, other Gastrointestinal: denies: nausea, vomiting, abdominal pain, diarrhea, constipation, melena, hematochezia, other Genitourinary: denies: dysuria, frequency, incontinence, hematuria, retention, other Musculoskeletal: denies: neck pain, shoulder pain, arm pain, back pain, hand pain, leg pain, foot pain, other Skin: denies: rash, lesions, jesús, bruising, other - Medication Medications: Active Medications Generic Name Dose Route Start Last Admin Trade Name Freq PRN Reason Stop Dose Admin Albuterol/Ipratropium 3 ml 11/15/19 14:00 11/20/19 07:16 Ipratropium/Albuterol Sulfate 3 Ml Neb NEB 3 ml Q4H PRN Administration SOB &/or Wheezing Budesonide 0.5 mg 11/16/19 18:30 11/20/19 07:15 Budesonide 0.5 Mg/2 Ml Neb NEB 0.5 mg BID-RT MARIELLA Administration Cholecalciferol 2,000 units 11/19/19 09:00 11/20/19 09:29 Cholecalciferol 1,000 Units (25 Mcg) Tab PO 2,000 units DAILY MARIELLA Administration Glipizide 10 mg 11/11/19 17:00 11/20/19 09:28 Glipizide 10 Mg Tab PO 10 mg BID-WM MARIELLA Administration Guaifenesin 400 mg 11/11/19 13:00 11/20/19 09:28 Guaifenesin 200 Mg Tab PO 400 mg QID MARIELLA Administration Guaifenesin 1,200 mg 11/19/19 21:00 11/20/19 09:28 Guaifenesin Er 600 Mg Tab PO 1,200 mg Q12HR MARIELLA Administration Cefepime HCl 1 gm/ Sodium 100 mls @ 200 mls/hr 11/16/19 10:00 11/20/19 11:41 Chloride IVPB 100 mls 1000,2200 MARIELLA Administration Sodium Chloride 500 mls @ 75 mls/hr 11/19/19 15:45 11/20/19 09:20 Normal Saline 0.9% IV Not Given .Q6H40M MARIELLA Insulin Human Isoph/Insulin Regular 20 units 11/19/19 21:00 11/20/19 09:30 Humulin 70/30 (300 Units/3 Ml Vial) SC 20 unit BID MARIELLA Administration Insulin Human Lispro 0 units 11/10/19 22:07 11/19/19 21:55 Humalog 300 Units/3 Ml Vial SC 3 unit .BEDTIME SLIDING SC PRN Administration Bedtime Correctional Scale Insulin Human Lispro 0 units 11/14/19 18:15 11/20/19 11:38 Humalog 300 Units/3 Ml Vial SC 6 unit .MODERATE SLIDING SC PRN Administration MODERATE SLIDING SCALE Protocol Methylprednisolone Sodium Succinate 40 mg 11/15/19 21:00 11/20/19 09:30 Methylprednisolone Sod Succ 40 Mg Vial IVP 40 mg BID MARIELLA Administration Mometasone Furoate/Formoterol Fumar 2 puff 11/13/19 18:30 11/20/19 10:14 Mometasone 200 Mcg/Formoterol 5 Mcg 120 Puff Inhaler INH 2 puff BID-RT MARIELLA Administration Niacin 500 mg 11/11/19 21:00 11/19/19 21:31 Niacin Er 500 Mg Tab PO 500 mg HS MARIELLA Administration Pantoprazole Sodium 40 mg 11/11/19 09:00 11/20/19 09:30 Pantoprazole 40 Mg Vial IVP 40 mg DAILY MARIELLA Administration Sodium Chloride 10 ml 11/10/19 22:03 11/18/19 21:08 Flush - Normal Saline 10 Ml Syringe IVF 10 ml PRN PRN Administration Saline Flush - Exam General Appearance: NAD, awake alert, ill appearing Eye: PERRL, anicteric sclera ENT: normocephalic atraumatic, no oropharyngeal lesions Neck: supple, symmetric, no JVD, no thyromegaly Heart: RRR, no murmur, no gallops Respiratory: CTAB, no wheezes, no rales, no ronchi Gastrointestinal: soft, non-tender, non-distended, normal bowel sounds Extremities: no cyanosis, no clubbing, no edema Skin: normal turgor, no lesions Neurological: no focal deficits Musculoskeletal: normal tone, normal strength Psychiatric: normal affect, normal behavior Hosp A/P (1) Acute respiratory failure with hypoxemia Code(s): J96.01 - ACUTE RESPIRATORY FAILURE WITH HYPOXIA Status: Acute (2) CAD (coronary artery disease), [id number] coronary artery Code(s): I25.10 - ATHSCL HEART DISEASE OF [place] CORONARY ARTERY W/O ANG PCTRS Status: Chronic (3) Hyperlipidemia Code(s): E78.5 - HYPERLIPIDEMIA, UNSPECIFIED Status: Chronic (4) Hypertension Code(s): I10 - ESSENTIAL (PRIMARY) HYPERTENSION Status: Chronic (5) Morbid obesity with BMI of 40.0-44.9, adult Code(s): E66.01 - MORBID (SEVERE) OBESITY DUE TO EXCESS CALORIES; Z68.41 - BODY MASS INDEX [BMI]40.0-44.9, ADULT Status: Chronic (6) SHEY on CPAP Code(s): G47.33 - OBSTRUCTIVE SLEEP APNEA (ADULT) (PEDIATRIC); Z99.89 - DEPENDENCE ON OTHER ENABLING MACHINES AND DEVICES Status: Chronic (7) Type 2 diabetes mellitus Status: Chronic - Plan old records reviewed/req, plan discussed w/ family, continue antibiotics, addiction social worker, respiratory therapy, incentive spirometry Patient is persistently hypoxemic, currently on high flow oxygen and requiring BiPAP Echocardiography result is pending If patient remains persistently hypoxic and echocardiography normal and patient may benefit from possible evaluation with bronchoscopy to rule out any PCP pneumonia, pulmonology on the case, Currently patient is on empiric antibiotic therapy, steroid,
[2019-11-21 04:16] LABS: #Lymphocytes 0.6 thou/uL (1.20-3.40); #Monocytes 0.5 thou/uL (0.11-0.59); #Neutrophils 13.7 thou/uL (1.40-6.50); %Eosinophils 0.2 % (0.0-10.0); %Lymphocytes 4.3 % (21.0-51.0); %Monocytes 3.6 % (0.0-10.0); %Neutrophils 91.9 % (42.0-75.0); Hemoglobin 16.4 g/dL (14.0-18.0); Mean Corpuscular HGB CONC 34.8 g/dL (32.0-36.0); Mean Corpuscular Hemoglobin 32.7 pg (27.0-31.0); Mean Corpuscular Volume 94.1 fL (78.0-98.0); Mean Platelet Volume 10.3 fL (7.4-10.4); Platelet Count 238 thou/uL (130-400); RBC Distribution Width 13.1 % (11.5-14.5); Red Blood Cell (RBC) Count 5.01 mill/uL (4.70-6.10); White Blood Cell (WBC) Count 14.9 thou/uL (4.8-10.8)
[2019-11-21] MEDS: Sodium Chloride 0.9% 500 ML IV SCH ×4 (06:32→21:25)
[2019-11-21] MEDS: HumaLOG 300 UNITS/3 ML VIAL SC PRN ×3 (06:44→17:15)
[2019-11-21] MEDS: Budesonide 0.5 MG/2 ML NEB NEB SCH ×2 (08:06→20:21)
[2019-11-21] MEDS: Mometasone 200 MCG/Formoterol 5 MCG 120 PUFF INHALER INH SCH ×2 (08:07→20:19)
[2019-11-21] MEDS: glipiZIDE 10 MG TAB PO SCH ×2 (09:49→17:15)
[2019-11-21] MEDS: guaiFENesin ER 600 MG TAB PO SCH ×2 (09:49→21:24)
[2019-11-21] MEDS: guaiFENesin 200 MG TAB PO SCH ×4 (09:49→21:24)
[2019-11-21] MEDS: HumuLIN 70/30 (300 UNITS/3 ML VIAL) SC SCH ×2 (09:50→21:29)
[2019-11-21] MEDS: Cholecalciferol 1,000 UNITS (25 MCG) TAB PO SCH (09:50)
[2019-11-21] MEDS: Cefepime 1 GM in Sodium Chloride 0.9% 100 ML IVPB SCH ×2 (09:51→21:25)
[2019-11-21] MEDS: methylPREDNISolone Sod Succ 40 MG VIAL IVP SCH ×2 (09:51→21:25)
[2019-11-21] MEDS: Pantoprazole 40 MG VIAL IVP SCH (09:54)
--- NOTE | 2019-11-21 10:44 | PDOC.HOSPP ---
- Subjective Encounter Date: 11/21/19 Encounter Time: 10:00 Subjective: Patient seen and examined. Patient is on high flow oxygen. No overnight events - Objective Vital Signs & Weight: Vital Signs (12 hours) Temp Pulse Resp Pulse Ox 11/21/19 08:08 93 L 11/21/19 08:06 115 H 17 93 L 11/21/19 08:00 92 L 11/21/19 07:59 97.6 F 11/21/19 04:00 98.6 F 11/21/19 02:21 85 11/21/19 00:00 98.4 F Weight Weight 287 lb 3.2 oz Most Recent Monitor Data Heart Rate from ECG 102 NIBP 151/82 NIBP BP-Mean 105 Respiration from ECG 27 SpO2 88 I&O: 11/20/19 11/21/19 11/22/19 06:59 06:59 06:59 Intake Total 1265 360 Output Total 1075 1775 Balance 190 -1415 Result Diagrams: 11/21/19 03:57 11/20/19 03:33 Additional Labs: Accuchecks 11/21/19 11/20/19 11/20/19 06:34 21:28 17:47 POC Glucose 231 H 234 H 301 H 11/20/19 11:00 POC Glucose 272 H EKG Reviewed by me: Yes Hospitalist ROS - Review of Systems Constitutional: reports: weakness. denies: fever, chills, sweats, malaise, other ENT: denies: ear pain, ear discharge, nose pain, nose discharge, nose congestion, mouth pain, mouth swelling, throat pain, throat swelling, other Respiratory: reports: cough. denies: dry, shortness of breath, hemoptysis, SOB with excertion, pleuritic pain, sputum, wheezing, other Cardiovascular: denies: chest pain, palpitations, orthopnea, paroxysmal noc. dyspnea, edema, light headedness, other Gastrointestinal: denies: nausea, vomiting, abdominal pain, diarrhea, constipation, melena, hematochezia, other Genitourinary: denies: dysuria, frequency, incontinence, hematuria, retention, other Musculoskeletal: denies: neck pain, shoulder pain, arm pain, back pain, hand pain, leg pain, foot pain, other - Medication Medications: Active Medications Generic Name Dose Route Start Last Admin Trade Name Freq PRN Reason Stop Dose Admin Albuterol/Ipratropium 3 ml 11/15/19 14:00 11/20/19 07:16 Ipratropium/Albuterol Sulfate 3 Ml Neb NEB 3 ml Q4H PRN Administration SOB &/or Wheezing Budesonide 0.5 mg 11/16/19 18:30 11/21/19 08:06 Budesonide 0.5 Mg/2 Ml Neb NEB 0.5 mg BID-RT MARIELLA Administration Cholecalciferol 2,000 units 11/19/19 09:00 11/21/19 09:50 Cholecalciferol 1,000 Units (25 Mcg) Tab PO 2,000 units DAILY MARIELLA Administration Glipizide 10 mg 11/11/19 17:00 11/21/19 09:49 Glipizide 10 Mg Tab PO 10 mg BID-WM MARIELLA Administration Guaifenesin 400 mg 11/11/19 13:00 11/21/19 09:49 Guaifenesin 200 Mg Tab PO 400 mg QID MARIELLA Administration Guaifenesin 1,200 mg 11/19/19 21:00 11/21/19 09:49 Guaifenesin Er 600 Mg Tab PO 1,200 mg Q12HR MARIELLA Administration Cefepime HCl 1 gm/ Sodium 100 mls @ 200 mls/hr 11/16/19 10:00 11/21/19 09:51 Chloride IVPB 100 mls 1000,2200 MARIELLA Administration Sodium Chloride 500 mls @ 75 mls/hr 11/19/19 15:45 11/21/19 09:48 Normal Saline 0.9% IV 500 mls .Q6H40M MARIELLA Administration Insulin Human Isoph/Insulin Regular 20 units 11/19/19 21:00 11/21/19 09:50 Humulin 70/30 (300 Units/3 Ml Vial) SC 20 unit BID MARIELLA Administration Insulin Human Lispro 0 units 11/10/19 22:07 11/20/19 21:25 Humalog 300 Units/3 Ml Vial SC 2 unit .BEDTIME SLIDING SC PRN Administration Bedtime Correctional Scale Insulin Human Lispro 0 units 11/14/19 18:15 11/21/19 06:44 Humalog 300 Units/3 Ml Vial SC 4 unit .MODERATE SLIDING SC PRN Administration MODERATE SLIDING SCALE Protocol Methylprednisolone Sodium Succinate 40 mg 11/15/19 21:00 11/21/19 09:51 Methylprednisolone Sod Succ 40 Mg Vial IVP 40 mg BID MARIELLA Administration Mometasone Furoate/Formoterol Fumar 2 puff 11/13/19 18:30 11/21/19 08:07 Mometasone 200 Mcg/Formoterol 5 Mcg 120 Puff Inhaler INH 2 puff BID-RT MARIELLA Administration Niacin 500 mg 11/11/19 21:00 11/20/19 20:51 Niacin Er 500 Mg Tab PO 500 mg HS MARIELLA Administration Pantoprazole Sodium 40 mg 11/11/19 09:00 11/21/19 09:54 Pantoprazole 40 Mg Vial IVP 40 mg DAILY MARIELLA Administration Sodium Chloride 10 ml 11/10/19 22:03 11/18/19 21:08 Flush - Normal Saline 10 Ml Syringe IVF 10 ml PRN PRN Administration Saline Flush - Exam General Appearance: NAD, awake alert Eye: PERRL, anicteric sclera ENT: normocephalic atraumatic, no oropharyngeal lesions Neck: supple, symmetric, no JVD, no thyromegaly Heart: RRR, no murmur, no gallops, no rubs Respiratory: no wheezes, no rales, no ronchi Respiratory - other findings: Morbid obesity limiting examination Gastrointestinal: soft, non-tender, non-distended, normal bowel sounds Gastrointestinal - other findings: Morbid obesity Extremities: 1+ LE edema Skin: normal turgor, no lesions Neurological: no focal deficits Musculoskeletal: normal tone, normal strength Psychiatric: normal affect, normal behavior Hosp A/P (1) Acute respiratory failure with hypoxemia Code(s): J96.01 - ACUTE RESPIRATORY FAILURE WITH HYPOXIA Status: Acute (2) CAD (coronary artery disease), [place] coronary artery Code(s): I25.10 - ATHSCL HEART DISEASE OF [place] CORONARY ARTERY W/O ANG PCTRS Status: Chronic (3) Hyperlipidemia Code(s): E78.5 - HYPERLIPIDEMIA, UNSPECIFIED Status: Chronic (4) Hypertension Code(s): I10 - ESSENTIAL (PRIMARY) HYPERTENSION Status: Chronic (5) Morbid obesity with BMI of 40.0-44.9, adult Code(s): E66.01 - MORBID (SEVERE) OBESITY DUE TO EXCESS CALORIES; Z68.41 - BODY MASS INDEX [BMI]40.0-44.9, ADULT Status: Chronic (6) SHEY on CPAP Code(s): G47.33 - OBSTRUCTIVE SLEEP APNEA (ADULT) (PEDIATRIC); Z99.89 - DEPENDENCE ON OTHER ENABLING MACHINES AND DEVICES Status: Chronic (7) Type 2 diabetes mellitus Status: Chronic - Plan old records reviewed/req, continue antibiotics, psychiatric social worker supervisor, respiratory therapy Patient is persistently hypoxemic, currently on high flow oxygen and intermittently requiring BiPAP Pulmonology managing respiratory status For high blood sugar I have increased insulin to 25 subcu twice daily Medications reviewed and continue provide symptomatic and supportive care
--- NOTE | 2019-11-21 11:01 | PRG ---
DATE OF SERVICE: 11/21/2019 SUBJECTIVE: This morning, he is awake, alert, and responsive. He is weak. OBJECTIVE: VITAL SIGNS: Pulse 115, saturations are still low at 93% on 91% FiO2. CHEST: Bilateral rhonchi, crackles. CARDIAC: Normal S1, S2. No gallops. LABORATORY DATA: White count 01709. ASSESSMENT: Respiratory failure, severe deconditioning, morbid obesity, sleep apnea. PLAN: Continue aggressive PT, supportive care. Try and wean his O2 down as possible. Job ID: [id number]
[2019-11-21] MEDS: Benzonatate 100 MG CAP PO PRN ×2 (13:43→21:24)
[2019-11-22] MEDS: HumaLOG 300 UNITS/3 ML VIAL SC PRN ×3 (06:52→16:57)
[2019-11-22] MEDS: Sodium Chloride 0.9% 500 ML IV SCH ×2 (07:10→08:58)
--- NOTE | 2019-11-22 08:06 | RAD ---
Portable chest radiograph: 11/22/2019 COMPARISON: 11/18/2019 HISTORY: Congestive heart failure FINDINGS: Heart and mediastinal contours are stable. Stable midline sternotomy wires. No pneumothorax is noted. There is pulmonary vascular congestion. There is mild hazy increased density in the right lung base with obscuration of the right hemidiaphragm suggesting mild right basilar airspace di sease and small volume right pleural effusion. Hazy density in the left perihilar region in the medial left lung base suggests nonspecific airspace disease. IMPRESSION: Bibasilar density as above, which may signify pulmonary edema and/or infectious pneumonit is. Short-term imaging following treatment advised to document resolution.
[2019-11-22] MEDS: Budesonide 0.5 MG/2 ML NEB NEB SCH ×2 (08:31→18:29)
[2019-11-22] MEDS: Mometasone 200 MCG/Formoterol 5 MCG 120 PUFF INHALER INH SCH ×2 (08:50→18:30)
--- NOTE | 2019-11-22 08:56 | PRG ---
DATE OF SERVICE: 11/22/2019 SUBJECTIVE: Oren Salas this morning said he is feeling better, he is less short of breath. OBJECTIVE: VITAL SIGNS: His temperature is 97, pulse 97, sats on high-flow blood pressure 134/72. CHEST: Bilateral rhonchi. CARDIAC: Normal S1, S2. No gallops. IMPRESSION AND PLAN: 1. Left-sided pneumonia. 2. Chronic obstructive pulmonary disease. 3. Sleep apnea. Continue antibiotics, neb treatments, supportive care, PT. We will follow. Job ID: [id number]
[2019-11-22] MEDS: Cholecalciferol 1,000 UNITS (25 MCG) TAB PO SCH (08:57)
[2019-11-22] MEDS: glipiZIDE 10 MG TAB PO SCH ×2 (08:57→16:57)
[2019-11-22] MEDS: methylPREDNISolone Sod Succ 40 MG VIAL IVP SCH ×2 (08:58→21:32)
[2019-11-22] MEDS: Pantoprazole 40 MG VIAL IVP SCH (08:58)
[2019-11-22] MEDS: guaiFENesin ER 600 MG TAB PO SCH ×2 (08:58→21:32)
[2019-11-22] MEDS: HumuLIN 70/30 (300 UNITS/3 ML VIAL) SC SCH ×3 (09:59→23:21)
[2019-11-22] MEDS: Cefepime 1 GM in Sodium Chloride 0.9% 100 ML IVPB SCH ×2 (10:02→21:32)
--- NOTE | 2019-11-22 10:06 | PDOC.HOSPP ---
- Subjective Encounter Date: 11/22/19 Encounter Time: 13:00 Subjective: pt up in chair very sob patient is unable to speak complete sentences. He is currently on high flow. - Objective Vital Signs & Weight: Vital Signs (12 hours) Temp Pulse Resp Pulse Ox 11/22/19 08:31 97 24 H 92 L 11/22/19 04:00 98.3 F 11/22/19 00:00 97.9 F Weight Admit Weight 302 lb Weight 287 lb 3.2 oz Most Recent Monitor Data Heart Rate from ECG 99 NIBP 119/79 NIBP BP-Mean 92 Respiration from ECG 29 SpO2 94 I&O: 11/21/19 11/22/19 11/23/19 06:59 06:59 06:59 Intake Total 360 2680 Output Total 1775 1175 Balance -1415 1505 Result Diagrams: 11/21/19 03:57 11/20/19 03:33 Additional Labs: Accuchecks 11/22/19 11/21/19 11/21/19 06:56 21:34 16:18 POC Glucose 287 H 218 H 170 H 11/21/19 11:01 POC Glucose 232 H Hospitalist ROS - Review of Systems Respiratory: reports: cough, shortness of breath Cardiovascular: denies: chest pain, palpitations, orthopnea, paroxysmal noc. dyspnea, edema, light headedness, other Gastrointestinal: denies: nausea, vomiting, abdominal pain, diarrhea, constipation, melena, hematochezia, other Genitourinary: denies: dysuria, frequency, incontinence, hematuria, retention, other - Medication Medications: Active Medications Generic Name Dose Route Start Last Admin Trade Name Berryq PRN Reason Stop Dose Admin Albuterol/Ipratropium 3 ml 11/15/19 14:00 11/22/19 08:31 Ipratropium/Albuterol Sulfate 3 Ml Neb NEB 3 ml Q4H PRN Administration SOB &/or Wheezing Benzonatate 100 mg 11/19/19 08:46 11/21/19 21:24 Benzonatate 100 Mg Cap PO 100 mg Q6H PRN Administration Cough Budesonide 0.5 mg 11/16/19 18:30 11/22/19 08:31 Budesonide 0.5 Mg/2 Ml Neb NEB 0.5 mg BID-RT MARIELLA Administration Cholecalciferol 2,000 units 11/19/19 09:00 11/22/19 08:57 Cholecalciferol 1,000 Units (25 Mcg) Tab PO 2,000 units DAILY MARIELLA Administration Diphenhydramine HCl 25 mg 11/12/19 12:39 11/21/19 21:24 Diphenhydramine 25 Mg Cap PO 25 mg Q6H PRN Administration Itching & Insomnia Glipizide 10 mg 11/11/19 17:00 11/22/19 08:57 Glipizide 10 Mg Tab PO 10 mg BID-WM MARIELLA Administration Guaifenesin 1,200 mg 11/19/19 21:00 11/22/19 08:58 Guaifenesin Er 600 Mg Tab PO 1,200 mg Q12HR MARIELLA Administration Cefepime HCl 1 gm/ Sodium 100 mls @ 200 mls/hr 11/16/19 10:00 11/22/19 10:02 Chloride IVPB 100 mls 1000,2200 MARIELLA Administration Insulin Human Lispro 0 units 11/10/19 22:07 11/20/19 21:25 Humalog 300 Units/3 Ml Vial SC 2 unit .BEDTIME SLIDING SC PRN Administration Bedtime Correctional Scale Insulin Human Lispro 0 units 11/14/19 18:15 11/22/19 06:52 Humalog 300 Units/3 Ml Vial SC 6 unit .MODERATE SLIDING SC PRN Administration MODERATE SLIDING SCALE Protocol Methylprednisolone Sodium Succinate 40 mg 11/15/19 21:00 11/22/19 08:58 Methylprednisolone Sod Succ 40 Mg Vial IVP 40 mg BID MARIELLA Administration Mometasone Furoate/Formoterol Fumar 2 puff 11/13/19 18:30 11/22/19 08:50 Mometasone 200 Mcg/Formoterol 5 Mcg 120 Puff Inhaler INH 2 puff BID-RT MARIELLA Administration Niacin 500 mg 11/11/19 21:00 11/21/19 21:24 Niacin Er 500 Mg Tab PO 500 mg HS MARIELLA Administration Pantoprazole Sodium 40 mg 11/11/19 09:00 11/22/19 08:58 Pantoprazole 40 Mg Vial IVP 40 mg DAILY MARIELLA Administration Sodium Chloride 10 ml 11/10/19 22:03 11/18/19 21:08 Flush - Normal Saline 10 Ml Syringe IVF 10 ml PRN PRN Administration Saline Flush - Exam Neck: negative: supple, symmetric, no JVD, no thyromegaly, no lymphadenopathy, no carotid bruit, JVD Heart: negative: RRR, no murmur, no gallops, no rubs, normal peripheral pulses, irregular, diminshed peripheral pulses, murmur present, II/IV, III/IV Respiratory: negative: CTAB, no wheezes, no rales, no ronchi, normal chest expansion, no tachypnea, normal percussion, rales, rhonchi, tachypneic, wheezes Gastrointestinal: negative: soft, non-tender, non-distended, normal bowel sounds, no palpable masses, no hepatomegaly, no splenomegaly, no bruit, no guarding, no rigidity, tender to palpation, distended, diminished bowl sounds, voluntary guarding Hosp A/P (1) Acute respiratory failure with hypoxemia Code(s): J96.01 - ACUTE RESPIRATORY FAILURE WITH HYPOXIA Status: Acute (2) CAD (coronary artery disease) Code(s): I25.10 - ATHSCL HEART DISEASE OF [place] CORONARY ARTERY W/O ANG PCTRS Status: Chronic (3) DM type 2 (diabetes mellitus, type 2) Status: Chronic (4) Morbid obesity Code(s): E66.01 - MORBID (SEVERE) OBESITY DUE TO EXCESS CALORIES Status: Chronic (5) Obstructive sleep apnea on CPAP Code(s): G47.33 - OBSTRUCTIVE SLEEP APNEA (ADULT) (PEDIATRIC); Z99.89 - DEPENDENCE ON OTHER ENABLING MACHINES AND DEVICES Status: Chronic (6) Aspiration pneumonia Code(s): J69.0 - PNEUMONITIS DUE TO INHALATION OF FOOD AND VOMIT Status: Acute (7) Dysphagia Code(s): R13.10 - DYSPHAGIA, UNSPECIFIED Status: Acute Qualifiers: Dysphagia type: oropharyngeal phase Qualified Code(s): R13.12 - Dysphagia, oropharyngeal phase - Plan Patient continues to be short of breath and is currently on high flow and is unable to speak complete sentences. He has been seen by speech who recommends thickened liquids. 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 During that admission he was seen by neurology underwent a stroke work-up including a brain MRI which was negative. There was a question about possible myasthenia gravis however the acetylcholine receptor antibody test was negative. Patient was put on Mestinon and per notes stated that his symptoms improved. He could possibly have a seronegative myasthenia gravis. I did review patient's CTA which does not explain his requirement of high flow. He does have right greater than left lower lobe pneumonia and possible mild pulmonary edema. Patient states that he has been having a cough and shortness of breath for the past 8 weeks. He has had a stress test as an outpatient and echocardiogram. Patient is very compliant with his CPAP. He has been seen by GI in the past. Will start patient on Mestinon and see if this helps. Patient never followed up with neurology as an outpatient.
[2019-11-22] MEDS ORDERED: Furosemide 40 MG/4 ML VIAL SLOW IVP SCH (10:15)
[2019-11-22] MEDS ORDERED: Pyridostigmine Bromide IR 60 MG TAB PO SCH (16:30)
[2019-11-22] MEDS: Pyridostigmine Bromide IR 60 MG TAB PO SCH (21:32)
[2019-11-23] MEDS ORDERED: Fentanyl 100 MCG/2 ML VIAL ONE ×2 (06:30→10:09)
[2019-11-23] MEDS ORDERED: Midazolam HCl 2 mg/2 ml Vial ONE (06:30)
[2019-11-23] MEDS ORDERED: Lidocaine 1% (PF) 30 ML VIAL ONE (06:30)
[2019-11-23] MEDS: Budesonide 0.5 MG/2 ML NEB NEB SCH ×2 (07:12→18:46)
[2019-11-23] MEDS: Mometasone 200 MCG/Formoterol 5 MCG 120 PUFF INHALER INH SCH ×2 (07:14→18:44)
[2019-11-23] MEDS: Cefepime 1 GM in Sodium Chloride 0.9% 100 ML IVPB SCH (08:52)
[2019-11-23] MEDS: Pantoprazole 40 MG VIAL IVP SCH (08:53)
[2019-11-23] MEDS: methylPREDNISolone Sod Succ 40 MG VIAL IVP SCH ×2 (08:53→20:35)
[2019-11-23] MEDS: Pyridostigmine Bromide IR 60 MG TAB PO SCH (08:53)
[2019-11-23] MEDS: HumuLIN 70/30 (300 UNITS/3 ML VIAL) SC SCH (08:54)
[2019-11-23] MEDS: Cholecalciferol 1,000 UNITS (25 MCG) TAB PO SCH (08:56)
[2019-11-23] MEDS: glipiZIDE 10 MG TAB PO SCH ×2 (08:56→17:27)
[2019-11-23] MEDS: guaiFENesin ER 600 MG TAB PO SCH ×2 (08:56→20:35)
[2019-11-23] MEDS ORDERED: Enoxaparin Sodium 40 MG/0.4 ML SYRINGE SC SCH (09:00)
[2019-11-23] MEDS ORDERED: HumuLIN 70/30 (300 UNITS/3 ML VIAL) SC SCH (09:09)
[2019-11-23] MEDS ORDERED: Propofol 1,000 MG/100 ML VIAL IV ONE (10:09)
--- NOTE | 2019-11-23 10:09 | RAD ---
Exam: Chest one view HISTORY:Congestive heart failure. Pneumonia. Comparison: 11/22/2019 FINDINGS: Cardiac silhouette:Normal cardiac silhouette. Sternotomy wires are redemonstrated. Aorta: Unremarkable Pulmonary vessels: Normal Costophrenic angles: Clear LUNGS: Scattered interstitial and alveolar opacities. Degree of opacification is stable. Pneumothorax: None Osseous abnormalities: None IMPRESSION: Scattered interstitial and alveolar opacities.
[2019-11-23] MEDS: Midazolam HCl 2 mg/2 ml Vial ONE ×2 (10:10→11:03)
--- NOTE | 2019-11-23 10:15 | PRG ---
DATE OF SERVICE: 11/23/2019 SUBJECTIVE: He remains in the MICU, on a BiPAP, 80% FiO2 with saturations he is weak, he has poor cough, and unable to eat. OBJECTIVE: VITAL SIGNS: His temperature is 98, pulse 103, blood pressure . CHEST: Decreased breath sounds. Bilateral rhonchi. CARDIAC: Normal S1 and S2. No gallops ABDOMEN: Soft, massive. IMPRESSION: Respiratory failure, pneumonia, morbid obesity, sleep apnea, superimposed pneumonia. I am concerned that he is not getting any better in spite of being in the hospital now for almost 12 days. He was started on some Mestinon, though his states he has clearly not been taking any Mestinon at home. Unclear, where the diagnosis of myasthenia was made. Anyway, we are going to continue to follow. He may make a decision about intubation in the next hour or so. Job ID: [id number]
[2019-11-23] MEDS ORDERED: Ventilator Sedation Protocol 1 EACH FS SCH (10:30)
[2019-11-23] MEDS ORDERED: Dextrose 5 %-0.45 % NaCl 1,000 ML IV SCH (10:30)
[2019-11-23] MEDS ORDERED: Fentanyl BOLUS 250 ML IVPB PRN (10:45)
[2019-11-23] MEDS ORDERED: Morphine 2 MG/ML VIAL SLOW IVP PRN (10:45)
[2019-11-23] MEDS ORDERED: Linezolid 600 MG TAB PO SCH (10:45)
[2019-11-23] MEDS ORDERED: Propofol BOLUS 1,000 MG/100 ML VIAL IV PRN (10:45)
--- NOTE | 2019-11-23 11:17 | PRG ---
DATE OF SERVICE: 11/23/2019 Oren Salas is a 79-year-old gentleman who has progressive respiratory failure. X-ray this morning showed persistent bilateral infiltrates. He is on BiPAP. He was still hypoxic. I discussed with the patient and his , they agreed to intubation. He was taken to the ICU. Bite block was placed and then a 7.5 endotracheal tube was placed above the bronchoscope. Back of the throat had a moderate amount of purulent secretions which were suctioned. The endotracheal tube was passed above the bonnie. He was given a total of 4 Versed and 50 of fentanyl. He was bagged for a while. It was felt he needed to be lavaged. Bronchoscope was re-passed and again distal trachea was normal. There was copious amount of secretions in the left lung which was suctioned and lavaged to clear. No endobronchial disease was seen. Left upper and left lower lobe visualized, lavaged until completely clear, total of 40 mL of saline. The right lung was inspected. Thereafter there was lesser amount of secretions. Once again, no endobronchial obstruction was seen or pus was seen. Results of the washing will be sent for Gram stain, C and S. Job ID: [id number] [facility]
[2019-11-23 11:35] LABS: Actual Bicarbonate (HCO3a) 18.4 mEq/L (22-28); Base Excess (BEa) -6.1 mEq/L (-2.0 to +3.0); CO2 Tension 34.1 mmHg (35.0-45.0); Carboxyhemoglobin (COHb) 0.3 gm% (0.0-3.0); Hemoglobin (Hb) 16.8 g/dL (14.0-18.0); O2 Tension (PaO2), arterial 58.5 mmHg (> 70.0); Potassium - ABG Lab 4.49 mmol/L (3.70-5.30); Puncture Site RR; pH, Arterial 7.35 (7.35-7.45)
[2019-11-23 11:36] LABS: ALV-art Gradient 397.975 mmHg (0-20)
[2019-11-23] MEDS: HumaLOG 300 UNITS/3 ML VIAL SC PRN ×2 (11:50→16:23)
[2019-11-23] MEDS: fentaNYL Citrate/PF 2,000 MCG in Sodium Chloride 0.9% 60 ML IV SCH ×2 (11:52→23:07)
[2019-11-23 11:54] LABS: Magnesium 2.3 mg/dL (1.6-2.6); Phosphorus 4.6 mg/dL (2.3-4.7)
[2019-11-23 12:39] LABS: SARS-CoV-2 MS2 Positive; SARS-CoV-2 N Gene Positive; SARS-CoV-2 S Gene Positive; SARS-CoV-2 by NAA DETECTED (NotDetected); SARS-CoV-2 orf1ab Positive
--- NOTE | 2019-11-23 13:00 | CON ---
NEUROLOGY CONSULTATION DATE OF CONSULTATION: 11/23/2019 REASON FOR CONSULTATION: Shortness of breath/possible myasthenia gravis. HISTORY OF PRESENT ILLNESS: Mr. Oren Salas is a 79-year-old male with medical history significant for CABG x2 in 2019, coronary artery disease, diabetes mellitus, dyslipidemia, morbid obesity, obstructive sleep apnea, on CPAP, presented to the [facility] as a transfer from [facility] because of extreme shortness of breath. Patient is intubated and sedated so history obtained from records and the . Per review of the records, the patient has symptoms of dysphagia and aspiration, which started after his bypass. 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 There was a concern about myasthenia gravis, so myasthenia gravis panel was done, which showed negative acetylcholine receptor antibody. He was seen by Dr. Salmeron as outpatient and was started on Mestinon because of concern of seronegative myasthenia gravis, which improved his symptoms. The patient has been compliant on CPAP, but continues to have shortness of breath, and there is a concern about Neurological explanation for his symptoms possibly related to neuromuscular disorder. Neurology was consulted for further recommendations. REVIEW OF SYSTEMS: Patient being intubated so unable to document review of systems. PAST SURGICAL HISTORY: 1. CABG x2 in 2019. 2. Right hip replacement. FAMILY HISTORY: Significant for cancer and cardiac disorder. MEDICAL HISTORY: Coronary artery disease, possible seronegative myasthenia gravis, diabetes. HOME MEDICATIONS: 1. Triamterene/hydrochlorothiazide 37.5 mg/25 mg p.o. daily. 2. Aspirin 81 mg daily. 3. Protonix 40 mg daily. 4. Glipizide 10 mg p.o. twice daily. 5. Tylenol as needed for pain. SOCIAL HISTORY: The patient is a former smoker. Used to smoke one pack per day for 40 years. Denies alcohol or illegal drug use. Lives at home with his family and is wheelchair bound. ALLERGIES: IODINE. Vital Signs & Weight: Vital Signs (12 hours) Temp Pulse Resp Pulse Ox 11/22/19 08:31 97 24 H 92 L 11/22/19 04:00 98.3 F 11/22/19 00:00 97.9 F Weight Admit Weight 302 lb Weight 287 lb 3.2 oz Most Recent Monitor Data Heart Rate from ECG 99 NIBP 119/79 NIBP BP-Mean 92 Respiration from ECG 29 SpO2 94 I&O: 11/21/19 11/22/19 11/23/19 06:59 06:59 06:59 Intake Total 360 2680 Output Total 1775 1175 Balance -1415 1505 Additional Labs: Accuchecks 11/22/19 11/21/19 11/21/19 06:56 21:34 16:18 POC Glucose 287 H 218 H 170 H 11/21/19 11:01 POC Glucose 232 H PHYSICAL EXAMINATION: GENERAL: Patient is intubated and sedated NECK: Supple HEART: negative: RRR, no murmur, no gallops, no rubs, normal peripheral pulses, irregular, diminshed peripheral pulses, Respiratory: negative: CTAB, no wheezes, no rales, no ronchi, normal chest expansion, no tachypnea, normal percussion, rales, rhonchi, tachypneic, wheezes GI: negative: soft, non-tender, non-distended, normal bowel sounds, no palpable masses, no hepatomegaly, no splenomegaly, no bruit, no guarding, no rigidity, tender to palpation, distended, diminished bowl sounds, voluntary guarding NEUROLOGIC: Mental status : Patient is intubated and sedated. He does not follow commands or maintain eye contact. Cranial nerves : Pupils 4 mm round and reactive to light. Face symmetric. Tongue midline. Corneals positive. Gag positive. rPatient nial nerves 2 through 12 intact. Motor, muscle tone and bulk are normal. No spontaneous movements of all 4 extremities seen.. Sensory: withdraws to nailbed pressure bilaterally. Cerebellar, unable to perform secondary to sedation. Gait deferred due to the patient's safety reasons. Active Medications Generic Name Dose Route Start Last Admin Trade Name Freq PRN Reason Stop Dose Admin Albuterol/Ipratropium 3 ml 11/15/19 14:00 11/22/19 08:31 Ipratropium/Albuterol Sulfate 3 Ml Neb NEB 3 ml Q4H PRN Administration SOB &/or Wheezing Benzonatate 100 mg 11/19/19 08:46 11/21/19 21:24 Benzonatate 100 Mg Cap PO 100 mg Q6H PRN Administration Cough Budesonide 0.5 mg 11/16/19 18:30 11/22/19 08:31 Budesonide 0.5 Mg/2 Ml Neb NEB 0.5 mg BID-RT MARIELLA Administration Cholecalciferol 2,000 units 11/19/19 09:00 11/22/19 08:57 Cholecalciferol 1,000 Units (25 Mcg) Tab PO 2,000 units DAILY MARIELLA Administration Diphenhydramine HCl 25 mg 11/12/19 12:39 11/21/19 21:24 Diphenhydramine 25 Mg Cap PO 25 mg Q6H PRN Administration Itching & Insomnia Glipizide 10 mg 11/11/19 17:00 11/22/19 08:57 Glipizide 10 Mg Tab PO 10 mg BID-WM MARIELLA Administration Guaifenesin 1,200 mg 11/19/19 21:00 11/22/19 08:58 Guaifenesin Er 600 Mg Tab PO 1,200 mg Q12HR MARIELLA Administration Cefepime HCl 1 gm/ Sodium 100 mls @ 200 mls/hr 11/16/19 10:00 11/22/19 10:02 Chloride IVPB 100 mls 1000,2200 MARIELLA Administration Insulin Human Lispro 0 units 11/10/19 22:07 11/20/19 21:25 Humalog 300 Units/3 Ml Vial SC 2 unit .BEDTIME SLIDING SC PRN Administration Bedtime Correctional Scale Insulin Human Lispro 0 units 11/14/19 18:15 11/22/19 06:52 Humalog 300 Units/3 Ml Vial SC 6 unit .MODERATE SLIDING SC PRN Administration MODERATE SLIDING SCALE Protocol Methylprednisolone Sodium Succinate 40 mg 11/15/19 21:00 11/22/19 08:58 Methylprednisolone Sod Succ 40 Mg Vial IVP 40 mg BID MARIELLA Administration Mometasone Furoate/Formoterol Fumar 2 puff 11/13/19 18:30 11/22/19 08:50 Mometasone 200 Mcg/Formoterol 5 Mcg 120 Puff Inhaler INH 2 puff BID-RT MARIELLA Administration Niacin 500 mg 11/11/19 21:00 11/21/19 21:24 Niacin Er 500 Mg Tab PO 500 mg HS MARIELLA Administration Pantoprazole Sodium 40 mg 11/11/19 09:00 11/22/19 08:58 Pantoprazole 40 Mg Vial IVP 40 mg DAILY MARIELLA Administration Sodium Chloride 10 ml 11/10/19 22:03 11/18/19 21:08 Flush - Normal Saline 10 Ml Syringe IVF 10 ml PRN PRN Administration Saline Flush ASSESSMENT AND PLAN: (1) Acute respiratory failure with hypoxemia Code(s): J96.01 - ACUTE RESPIRATORY FAILURE WITH HYPOXIA Status: Acute (2) CAD (coronary artery disease) Code(s): I25.10 - ATHSCL HEART DISEASE OF [place] CORONARY ARTERY W/O ANG PCTRS Status: Chronic (3) DM type 2 (diabetes mellitus, type 2) Status: Chronic (4) Morbid obesity Code(s): E66.01 - MORBID (SEVERE) OBESITY DUE TO EXCESS CALORIES Status: Chronic (5) Obstructive sleep apnea on CPAP Code(s): G47.33 - OBSTRUCTIVE SLEEP APNEA (ADULT) (PEDIATRIC); Z99.89 - DEPENDENCE ON OTHER ENABLING MACHINES AND DEVICES Status: Chronic (6) Aspiration pneumonia Code(s): J69.0 - PNEUMONITIS DUE TO INHALATION OF FOOD AND VOMIT Status: Acute (7) Dysphagia Code(s): R13.10 - DYSPHAGIA, UNSPECIFIED Status: Acute Qualifiers: Dysphagia type: oropharyngeal phase Qualified Code(s): R13.12 - Dysphagia, oropharyngeal phase Mr. Oren Salas is consulted for acute respiratory failure with hypoxemia. The patient does have history of possible seronegative myasthenia gravis, treated by Dr. Salmeron as outpatient with improvement of the symptoms with Mestinon. This raises a concern about diaphragmatic weakness. Unfortunately, we do not have the capability to perform EMG testing at our facilities if we need to pursue further testing. Continue medical management per primary team and Pulmonology. Neuro checks every 4 hours. Continue home medications. Plan discussed with the primary attending, Dr. Siu. Thank you for the consult. Job ID: [id number] [facility]
[2019-11-23] MEDS: Propofol 1,000 MG/100 ML VIAL IV PRN ×4 (14:16→23:31)
[2019-11-23] MEDS: Lorazepam 2 MG/ML VIAL SLOW IVP PRN ×2 (14:17→20:34)
[2019-11-23] MEDS ORDERED: Sodium Chloride 0.9% 1,000 ML IV SCH ×2 (14:30→17:50)
[2019-11-23] MEDS ORDERED: Enoxaparin Sodium 100 MG/ML SYRINGE SC SCH (14:30)
[2019-11-23 15:04] LABS: Hemoglobin 16.5 g/dL (14.0-18.0); Mean Corpuscular HGB CONC 33.3 g/dL (32.0-36.0); Mean Corpuscular Hemoglobin 32.7 pg (27.0-31.0); Mean Corpuscular Volume 98.4 fL (78.0-98.0); Mean Platelet Volume 10.4 fL (7.4-10.4); Platelet Count 186 thou/uL (130-400); RBC Distribution Width 13.2 % (11.5-14.5); Red Blood Cell (RBC) Count 5.06 mill/uL (4.70-6.10); White Blood Cell (WBC) Count 23.3 thou/uL (4.8-10.8)
[2019-11-23 15:26] LABS: Band 2 % (5-11); MDiff Complete? YES; Monocytes 1 % (0-10); Neutrophil 97 % (42-75); Platelet Morphology Comment Appears Adequate; RBC Morphology Normal
[2019-11-23 15:44] LABS: INR-International Normal Ratio 1.4; PTT 28.1 sec (22.9-36.1); Prothrombin Time 17.3 sec (12.0-14.7)
[2019-11-23 16:15] LABS: Anion Gap 20 mmol/L (10-20); BUN (Urea Nitrogen) 65 mg/dL (8.4-25.7); Calc. Creatinine Clearance 81 mL/min (70-130); Calcium 8.5 mg/dL (7.8-10.44); Carbon Dioxide 15 mmol/L (23-31); Chloride 107 mmol/L (98-107); Estimated GFR-MDRD 49; Glucose 286 mg/dL (83-110); Potassium 5.3 mmol/L (3.5-5.1); Sodium 137 mmol/L (136-145)
--- NOTE | 2019-11-23 17:15 | PDOC.HOSPP ---
- Subjective Encounter Date: 11/23/19 Encounter Time: 11:15 Subjective: Patient underwent intubation this morning. Patient continued to be very short of breath and was unable to speak complete sentences. - Objective Vital Signs & Weight: Vital Signs (12 hours) Temp Pulse Resp BP Pulse Ox 11/23/19 16:00 100.9 F H 27 H 11/23/19 14:56 126 H 145/94 H 11/23/19 14:22 94 L 11/23/19 14:00 28 H 11/23/19 12:30 128 H 109/67 11/23/19 12:00 31 H 92 L 11/23/19 11:08 124 H 112/73 11/23/19 10:27 29 H 11/23/19 08:00 96 11/23/19 07:31 98.1 F 11/23/19 07:12 103 H 22 H 96 Weight Admit Weight 302 lb Weight 287 lb 3.2 oz Most Recent Monitor Data Heart Rate from ECG 120 NIBP 90/63 NIBP BP-Mean 72 Respiration from ECG 32 SpO2 97 I&O: 11/22/19 11/23/19 11/24/19 06:59 06:59 06:59 Intake Total 2680 1210 270 Output Total 1175 3300 320 Balance 1505 -2090 -50 Result Diagrams: 11/23/19 14:39 11/23/19 14:39 Additional Labs: Accuchecks 11/23/19 11/22/19 05:50 20:58 POC Glucose 251 H 201 H Hospitalist ROS - Review of Systems Other: Unable to obtain - Medication Medications: Active Medications Generic Name Dose Route Start Last Admin Trade Name Freq PRN Reason Stop Dose Admin Albuterol/Ipratropium 3 ml 11/15/19 14:00 11/23/19 07:12 Ipratropium/Albuterol Sulfate 3 Ml Neb NEB 3 ml Q4H PRN Administration SOB &/or Wheezing Benzonatate 100 mg 11/19/19 08:46 11/21/19 21:24 Benzonatate 100 Mg Cap PO 100 mg Q6H PRN Administration Cough Budesonide 0.5 mg 11/16/19 18:30 11/23/19 07:12 Budesonide 0.5 Mg/2 Ml Neb NEB 0.5 mg BID-RT MARIELLA Administration Cholecalciferol 2,000 units 11/19/19 09:00 11/23/19 08:56 Cholecalciferol 1,000 Units (25 Mcg) Tab PO Not Given DAILY MARIELLA Diphenhydramine HCl 25 mg 11/12/19 12:39 11/21/19 21:24 Diphenhydramine 25 Mg Cap PO 25 mg Q6H PRN Administration Itching & Insomnia Glipizide 10 mg 11/11/19 17:00 11/23/19 08:56 Glipizide 10 Mg Tab PO Not Given BID-WM MARIELLA Guaifenesin 1,200 mg 11/19/19 21:00 11/23/19 08:56 Guaifenesin Er 600 Mg Tab PO Not Given Q12HR MARIELLA Levofloxacin 750 mg/ Device 150 mls @ 100 mls/hr 11/23/19 10:30 11/23/19 11:06 IVPB 150 mls Q24HR MARIELLA Administration Fentanyl Citrate 2,000 mcg/ 100 mls @ 0 mls/hr 11/23/19 10:45 11/23/19 11:52 Sodium Chloride IV 12/23/19 10:45 100 mls INF MARIELLA Administration Protocol Per Protocol Sodium Chloride 1,000 mls @ 75 mls/hr 11/23/19 14:30 11/23/19 15:33 Normal Saline 0.9% IV 11/24/19 03:49 1,000 mls .[id number] MARIELLA Administration Insulin Human Lispro 0 units 11/10/19 22:07 11/20/19 21:25 Humalog 300 Units/3 Ml Vial SC 2 unit .BEDTIME SLIDING SC PRN Administration Bedtime Correctional Scale Insulin Human Lispro 0 units 11/14/19 18:15 11/23/19 16:23 Humalog 300 Units/3 Ml Vial SC 6 unit .MODERATE SLIDING SC PRN Administration MODERATE SLIDING SCALE Protocol Lorazepam 2 mg 11/23/19 10:45 11/23/19 14:17 Lorazepam 2 Mg/Ml Vial SLOW IVP 12/23/19 10:45 2 mg Q1H PRN Administration Breakthrough agitation Methylprednisolone Sodium Succinate 40 mg 11/15/19 21:00 11/23/19 08:53 Methylprednisolone Sod Succ 40 Mg Vial IVP 40 mg BID MARIELLA Administration Mometasone Furoate/Formoterol Fumar 2 puff 11/13/19 18:30 11/23/19 07:14 Mometasone 200 Mcg/Formoterol 5 Mcg 120 Puff Inhaler INH 2 puff BID-RT MARIELLA Administration Niacin 500 mg 11/11/19 21:00 11/22/19 21:32 Niacin Er 500 Mg Tab PO 500 mg HS MARIELLA Administration Pantoprazole Sodium 40 mg 11/11/19 09:00 11/23/19 08:53 Pantoprazole 40 Mg Vial IVP 40 mg DAILY MARIELLA Administration Propofol 1,000 mg 11/23/19 10:45 11/23/19 14:16 Propofol 1,000 Mg/100 Ml Vial IV 12/23/19 10:45 1,000 mg INF PRN Administration TO ACHIEVE GOAL RASS Protocol Sodium Chloride 10 ml 11/10/19 22:03 11/18/19 21:08 Flush - Normal Saline 10 Ml Syringe IVF 10 ml PRN PRN Administration Saline Flush - Exam Neck: negative: supple, symmetric, no JVD, no thyromegaly, no lymphadenopathy, no carotid bruit, JVD Heart: negative: RRR, no murmur, no gallops, no rubs, normal peripheral pulses, irregular, diminshed peripheral pulses, murmur present, II/IV, III/IV Respiratory: rhonchi Gastrointestinal: negative: soft, non-tender, non-distended, normal bowel sounds, no palpable masses, no hepatomegaly, no splenomegaly, no bruit, no guarding, no rigidity, tender to palpation, distended, diminished bowl sounds, voluntary guarding Extremities: 1+ LE edema Hosp A/P (1) Acute respiratory failure with hypoxemia Code(s): J96.01 - ACUTE RESPIRATORY FAILURE WITH HYPOXIA Status: Acute (2) CAD (coronary artery disease) Code(s): I25.10 - ATHSCL HEART DISEASE OF [place] CORONARY ARTERY W/O ANG PCTRS Status: Chronic (3) DM type 2 (diabetes mellitus, type 2) Status: Chronic (4) Morbid obesity Code(s): E66.01 - MORBID (SEVERE) OBESITY DUE TO EXCESS CALORIES Status: Chronic (5) Obstructive sleep apnea on CPAP Code(s): G47.33 - OBSTRUCTIVE SLEEP APNEA (ADULT) (PEDIATRIC); Z99.89 - DEPENDENCE ON OTHER ENABLING MACHINES AND DEVICES Status: Chronic (6) Aspiration pneumonia Code(s): J69.0 - PNEUMONITIS DUE TO INHALATION OF FOOD AND VOMIT Status: Acute (7) Dysphagia Code(s): R13.10 - DYSPHAGIA, UNSPECIFIED Status: Acute Qualifiers: Dysphagia type: oropharyngeal phase Qualified Code(s): R13.12 - Dysphagia, oropharyngeal phase (8) COVID-19 Code(s): U07.1 - COVID-19 Status: Acute - Plan Patient continues to be short of breath and is currently on high flow and is unable to speak complete sentences. He has been seen by speech who recommends thickened liquids. 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 During that admission he was seen by neurology underwent a stroke work-up including a brain MRI which was negative. There was a question about possible myasthenia gravis however the acetylcholine receptor antibody test was negative. Patient was put on Mestinon and per notes stated that his symptoms improved. He could possibly have a seronegative myasthenia gravis. I did review patient's CTA which does not explain his requi rement of high flow. He does have right greater than left lower lobe pneumonia and possible mild pulmonary edema. Patient states that he has been having a cough and shortness of breath for the past 8 weeks. He has had a stress test as an outpatient and echocardiogram. Patient is very compliant with his CPAP. He has been seen by GI in the past. Will start patient on Mestinon and see if this helps. Patient never followed up with neurology as an outpatient. 11/22 patient's respiratory status worsened this morning he was intubated by pulmonary. Patient's Covid test came back positive. Patient's Covid test on November 10 was negative. He is already on steroids convalescent plasma started by pulmonology. Will broaden patient's antibiotics also get infectious disease involved. Will start patient on full dose anticoagulation. Spoke with speech therapy who stated that his dysphagia most likely secondary to muscle weakness. Neurology has been consulted.
[2019-11-23 20:34] LABS: SARS-CoV-2 IgG Ab Reactive (NonReactive); SARS-CoV-2 IgG Index 5.12 S/CO (< 1.40)
[2019-11-23] MEDS: Linezolid 600 MG TAB PO SCH (20:35)
[2019-11-23] MEDS: HumaLOG 300 UNITS/3 ML VIAL SC SCH (20:40)
[2019-11-23] MEDS: Insulin Glargine 35 UNITS in Pre-Filled Syringe 1 EACH SC SCH (20:40)
[2019-11-23] MEDS: Piperacillin/Tazobactam 4.5 GM in Sodium Chloride 0.9% 100 ML IVPB SCH (20:41)
[2019-11-24] MEDS: Enoxaparin Sodium 80 MG/0.8 ML SYRINGE SC SCH ×2 (02:50→15:02)
[2019-11-24] MEDS: Propofol 1,000 MG/100 ML VIAL IV PRN ×4 (02:50→22:13)
[2019-11-24] MEDS: Enoxaparin Sodium 60 MG/0.6 ML SYRINGE SC SCH ×2 (02:51→15:02)
[2019-11-24 04:21] LABS: ALT (SGPT) 19 U/L (8-55); AST (SGOT) 25 U/L (5-34); Albumin 2.3 g/dL (3.4-4.8); Alkaline Phosphatase 92 U/L (40-110); Anion Gap 17 mmol/L (10-20); BUN (Urea Nitrogen) 81 mg/dL (8.4-25.7); Bilirubin, Total 0.6 mg/dL (0.2-1.2); Calc. Creatinine Clearance 58 mL/min (70-130); Calcium 8.3 mg/dL (7.8-10.44); Carbon Dioxide 19 mmol/L (23-31); Chloride 107 mmol/L (98-107); Estimated GFR-MDRD 33; Globulin 3.2 g/dL (2.4-3.5); Glucose 206 mg/dL (83-110); Magnesium 2.4 mg/dL (1.6-2.6); Phosphorus 5.2 mg/dL (2.3-4.7); Protein, Total 5.5 g/dL (5.8-8.1); Sodium 138 mmol/L (136-145)
[2019-11-24 04:57] LABS: Band 6 % (5-11); Hemoglobin 13.8 g/dL (14.0-18.0); Lymphocytes 1 % (21-51); MDiff Complete? YES; Mean Corpuscular HGB CONC 33.7 g/dL (32.0-36.0); Mean Corpuscular Hemoglobin 32.3 pg (27.0-31.0); Mean Corpuscular Volume 95.9 fL (78.0-98.0); Mean Platelet Volume 11.2 fL (7.4-10.4); Monocytes 1 % (0-10); Neutrophil 92 % (42-75); Platelet Count 142 thou/uL (130-400); Platelet Morphology Comment Appears Adequate; RBC Distribution Width 13.1 % (11.5-14.5); Red Blood Cell (RBC) Count 4.29 mill/uL (4.70-6.10); White Blood Cell (WBC) Count 23.1 thou/uL (4.8-10.8)
[2019-11-24] MEDS: Piperacillin/Tazobactam 4.5 GM in Sodium Chloride 0.9% 100 ML IVPB SCH (05:19)
[2019-11-24] MEDS: HumaLOG 300 UNITS/3 ML VIAL SC PRN ×2 (05:22→12:36)
[2019-11-24 06:55] LABS: Actual Bicarbonate (HCO3a) 18.7 mEq/L (22-28); Base Excess (BEa) -7.2 mEq/L (-2.0 to +3.0); CO2 Tension 39.2 mmHg (35.0-45.0); Carboxyhemoglobin (COHb) 0.3 gm% (0.0-3.0)
[2019-11-24] MEDS: Budesonide 0.5 MG/2 ML NEB NEB SCH ×2 (07:10→18:03)
[2019-11-24] MEDS: Mometasone 200 MCG/Formoterol 5 MCG 120 PUFF INHALER INH SCH ×2 (07:11→18:03)
[2019-11-24 07:12] LABS: O2 Tension (PaO2), arterial 56.4 mmHg (> 70.0); Puncture Site RRAD
[2019-11-24] MEDS ORDERED: Lorazepam 2 MG/ML VIAL SLOW IVP SCH (07:30)
[2019-11-24] MEDS ORDERED: Midazolam HCl 2 mg/2 ml Vial IVP SCH (07:30)
[2019-11-24] MEDS ORDERED: Fentanyl 100 MCG/2 ML VIAL SLOW IVP SCH (07:30)
--- NOTE | 2019-11-24 08:03 | RAD ---
XR Chest 1 View Portable History: Ventilated patient Comparison: Radiograph prior day Findings: Endotracheal tube tip at the clavicular level. Airspace opacities in both lower lobes have progressed. Enteric tube tip below diaphragm although out of field of view. Small effusions. No pneumothorax. No acute osseous abnormality. Impression: 1. Endotracheal tube tip in good position at the clavicular level. 2. Enteric tube tip below diaphragm although out of field of view. 3. Slight worsening lung aeration.
[2019-11-24] MEDS: Cholecalciferol 1,000 UNITS (25 MCG) TAB PO SCH (08:40)
[2019-11-24] MEDS: guaiFENesin ER 600 MG TAB PO SCH ×2 (08:41→21:59)
[2019-11-24] MEDS: methylPREDNISolone Sod Succ 40 MG VIAL IVP SCH ×2 (08:41→22:01)
[2019-11-24] MEDS: Sodium Chloride 0.9% (PF) 10 ML VIAL FS PRN (08:41)
[2019-11-24] MEDS: Linezolid 600 MG TAB PO SCH ×2 (08:41→22:00)
[2019-11-24] MEDS: Pantoprazole 40 MG VIAL IVP SCH (08:41)
[2019-11-24] MEDS: glipiZIDE 10 MG TAB PO SCH ×2 (08:41→16:50)
[2019-11-24] MEDS: HumaLOG 300 UNITS/3 ML VIAL SC SCH ×3 (08:42→21:59)
[2019-11-24] MEDS ORDERED: Vancomycin HCl 1 GM in Sodium Chloride 0.9% 250 ML 300 ML IVPB SCH (09:00)
--- NOTE | 2019-11-24 09:34 | PRG ---
DATE OF SERVICE: 11/24/2019 SUBJECTIVE: Oren Salas was intubated in the vent, sedated. He is not in sync with the vent. OBJECTIVE: VITAL SIGNS: Pulse 89, blood pressure 119/85, sats 90%, respirations 18. CHEST: Anterior rhonchi. CARDIAC: Normal S1, S2. No gallops. ABDOMEN: Soft. I's and O's; 2640 in, 2115 out. LABORATORY DATA: His labs show bilateral infiltrates. White count , H and H of 13 and 41, platelet count is 142. His pO2 is only 56, pCO2 Creatinine is 1.95, BUN is 81. IMPRESSION: Respiratory failure, wray positive pneumonia. PLAN: He is already on Zyvox and Levaquin, which is more than adequate. All his cultures are negative. Do not adjust the antibiotic. He had convalescent plasma 1 bag. He is not a candidate for Remdesivir. We are going to continue nutrition. We will continue slow hydration. He is on high-dose steroids, Pepcid. His overall prognosis is grave. I am going to probably switch him over to bilevel. At some stage, he may require paralytic if he is not in sync with the vent. Job ID: [id number]
[2019-11-24] MEDS: Sodium Chloride 0.9% 1,000 ML IV SCH ×2 (11:18→22:01)
[2019-11-24] MEDS: Rocuronium Bromide 10 MG/ML (10ML VIAL) IVP PRN (12:37)
[2019-11-24] MEDS: Lorazepam 2 MG/ML VIAL SLOW IVP PRN (13:41)
[2019-11-24] MEDS: Metoclopramide HCl 10 MG/2 ML VIAL IVP SCH ×2 (15:17→23:37)
[2019-11-24] MEDS: fentaNYL Citrate/PF 2,000 MCG in Sodium Chloride 0.9% 60 ML IV SCH (16:50)
--- NOTE | 2019-11-24 17:37 | PDOC.HOSPP ---
- Subjective Encounter Date: 11/24/19 Encounter Time: 10:00 Subjective: pt intubated - Objective Vital Signs & Weight: Vital Signs (12 hours) Temp Pulse Resp Pulse Ox 11/24/19 17:00 98.0 F 11/24/19 16:00 20 11/24/19 15:00 97.8 F 11/24/19 14:08 127 H 11/24/19 14:00 20 11/24/19 13:00 97.0 F L 11/24/19 12:00 20 11/24/19 10:03 89 11/24/19 10:00 97.0 F L 29 H 11/24/19 08:00 24 H 11/24/19 07:16 92 L 11/24/19 07:13 81 11/24/19 07:00 96.0 F L 11/24/19 06:00 32 H Weight Admit Weight 302 lb Weight 287 lb 3.2 oz Most Recent Monitor Data Heart Rate from ECG 111 NIBP 116/69 NIBP BP-Mean 84 Respiration from ECG 20 SpO2 99 I&O: 11/23/19 11/24/19 11/25/19 06:59 06:59 06:59 Intake Total 1210 2640 270 Output Total 3300 525 625 Balance -2090 2115 -978 Result Diagrams: 11/24/19 03:41 11/24/19 03:41 Additional Labs: Accuchecks 11/24/19 11/23/19 11/23/19 11:47 20:47 15:42 POC Glucose 156 H 187 H 281 H 11/23/19 11:33 POC Glucose 300 H Hospitalist ROS - Review of Systems Other: intubated - Medication Medications: Active Medications Generic Name Dose Route Start Last Admin Trade Name Freq PRN Reason Stop Dose Admin Albuterol/Ipratropium 3 ml 11/15/19 14:00 11/23/19 07:12 Ipratropium/Albuterol Sulfate 3 Ml Neb NEB 3 ml Q4H PRN Administration SOB &/or Wheezing Budesonide 0.5 mg 11/16/19 18:30 11/24/19 07:10 Budesonide 0.5 Mg/2 Ml Neb NEB 0.5 mg BID-RT MARIELLA Administration Cholecalciferol 2,000 units 11/19/19 09:00 11/24/19 08:40 Cholecalciferol 1,000 Units (25 Mcg) Tab PO 2,000 units DAILY MARIELLA Administration Diphenhydramine HCl 25 mg 11/12/19 12:39 11/21/19 21:24 Diphenhydramine 25 Mg Cap PO 25 mg Q6H PRN Administration Itching & Insomnia Enoxaparin Sodium 70 mg 11/24/19 03:00 11/24/19 15:02 Enoxaparin Sodium 80 Mg/0.8 Ml Syringe SC 70 mg 0300,1500 MARIELLA Administration Enoxaparin Sodium 60 mg 11/24/19 03:00 11/24/19 15:02 Enoxaparin Sodium 60 Mg/0.6 Ml Syringe SC 60 mg 0300,1500 MARIELLA Administration Glipizide 10 mg 11/11/19 17:00 11/24/19 16:50 Glipizide 10 Mg Tab PO 10 mg BID-WM MARIELLA Administration Guaifenesin 1,200 mg 11/19/19 21:00 11/24/19 08:41 Guaifenesin Er 600 Mg Tab PO 1,200 mg Q12HR MARIELLA Administration Levofloxacin 750 mg/ Device 150 mls @ 100 mls/hr 11/23/19 10:30 11/24/19 08:45 IVPB 150 mls Q24HR MARIELLA Administration Fentanyl Citrate 2,000 mcg/ 100 mls @ 0 mls/hr 11/23/19 10:45 11/24/19 16:50 Sodium Chloride IV 12/23/19 10:45 100 mls INF MARIELLA Administration Protocol Per Protocol Insulin Glargine 35 units/ 0.35 mls @ 0 mls/hr 11/23/19 21:00 11/23/19 20:40 Miscellaneous Medication SC 0.35 mls HS MARIELLA Administration Sodium Chloride 1,000 mls @ 75 mls/hr 11/24/19 10:30 11/24/19 11:18 Normal Saline 0.9% IV Not Given .[id number] MARIELLA Insulin Human Lispro 0 units 11/10/19 22:07 11/20/19 21:25 Humalog 300 Units/3 Ml Vial SC 2 unit .BEDTIME SLIDING SC PRN Administration Bedtime Correctional Scale Insulin Human Lispro 0 units 11/14/19 18:15 11/24/19 12:36 Humalog 300 Units/3 Ml Vial SC 2 unit .MODERATE SLIDING SC PRN Administration MODERATE SLIDING SCALE Protocol Insulin Human Lispro 10 units 11/23/19 21:00 11/24/19 15:17 Humalog 300 Units/3 Ml Vial SC 10 unit TID MARIELLA Administration Linezolid 600 mg 11/23/19 21:00 11/24/19 08:41 Linezolid 600 Mg Tab PO 11/30/19 21:01 600 mg Q12HR MARIELLA Administration Lorazepam 2 mg 11/23/19 10:45 11/24/19 13:41 Lorazepam 2 Mg/Ml Vial SLOW IVP 12/23/19 10:45 2 mg Q1H PRN Administration Breakthrough agitation Methylprednisolone Sodium Succinate 40 mg 11/15/19 21:00 11/24/19 08:41 Methylprednisolone Sod Succ 40 Mg Vial IVP 40 mg BID MARIELLA Administration Metoclopramide HCl 10 mg 11/24/19 16:00 11/24/19 15:17 Metoclopramide Hcl 10 Mg/2 Ml Vial IVP 11/25/19 08:01 10 mg 0800,1600,2359 MARIELLA Administration Mometasone Furoate/Formoterol Fumar 2 puff 11/13/19 18:30 11/24/19 07:11 Mometasone 200 Mcg/Formoterol 5 Mcg 120 Puff Inhaler INH 2 puff BID-RT MARIELLA Administration Niacin 500 mg 11/11/19 21:00 11/23/19 20:35 Niacin Er 500 Mg Tab PO 500 mg HS MARIELLA Administration Pantoprazole Sodium 40 mg 11/11/19 09:00 11/24/19 08:41 Pantoprazole 40 Mg Vial IVP 40 mg DAILY MARIELLA Administration Propofol 1,000 mg 11/23/19 10:45 11/24/19 16:55 Propofol 1,000 Mg/100 Ml Vial IV 12/23/19 10:45 1,000 mg INF PRN Administration TO ACHIEVE GOAL RASS Protocol Rocuronium [place] 10 mg 11/24/19 09:09 11/24/19 12:37 Rocuronium [place] 10 Mg/Ml (10ml Vial) IVP 10 mg Q3H PRN Administration Anxiety/Agitation Sodium Chloride 10 ml 11/10/19 22:03 11/18/19 21:08 Flush - Normal Saline 10 Ml Syringe IVF 10 ml PRN PRN Administration Saline Flush Sodium Chloride 10 ml 11/10/19 22:15 11/24/19 08:41 Sodium Chloride 0.9% (Pf) 10 Ml Vial FS 10 ml PRN PRN Administration RECONSTITUTION - Exam Neck: negative: supple, symmetric, no JVD, no thyromegaly, no lymphadenopathy, no carotid bruit, JVD Heart: negative: RRR, no murmur, no gallops, no rubs, normal peripheral pulses, irregular, diminshed peripheral pulses, murmur present, II/IV, III/IV Respiratory: negative: CTAB, no wheezes, no rales, no ronchi, normal chest e xpansion, no tachypnea, normal percussion, rales, rhonchi, tachypneic, wheezes Gastrointestinal: negative: soft, non-tender, non-distended, normal bowel sounds, no palpable masses, no hepatomegaly, no splenomegaly, no bruit, no guarding, no rigidity, tender to palpation, distended, diminished bowl sounds, voluntary guarding Hosp A/P (1) Acute respiratory failure with hypoxemia Code(s): J96.01 - ACUTE RESPIRATORY FAILURE WITH HYPOXIA Status: Acute (2) CAD (coronary artery disease) Code(s): I25.10 - ATHSCL HEART DISEASE OF [place] CORONARY ARTERY W/O ANG PCTRS Status: Chronic (3) DM type 2 (diabetes mellitus, type 2) Status: Chronic (4) Morbid obesity Code(s): E66.01 - MORBID (SEVERE) OBESITY DUE TO EXCESS CALORIES Status: Chronic (5) Obstructive sleep apnea on CPAP Code(s): G47.33 - OBSTRUCTIVE SLEEP APNEA (ADULT) (PEDIATRIC); Z99.89 - DEPENDENCE ON OTHER ENABLING MACHINES AND DEVICES Status: Chronic (6) Aspiration pneumonia Code(s): J69.0 - PNEUMONITIS DUE TO INHALATION OF FOOD AND VOMIT Status: Acute (7) Dysphagia Code(s): R13.10 - DYSPHAGIA, UNSPECIFIED Status: Acute Qualifiers: Dysphagia type: oropharyngeal phase Qualified Code(s): R13.12 - Dysphagia, oropharyngeal phase (8) COVID-19 Code(s): U07.1 - COVID-19 Status: Acute (9) DORIS (acute kidney injury) Code(s): N17.9 - ACUTE KIDNEY FAILURE, UNSPECIFIED Status: Acute - Plan Patient continues to be short of breath and is currently on high flow and is unable to speak complete sentences. He has been seen by speech who recommends thickened liquids. I did extensively review the chart patient's symptoms of d ysphasia and aspiration started after his bypass per patient. 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 During that admission he was seen by neurology underwent a stroke work-up including a brain MRI which was negative. There was a question about possible myasthenia gravis however the acetylcholine receptor antibody test was negative. Patient was put on Mestinon and per notes stated that his symptoms improved. He could possibly have a seronegative myasthenia gravis. I did review patient's CTA which does not explain his re quirement of high flow. He does have right greater than left lower lobe pneumonia and possible mild pulmonary edema. Patient states that he has been having a cough and shortness of breath for the past 8 weeks. He has had a stress test as an outpatient and echocardiogram. Patient is very compliant with his CPAP. He has been seen by GI in the past. Will start patient on Mestinon and see if this helps. Patient never followed up with neurology as an outpatient. 11/22 patient's respiratory status worsened this morning he was intubated by pulmonary. Patient's Covid test came back positive. Patient's Covid test on November 10 was negative. He is already on steroids convalescent plasma started by pulmonology. Will broaden patient's antibiotics also get infectious disease involved. Will start patient on full dose anticoagulation. Spoke with speech therapy who stated that his dysphagia most likely secondary to muscle weakness. Neurology has been consulted. 11/23 pt's vent setting changed per pulmoanry he seems more comfortable. will continue full dose AC. spoke with pt's son Hany [phone] and updated him about his father. pt on steroids and abx. He is on tube feeds.
[2019-11-24] MEDS: Acetaminophen 650 MG/20.3 ML UDCUP PER TUBE PRN (17:46)
--- NOTE | 2019-11-24 19:35 | CON ---
DATE OF CONSULTATION: 11/24/2019 REASON FOR CONSULTATION: Morbid obesity, respiratory insufficiency requiring mechanical ventilation, COVID infection, possible superimposed pneumonia. HISTORY OF PRESENT ILLNESS: A 79-year-old patient who was admitted on November 10. He has a history of coronary artery disease, type 2 diabetes, prior bypass graft surgery, obstructive sleep apnea, atrial fibrillation, and he came in because of worsening cough and shortness of breath. The initial concern was with the possibility of pulmonary embolism, symptoms have had a gradual onset and did not have any fever or chills. He did have cough, but no sputum production. Some palpitations. No abdominal pain. No diarrhea or genitourinary symptoms. Initial findings included a BP 140/67, pulse 96, respirations 30, and temperature 97.8, O2 saturation was 92% on room air. He remained afebrile during the ER stay except for one measurement of 99.7. In the initial exam, the patient did not appear in acute distress and breath sounds were described as clear without wheezing or inspiratory crackles. The heart exam was described as normal. The abdomen was described as normal. The patient had a venogram on admission, which was negative for deep vein thrombosis and he had a chest CT angio done on November 14, which showed no evidence of pulmonary embolism. There was progression of bibasilar consolidation either due to aspiration pneumonia or atelectasis. He had a modified barium swallow, which was abnormal with deep penetration, suspected aspiration with large amount of pooling. Initial thought process was the possibility of pneumonia including aspiration. His initial COVID test was negative. On November 15, he developed hypoxemia and he was transferred to [facility] [place] for BiPAP placement. He was started briefly on Lovenox, but all the thromboembolism workup was negative. On November 16, BiPAP was discontinued. He was feeling oxygenating somewhat better. He was then placed back on BiPAP and he was continued on Rocephin and azithromycin. He had been on corticosteroids all longer. On November 19, he was still on BiPAP and appearing very weak. On November 21, he was on high-flow O2 supplementation per nasal cannula. On November 22, he required intubation and mechanical ventilation. He had a temperature elevation up to 100.9. He was placed on levofloxacin and I believe linezolid. The patient had a second COVID test performed on November 21 and this time was detected an antibody was submitted, which was positive at a titer of 5.12, which is clearly elevated. The patient now is intubated, he is sedated. Has not had any bleeding. No seizure activity. PAST MEDICAL HISTORY: Includes coronary artery disease, type 2 diabetes, atrial fibrillation, morbid obesity, coronary artery bypass graft surgery, obstructive sleep apnea, and GERD. PAST SURGICAL HISTORY: As above and then right hip replacement by Dr. Gutiérrez. FAMILY HISTORY: Some form of cancer and coronary artery disease. SOCIAL HISTORY: Former smoker for 40 years. No alcoholic beverage use. No drug use. Wheelchair bound, not clear to me that he uses oxygen at home. ALLERGY HISTORY: Iodine. CURRENT MEDICATIONS: 1. Albuterol. 2. Dulcolax. 3. Tums. 4. Cefepime has been added. 5. Benadryl. 6. Lovenox. 7. Pepcid. 8. Fentanyl. 9. Glucotrol. 10. Mucinex. 11. Linezolid. 12. Solu-Medrol 40 b.i.d. 13. Mometasone. 14. Pantoprazole. PHYSICAL EXAMINATION: VITAL SIGNS: T-max 100.9 yesterday, afebrile since; blood pressure 130/80, pulse 127, respiratory rate 20, FiO2 is 70, mechanical ventilation and a Shane catheter. HEENT: He has orotracheal intubation. His pupils are constricted. Has nasogastric feedings. LUNGS: With coarse breath sounds. HEART: S1 and S2. Diminished heart sounds. No S3 or S4. No murmurs. ABDOMEN: Soft with very prominent panniculus. No guarding noted. No ascites noted. No bladder distention. EXTREMITIES: No joint inflammatory activity. Trace edema in lower extremities. Pulses are 1+ in dorsalis pedis. No reflexes are noted in the lower extremities. NEUROLOGIC: He is sedated at the moment. Cannot test his mental state. LABORATORY DATA: The latest labs are white cell count 23,000, hemoglobin 13.8, platelets 142 with 92% neutrophils. INR 1.4. The last blood gas pH 7.3, pCO2 of 39, pO2 of 56. Sodium 138, creatinine 1.95, which is higher than his baseline of 0.97. Liver profile normal. Albumin 2.3. Urinalysis was normal. The COVID tests discussed above. BAL with gram-negative rods. The latest chest x-ray with endotracheal tube in good position, enteric tube below the diaphragm, and a small effusion. Airspace opacities in both lower lobes have progressed. Blood cultures x2 no growth. ASSESSMENT: Coronary artery disease, type 2 diabetes, atrial fibrillation, obesity, bypass graft surgery, obstructive sleep apnea, and worsening respiratory status with eventual development of respiratory failure, which required initially high-flow O2/BiPAP and then eventual intubation and mechanical ventilation and now we have positive second COVID test with a positive antibody test, gram-negative cornelia, and BAL and worsening chest x-ray findings. DISCUSSION: The differential diagnosis includes inflammatory phase of COVID infection with probable at least 2 or 3 weeks of infection with now well into the inflammatory phase with diffuse alveolar damage, maybe morphing into organizing pneumonia associated with the endothelial abnormalities and microthrombi typical of this infection in more severe cases superimposed infection is not ruled out, particularly in view of the documented episodes of aspiration and in view of the gram-negative cornelia, we will add cefepime to broaden coverage. It is possible that all the noted findings are due to the inflammatory process associated with SARS CoV-2 infection. Evidently, mortality in this case is quite high. We predict if he survives next few days, a very protracted hospital stay with likely eventual requirement for tracheostomy if he actually makes it in the next few weeks. No antiviral treatment is recommended at this point and the only management will be antimicrobial therapy and continuation of anti-inflammatory management and antithrombotic treatment. Job ID: [id number]
[2019-11-24] MEDS: Cefepime 2 GM in Sodium Chloride 0.9% 100 ML IVPB SCH (21:58)
[2019-11-24] MEDS: Famotidine/PF 20 mg/2ml Vial SLOW IVP SCH (21:59)
[2019-11-24] MEDS: Insulin Glargine 35 UNITS in Pre-Filled Syringe 1 EACH SC SCH (22:00)
[2019-11-25] MEDS: Propofol 1,000 MG/100 ML VIAL IV PRN ×4 (03:04→19:27)
[2019-11-25] MEDS: Enoxaparin Sodium 60 MG/0.6 ML SYRINGE SC SCH ×2 (03:04→15:48)
[2019-11-25] MEDS: Enoxaparin Sodium 80 MG/0.8 ML SYRINGE SC SCH ×2 (03:04→15:48)
[2019-11-25 04:18] LABS: Anion Gap 14 mmol/L (10-20); BUN (Urea Nitrogen) 85 mg/dL (8.4-25.7); Calc. Creatinine Clearance 81 mL/min (70-130); Calcium 8.1 mg/dL (7.8-10.44); Carbon Dioxide 19 mmol/L (23-31); Chloride 111 mmol/L (98-107); Estimated GFR-MDRD 50; Glucose 167 mg/dL (83-110); Magnesium 2.4 mg/dL (1.6-2.6); Sodium 140 mmol/L (136-145)
[2019-11-25 04:35] LABS: Band 4 % (5-11); Elliptocytes SLIGHT = 2-5 cells (100X) (0-1/hpf); Hemoglobin 13.6 g/dL (14.0-18.0); MDiff Complete? YES; Mean Corpuscular HGB CONC 35.9 g/dL (32.0-36.0); Mean Corpuscular Hemoglobin 34.5 pg (27.0-31.0); Mean Corpuscular Volume 96.2 fL (78.0-98.0); Mean Platelet Volume 11.4 fL (7.4-10.4); Monocytes 3 % (0-10); Neutrophil 93 % (42-75); Platelet Count 129 thou/uL (130-400); Platelet Morphology Comment Appears Decreased; RBC Distribution Width 13.3 % (11.5-14.5); Red Blood Cell (RBC) Count 3.94 mill/uL (4.70-6.10); White Blood Cell (WBC) Count 19.7 thou/uL (4.8-10.8)
[2019-11-25] MEDS: Budesonide 0.5 MG/2 ML NEB NEB SCH ×2 (06:48→18:06)
[2019-11-25] MEDS: Mometasone 200 MCG/Formoterol 5 MCG 120 PUFF INHALER INH SCH ×2 (06:48→18:06)
[2019-11-25 07:14] LABS: Actual Bicarbonate (HCO3a) 18.8 mEq/L (22-28); Base Excess (BEa) -6.3 mEq/L (-2.0 to +3.0); CO2 Tension 36.3 mmHg (35.0-45.0); Carboxyhemoglobin (COHb) 0.1 gm% (0.0-3.0); Hemoglobin (Hb) 16.7 g/dL (14.0-18.0); O2 Tension (PaO2), arterial 73.4 mmHg (> 70.0); Potassium - ABG Lab 3.96 mmol/L (3.70-5.30); pH, Arterial 7.33 (7.35-7.45)
[2019-11-25 07:50] LABS: Puncture Site RRAD
[2019-11-25 07:51] LABS: ALV-art Gradient 344.675 mmHg (0-20)
--- NOTE | 2019-11-25 08:38 | RAD ---
PORTABLE CHEST: HISTORY: CCU followup. Pneumonia. COMPARISON: 11/24/2019. FINDINGS/IMPRESSION: ET tube and NG Tube are in place. There are bilateral infiltrates more pronounced on the left with h azy confluent infiltrate in the left mid and lower lung similar to yesterday. No significant interva l change. POS: AGW
[2019-11-25] MEDS: glipiZIDE 10 MG TAB PO SCH ×2 (09:36→17:35)
[2019-11-25] MEDS: Metoclopramide HCl 10 MG/2 ML VIAL IVP SCH (09:36)
[2019-11-25] MEDS: Cefepime 2 GM in Sodium Chloride 0.9% 100 ML IVPB SCH ×2 (09:43→19:29)
[2019-11-25] MEDS: Cholecalciferol 1,000 UNITS (25 MCG) TAB PO SCH (09:46)
[2019-11-25] MEDS: methylPREDNISolone Sod Succ 40 MG VIAL IVP SCH ×2 (09:47→19:27)
[2019-11-25] MEDS: guaiFENesin ER 600 MG TAB PO SCH ×2 (09:47→19:28)
[2019-11-25] MEDS: Pantoprazole 40 MG VIAL IVP SCH (09:48)
[2019-11-25] MEDS: Sodium Chloride 0.9% (PF) 10 ML VIAL FS PRN (09:48)
[2019-11-25] MEDS: HumaLOG 300 UNITS/3 ML VIAL SC SCH ×3 (09:51→19:29)
[2019-11-25] MEDS: Linezolid 600 MG TAB PO SCH ×3 (09:54→19:28)
[2019-11-25] MEDS: HumaLOG 300 UNITS/3 ML VIAL SC PRN (12:20)
[2019-11-25] MEDS: Sodium Chloride 0.9% 1,000 ML IV SCH (13:35)
[2019-11-25] MEDS: fentaNYL Citrate/PF 2,000 MCG in Sodium Chloride 0.9% 60 ML IV SCH (13:35)
--- NOTE | 2019-11-25 14:07 | PDOC.HOSPP ---
- Subjective Encounter Date: 11/25/19 Encounter Time: 10:00 Subjective: Patient intubated and sedated - Objective Vital Signs & Weight: Vital Signs (12 hours) Temp Pulse Resp 11/25/19 10:01 71 11/25/19 07:51 73 11/25/19 06:00 25 H 11/25/19 04:00 25 H 11/25/19 03:00 98.3 F Weight Admit Weight 302 lb Weight 287 lb 3.2 oz Most Recent Monitor Data Heart Rate from ECG 70 NIBP 93/62 NIBP BP-Mean 72 Respiration from ECG 16 SpO2 99 I&O: 11/24/19 11/25/19 11/26/19 06:59 06:59 06:59 Intake Total 2640 2753.3 Output Total 525 1265 Balance 2115 1488.3 Result Diagrams: 11/25/19 03:18 11/25/19 03:18 Additional Labs: Accuchecks 11/24/19 11/24/19 23:11 17:53 POC Glucose 138 H 134 H Hospitalist ROS - Review of Systems Other: Patient intubated - Medication Medications: Active Medications Generic Name Dose Route Start Last Admin Trade Name Freq PRN Reason Stop Dose Admin Acetaminophen 1,000 mg 11/23/19 15:44 11/24/19 17:46 Acetaminophen 650 Mg/20.3 Ml Udcup PER TUBE 1,000 mg Q6H PRN Administration Headache/Fever/Mild Pain (1-3) Albuterol/Ipratropium 3 ml 11/15/19 14:00 11/23/19 07:12 Ipratropium/Albuterol Sulfate 3 Ml Neb NEB 3 ml Q4H PRN Administration SOB &/or Wheezing Budesonide 0.5 mg 11/16/19 18:30 11/25/19 06:48 Budesonide 0.5 Mg/2 Ml Neb NEB 0.5 mg BID-RT MARIELLA Administration Cholecalciferol 2,000 units 11/19/19 09:00 11/25/19 09:46 Cholecalciferol 1,000 Units (25 Mcg) Tab PO 2,000 units DAILY MARIELLA Administration Diphenhydramine HCl 25 mg 11/12/19 12:39 11/21/19 21:24 Diphenhydramine 25 Mg Cap PO 25 mg Q6H PRN Administration Itching & Insomnia Enoxaparin Sodium 70 mg 11/24/19 03:00 11/25/19 03:04 Enoxaparin Sodium 80 Mg/0.8 Ml Syringe SC 70 mg 0300,1500 MARIELLA Administration Enoxaparin Sodium 60 mg 11/24/19 03:00 11/25/19 03:04 Enoxaparin Sodium 60 Mg/0.6 Ml Syringe SC 60 mg 0300,1500 MARIELLA Administration Famotidine 20 mg 11/24/19 21:00 11/24/19 21:59 Famotidine/Pf 20 Mg/2ml Vial SLOW IVP 20 mg 2100 MARIELLA Administration Glipizide 10 mg 11/11/19 17:00 11/25/19 09:36 Glipizide 10 Mg Tab PO 10 mg BID-WM MARIELLA Administration Guaifenesin 1,200 mg 11/19/19 21:00 11/25/19 09:47 Guaifenesin Er 600 Mg Tab PO 1,200 mg Q12HR MARIELLA Administration Levofloxacin 750 mg/ Device 150 mls @ 100 mls/hr 11/23/19 10:30 11/25/19 11:02 IVPB 150 mls Q24HR MARIELLA Administration Fentanyl Citrate 2,000 mcg/ 100 mls @ 0 mls/hr 11/23/19 10:45 11/25/19 13:35 Sodium Chloride IV 12/23/19 10:45 100 mls INF MARIELLA Administration Protocol Per Protocol Insulin Glargine 35 units/ 0.35 mls @ 0 mls/hr 11/23/19 21:00 11/24/19 22:00 Miscellaneous Medication SC 0.35 mls HS MARIELLA Administration Sodium Chloride 1,000 mls @ 75 mls/hr 11/24/19 10:30 11/25/19 13:35 Normal Saline 0.9% IV 1,000 mls .[id number] MARIELLA Administration Cefepime HCl 2 gm/ Sodium 100 mls @ 200 mls/hr 11/24/19 21:00 11/25/19 09:43 Chloride IVPB 100 mls Q12HR MARIELLA Administration Insulin Human Lispro 0 units 11/10/19 22:07 11/20/19 21:25 Humalog 300 Units/3 Ml Vial SC 2 unit .BEDTIME SLIDING SC PRN Administration Bedtime Correctional Scale Insulin Human Lispro 0 units 11/14/19 18:15 11/24/19 12:36 Humalog 300 Units/3 Ml Vial SC 2 unit .MODERATE SLIDING SC PRN Administration MODERATE SLIDING SCALE Protocol Insulin Human Lispro 10 units 11/23/19 21:00 11/25/19 09:51 Humalog 300 Units/3 Ml Vial SC 10 unit TID MARIELLA Administration Linezolid 600 mg 11/23/19 21:00 11/25/19 10:50 Linezolid 600 Mg Tab PO 11/30/19 21:01 600 mg Q12HR MARIELLA Administration Lorazepam 2 mg 11/23/19 10:45 11/24/19 13:41 Lorazepam 2 Mg/Ml Vial SLOW IVP 12/23/19 10:45 2 mg Q1H PRN Administration Breakthrough agitation Methylprednisolone Sodium Succinate 40 mg 11/15/19 21:00 11/25/19 09:47 Methylprednisolone Sod Succ 40 Mg Vial IVP 40 mg BID MARIELLA Administration Mometasone Furoate/Formoterol Fumar 2 puff 11/13/19 18:30 11/25/19 06:48 Mometasone 200 Mcg/Formoterol 5 Mcg 120 Puff Inhaler INH 2 puff BID-RT MARIELLA Administration Niacin 500 mg 11/11/19 21:00 11/24/19 22:00 Niacin Er 500 Mg Tab PO 500 mg HS MARIELLA Administration Pantoprazole Sodium 40 mg 11/11/19 09:00 11/25/19 09:48 Pantoprazole 40 Mg Vial IVP 40 mg DAILY MARIELLA Administration Propofol 1,000 mg 11/23/19 10:45 11/25/19 03:04 Propofol 1,000 Mg/100 Ml Vial IV 12/23/19 10:45 1,000 mg INF PRN Administration TO ACHIEVE GOAL RASS Protocol Rocuronium [place] 10 mg 11/24/19 09:09 11/24/19 12:37 Rocuronium [place] 10 Mg/Ml (10ml Vial) IVP 10 mg Q3H PRN Administration Anxiety/Agitation Sodium Chloride 10 ml 11/10/19 22:03 11/18/19 21:08 Flush - Normal Saline 10 Ml Syringe IVF 10 ml PRN PRN Administration Saline Flush Sodium Chloride 10 ml 11/10/19 22:15 11/25/19 09:48 Sodium Chloride 0.9% (Pf) 10 Ml Vial FS 10 ml PRN PRN Administration RECONSTITUTION - Exam Neck: negative: supple, symmetric, no JVD, no thyromegaly, no lymphadenopathy, no carotid bruit, JVD Heart: negative: RRR, no murmur, no gallops, no rubs, normal peripheral pulses, irregular, diminshed peripheral pulses, murmur present, II/IV, III/IV Respiratory: negative: CTAB, no wheezes, no rales, no ronchi, normal chest expansion, no tachypnea, normal percussion, rales, rhonchi, tachypneic, wheezes Gastrointestinal: negative: soft, non-tender, non-distended, normal bowel sounds, no palpable masses, no hepatomegaly, no splenomegaly, no bruit, no guarding, no rigidity, tender to palpation, distended, diminished bowl sounds, voluntary guarding Hosp A/P (1) Acute respiratory failure with hypoxemia Code(s): J96.01 - ACUTE RESPIRATORY FAILURE WITH HYPOXIA Status: Acute (2) CAD (coronary artery disease) Code(s): I25.10 - ATHSCL HEART DISEASE OF [place] CORONARY ARTERY W/O ANG PCTRS Status: Chronic (3) DM type 2 (diabetes mellitus, type 2) Status: Chronic (4) Morbid obesity Code(s): E66.01 - MORBID (SEVERE) OBESITY DUE TO EXCESS CALORIES Status: Chron ic (5) Obstructive sleep apnea on CPAP Code(s): G47.33 - OBSTRUCTIVE SLEEP APNEA (ADULT) (PEDIATRIC); Z99.89 - DEPENDENCE ON OTHER ENABLING MACHINES AND DEVICES Status: Chronic (6) Aspiration pneumonia Code(s): J69.0 - PNEUMONITIS DUE TO INHALATION OF FOOD AND VOMIT Status: Acute (7) Dysphagia Code(s): R13.10 - DYSPHAGIA, UNSPECIFIED Status: Acute Qualifiers: Dysphagia type: oropharyngeal phase Qualified Code(s): R13.12 - Dysphagia, oropharyngeal phase (8) COVID-19 Code(s): U07.1 - COVID-19 Status: Acute (9) DORIS (acute kidney injury) Code(s): N17.9 - ACUTE KIDNEY FAILURE, UNSPECIFIED Status: Acute - Plan Patient continues to be short of breath and is currently on high flow and is unable to speak complete sentences. He has been seen by speech who recommends thickened liquids. 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 During that admission he was seen by neurology underwent a stroke work-up including a brain MRI which was negative. There was a question about possible myasthenia gravis however the acetylcholine receptor antibody test was negative. Patient was put on Mestinon and per notes stated that his symptoms improved. He could possibly have a seronegative myasthenia gravis. I did review patient's CTA which does not explain his requirement of high flow. He does have right greater than left lower lobe pneumonia and possible mild pulmonary edema. Patient states that he has been having a cough and shortness of breath for the past 8 weeks. He has had a stress test as an outpatient and echocardiogram. Patient is very compliant with his CPAP. He has been seen by GI in the past. Will start patient on Mestinon and see if this helps. Patient never followed up with neurology as an outpatient. 11/22 patient's respiratory status worsened this morning he was intubated by pulmonary. Patient's Covid test came back positive. Patient's Covid test on November 10 was negative. He is already on steroids convalescent plasma started by pulmonology. Will broaden patient's antibiotics also get infectious disease involved. Will start patient on full dose anticoagulation. Spoke with speech therapy who stated that his dysphagia most likely secondary to muscle weakness. Neurology has been consulted. 11/23 pt's vent setting changed per pulmoanry he seems more comfortable. will continue full dose AC. spoke with pt's son Hany [phone] and updated him about his father. pt on steroids and abx. He is on tube feeds. 11/24 we will continue IV antibiotics for now. Monitor thrombocytopenia since patient is on full dose Lovenox. We will continue steroids also. Patient tolerating tube feeds.
[2019-11-25] MEDS: Lorazepam 2 MG/ML VIAL SLOW IVP PRN (15:52)
[2019-11-25] MEDS: Famotidine/PF 20 mg/2ml Vial SLOW IVP SCH (19:29)
--- NOTE | 2019-11-25 20:20 | PRG ---
DATE OF SERVICE: 11/25/2019 SUBJECTIVE: Oren Salas remains ventilated. Overall, it has been very little change. OBJECTIVE: VITAL SIGNS: He is afebrile. Heart rate is in the 70s, respiratory rate is in the 20s, blood pressure is in the 90s systolic. Intake and outputs: Positive 1488. LUNGS: Coarse and equal breath sounds. HEART: Regular rhythm. ABDOMEN: Soft. LABORATORY DATA: White count 19.7, hemoglobin 13.6 platelets 129. Electrolytes: Sodium 140, potassium 4, chloride 111, bicarb 19, BUN 85, creatinine 1.36, glucose 167. ASSESSMENT: Respiratory failure associated with COVID pneumonia. PLAN: Continue with current care. Chest x-ray is unchanged. Blood gas is essentially unchanged. We will continue for trying to minimize FiO2. Job ID: [id number] MTDD
[2019-11-25] MEDS: Insulin Glargine 35 UNITS in Pre-Filled Syringe 1 EACH SC SCH (20:25)
[2019-11-26] MEDS: Enoxaparin Sodium 60 MG/0.6 ML SYRINGE SC SCH ×2 (02:42→15:02)
[2019-11-26] MEDS: Enoxaparin Sodium 80 MG/0.8 ML SYRINGE SC SCH ×2 (02:42→15:02)
[2019-11-26] MEDS: Propofol 1,000 MG/100 ML VIAL IV PRN ×6 (02:42→23:58)
[2019-11-26] MEDS: Sodium Chloride 0.9% 1,000 ML IV SCH ×3 (02:43→15:03)
[2019-11-26 04:56] LABS: Anion Gap 14 mmol/L (10-20); BUN (Urea Nitrogen) 80 mg/dL (8.4-25.7); Calc. Creatinine Clearance 98 mL/min (70-130); Calcium 8.3 mg/dL (7.8-10.44); Carbon Dioxide 19 mmol/L (23-31); Chloride 112 mmol/L (98-107); Estimated GFR-MDRD 62; Glucose 99 mg/dL (83-110); Potassium 4.3 mmol/L (3.5-5.1); Sodium 141 mmol/L (136-145)
[2019-11-26] MEDS: Mometasone 200 MCG/Formoterol 5 MCG 120 PUFF INHALER INH SCH (06:47)
[2019-11-26] MEDS: Budesonide 0.5 MG/2 ML NEB NEB SCH ×2 (06:47→18:52)
[2019-11-26 07:12] LABS: Actual Bicarbonate (HCO3a) 20.4 mEq/L (22-28); Base Excess (BEa) -4.2 mEq/L (-2.0 to +3.0); CO2 Tension 36.4 mmHg (35.0-45.0); Calcium, Ionized (arterial) 1.21 mmol/L (1.12-1.30); Carboxyhemoglobin (COHb) 0.1 gm% (0.0-3.0); Hemoglobin (Hb) 16.2 g/dL (14.0-18.0); O2 Tension (PaO2), arterial 81.8 mmHg (> 70.0); Potassium - ABG Lab 4.12 mmol/L (3.70-5.30); pH, Arterial 7.37 (7.35-7.45)
[2019-11-26 07:29] LABS: Puncture Site RRAD
[2019-11-26] MEDS: glipiZIDE 10 MG TAB PO SCH ×2 (08:04→17:24)
[2019-11-26] MEDS: Pantoprazole 40 MG VIAL IVP SCH (09:04)
[2019-11-26] MEDS: methylPREDNISolone Sod Succ 40 MG VIAL IVP SCH ×2 (09:04→19:27)
[2019-11-26] MEDS: guaiFENesin ER 600 MG TAB PO SCH ×2 (09:04→19:27)
[2019-11-26] MEDS: Cefepime 2 GM in Sodium Chloride 0.9% 100 ML IVPB SCH ×2 (09:04→19:26)
[2019-11-26] MEDS: Cholecalciferol 1,000 UNITS (25 MCG) TAB PO SCH (09:04)
[2019-11-26] MEDS: Linezolid 600 MG TAB PO SCH ×2 (09:05→19:28)
[2019-11-26] MEDS: HumaLOG 300 UNITS/3 ML VIAL SC SCH ×3 (09:44→19:29)
[2019-11-26] MEDS: fentaNYL Citrate/PF 2,000 MCG in Sodium Chloride 0.9% 60 ML IV SCH (09:45)
[2019-11-26 10:07] LABS: Mean Corpuscular HGB CONC 33.7 g/dL (32.0-36.0); Mean Corpuscular Hemoglobin 32.8 pg (27.0-31.0); Mean Corpuscular Volume 97.4 fL (78.0-98.0); Mean Platelet Volume 11.4 fL (7.4-10.4); Platelet Count 138 thou/uL (130-400); RBC Distribution Width 13.4 % (11.5-14.5); Red Blood Cell (RBC) Count 4.56 mill/uL (4.70-6.10)
[2019-11-26 10:47] LABS: Band 1 % (5-11); Large Platelets SLIGHT; MDiff Complete? YES; Monocytes 3 % (0-10); Neutrophil 96 % (42-75); Platelet Morphology Comment PLT clumps seen-ADEQ; White Blood Cell (WBC) Count 24.8 thou/uL (4.8-10.8)
[2019-11-26] MEDS: Lorazepam 2 MG/ML VIAL SLOW IVP PRN ×2 (11:09→19:26)
[2019-11-26] MEDS: Rocuronium Bromide 10 MG/ML (10ML VIAL) IVP PRN ×2 (11:41→17:25)
--- NOTE | 2019-11-26 12:01 | RAD ---
PORTABLE CHEST: DATE: 11/26/2019. PROVIDED CLINICAL HISTORY: Respiratory insufficiency. FINDINGS: Comparison 11/25/2019. Allowing for differences in positioning, significant interval change with res pect to the prior examination is not apparent. IMPRESSION: As above. POS: AXEL
--- NOTE | 2019-11-26 15:12 | PDOC.HOSPP ---
- Subjective Encounter Date: 11/26/19 Encounter Time: 10:45 Subjective: Patient intubated - Objective Vital Signs & Weight: Vital Signs (12 hours) Temp Pulse Resp Pulse Ox 11/26/19 14:53 114 H 11/26/19 12:00 24 H 11/26/19 11:00 98.7 F 11/26/19 10:15 110 H 11/26/19 10:00 24 H 11/26/19 08:00 98.6 F 35 H 11/26/19 07:30 91 11/26/19 07:10 100 11/26/19 06:00 23 H 11/26/19 04:00 98.8 F 25 H Weight Admit Weight 302 lb Weight 287 lb 3.2 oz Most Recent Monitor Data Heart Rate from ECG 123 NIBP 121/69 NIBP BP-Mean 86 Respiration from ECG 24 SpO2 98 I&O: 11/25/19 11/26/19 11/27/19 06:59 06:59 06:59 Intake Total 2753.3 3465.3 Output Total 1265 2020 510 Balance 1488.3 1445.3 -510 Result Diagrams: 11/26/19 09:39 11/26/19 04:00 Additional Labs: Accuchecks 11/26/19 11/25/19 11/25/19 10:01 23:25 17:45 POC Glucose 95 87 124 H Hospitalist ROS - Review of Systems Other: Patient intubated - Medication Medications: Active Medications Generic Name Dose Route Start Last Admin Trade Name Freq PRN Reason Stop Dose Admin Acetaminophen 1,000 mg 11/23/19 15:44 11/24/19 17:46 Acetaminophen 650 Mg/20.3 Ml Udcup PER TUBE 1,000 mg Q6H PRN Administration Headache/Fever/Mild Pain (1-3) Albuterol/Ipratropium 3 ml 11/15/19 14:00 11/23/19 07:12 Ipratropium/Albuterol Sulfate 3 Ml Neb NEB 3 ml Q4H PRN Administration SOB &/or Wheezing Budesonide 0.5 mg 11/16/19 18:30 11/26/19 06:47 Budesonide 0.5 Mg/2 Ml Neb NEB 0.5 mg BID-RT MARIELLA Administration Cholecalciferol 2,000 units 11/19/19 09:00 11/26/19 09:04 Cholecalciferol 1,000 Units (25 Mcg) Tab PO 2,000 units DAILY MARIELLA Administration Diphenhydramine HCl 25 mg 11/12/19 12:39 11/21/19 21:24 Diphenhydramine 25 Mg Cap PO 25 mg Q6H PRN Administration Itching & Insomnia Enoxaparin Sodium 70 mg 11/24/19 03:00 11/26/19 15:02 Enoxaparin Sodium 80 Mg/0.8 Ml Syringe SC 70 mg 0300,1500 MARIELLA Administration Enoxaparin Sodium 60 mg 11/24/19 03:00 11/26/19 15:02 Enoxaparin Sodium 60 Mg/0.6 Ml Syringe SC 60 mg 0300,1500 MARIELLA Administration Famotidine 20 mg 11/24/19 21:00 11/25/19 19:29 Famotidine/Pf 20 Mg/2ml Vial SLOW IVP 20 mg 2100 MARIELLA Administration Glipizide 10 mg 11/11/19 17:00 11/26/19 08:04 Glipizide 10 Mg Tab PO 10 mg BID-WM MARIELLA Administration Guaifenesin 1,200 mg 11/19/19 21:00 11/26/19 09:04 Guaifenesin Er 600 Mg Tab PO 1,200 mg Q12HR MARIELLA Administration Levofloxacin 750 mg/ Device 150 mls @ 100 mls/hr 11/23/19 10:30 11/26/19 11: 09 IVPB 150 mls Q24HR MARIELLA Administration Fentanyl Citrate 2,000 mcg/ 100 mls @ 0 mls/hr 11/23/19 10:45 11/26/19 09:45 Sodium Chloride IV 12/23/19 10:45 100 mls INF MARIELLA Administration Protocol Per Protocol Insulin Glargine 35 units/ 0.35 mls @ 0 mls/hr 11/23/19 21:00 11/25/19 20:25 Miscellaneous Medication SC 0.35 mls HS MARIELLA Administration Sodium Chloride 1,000 mls @ 75 mls/hr 11/24/19 10:30 11/26/19 15:03 Normal Saline 0.9% IV Not Given .[id number] MARIELLA Cefepime HCl 2 gm/ Sodium 100 mls @ 200 mls/hr 11/24/19 21:00 11/26/19 09:04 Chloride IVPB 100 mls Q12HR MARIELLA Administration Insulin Human Lispro 0 units 11/10/19 22:07 11/20/19 21:25 Humalog 300 Units/3 Ml Vial SC 2 unit .BEDTIME SLIDING SC PRN Administration Bedtime Correctional Scale Insulin Human Lispro 0 units 11/14/19 18:15 11/25/19 12:20 Humalog 300 Units/3 Ml Vial SC 2 unit .MODERATE SLIDING SC PRN Administration MODERATE SLIDING SCALE Protocol Insulin Human Lispro 10 units 11/23/19 21:00 11/26/19 15:03 Humalog 300 Units/3 Ml Vial SC Not Given TID MARIELLA Linezolid 600 mg 11/23/19 21:00 11/26/19 09:05 Linezolid 600 Mg Tab PO 11/30/19 21:01 600 mg Q12HR MARIELLA Administration Lorazepam 2 mg 11/23/19 10:45 11/26/19 11:09 Lorazepam 2 Mg/Ml Vial SLOW IVP 12/23/19 10:45 2 mg Q1H PRN Administration Breakthrough agitation Methylprednisolone Sodium Succinate 40 mg 11/15/19 21:00 11/26/19 09:04 Methylprednisolone Sod Succ 40 Mg Vial IVP 40 mg BID MARIELLA Administration Mometasone Furoate/Formoterol Fumar 2 puff 11/13/19 18:30 11/26/19 06:47 Mometasone 200 Mcg/Formoterol 5 Mcg 120 Puff Inhaler INH 2 puff BID-RT MARIELLA Administration Morphine Sulfate 2 mg 11/23/19 10:45 11/26/19 11:08 Morphine 2 Mg/Ml Vial SLOW IVP 12/23/19 10:45 2 mg Q1H PRN Administration Breakthrough Pain/Agitation Niacin 500 mg 11/11/19 21:00 11/25/19 19:27 Niacin Er 500 Mg Tab PO 500 mg HS MARIELLA Administration Pantoprazole Sodium 40 mg 11/11/19 09:00 11/26/19 09:04 Pantoprazole 40 Mg Vial IVP 40 mg DAILY MARIELLA Administration Propofol 1,000 mg 11/23/19 10:45 11/26/19 13:13 Propofol 1,000 Mg/100 Ml Vial IV 12/23/19 10:45 1,000 mg INF PRN Administration TO ACHIEVE GOAL RASS Protocol Rocuronium [place] 10 mg 11/24/19 09:09 11/26/19 11:41 Rocuronium [place] 10 Mg/Ml (10ml Vial) IVP 10 mg Q3H PRN Administration Anxiety/Agitation Sodium Chloride 10 ml 11/10/19 22:03 11/18/19 21:08 Flush - Normal Saline 10 Ml Syringe IVF 10 ml PRN PRN Administration Saline Flush Sodium Chloride 10 ml 11/10/19 22:15 11/25/19 09:48 Sodium Chloride 0.9% (Pf) 10 Ml Vial FS 10 ml PRN PRN Administration RECONSTITUTION - Exam Neck: negative: supple, symmetric, no JVD, no thyromegaly, no lymphadenopathy, no carotid bruit, JVD Heart: negative: RRR, no murmur, no gallops, no rubs, normal peripheral pulses, irregular, diminshed peripheral pulses, murmur present, II/IV, III/IV Respiratory: negative: CTAB, no wheezes, no rales, no ronchi, normal chest expansion, no tachypnea, normal percussion, rales, rhonchi, tachypneic, wheezes Gastrointestinal: negative: soft, non-tender, non-distended, normal bowel sounds, no palpable masses, no hepatomegaly, no splenomegaly, no bruit, no guarding, no rigidity, tender to palpation, distended, diminished bowl sounds, voluntary guarding Extremities: 1+ LE edema Hosp A/P (1) Acute respiratory failure with hypoxemia Code(s): J96.01 - ACUTE RESPIRATORY FAILURE WITH HYPOXIA Status: Acute (2) CAD (coronary artery disease) Code(s): I25.10 - ATHSCL HEART DISEASE OF [place] CORONARY ARTERY W/O ANG PCTRS Status: Chronic (3) DM type 2 (diabetes mellitus, type 2) Status: Chronic (4) Morbid obesity Code(s): E66.01 - MORBID (SEVERE) OBESITY DUE TO EXCESS CALORIES Status: Chronic (5) Obstructive sleep apnea on CPAP Code(s): G47.33 - OBSTRUCTIVE SLEEP APNEA (ADULT) (PEDIATRIC); Z99.89 - DEPENDENCE ON OTHER ENABLING MACHINES AND DEVICES Status: Chronic (6) Aspiration pneumonia Code(s): J69.0 - PNEUMONITIS DUE TO INHALATION OF FOOD AND VOMIT Status: Acute (7) Dysphagia Code(s): R13.10 - DYSPHAGIA, UNSPECIFIED Status: Acute Qualifiers: Dysphagia type: oropharyngeal phase Qualified Code(s): R13.12 - Dysphagia, oropharyngeal phase (8) COVID-19 Code(s): U07.1 - COVID-19 Status: Acute (9) DORIS (acute kidney injury) Code(s): N17.9 - ACUTE KIDNEY FAILURE, UNSPECIFIED Status: Acute - Plan Patient continues to be short of breath and is currently on high flow and is unable to speak complete sentences. He has been seen by speech who recommends thickened liquids. 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 During that admission he was seen by neurology underwent a stroke work-up including a brain MRI which was negative. There was a question about possible myasthenia gravis however the acetylcholine receptor antibody test was negative. Patient was put on Mestinon and per notes stated that his symptoms improved. He could possibly have a seronegative myasthenia gravis. I did review patient's CTA which does not explain his requirement of high flow. He does have right greater than left lower lobe pneumonia and possible mild pulmonary edema. Patient states that he has been having a cough and shortness of breath for the past 8 weeks. He has had a stress test as an outpatient and echocardiogram. Patient is very compliant with his CPAP. He has been seen by GI in the past. Will start patient on Mestinon and see if this helps. Patient never followed up with neurology as an outpatient. 11/22 patient's respiratory status worsened this morning he was intubated by pulmonary. Patient's Covid test came back positive. Patient's Covid test on November 10 was negative. He is already on steroids convalescent plasma started by pulmonology. Will broaden patient's antibiotics also get infectious disease involved. Will start patient on full dose anticoagulation. Spoke with speech therapy who stated that his dysphagia most likely secondary to muscle weakness. Neurology has been consulted. 11/23 pt's vent setting changed per pulmoanry he seems more comfortable. will continue full dose AC. spoke with pt's son Hany [phone] and updated him about his father. pt on steroids and abx. He is on tube feeds. 11/24 we will continue IV antibiotics for now. Monitor thrombocytopenia since patient is on full dose Lovenox. We will continue steroids also. Patient tolerating tube feeds. 11/25 patient's renal function improving. Patient's platelets are stable. Still has an elevated white count we will continue antibiotics and steroids for now. Vent settings changed by pulmonary patient became very tachycardic. We will continue to monitor. Patient is on full dose anticoagulation.
--- NOTE | 2019-11-26 15:27 | PRG ---
DATE OF SERVICE: 11/26/2019 SUBJECTIVE: Mr. Salas remains mechanically ventilated with his bilevel ventilation. His exhaled tidal volumes getting over 1000 mL, so we will make adjustments trying to get him back to volume ventilation. Respiratory Therapy informed me that he was extremely dyssynchronous with volume ventilation, so he may just have to cut back on his high and low PEEP to see if we can decrease his tidal volumes. He is not severely alkalotic with this, however. OBJECTIVE: LUNGS: Remarkable for coarse equal breath sounds. HEART: Regular rhythm. ABDOMEN: Soft. LABORATORY DATA: White count 24.8, hemoglobin 15, and platelets . Sodium 141, potassium 4.3, chloride 112, bicarb 19, BUN 80, creatinine 1.14. PH 7.37, CO2 of 36, pO2 of 81. IMPRESSION: COVID pneumonia with respiratory failure. PLAN: Continue mechanical ventilatory support. Critical care time 30 min. Job ID: [id number] MTDD
[2019-11-26] MEDS: Acetaminophen 650 MG/20.3 ML UDCUP PER TUBE PRN (19:26)
[2019-11-26] MEDS: Famotidine/PF 20 mg/2ml Vial SLOW IVP SCH (19:27)
[2019-11-26] MEDS: Insulin Glargine 35 UNITS in Pre-Filled Syringe 1 EACH SC SCH (22:17)
[2019-11-27] MEDS: Enoxaparin Sodium 60 MG/0.6 ML SYRINGE SC SCH ×2 (02:36→13:54)
[2019-11-27] MEDS: Enoxaparin Sodium 80 MG/0.8 ML SYRINGE SC SCH ×2 (02:36→13:53)
[2019-11-27] MEDS: Propofol 1,000 MG/100 ML VIAL IV PRN ×6 (02:37→20:44)
[2019-11-27] MEDS: fentaNYL Citrate/PF 2,000 MCG in Sodium Chloride 0.9% 60 ML IV SCH ×2 (02:48→21:44)
[2019-11-27 05:24] LABS: INR-International Normal Ratio 1.3; Prothrombin Time 16.6 sec (12.0-14.7)
[2019-11-27] MEDS: Sodium Chloride 0.9% 1,000 ML IV SCH ×2 (05:29→20:46)
[2019-11-27 05:38] LABS: Anion Gap 12 mmol/L (10-20); BUN (Urea Nitrogen) 83 mg/dL (8.4-25.7); Calc. Creatinine Clearance 96 mL/min (70-130); Calcium 8.4 mg/dL (7.8-10.44); Carbon Dioxide 19 mmol/L (23-31); Chloride 113 mmol/L (98-107); Estimated GFR-MDRD 60; Glucose 129 mg/dL (83-110); Potassium 4.4 mmol/L (3.5-5.1); Sodium 140 mmol/L (136-145)
[2019-11-27 05:39] LABS: Band 4 % (5-11); Hemoglobin 13.2 g/dL (14.0-18.0); Hypochromia SLIGHT = 6-15 cells (100X) (0-5/hpf); MDiff Complete? YES; Mean Corpuscular HGB CONC 33.2 g/dL (32.0-36.0); Mean Corpuscular Hemoglobin 32.2 pg (27.0-31.0); Mean Corpuscular Volume 96.9 fL (78.0-98.0); Mean Platelet Volume 11.3 fL (7.4-10.4); Neutrophil 96 % (42-75); Platelet Count 133 thou/uL (130-400); Platelet Morphology Comment Appears Adequate; RBC Distribution Width 13.6 % (11.5-14.5); Red Blood Cell (RBC) Count 4.11 mill/uL (4.70-6.10); White Blood Cell (WBC) Count 21.7 thou/uL (4.8-10.8)
[2019-11-27] MEDS: Mometasone 200 MCG/Formoterol 5 MCG 120 PUFF INHALER INH SCH ×3 (06:53→18:51)
[2019-11-27] MEDS: glipiZIDE 10 MG TAB PO SCH ×3 (07:12→17:26)
[2019-11-27] MEDS: Budesonide 0.5 MG/2 ML NEB NEB SCH ×2 (07:15→18:48)
[2019-11-27] MEDS: Linezolid 600 MG TAB PO SCH ×2 (07:20→20:43)
[2019-11-27] MEDS: Cholecalciferol 1,000 UNITS (25 MCG) TAB PO SCH (07:20)
[2019-11-27] MEDS: methylPREDNISolone Sod Succ 40 MG VIAL IVP SCH ×2 (07:20→20:43)
[2019-11-27] MEDS: guaiFENesin ER 600 MG TAB PO SCH ×2 (07:20→20:43)
[2019-11-27] MEDS: Pantoprazole 40 MG VIAL IVP SCH (07:21)
[2019-11-27] MEDS: Cefepime 2 GM in Sodium Chloride 0.9% 100 ML IVPB SCH ×2 (07:21→20:42)
[2019-11-27 07:27] LABS: Actual Bicarbonate (HCO3a) 16.6 mEq/L (22-28); Base Excess (BEa) -8.8 mEq/L (-2.0 to +3.0); CO2 Tension 34.4 mmHg (35.0-45.0); Calcium, Ionized (arterial) 1.23 mmol/L (1.12-1.30); Carboxyhemoglobin (COHb) 0.5 gm% (0.0-3.0); Hemoglobin (Hb) 15.1 g/dL (14.0-18.0); Potassium - ABG Lab 4.29 mmol/L (3.70-5.30)
[2019-11-27 07:31] LABS: O2 Tension (PaO2), arterial 56.5 mmHg (> 70.0)
[2019-11-27 07:32] LABS: Puncture Site RR
[2019-11-27] MEDS: HumaLOG 300 UNITS/3 ML VIAL SC SCH ×3 (07:53→21:59)
--- NOTE | 2019-11-27 10:02 | RAD ---
PORTABLE CHEST: HISTORY: Intubation. CCU followup. COMPARISON: 11/26/2019. FINDINGS: The patient is rotated. ET tube and NG Tube remain in place. Bilateral lung infiltrates are again s een slightly more extensive on the right. No interval change apparent. IMPRESSION: Stable lung infiltrate. POS: AH
[2019-11-27] MEDS: Lorazepam 2 MG/ML VIAL SLOW IVP PRN (10:41)
--- NOTE | 2019-11-27 12:40 | PDOC.HOSPP ---
- Subjective Encounter Date: 11/27/19 Encounter Time: 10:45 Subjective: Patient intubated - Objective Vital Signs & Weight: Vital Signs (12 hours) Temp Pulse Resp BP Pulse Ox 11/27/19 12:21 90 105/64 11/27/19 12:00 24 H 11/27/19 10:34 94 108/57 L 11/27/19 10:00 24 H 11/27/19 08:00 24 H 95 11/27/19 07:15 90 118/70 11/27/19 06:00 98.7 F 24 H 11/27/19 04:00 24 H 11/27/19 02:21 89 95/64 11/27/19 02:00 24 H 11/27/19 01:00 99.1 F Weight Admit Weight 302 lb Weight 287 lb 3.2 oz Most Recent Monitor Data Heart Rate from ECG 90 NIBP 105/64 NIBP BP-Mean 77 Respiration from ECG 7 SpO2 94 I&O: 11/26/19 11/27/19 11/28/19 06:59 06:59 06:59 Intake Total 3465.3 2957 Output Total 2020 1425 245 Balance 1445.3 1532 -245 Result Diagrams: 11/27/19 04:00 11/27/19 04:00 Additional Labs: Accuchecks 11/27/19 11/26/19 11/26/19 07:31 22:21 17:12 POC Glucose 105 H 128 H 151 H 11/25/19 12:18 POC Glucose 160 H Hospitalist ROS - Review of Systems Other: Intubated - Medication Medications: Active Medications Generic Name Dose Route Start Last Admin Trade Name Freq PRN Reason Stop Dose Admin Acetaminophen 1,000 mg 11/23/19 15:44 11/26/19 19:26 Acetaminophen 650 Mg/20.3 Ml Udcup PER TUBE 1,000 mg Q6H PRN Administration Headache/Fever/Mild Pain (1-3) Albuterol/Ipratropium 3 ml 11/15/19 14:00 11/23/19 07:12 Ipratropium/Albuterol Sulfate 3 Ml Neb NEB 3 ml Q4H PRN Administration SOB &/or Wheezing Budesonide 0.5 mg 11/16/19 18:30 11/27/19 07:15 Budesonide 0.5 Mg/2 Ml Neb NEB 0.5 mg BID-RT MARIELLA Administration Cholecalciferol 2,000 units 11/19/19 09:00 11/27/19 07:20 Cholecalciferol 1,000 Units (25 Mcg) Tab PO 2,000 units DAILY MARIELLA Administration Diphenhydramine HCl 25 mg 11/12/19 12:39 11/21/19 21:24 Diphenhydramine 25 Mg Cap PO 25 mg Q6H PRN Administration Itching & Insomnia Enoxaparin Sodium 70 mg 11/24/19 03:00 11/27/19 02:36 Enoxaparin Sodium 80 Mg/0.8 Ml Syringe SC 70 mg 0300,1500 MARIELLA Administration Enoxaparin Sodium 60 mg 11/24/19 03:00 11/27/19 02:36 Enoxaparin Sodium 60 Mg/0.6 Ml Syringe SC 60 mg 0300,1500 MARIELLA Administration Famotidine 20 mg 11/24/19 21:00 11/26/19 19:27 Famotidine/Pf 20 Mg/2ml Vial SLOW IVP 20 mg 2100 MARIELLA Administration Glipizide 10 mg 11/11/19 17:00 11/27/19 07:12 Glipizide 10 Mg Tab PO 10 mg BID-WM MARIELLA Administration Guaifenesin 1,200 mg 11/19/19 21:00 11/27/19 07:20 Guaifenesin Er 600 Mg Tab PO 1,200 mg Q12HR MARIELLA Administration Levofloxacin 750 mg/ Device 150 mls @ 100 mls/hr 11/23/19 10:30 11/27/19 09:39 IVPB 150 mls Q24HR MARIELLA Administration Fentanyl Citrate 2,000 mcg/ 100 mls @ 0 mls/hr 11/23/19 10:45 11/27/19 02:48 Sodium Chloride IV 12/23/19 10:45 100 mls INF MARIELLA Administration Protocol Per Protocol Insulin Glargine 35 units/ 0.35 mls @ 0 mls/hr 11/23/19 21:00 11/26/19 22:17 Miscellaneous Medication SC 0.35 mls HS MARIELLA Administration Sodium Chloride 1,000 mls @ 75 mls/hr 11/24/19 10:30 11/27/19 05:29 Normal Saline 0.9% IV 1,000 mls .[id number] MARIELLA Administration Cefepime HCl 2 gm/ Sodium 100 mls @ 200 mls/hr 11/24/19 21:00 11/27/19 07:21 Chloride IVPB 100 mls Q12HR MARIELLA Administration Insulin Human Lispro 0 units 11/10/19 22:07 11/20/19 21:25 Humalog 300 Units/3 Ml Vial SC 2 unit .BEDTIME SLIDING SC PRN Administration Bedtime Correctional Scale Insulin Human Lispro 0 units 11/14/19 18:15 11/25/19 12:20 Humalog 300 Units/3 Ml Vial SC 2 unit .MODERATE SLIDING SC PRN Administration MODERATE SLIDING SCALE Protocol Insulin Human Lispro 10 units 11/23/19 21:00 11/27/19 07:53 Humalog 300 Units/3 Ml Vial SC Not Given TID MARIELLA Linezolid 600 mg 11/23/19 21:00 11/27/19 07:20 Linezolid 600 Mg Tab PO 11/30/19 21:01 600 mg Q12HR MARIELLA Administration Lorazepam 2 mg 11/23/19 10:45 11/27/19 10:41 Lorazepam 2 Mg/Ml Vial SLOW IVP 12/23/19 10:45 2 mg Q1H PRN Administration Breakthrough agitation Methylprednisolone Sodium Succinate 40 mg 11/15/19 21:00 11/27/19 07:20 Methylprednisolone Sod Succ 40 Mg Vial IVP 40 mg BID MARIELLA Administration Mometasone Furoate/Formoterol Fumar 2 puff 11/13/19 18:30 11/27/19 07:15 Mometasone 200 Mcg/Formoterol 5 Mcg 120 Puff Inhaler INH 2 puff BID-RT MARIELLA Administration Morphine Sulfate 2 mg 11/23/19 10:45 11/26/19 11:08 Morphine 2 Mg/Ml Vial SLOW IVP 12/23/19 10:45 2 mg Q1H PRN Administration Breakthrough Pain/Agitation Niacin 500 mg 11/11/19 21:00 11/26/19 19:28 Niacin Er 500 Mg Tab PO 500 mg HS MARIELLA Administration Propofol 1,000 mg 11/23/19 10:45 11/27/19 10:41 Propofol 1,000 Mg/100 Ml Vial IV 12/23/19 10:45 1,000 mg INF PRN Administration TO ACHIEVE GOAL RASS Protocol Rocuronium [place] 10 mg 11/24/19 09:09 11/26/19 17:25 Rocuronium [place] 10 Mg/Ml (10ml Vial) IVP 10 mg Q3H PRN Administration Anxiety/Agitation Sodium Chloride 10 ml 11/10/19 22:03 11/18/19 21:08 Flush - Normal Saline 10 Ml Syringe IVF 10 ml PRN PRN Administration Saline Flush Hosp A/P (1) Acute respiratory failure with hypoxemia Code(s): J96.01 - ACUTE RESPIRATORY FAILURE WITH HYPOXIA Status: Acute (2) CAD (coronary artery disease) Code(s): I25.10 - ATHSCL HEART DISEASE OF [place] CORONARY ARTERY W/O ANG PCTRS Status: Chronic (3) DM type 2 (diabetes mellitus, type 2) Status: Chronic (4) Morbid obesity Code(s): E66.01 - MORBID (SEVERE) OBESITY DUE TO EXCESS CALORIES Status: Chronic (5) Obstructive sleep apnea on CPAP Code(s): G47.33 - OBSTRUCTIVE SLEEP APNEA (ADULT) (PEDIATRIC); Z99.89 - DEPENDENCE ON OTHER ENABLING MACHINES AND DEVICES Status: Chronic (6) Aspiration pneumonia Code(s): J69.0 - PNEUMONITIS DUE TO INHALATION OF FOOD AND VOMIT Status: Acute (7) Dysphagia Code(s): R13.10 - DYSPHAGIA, UNSPECIFIED Status: Acute Qualifiers: Dysphagia type: oropharyngeal phase Qualified Code(s): R13.12 - Dysphagia, oropharyngeal phase (8) COVID-19 Code(s): U07.1 - COVID-19 Status: Acute (9) DORIS (acute kidney injury) Code(s): N17.9 - ACUTE KIDNEY FAILURE, UNSPECIFIED Status: Acute - Plan Patient continues to be short of breath and is currently on high flow and is unable to speak complete sentences. He has been seen by speech who recommends thickened liquids. 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 During that admission he was seen by neurology underwent a stroke work-up including a brain MRI which was negative. There was a question about possible myasthenia gravis however the acetylcholine receptor antibody test was negative. Patient was put on Mestinon and per notes stated that his symptoms improved. He could possibly have a seronegative myasthenia gravis. I did review patient's CTA which does not explain his requirement of high flow. He does have right greater than left lower lobe pneumonia and possible mild pulmonary edema. Patient states that he has been having a cough and shortness of breath for the past 8 weeks. He has had a stress test as an outpatient and echocardiogram. Patient is very compliant with his CPAP. He has been seen by GI in the past. Will start patient on Mestinon and see if this helps. Patient never followed up with neurology as an outpatient. 11/22 patient's respiratory status worsened this morning he was intubated by pulmonary. Patient's Covid test came back positive. Patient's Covid test on November 10 was negative. He is already on steroids convalescent plasma started by pulmonology. Will broaden patient's antibiotics also get infectious disease involved. Will start patient on full dose anticoagulation. Spoke with speech therapy who stated that his dysphagia most likely secondary to muscle weakness. Neurology has been consulted. 11/23 pt's vent setting changed per pulmoanry he seems more comfortable. will continue full dose AC. spoke with pt's son Hany [phone] and updated him about his father. pt on steroids and abx. He is on tube feeds. 11/24 we will continue IV antibiotics for now. Monitor thrombocytopenia since patient is on full dose Lovenox. We will continue steroids also. Patient tolerating tube feeds. 11/25 patient's renal function improving. Patient's platelets are stable. Still has an elevated white count we will continue antibiotics and steroids for now. Vent settings changed by pulmonary patient became very tachycardic. We will continue to monitor. Patient is on full dose anticoagulation. 11/26 patient was seen by pulmonary today. Patient currently on SIMV at 65% FiO2. He is tolerating it well. We will continue DVT prophylaxis with full dose anticoagulation clinical course is guarded.
--- NOTE | 2019-11-27 13:13 | PRG ---
DATE OF SERVICE: 11/27/2019 OBJECTIVE: VITAL SIGNS: Mr. Booker heart rate is 90, blood pressure 105/64, respiratory rate is 24, and FiO2 is 65%. LUNGS: Unchanged. HEART: Unchanged. ABDOMEN: Unchanged. Intake and output, positive 1532. LABORATORY STUDIES: White count 24.8, hemoglobin 15, platelets 138. Sodium 140, potassium 4.4, chloride 113, bicarbonate 19, BUN 83, creatinine 1.17. IMPRESSION: 1. COVID pneumonia. 2. Acute on chronic kidney disease. 3. Prerenal azotemia. 4. Advanced age and deconditioning. PLAN: Continue current supportive care measures. He is not weanable at this time. Job ID: [id number]
[2019-11-27] MEDS: Acetaminophen 650 MG/20.3 ML UDCUP PER TUBE PRN (17:09)
[2019-11-27] MEDS: Famotidine/PF 20 mg/2ml Vial SLOW IVP SCH (20:43)
[2019-11-27] MEDS: Rocuronium Bromide 10 MG/ML (10ML VIAL) IVP PRN (20:44)
[2019-11-27] MEDS: Insulin Glargine 35 UNITS in Pre-Filled Syringe 1 EACH SC SCH (21:59)
[2019-11-28] MEDS: Propofol 1,000 MG/100 ML VIAL IV PRN ×7 (00:24→23:54)
[2019-11-28] MEDS: Enoxaparin Sodium 80 MG/0.8 ML SYRINGE SC SCH ×2 (03:43→13:21)
[2019-11-28] MEDS: Enoxaparin Sodium 60 MG/0.6 ML SYRINGE SC SCH ×2 (03:43→13:21)
[2019-11-28 04:57] LABS: Anion Gap 18 mmol/L (10-20); BUN (Urea Nitrogen) 97 mg/dL (8.4-25.7); Calc. Creatinine Clearance 75 mL/min (70-130); Calcium 8.3 mg/dL (7.8-10.44); Carbon Dioxide 17 mmol/L (23-31); Chloride 114 mmol/L (98-107); Estimated GFR-MDRD 46; Glucose 98 mg/dL (83-110); Potassium 4.9 mmol/L (3.5-5.1); Sodium 144 mmol/L (136-145)
[2019-11-28 04:59] LABS: ALT (SGPT) 17 U/L (8-55); AST (SGOT) 32 U/L (5-34); Albumin 1.8 g/dL (3.4-4.8); Alkaline Phosphatase 103 U/L (40-110); Bilirubin, Direct 0.2 mg/dL (0.1-0.3); Bilirubin, Total 0.3 mg/dL (0.2-1.2); Protein, Total 5.8 g/dL (5.8-8.1)
[2019-11-28 05:02] LABS: Band 19 % (5-11); Hemoglobin 13.8 g/dL (14.0-18.0); Lymphocytes 1 % (21-51); MDiff Complete? YES; Mean Corpuscular HGB CONC 32.4 g/dL (32.0-36.0); Mean Corpuscular Volume 98.9 fL (78.0-98.0); Monocytes 2 % (0-10); Neutrophil 78 % (42-75); Platelet Count 127 thou/uL (130-400); Platelet Morphology Comment Appears Adequate; RBC Distribution Width 13.9 % (11.5-14.5); White Blood Cell (WBC) Count 18.9 thou/uL (4.8-10.8)
[2019-11-28] MEDS ORDERED: Lactated Ringer's 1,000 ML IV SCH (06:30)
[2019-11-28] MEDS: Budesonide 0.5 MG/2 ML NEB NEB SCH ×2 (08:10→19:46)
[2019-11-28] MEDS: Mometasone 200 MCG/Formoterol 5 MCG 120 PUFF INHALER INH SCH ×2 (08:14→19:46)
[2019-11-28 08:17] LABS: Actual Bicarbonate (HCO3a) 14.4 mEq/L (22-28); Base Excess (BEa) -12.1 mEq/L (-2.0 to +3.0); CO2 Tension 35.2 mmHg (35.0-45.0); Calcium, Ionized (arterial) 1.22 mmol/L (1.12-1.30); Carboxyhemoglobin (COHb) 0.2 gm% (0.0-3.0); Hemoglobin (Hb) 14.5 g/dL (14.0-18.0)
[2019-11-28 08:19] LABS: Puncture Site RR; pH, Arterial 7.23 (7.35-7.45)
[2019-11-28] MEDS: Cefepime 2 GM in Sodium Chloride 0.9% 100 ML IVPB SCH ×2 (08:47→20:21)
[2019-11-28] MEDS: Cholecalciferol 1,000 UNITS (25 MCG) TAB PO SCH (08:48)
[2019-11-28] MEDS: guaiFENesin ER 600 MG TAB PO SCH ×2 (08:48→20:20)
[2019-11-28] MEDS: methylPREDNISolone Sod Succ 40 MG VIAL IVP SCH ×2 (08:48→20:21)
[2019-11-28] MEDS: Linezolid 600 MG TAB PO SCH ×2 (08:49→20:22)
[2019-11-28] MEDS: Rocuronium Bromide 10 MG/ML (10ML VIAL) IVP PRN (08:49)
[2019-11-28] MEDS ORDERED: Albumin 25% 100 ML ONE (11:02)
[2019-11-28] MEDS ORDERED: Norepinephrine 8 MG/0.9% NS 250 ML ONE (11:03)
--- NOTE | 2019-11-28 12:25 | PDOC.HOSPP ---
- Subjective Encounter Date: 11/28/19 Encounter Time: 11:00 Subjective: Patient intubated - Objective Vital Signs & Weight: Vital Signs (12 hours) Temp Pulse Resp BP Pulse Ox 11/28/19 10:14 115 H 11/28/19 08:14 113 H 24 H 96 11/28/19 08:10 113 H 103/60 11/28/19 06:00 24 H 11/28/19 04:00 97.5 F L 24 H 11/28/19 02:00 24 H Weight Admit Weight 302 lb Weight 287 lb 3.2 oz Most Recent Monitor Data Heart Rate from ECG 107 NIBP 89/61 NIBP BP-Mean 70 Respiration from ECG 16 SpO2 96 I&O: 11/27/19 11/28/19 11/29/19 06:59 06:59 06:59 Intake Total 2957 3188 Output Total 1425 1135 Balance 1532 3 Result Diagrams: 11/28/19 03:50 11/28/19 03:50 Additional Labs: Accuchecks 11/28/19 11/28/19 11/27/19 09:11 03:52 21:51 POC Glucose 93 95 70 11/27/19 11/27/19 11/27/19 18:04 17:13 13:58 POC Glucose 121 H 59 L* 80 Hospitalist ROS - Review of Systems Other: Intubated - Medication Medications: Active Medications Generic Name Dose Route Start Last Admin Trade Name Freq PRN Reason Stop Dose Admin Acetaminophen 1,000 mg 11/23/19 15:44 11/27/19 17:09 Acetaminophen 650 Mg/20.3 Ml Udcup PER TUBE 1,000 mg Q6H PRN Administration Headache/Fever/Mild Pain (1-3) Albuterol/Ipratropium 3 ml 11/15/19 14:00 11/27/19 18:48 Ipratropium/Albuterol Sulfate 3 Ml Neb NEB 3 ml Q4H PRN Administration SOB &/or Wheezing Budesonide 0.5 mg 11/16/19 18:30 11/28/19 08:10 Budesonide 0.5 Mg/2 Ml Neb NEB 0.5 mg BID-RT MARIELLA Administration Cholecalciferol 2,000 units 11/19/19 09:00 11/28/19 08:48 Cholecalciferol 1,000 Units (25 Mcg) Tab PO 2,000 units DAILY MARIELLA Administration Dextrose/Water 25 gm 11/10/19 22:07 11/27/19 17:24 Dextrose 50% Abboject 50 Ml Syringe SLOW IVP 25 gm PRN PRN Administration Hypoglycemia Diphenhydramine HCl 25 mg 11/12/19 12:39 11/21/19 21:24 Diphenhydramine 25 Mg Cap PO 25 mg Q6H PRN Administration Itching & Insomnia Enoxaparin Sodium 70 mg 11/24/19 03:00 11/28/19 03:43 Enoxaparin Sodium 80 Mg/0.8 Ml Syringe SC 70 mg 0300,1500 MARIELLA Administration Enoxaparin Sodium 60 mg 11/24/19 03:00 11/28/19 03:43 Enoxaparin Sodium 60 Mg/0.6 Ml Syringe SC 60 mg 0300,1500 MARIELLA Administration Famotidine 20 mg 11/24/19 21:00 11/27/19 20:43 Famotidine/Pf 20 Mg/2ml Vial SLOW IVP 20 mg 2100 MARIELLA Administration Guaifenesin 1,200 mg 11/19/19 21:00 11/28/19 08:48 Guaifenesin Er 600 Mg Tab PO 1,200 mg Q12HR MARIELLA Administration Levofloxacin 750 mg/ Device 150 mls @ 100 mls/hr 11/23/19 10:30 11/28/19 08:48 IVPB 150 mls Q24HR MARIELLA Administration Fentanyl Citrate 2,000 mcg/ 100 mls @ 0 mls/hr 11/23/19 10:45 11/27/19 21:44 Sodium Chloride IV 12/23/19 10:45 100 mls INF MARIELLA Administration Protocol Per Protocol Cefepime HCl 2 gm/ Sodium 100 mls @ 200 mls/hr 11/24/19 21:00 11/28/19 08:47 Chloride IVPB 100 mls Q12HR MARIELLA Administration Lactated Ringer's 1,000 mls @ 50 mls/hr 11/28/19 06:30 11/28/19 08:47 Lactated Ringer's IV 11/29/19 02:29 1,000 mls .Q20H MARIELLA Administration Insulin Human Lispro 0 units 11/10/19 22:07 11/20/19 21:25 Humalog 300 Units/3 Ml Vial SC 2 unit .BEDTIME SLIDING SC PRN Administration Bedtime Correctional Scale Insulin Human Lispro 0 units 11/14/19 18:15 11/25/19 12:20 Humalog 300 Units/3 Ml Vial SC 2 unit .MODERATE SLIDING SC PRN Administration MODERATE SLIDING SCALE Protocol Linezolid 600 mg 11/23/19 21:00 11/28/19 08:49 Linezolid 600 Mg Tab PO 11/30/19 21:01 600 mg Q12HR MARIELLA Administration Lorazepam 2 mg 11/23/19 10:45 11/27/19 10:41 Lorazepam 2 Mg/Ml Vial SLOW IVP 12/23/19 10:45 2 mg Q1H PRN Administration Breakthrough agitation Methylprednisolone Sodium Succinate 40 mg 11/15/19 21:00 11/28/19 08:48 Methylprednisolone Sod Succ 40 Mg Vial IVP 40 mg BID MARIELLA Administration Mometasone Furoate/Formoterol Fumar 2 puff 11/13/19 18:30 11/28/19 08:14 Mometasone 200 Mcg/Formoterol 5 Mcg 120 Puff Inhaler INH 2 puff BID-RT MARIELLA Administration Morphine Sulfate 2 mg 11/23/19 10:45 11/26/19 11:08 Morphine 2 Mg/Ml Vial SLOW IVP 12/23/19 10:45 2 mg Q1H PRN Administration Breakthrough Pain/Agitation Niacin 500 mg 11/11/19 21:00 11/27/19 20:43 Niacin Er 500 Mg Tab PO 500 mg HS MARIELLA Administration Propofol 1,000 mg 11/23/19 10:45 11/28/19 08:47 Propofol 1,000 Mg/100 Ml Vial IV 12/23/19 10:45 1,000 mg INF PRN Administration TO ACHIEVE GOAL RASS Protocol Rocuronium [place] 10 mg 11/24/19 09:09 11/28/19 08:49 Rocuronium [place] 10 Mg/Ml (10ml Vial) IVP 10 mg Q3H PRN Administration Anxiety/Agitation Sodium Chloride 10 ml 11/10/19 22:03 11/27/19 20:43 Flush - Normal Saline 10 Ml Syringe IVF 10 ml PRN PRN Administration Saline Flush - Exam Neck: negative: supple, symmetric, no JVD, no thyromegaly, no lymphadenopathy, no carotid bruit, JVD Heart: negative: RRR, no murmur, no gallops, no rubs, normal peripheral pulses, irregular, diminshed peripheral pulses, murmur present, II/IV, III/IV Respiratory: negative: CTAB, no wheezes, no rales, no ronchi, normal chest expansion, no tachypnea, normal percussion, rales, rhonchi, tachypneic, wheezes Hosp A/P (1) Acute respiratory failure with hypoxemia Code(s): J96.01 - ACUTE RESPIRATORY FAILURE WITH HYPOXIA Status: Acute (2) CAD (coronary artery disease) Code(s): I25.10 - ATHSCL HEART DISEASE OF [place] CORONARY ARTERY W/O ANG PCTRS Status: Chronic (3) DM type 2 (diabetes mellitus, type 2) Status: Chronic (4) Morbid obesity Code(s): E66.01 - MORBID (SEVERE) OBESITY DUE TO EXCESS CALORIES Status: Chronic (5) Obstructive sleep apnea on CPAP Code(s): G47.33 - OBSTRUCTIVE SLEEP APNEA (ADULT) (PEDIATRIC); Z99.89 - DEPENDENCE ON OTHER ENABLING MACHINES AND DEVICES Status: Chronic (6) Aspiration pneumonia Code(s): J69.0 - PNEUMONITIS DUE TO INHALATION OF FOOD AND VOMIT Status: Acute (7) Dysphagia Code(s): R13.10 - DYSPHAGIA, UNSPECIFIED Status: Acute Qualifiers: Dysphagia type: oropharyngeal phase Qualified Code(s): R13.12 - Dysphagia, oropharyngeal phase (8) COVID-19 Code(s): U07.1 - COVID-19 Status: Acute (9) DORIS (acute kidney injury) Code(s): N17.9 - ACUTE KIDNEY FAILURE, UNSPECIFIED Status: Acute - Plan Patient continues to be short of breath and is currently on high flow and is unable to speak complete sentences. He has been seen by speech who recommends thickened liquids. 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 During that admission he was seen by neurology underwent a stroke work-up including a brain MRI which was negative. There was a question about possible myasthenia gravis however the acetylcholine receptor antibody test was negative. Patient was put on Mestinon and per notes stated that his symptoms improved. He could possibly have a seronegative myasthenia gravis. I did review patient's CTA which does not explain his requirement of high flow. He does have right greater than left lower lobe pneumonia and possible mild pulmonary edema. Patient states that he has been having a cough and shortness of breath for the past 8 weeks. He has had a stress test as an outpatient and echocardiogram. Patient is very compliant with his CPAP. He has been seen by GI in the past. Will start patient on Mestinon and see if this helps. Patient never followed up with neurology as an outpatient. 11/22 patient's respiratory status worsened this morning he was intubated by pulmonary. Patient's Covid test came back positive. Patient's Covid test on November 10 was negative. He is already on steroids convalescent plasma started by pulmonology. Will broaden patient's antibiotics also get infectious disease involved. Will start patient on full dose anticoagulation. Spoke with speech therapy who stated that his dysphagia most likely secondary to muscle weakness. Neurology has been consulted. 11/23 pt's vent setting changed per pulmoanry he seems more comfortable. will continue full dose AC. spoke with pt's son Hany [phone] and updated him about his father. pt on steroids and abx. He is on tube feeds. 11/24 we will continue IV antibiotics for now. Monitor thrombocytopenia since patient is on full dose Lovenox. We will continue steroids also. Patient tolerating tube feeds. 11/25 patient's renal function improving. Patient's platelets are stable. Still has an elevated white count we will continue antibiotics and steroids for now. Vent settings changed by pulmonary patient became very tachycardic. We will continue to monitor. Patient is on full dose anticoagulation. 11/26 patient was seen by pulmonary today. Patient currently on SIMV at 65% FiO2. He is tolerating it well. We will continue DVT prophylaxis with full dose anticoagulation clinical course is guarded. 11/27 patient currently intubated. Hypotensive we will start patient on albumin may require Levophed. Will start may be some gentle hydration. Patient is on antibiotics. Clinical course is guarded. Continue DVT prophylaxis with full dose anticoagulation. Will monitor thrombocytopenia.
[2019-11-28] MEDS: Albumin 25% 25 GM/100 ML BOT IVPB SCH ×2 (13:07→20:40)
[2019-11-28] MEDS: Lorazepam 2 MG/ML VIAL SLOW IVP PRN (13:22)
[2019-11-28] MEDS: fentaNYL Citrate/PF 2,000 MCG in Sodium Chloride 0.9% 60 ML IV SCH (13:27)
[2019-11-28] MEDS ORDERED: Norepinephrine 8 MG/0.9% NS 250 ML IVPB SCH (14:30)
[2019-11-28] MEDS: Metoclopramide HCl 10 MG/2 ML VIAL IVP PRN (20:22)
[2019-11-28] MEDS: Famotidine/PF 20 mg/2ml Vial SLOW IVP SCH (20:40)
--- NOTE | 2019-11-28 20:43 | PRG ---
DATE OF SERVICE: 11/28/2019 SUBJECTIVE: Mr. Salas remains mechanically ventilated. OBJECTIVE: VITAL SIGNS: Heart rates in the 80s, blood pressure 120/59, FiO2 is 55%. LUNGS: Unchanged. HEART: Unchanged. ABDOMEN: Unchanged. LABORATORY DATA: White count is 18.9, hemoglobin 13.8, platelets 127. Sodium 144, potassium 4.9, chloride 114, bicarb 17, BUN 97, creatinine 1.49. IMPRESSION: Respiratory failure associated with COVID pneumonia, clinically stable, but not weanable. Job ID: [id number]
[2019-11-28] MEDS: Insulin Glargine 15 UNITS in Pre-Filled Syringe 1 EACH SC SCH (21:27)
[2019-11-29] MEDS: Rocuronium Bromide 10 MG/ML (10ML VIAL) IVP PRN ×4 (02:29→21:01)
[2019-11-29] MEDS: Enoxaparin Sodium 60 MG/0.6 ML SYRINGE SC SCH ×2 (02:30→13:30)
[2019-11-29] MEDS: Enoxaparin Sodium 80 MG/0.8 ML SYRINGE SC SCH ×2 (02:30→13:30)
[2019-11-29 03:26] LABS: #Lymphocytes 0.3 thou/uL (1.20-3.40); #Monocytes 0.2 thou/uL (0.11-0.59); #Neutrophils 14.3 thou/uL (1.40-6.50); %Eosinophils 0.1 % (0.0-10.0); %Lymphocytes 1.9 % (21.0-51.0); %Monocytes 1.4 % (0.0-10.0); %Neutrophils 96.6 % (42.0-75.0); Hemoglobin 11.6 g/dL (14.0-18.0); Mean Corpuscular HGB CONC 32.4 g/dL (32.0-36.0); Mean Corpuscular Hemoglobin 32.1 pg (27.0-31.0); Mean Corpuscular Volume 98.9 fL (78.0-98.0); Mean Platelet Volume 11.6 fL (7.4-10.4); Platelet Count 107 thou/uL (130-400); RBC Distribution Width 13.8 % (11.5-14.5); Red Blood Cell (RBC) Count 3.61 mill/uL (4.70-6.10); White Blood Cell (WBC) Count 14.8 thou/uL (4.8-10.8)
[2019-11-29 03:29] LABS: INR-International Normal Ratio 1.3; PTT 50.2 sec (22.9-36.1); Prothrombin Time 16.9 sec (12.0-14.7)
[2019-11-29 03:38] LABS: Anion Gap 20 mmol/L (10-20); Calc. Creatinine Clearance 55 mL/min (70-130); Calcium 8.6 mg/dL (7.8-10.44); Carbon Dioxide 14 mmol/L (23-31); Chloride 113 mmol/L (98-107); Estimated GFR-MDRD 32; Glucose 101 mg/dL (83-110); Magnesium 3.2 mg/dL (1.6-2.6); Phosphorus 6.6 mg/dL (2.3-4.7); Potassium 5.1 mmol/L (3.5-5.1); Sodium 142 mmol/L (136-145)
[2019-11-29 03:49] LABS: BUN (Urea Nitrogen) 123 mg/dL (8.4-25.7)
[2019-11-29] MEDS: Propofol 1,000 MG/100 ML VIAL IV PRN ×5 (04:08→21:04)
[2019-11-29] MEDS: fentaNYL Citrate/PF 2,000 MCG in Sodium Chloride 0.9% 60 ML IV SCH ×2 (04:16→16:43)
[2019-11-29] MEDS: Albumin 25% 25 GM/100 ML BOT IVPB SCH ×2 (05:14→13:30)
[2019-11-29] MEDS: Budesonide 0.5 MG/2 ML NEB NEB SCH ×2 (07:06→18:02)
[2019-11-29] MEDS: Mometasone 200 MCG/Formoterol 5 MCG 120 PUFF INHALER INH SCH ×2 (07:07→18:02)
[2019-11-29 07:19] LABS: Actual Bicarbonate (HCO3a) 14.8 mEq/L (22-28); Base Excess (BEa) -11.9 mEq/L (-2.0 to +3.0); CO2 Tension 36.7 mmHg (35.0-45.0); Carboxyhemoglobin (COHb) 0.3 gm% (0.0-3.0); Hemoglobin (Hb) 11.1 g/dL (14.0-18.0); O2 Tension (PaO2), arterial 70.8 mmHg (> 70.0); Potassium - ABG Lab 4.89 mmol/L (3.70-5.30)
[2019-11-29 07:22] LABS: pH, Arterial 7.22 (7.35-7.45)
[2019-11-29 07:23] LABS: ALV-art Gradient 275.475 mmHg (0-20); Puncture Site RRA
[2019-11-29] MEDS: Cefepime 2 GM in Sodium Chloride 0.9% 100 ML IVPB SCH ×2 (08:53→20:59)
[2019-11-29] MEDS: methylPREDNISolone Sod Succ 40 MG VIAL IVP SCH ×2 (08:54→21:00)
[2019-11-29] MEDS: Lorazepam 2 MG/ML VIAL SLOW IVP PRN ×3 (08:54→21:02)
[2019-11-29] MEDS: Linezolid 600 MG TAB PO SCH ×2 (08:55→21:00)
[2019-11-29] MEDS: Cholecalciferol 1,000 UNITS (25 MCG) TAB PO SCH (08:55)
[2019-11-29] MEDS: guaiFENesin ER 600 MG TAB PO SCH ×2 (08:55→21:00)
[2019-11-29] MEDS: Metoclopramide HCl 10 MG/2 ML VIAL IVP PRN (13:30)
--- NOTE | 2019-11-29 14:28 | PDOC.HOSPP ---
- Subjective Encounter Date: 11/29/19 Encounter Time: 10:30 Subjective: pt intubated - Objective Vital Signs & Weight: Vital Signs (12 hours) Temp Pulse Resp Pulse Ox 11/29/19 13:43 92 11/29/19 12:00 97.8 F 24 H 11/29/19 11:26 98 11/29/19 10:00 24 H 11/29/19 08:00 97.3 F L 24 H 95 11/29/19 07:05 94 11/29/19 06:00 24 H 11/29/19 04:00 96 F L 24 H Weight Admit Weight 302 lb Weight 289 lb Most Recent Monitor Data Heart Rate from ECG 92 NIBP 132/69 NIBP BP-Mean 90 Respiration from ECG 24 SpO2 96 I&O: 11/28/19 11/29/19 11/30/19 06:59 06:59 06:59 Intake Total 3188 2867 30 Output Total 1135 1075 255 Balance 2053 1792 -225 Result Diagrams: 11/29/19 03:00 11/29/19 02:30 Additional Labs: Accuchecks 11/29/19 11/28/19 11/28/19 09:03 20:32 17:35 POC Glucose 93 86 84 Hospitalist ROS - Review of Systems Other: intubated - Medication Medications: Active Medications Generic Name Dose Route Start Last Admin Trade Name Freq PRN Reason Stop Dose Admin Acetaminophen 1,000 mg 11/23/19 15:44 11/27/19 17:09 Acetaminophen 650 Mg/20.3 Ml Udcup PER TUBE 1,000 mg Q6H PRN Administration Headache/Fever/Mild Pain (1-3) Albuterol/Ipratropium 3 ml 11/15/19 14:00 11/27/19 18:48 Ipratropium/Albuterol Sulfate 3 Ml Neb NEB 3 ml Q4H PRN Administration SOB &/or Wheezing Budesonide 0.5 mg 11/16/19 18:30 11/29/19 07:06 Budesonide 0.5 Mg/2 Ml Neb NEB 0.5 mg BID-RT MARIELLA Administration Cholecalciferol 2,000 units 11/19/19 09:00 11/29/19 08:55 Cholecalciferol 1,000 Units (25 Mcg) Tab PO 2,000 units DAILY MARIELLA Administration Dextrose/Water 25 gm 11/10/19 22:07 11/27/19 17:24 Dextrose 50% Abboject 50 Ml Syringe SLOW IVP 25 gm PRN PRN Administration Hypoglycemia Diphenhydramine HCl 25 mg 11/12/19 12:39 11/21/19 21:24 Diphenhydramine 25 Mg Cap PO 25 mg Q6H PRN Administration Itching & Insomnia Enoxaparin Sodium 70 mg 11/24/19 03:00 11/29/19 13:30 Enoxaparin Sodium 80 Mg/0.8 Ml Syringe SC 70 mg 0300,1500 MARIELLA Administration Enoxaparin Sodium 60 mg 11/24/19 03:00 11/29/19 13:30 Enoxaparin Sodium 60 Mg/0.6 Ml Syringe SC 60 mg 0300,1500 MARIELLA Administration Famotidine 20 mg 11/24/19 21:00 11/28/19 20:40 Famotidine/Pf 20 Mg/2ml Vial SLOW IVP 20 mg 2100 MARIELLA Administration Guaifenesin 1,200 mg 11/19/19 21:00 11/29/19 08:55 Guaifenesin Er 600 Mg Tab PO 1,200 mg Q12HR MARIELLA Administration Levofloxacin 750 mg/ Device 150 mls @ 100 mls/hr 11/23/19 10:30 11/29/19 08:57 IVPB 150 mls Q24HR MARIELLA Administration Fentanyl Citrate 2,000 mcg/ 100 mls @ 0 mls/hr 11/23/19 10:45 11/29/19 04:16 Sodium Chloride IV 12/23/19 10:45 100 mls INF MARIELLA Administration Protocol Per Protocol Cefepime HCl 2 gm/ Sodium 100 mls @ 200 mls/hr 11/24/19 21:00 11/29/19 08:53 Chloride IVPB 100 mls Q12HR MARIELLA Administration Insulin Glargine 15 units/ 0.15 mls @ 0 mls/hr 11/28/19 21:00 11/28/19 21:27 Miscellaneous Medication SC Not Given HS [facility] Insulin Human Lispro 0 units 11/10/19 22:07 11/20/19 21:25 Humalog 300 Units/3 Ml Vial SC 2 unit .BEDTIME SLIDING SC PRN Administration Bedtime Correctional Scale Insulin Human Lispro 0 units 11/14/19 18:15 11/25/19 12:20 Humalog 300 Units/3 Ml Vial SC 2 unit .MODERATE SLIDING SC PRN Administration MODERATE SLIDING SCALE Protocol Linezolid 600 mg 11/23/19 21:00 11/29/19 08:55 Linezolid 600 Mg Tab PO 11/30/19 21:01 600 mg Q12HR MARIELLA Administration Lorazepam 2 mg 11/23/19 10:45 11/29/19 08:54 Lorazepam 2 Mg/Ml Vial SLOW IVP 12/23/19 10:45 2 mg Q1H PRN Administration Breakthrough agitation Methylprednisolone Sodium Succinate 40 mg 11/15/19 21:00 11/29/19 08:54 Methylprednisolone Sod Succ 40 Mg Vial IVP 40 mg BID MARIELLA Administration Metoclopramide HCl 10 mg 11/28/19 09:05 11/28/19 20:22 Metoclopramide Hcl 10 Mg/2 Ml Vial IVP 10 mg Q6H PRN Administration Nausea/Vomiting Mometasone Furoate/Formoterol Fumar 2 puff 11/13/19 18:30 11/29/19 07:07 Mometasone 200 Mcg/Formoterol 5 Mcg 120 Puff Inhaler INH 2 puff BID-RT MARIELLA Administration Morphine Sulfate 2 mg 11/23/19 10:45 11/26/19 11:08 Morphine 2 Mg/Ml Vial SLOW IVP 12/23/19 10:45 2 mg Q1H PRN Administration Breakthrough Pain/Agitation Niacin 500 mg 11/11/19 21:00 11/28/19 20:22 Niacin Er 500 Mg Tab PO 500 mg HS MARIELLA Administration Propofol 1,000 mg 11/23/19 10:45 11/29/19 13:29 Propofol 1,000 Mg/100 Ml Vial IV 12/23/19 10:45 1,000 mg INF PRN Administration TO ACHIEVE GOAL RASS Protocol Rocuronium [place] 10 mg 11/24/19 09:09 11/29/19 08:54 Rocuronium [place] 10 Mg/Ml (10ml Vial) IVP 10 mg Q3H PRN Administration Anxiety/Agitation Sodium Chloride 10 ml 11/10/19 22:03 11/27/19 20:43 Flush - Normal Saline 10 Ml Syringe IVF 10 ml PRN PRN Administration Saline Flush - Exam Neck: negative: supple, symmetric, no JVD, no thyromegaly, no lymphadenopathy, no carotid bruit, JVD Heart: negative: RRR, no murmur, no gallops, no rubs, normal peripheral pulses, irregular, diminshed peripheral pulses, murmur present, II/IV, III/IV Respiratory: negative: CTAB, no wheezes, no rales, no ronchi, normal chest expansion, no tachypnea, normal percussion, rales, rhonchi, tachypneic, wheezes Gastrointestinal: negative: soft, non-tender, non-distended, normal bowel sounds, no palpable masses, no hepatomegaly, no splenomegaly, no bruit, no guarding, no rigidity, tender to palpation, distended, diminished bowl sounds, voluntary guarding Hosp A/P (1) Acute respiratory failure with hypoxemia Code(s): J96.01 - ACUTE RESPIRATORY FAILURE WITH HYPOXIA Status: Acute (2) CAD (coronary artery disease) Code(s): I25.10 - ATHSCL HEART DISEASE OF [place] CORONARY ARTERY W/O ANG PCTRS Status: Chronic (3) DM type 2 (diabetes mellitus, type 2) Status: Chronic (4) Morbid obesity Code(s): E66.01 - MORBID (SEVERE) OBESITY DUE TO EXCESS CALORIES Status: Chronic (5) Obstructive sleep apnea on CPAP Code(s): G47.33 - OBSTRUCTIVE SLEEP APNEA (ADULT) (PEDIATRIC); Z99.89 - DEPENDENCE ON OTHER ENABLING MACHINES AND DEVICES Status: Chronic (6) Aspiration pneumonia Code(s): J69.0 - PNEUMONITIS DUE TO INHALATION OF FOOD AND VOMIT Status: Acute (7) Dysphagia Code(s): R13.10 - DYSPHAGIA, UNSPECIFIED Status: Acute Qualifiers: Dysphagia type: oropharyngeal phase Qualified Code(s): R13.12 - Dysphagia, oropharyngeal phase (8) COVID-19 Code(s): U07.1 - COVID-19 Status: Acute (9) DORIS (acute kidney injury) Code(s): N17.9 - ACUTE KIDNEY FAILURE, UNSPECIFIED Status: Acute - Plan Patient continues to be short of breath and is currently on high flow and is unable to speak complete sentences. He has been seen by speech who recommends thickened liquids. 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 During that admission he was seen by neurology underwent a stroke work-up including a brain MRI which was negative. There was a question about possible myasthenia gravis however the acetylcholine receptor antibody test was negative. Patient was put on Mestinon and per notes stated that his symptoms improved. He could possibly have a seronegative myasthenia gravis. I did review patient's CTA which does not explain his requirement of high flow. He does have right greater than left lower lobe pneumonia and possible mild pulmonary edema. Patient states that he has been having a cough and shortness of breath for the past 8 weeks. He has had a stress test as an outpatient and echocardiogram. Patient is very compliant with his CPAP. He has been seen by GI in the past. Will start patient on Mestinon and see if this helps. Patient never followed up with neurology as an outpatient. 11/22 patient's respiratory status worsened this morning he was intubated by pulmonary. Patient's Covid test came back positive. Patient's Covid test on November 10 was negative. He is already on steroids convalescent plasma started by pulmonology. Will broaden patient's antibiotics also get infectious disease involved. Will start patient on full dose anticoagulation. Spoke with speech therapy who stated that his dysphagia most likely secondary to muscle weakness. Neurology has been consulted. 11/23 pt's vent setting changed per pulmoanry he seems more comfortable. will continue full dose AC. spoke with pt's son Hany [phone] and updated him about his father. pt on steroids and abx. He is on tube feeds. 11/24 we will continue IV antibiotics for now. Monitor thrombocytopenia since patient is on full dose Lovenox. We will continue steroids also. Patient tolerating tube feeds. 11/25 patient's renal function improving. Patient's platelets are stable. Still has an elevated white count we will continue antibiotics and steroids for now. Vent settings changed by pulmonary patient became very tachycardic. We will continue to monitor. Patient is on full dose anticoagulation. 11/26 patient was seen by pulmonary today. Patient currently on SIMV at 65% FiO2. He is tolerating it well. We will continue DVT prophylaxis with full dose anticoagulation clinical course is guarded. 11/27 patient currently intubated. Hypotensive we will start patient on albumin may require Levophed. Will start may be some gentle hydration. Patient is on antibiotics. Clinical course is guarded. Continue DVT prophylaxis with full dose anticoagulation. Will monitor thrombocytopenia. 11/28 pt intubated, off levophed will monitor. will call pt's son and update him. nephrology consulted for doris. If his thrombocytopenia worsens will cut back on his dvt ppx.
[2019-11-29] MEDS ORDERED: Furosemide 100 MG/10 ML VIAL SLOW IVP SCH (16:15)
--- NOTE | 2019-11-29 16:16 | PRG ---
DATE OF SERVICE: 11/29/2019 SUBJECTIVE: Mr. Salas remains mechanically ventilated. His hemodynamics are stable. OBJECTIVE: VITAL SIGNS: Blood pressure 130/60, heart rate is 85, respiratory rate is 24, oximetry is in the low 90s. LUNGS: Unchanged. HEART: Unchanged. ABDOMEN: Unchanged. LABORATORY DATA: White count 14.8, hemoglobin 11.6, and platelets 107. Sodium 142, potassium 5.1, chloride 113, bicarb 14, BUN 123, creatinine 2.03. Intake and output are positive 1792. IMPRESSION: COVID pneumonia with over a liter of positive fluid balance every day and worsening renal function. This is a bad sign. His blood pressure suggests he would probably tolerate some diuresis, so we will give him a dose of Lasix today. His prognosis is still quite guarded. Job ID: [id number]
[2019-11-29] MEDS: Famotidine/PF 20 mg/2ml Vial SLOW IVP SCH (20:59)
[2019-11-29] MEDS ORDERED: Enoxaparin Sodium 80 MG/0.8 ML SYRINGE SC SCH (21:00)
[2019-11-29] MEDS: Insulin Glargine 15 UNITS in Pre-Filled Syringe 1 EACH SC SCH (21:03)
--- NOTE | 2019-11-30 00:44 | CON ---
DATE OF CONSULTATION: CONSULTING PHYSICIAN: Marito Barboza MD REQUESTING PHYSICIAN: Dr. Siu. REASON FOR CONSULTATION: Acute on chronic kidney disease. IMPRESSION: 1. Acute on chronic kidney disease, likely in the context of cytokine-mediated injury and hemodynamically mediated changes due to episode of hypotension. 2. Metabolic acidosis secondary to problem #1 with worsening GFR. 3. Thrombocytopenia. 4. COVID infection, possibly contributing to some renal issues. PLAN: 1. Renally dose all medications and avoid potentially nephrotoxic agents. 2. No emergent indication at this point for renal replacement therapy. 3. If the patient is going to require any form of IV fluid resuscitation, we will recommend bicarb base infusion, otherwise may begin to try oral bicarb supplementation. 4. Renally dose all medications per low GFR. HISTORY OF PRESENT ILLNESS: History is that of a 79-year-old gentleman, who has spent some time in the ICU, presented here with shortness of breath, got diagnosed with COVID infection and has been treated with antibiotics for occurrence of illness because of infection. The patient also noted with thrombocytopenia, is on full-dose anticoagulation. Baseline creatinine of about 1.4. However, at this time of dictation, the patient's creatinine has been going up. Episode of hypotension noted yesterday. As a result of these findings of rising creatinine and worsening metabolic acidosis in the context of the patient, who is septic in ICU, decision has been taken to involve Renal in the management of this case. One cannot completely rule out antibiotic mediated kidney injury, interstitial nephritis. PAST MEDICAL HISTORY: Significant for diabetes mellitus and hypertension. ALLERGIES: NO KNOWN DRUG ALLERGIES. FAMILY HISTORY: Nonsignificantly related to present illness. SOCIAL HISTORY: Remote tobacco use. No alcohol. No illicit drug use. The patient is wheelchair rebound. REVIEW OF SYSTEMS: Could not be obtained from this patient. PHYSICAL EXAMINATION: VITAL SIGNS: The patient noted with the following vital signs; afebrile, temperature 97.8, respiratory rate of 24, and blood pressure 131/63. HEENT: Unremarkable. CARDIOVASCULAR: First and second heart sounds were heard. RESPIRATORY: Revealed transmitted sounds. DIGESTIVE: Obese abdomen. EXTREMITIES: No significant peripheral edema. LABORATORY INVESTIGATIONS: Significant for the following; bicarb of 14, creatinine of 2.03, BUN of 123, potassium of 5.1. CBC showed a white count of 14,800, hemoglobin 11.6, platelet of 107,000. SUMMARY: A 79-year-old gentleman, who is here with COVID infection, respiratory failure, now experiencing worsening renal insufficiency with worsening metabolic acidosis. Thank you for this consultation. We will follow with you. Job ID: [id number]
[2019-11-30] MEDS: Propofol 1,000 MG/100 ML VIAL IV PRN ×7 (01:31→21:22)
[2019-11-30 04:46] LABS: Anion Gap 20 mmol/L (10-20); Calc. Creatinine Clearance 42 mL/min (70-130); Calcium 8.2 mg/dL (7.8-10.44); Carbon Dioxide 15 mmol/L (23-31); Chloride 113 mmol/L (98-107); Estimated GFR-MDRD 23; Glucose 147 mg/dL (83-110); Potassium 5.5 mmol/L (3.5-5.1); Sodium 142 mmol/L (136-145)
[2019-11-30 04:58] LABS: BUN (Urea Nitrogen) 154 mg/dL (8.4-25.7)
[2019-11-30] MEDS: fentaNYL Citrate/PF 2,000 MCG in Sodium Chloride 0.9% 60 ML IV SCH ×2 (05:42→17:32)
[2019-11-30] MEDS: Rocuronium Bromide 10 MG/ML (10ML VIAL) IVP PRN ×2 (05:42→07:49)
[2019-11-30] MEDS: Budesonide 0.5 MG/2 ML NEB NEB SCH ×2 (06:32→19:19)
[2019-11-30] MEDS: Mometasone 200 MCG/Formoterol 5 MCG 120 PUFF INHALER INH SCH ×2 (06:33→19:20)
[2019-11-30 06:52] LABS: Actual Bicarbonate (HCO3a) 12.5 mEq/L (22-28); Base Excess (BEa) -15.3 mEq/L (-2.0 to +3.0); CO2 Tension 36.3 mmHg (35.0-45.0); Calcium, Ionized (arterial) 1.17 mmol/L (1.12-1.30); Carboxyhemoglobin (COHb) 0.8 gm% (0.0-3.0); Hemoglobin (Hb) 13.2 g/dL (14.0-18.0); O2 Tension (PaO2), arterial 67.6 mmHg (> 70.0); Potassium - ABG Lab 5.35 mmol/L (3.70-5.30)
[2019-11-30 06:55] LABS: ALV-art Gradient 314.825 mmHg (0-20); Puncture Site RRA; pH, Arterial 7.16 (7.35-7.45)
[2019-11-30] MEDS: Enoxaparin Sodium 80 MG/0.8 ML SYRINGE SC SCH ×2 (07:32→07:34)
[2019-11-30] MEDS: Metoclopramide HCl 10 MG/2 ML VIAL IVP PRN (07:32)
[2019-11-30] MEDS: Cefepime 2 GM in Sodium Chloride 0.9% 100 ML IVPB SCH (07:32)
[2019-11-30] MEDS: methylPREDNISolone Sod Succ 40 MG VIAL IVP SCH ×2 (07:33→21:22)
[2019-11-30] MEDS: Cholecalciferol 1,000 UNITS (25 MCG) TAB PO SCH (07:34)
[2019-11-30] MEDS: guaiFENesin ER 600 MG TAB PO SCH ×2 (07:34→21:21)
[2019-11-30] MEDS: Lorazepam 2 MG/ML VIAL SLOW IVP PRN (07:35)
[2019-11-30] MEDS: Linezolid 600 MG TAB PO SCH ×2 (07:35→21:21)
[2019-11-30] MEDS ORDERED: Sodium Bicarb 50 MEQ/50 ML Abboject 8.4% SYRINGE IVP SCH (08:30)
[2019-11-30] MEDS ORDERED: Sodium Bicarb 50 MEQ/50 ML Abboject 8.4% SYRINGE ONE (08:45)
[2019-11-30] MEDS: Sodium Bicarbonate 150 MEQ in Dextrose 5% in Water 1,000 ML IV SCH ×3 (09:00→21:23)
--- NOTE | 2019-11-30 09:22 | RAD ---
Portable frontal chest radiograph: 11/30/2019 COMPARISON: 11/27/2019 HISTORY: Shortness of breath FINDINGS: Endotracheal tube and nasogastric tube present, in stable position. No pneumothorax is seen . There is extensive interstitial and alveolar opacity throughout the right lung with a right basilar p redominance, similar when compared to the 11/27/2019 exam. There is hazy groundglass opacity/airspace disease in the left perihilar region as before. Similar hazy increased density is se en within the medial left lung base. IMPRESSION: Stable lines and tubes. Perihilar interstitial/groundglass opacity extending into both alfonso ng bases as before.
[2019-11-30 09:33] LABS: INR-International Normal Ratio 1.4; PTT 45.3 sec (22.9-36.1); Prothrombin Time 17.1 sec (12.0-14.7)
--- NOTE | 2019-11-30 12:37 | PDOC.HOSPP ---
- Subjective Encounter Date: 11/30/19 Encounter Time: 10:30 Subjective: pt intubate - Objective Vital Signs & Weight: Vital Signs (12 hours) Temp Pulse Resp BP Pulse Ox 11/30/19 12:00 28 H 11/30/19 11:22 94 103/50 L 11/30/19 10:00 28 H 11/30/19 08:00 24 H 93 L 11/30/19 07:00 99.5 F 11/30/19 06:33 121 H 120/82 11/30/19 06:00 24 H 11/30/19 05:00 98.5 F 11/30/19 04:00 24 H 11/30/19 03:00 94.5 F L 11/30/19 02:10 65 11/30/19 02:00 24 H Weight Admit Weight 302 lb Weight 291 lb 3.69 oz Most Recent Monitor Data Heart Rate from ECG 94 NIBP 103/51 NIBP BP-Mean 68 Respiration from ECG 28 SpO2 93 I&O: 11/29/19 11/30/19 12/01/19 06:59 06:59 06:59 Intake Total 2867 1581.5 100 Output Total 1075 1950 80 Balance 1792 -368.5 20 Result Diagrams: 11/29/19 03:00 11/30/19 03:30 Additional Labs: Accuchecks 11/29/19 11/29/19 21:12 16:31 POC Glucose 115 H 118 H Hospitalist ROS - Review of Systems Other: pt inutubated - Medication Medications: Active Medications Generic Name Dose Route Start Last Admin Trade Name Freq PRN Reason Stop Dose Admin Acetaminophen 1,000 mg 11/23/19 15:44 11/27/19 17:09 Acetaminophen 650 Mg/20.3 Ml Udcup PER TUBE 1,000 mg Q6H PRN Administration Headache/Fever/Mild Pain (1-3) Albuterol/Ipratropium 3 ml 11/15/19 14:00 11/27/19 18:48 Ipratropium/Albuterol Sulfate 3 Ml Neb NEB 3 ml Q4H PRN Administration SOB &/or Wheezing Budesonide 0.5 mg 11/16/19 18:30 11/30/19 06:32 Budesonide 0.5 Mg/2 Ml Neb NEB 0.5 mg BID-RT MARIELLA Administration Cholecalciferol 2,000 units 10/11/20 09:00 11/30/19 07:34 Cholecalciferol 1,000 Units (25 Mcg) Tab PO 2,000 units DAILY MARIELLA Administration Dextrose/Water 25 gm 11/10/19 22:07 11/27/19 17:24 Dextrose 50% Abboject 50 Ml Syringe SLOW IVP 25 gm PRN PRN Administration Hypoglycemia Diphenhydramine HCl 25 mg 11/12/19 12:39 11/21/19 21:24 Diphenhydramine 25 Mg Cap PO 25 mg Q6H PRN Administration Itching & Insomnia Famotidine 20 mg 11/24/19 21:00 11/29/19 20:59 Famotidine/Pf 20 Mg/2ml Vial SLOW IVP 20 mg 2100 MARIELLA Administration Guaifenesin 1,200 mg 11/19/19 21:00 11/30/19 07:34 Guaifenesin Er 600 Mg Tab PO 1,200 mg Q12HR MARIELLA Administration Fentanyl Citrate 2,000 mcg/ 100 mls @ 0 mls/hr 11/23/19 10:45 11/30/19 05:42 Sodium Chloride IV 12/23/19 10:45 100 mls INF MARIELLA Administration Protocol Per Protocol Insulin Glargine 15 units/ 0.15 mls @ 0 mls/hr 11/28/19 21:00 11/29/19 21:03 Miscellaneous Medication SC 0.15 mls HS MARIELLA Administration Levofloxacin 750 mg/ Device 150 mls @ 100 mls/hr 11/30/19 11:00 11/30/19 10:16 IVPB 150 mls Q2D@1100 MARIELLA Administration Sodium Bicarbonate 150 meq/ 1,150 mls @ 125 mls/hr 11/30/19 08:30 11/30/19 09:00 Dextrose/Water IV 1,150 mls .[id number] MARIELLA Administration Insulin Human Lispro 0 units 11/10/19 22:07 11/20/19 21:25 Humalog 300 Units/3 Ml Vial SC 2 unit .BEDTIME SLIDING SC PRN Administration Bedtime Correctional Scale Insulin Human Lispro 0 units 11/14/19 18:15 11/25/19 12:20 Humalog 300 Units/3 Ml Vial SC 2 unit .MODERATE SLIDING SC PRN Administration MODERATE SLIDING SCALE Protocol Linezolid 600 mg 11/23/19 21:00 11/30/19 07:35 Linezolid 600 Mg Tab PO 11/30/19 21:01 600 mg Q12HR MARIELLA Administration Lorazepam 2 mg 11/23/19 10:45 11/30/19 07:35 Lorazepam 2 Mg/Ml Vial SLOW IVP 12/23/19 10:45 2 mg Q1H PRN Administration Breakthrough agitation Methylprednisolone Sodium Succinate 40 mg 11/15/19 21:00 11/30/19 07:33 Methylprednisolone Sod Succ 40 Mg Vial IVP 40 mg BID MARIELLA Administration Metoclopramide HCl 10 mg 11/28/19 09:05 11/30/19 07:32 Metoclopramide Hcl 10 Mg/2 Ml Vial IVP 10 mg Q6H PRN Administration Nausea/Vomiting Mometasone Furoate/Formoterol Fumar 2 puff 11/13/19 18:30 11/30/19 06:33 Mometasone 200 Mcg/Formoterol 5 Mcg 120 Puff Inhaler INH 2 puff BID-RT MARIELLA Administration Morphine Sulfate 2 mg 11/23/19 10:45 11/26/19 11:08 Morphine 2 Mg/Ml Vial SLOW IVP 12/23/19 10:45 2 mg Q1H PRN Administration Breakthrough Pain/Agitation Niacin 500 mg 11/11/19 21:00 11/29/19 21:00 Niacin Er 500 Mg Tab PO 500 mg HS MARIELLA Administration Propofol 1,000 mg 11/23/19 10:45 11/30/19 10:00 Propofol 1,000 Mg/100 Ml Vial IV 12/23/19 10:45 1,000 mg INF PRN Administration TO ACHIEVE GOAL RASS Protocol Rocuronium [place] 10 mg 11/24/19 09:09 11/30/19 07:49 Rocuronium [place] 10 Mg/Ml (10ml Vial) IVP 10 mg Q3H PRN Administration Anxiety/Agitation Sodium Chloride 10 ml 11/10/19 22:03 11/27/19 20:43 Flush - Normal Saline 10 Ml Syringe IVF 10 ml PRN PRN Administration Saline Flush - Exam Neck: negative: supple, symmetric, no JVD, no thyromegaly, no lymphadenopathy, no carotid bruit, JVD Heart: negative: RRR, no murmur, no gallops, no rubs, normal peripheral pulses, irregular, diminshed peripheral pulses, murmur present, II/IV, III/IV Respiratory: negative: CTAB, no wheezes, no rales, no ronchi, normal chest expansion, no tachypnea, normal percussion, rales, rhonchi, tachypneic, wheezes Gastrointestinal: negative: soft, non-tender, non-distended, normal bowel sounds, no palpable masses, no hepatomegaly, no splenomegaly, no bruit, no guard ing, no rigidity, tender to palpation, distended, diminished bowl sounds, voluntary guarding Hosp A/P (1) Acute respiratory failure with hypoxemia Code(s): J96.01 - ACUTE RESPIRATORY FAILURE WITH HYPOXIA Status: Acute (2) CAD (coronary artery disease) Code(s): I25.10 - ATHSCL HEART DISEASE OF [place] CORONARY ARTERY W/O ANG PCTRS Status: Chronic (3) DM type 2 (diabetes mellitus, type 2) Status: Chronic (4) Morbid obesity Code(s): E66.01 - MORBID (SEVERE) OBESITY DUE TO EXCESS CALORIES Status: Chronic (5) Obstructive sleep apnea on CPAP Code(s): G47.33 - OBSTRUCTIVE SLEEP APNEA (ADULT) (PEDIATRIC); Z99.89 - DEPENDENCE ON OTHER ENABLING MACHINES AND DEVICES Status: Chronic (6) Aspiration pneumonia Code(s): J69.0 - PNEUMONITIS DUE TO INHALATION OF FOOD AND VOMIT Status: Acute (7) Dysphagia Code(s): R13.10 - DYSPHAGIA, UNSPECIFIED Status: Acute Qualifiers: Dysphagia type: oropharyngeal phase Qualified Code(s): R13.12 - Dysphagia, oropharyngeal phase (8) COVID-19 Code(s): U07.1 - COVID-19 Status: Acute (9) DORIS (acute kidney injury) Code(s): N17.9 - ACUTE KIDNEY FAILURE, UNSPECIFIED Status: Acute - Plan Patient continues to be short of breath and is currently on high flow and is unable to speak complete sentences. He has been seen by speech who recommends thickened liquids. 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 During that admission he was seen by neurology underwent a stroke work-up including a brain MRI which was negative. There was a question about possible myasthenia gravis however the acetylcholine receptor antibody test was negative. Patient was put on Mestinon and per notes stated that his symptoms improved. He could possibly have a seronegative myasthenia gravis. I did review patient's CTA which does not explain his requirement of high flow. He does have right greater than left lower lobe pneumonia and possible mild pulmonary edema. Patient states that he has been having a cough and shortness of breath for the past 8 weeks. He has had a stress test as an outpatient and echocardiogram. Patient is very compliant with his CPAP. He has been seen by GI in the past. Will start patient on Mestinon and see if this helps. Patient never followed up with neurology as an o utpatient. 11/22 patient's respiratory status worsened this morning he was intubated by pulmonary. Patient's Covid test came back positive. Patient's Covid test on November 10 was negative. He is already on steroids convalescent plasma started by pulmonology. Will broaden patient's antibiotics also get infectious disease involved. Will start patient on full dose anticoagulation. Spoke with speech therapy who stated that his dysphagia most likely secondary to muscle weakness. Neurology has been consulted. 11/23 pt's vent setting changed per pulmoanry he seems more comfortable. will continue full dose AC. spoke with pt's son Hany [phone] and updated him about his father. pt on steroids and abx. He is on tube feeds. 11/24 we will continue IV antibiotics for now. Monitor thrombocytopenia since patient is on full dose Lovenox. We will continue steroids also. Patient tolerating tube feeds. 11/25 patient's renal function improving. Patient's platelets are stable. Still has an elevated white count we will continue antibiotics and steroids for now. Vent settings changed by pulmonary patient became very tachycardic. We will continue to monitor. Patient is on full dose anticoagulation. 11/26 patient was seen by pulmonary today. Patient currently on SIMV at 65% FiO2. He is tolerating it well. We will continue DVT prophylaxis with full dose anticoagulation clinical course is guarded. 11/27 patient currently intubated. Hypotensive we will start patient on albumin may require Levophed. Will start may be some gentle hydration. Patient is on antibiotics. Clinical course is guarded. Continue DVT prophylaxis with full dose anticoagulation. Will monitor thrombocytopenia. 11/28 pt intubated, off levophed will monitor. will call pt's son and update him. nephrology consulted for doris. If his thrombocytopenia worsens will cut back on his dvt ppx. 11/29 pt has acidosis will start pt on bicarb drip. Called pt's son left message will call him again. pt's bp is marginal will start him on levophed. He is on abx and on dvt ppx.
[2019-11-30 14:19] LABS: Actual Bicarbonate (HCO3a) 16.5 mEq/L (22-28); Base Excess (BEa) -9.8 mEq/L (-2.0 to +3.0); CO2 Tension 37.5 mmHg (35.0-45.0); Calcium, Ionized (arterial) 1.06 mmol/L (1.12-1.30); Carboxyhemoglobin (COHb) 0.2 gm% (0.0-3.0); Hemoglobin (Hb) 12.7 g/dL (14.0-18.0); O2 Tension (PaO2), arterial 65.7 mmHg (> 70.0); Potassium - ABG Lab 5.19 mmol/L (3.70-5.30); pH, Arterial 7.26 (7.35-7.45)
[2019-11-30 14:22] LABS: ALV-art Gradient 279.575 mmHg (0-20); Puncture Site LRA
--- NOTE | 2019-11-30 20:20 | PRG ---
DATE OF SERVICE: 11/30/2019 SUBJECTIVE: The patient is seen and examined today, still dependent on life support. Noted with the following vital signs. OBJECTIVE: VITAL SIGNS: Blood pressure 119/57, pulse of 80, and respiratory rate of 28. HEENT: Remarkable for endotracheal tube in place. CARDIOVASCULAR SYSTEM: First and second heart sounds were heard. RESPIRATORY SYSTEM: Revealed vented sounds. DIGESTIVE SYSTEM: Revealed a benign abdomen with positive bowel sounds. EXTREMITIES: No significant peripheral edema. SKIN: No new gross rash. LYMPHATICS: No peripheral lymphadenopathy. LABORATORY INVESTIGATIONS: Significant for the following; sodium of 142, potassium 5.5 with a bicarb of 15, anion gap of 20, BUN of 154 with a creatinine of 2.68. CBC showed a white count of 14,800, hemoglobin 11.6. ABG showed a pH of 7.26 with pCO2 of 37.5, and a bicarbonate level of 16.5. IMPRESSION: 1. Acute on chronic kidney disease in the context of COVID. 2. COVID infection. 3. Cardiopulmonary failure related to problem #2. 4. Metabolic acidosis. 5. Hyperkalemia. PLAN: 1. We will start this patient on bicarb based infusion to correct acidosis and by so doing influence cellular shift of potassium, which will address the hyperkalemia. 2. Renally dose all medications and avoid potentially nephrotoxic agents. 3. No emergent indication for renal replacement therapy (hemodialysis, however, this modality of treatment might become imminent if the patient's renal function does not improve or the metabolic acidosis does not respond to medical intervention). We will keep an eye on the hyperkalemia. 4. Further management to be dependent on the clinical course. Job ID: [id number]
[2019-11-30] MEDS: Famotidine/PF 20 mg/2ml Vial SLOW IVP SCH (21:21)
[2019-11-30] MEDS: Sodium Bicarb 50 MEQ/50 ML Abboject 8.4% SYRINGE IVP SCH (21:22)
[2019-11-30] MEDS: Insulin Glargine 15 UNITS in Pre-Filled Syringe 1 EACH SC SCH (21:22)
[2019-12-01] MEDS: Sodium Bicarb 50 MEQ/50 ML Abboject 8.4% SYRINGE IVP SCH ×2 (01:35→06:31)
[2019-12-01] MEDS: Propofol 1,000 MG/100 ML VIAL IV PRN ×5 (02:33→20:30)
[2019-12-01 05:07] LABS: Anion Gap 25 mmol/L (10-20); Calc. Creatinine Clearance 32 mL/min (70-130); Carbon Dioxide 17 mmol/L (23-31); Chloride 105 mmol/L (98-107); Estimated GFR-MDRD 17; Glucose 119 mg/dL (83-110); Potassium 5.4 mmol/L (3.5-5.1); Sodium 142 mmol/L (136-145)
[2019-12-01 05:19] LABS: BUN (Urea Nitrogen) 182 mg/dL (8.4-25.7)
[2019-12-01 06:06] LABS: Band 26 % (5-11); Hemoglobin 10.8 g/dL (14.0-18.0); Lymphocytes 1 % (21-51); MDiff Complete? YES; Mean Corpuscular HGB CONC 34.6 g/dL (32.0-36.0); Mean Corpuscular Hemoglobin 33.3 pg (27.0-31.0); Mean Corpuscular Volume 96.3 fL (78.0-98.0); Monocytes 1 % (0-10); Neutrophil 72 % (42-75); Platelet Count 79 thou/uL (130-400); Platelet Morphology Comment Appears Decreased; RBC Distribution Width 13.9 % (11.5-14.5); Red Blood Cell (RBC) Count 3.26 mill/uL (4.70-6.10); White Blood Cell (WBC) Count 14.8 thou/uL (4.8-10.8)
--- NOTE | 2019-12-01 06:58 | PRG ---
DATE OF SERVICE: 11/30/2019 SUBJECTIVE: Mr. Salas remains hemodynamically stable. His acid-base status has deteriorated. He had bicarb this morning. He is on a bicarb drip, although I do not think he will tolerate 150 mL an hour with his renal dysfunction. This has been decreased and he will receive several rounds of bicarb this evening push. OBJECTIVE: LUNGS: Clear. HEART: Regular rhythm. ABDOMEN: Soft. LABORATORY DATA: White count 11.6 yesterday. There is no CBC today. Sodium 142, potassium 5.5, chloride 113, bicarb 15, BUN 154, creatinine 2.68. PH this morning was 7.16, CO2 of 36, pO2 of 67. This afternoon, 7.26, CO2 of 37, pO2 of 65. Potassium is 5.1 this afternoon on blood gas. IMPRESSION: Progressive renal failure on top of diabetes, COVID-19 pneumonia with respiratory failure. He will likely need dialysis tomorrow. I talked to his son, Hany, by phone who wants him to be a DNR, but wants to continue with aggressive care short of resuscitation. I have reassured him that we will. He will likely need dialysis tomorrow morning. CRITICAL CARE TIME: 30 minutes. Job ID: [id number]
[2019-12-01] MEDS ORDERED: Propofol 1,000 MG/100 ML VIAL IV ONE (08:19)
[2019-12-01] MEDS: Cefepime 2 GM in Sodium Chloride 0.9% 100 ML IVPB SCH (08:26)
[2019-12-01] MEDS: methylPREDNISolone Sod Succ 40 MG VIAL IVP SCH ×2 (08:28→19:42)
[2019-12-01] MEDS: guaiFENesin ER 600 MG TAB PO SCH ×2 (08:28→19:42)
[2019-12-01] MEDS: Budesonide 0.5 MG/2 ML NEB NEB SCH ×2 (09:00→18:49)
[2019-12-01] MEDS: Enoxaparin Sodium 40 MG/0.4 ML SYRINGE SC SCH ×2 (10:01→19:42)
[2019-12-01] MEDS: Cholecalciferol 1,000 UNITS (25 MCG) TAB PO SCH (10:09)
[2019-12-01] MEDS: fentaNYL Citrate/PF 2,000 MCG in Sodium Chloride 0.9% 60 ML IV SCH (11:46)
--- NOTE | 2019-12-01 12:08 | PRG ---
DATE OF SERVICE: 12/01/2019 SUBJECTIVE: Oren Connor remains intubated, hemodynamically stable. OBJECTIVE: VITAL SIGNS: Blood pressure 154/70, heart rate is in 70s, respiratory rates in the 20s, FiO2 is at 55%. LUNGS: Unchanged. HEART: Unchanged. ABDOMEN: Unchanged. Intake and output are positive 2463. Urine output was only 335 mL. LABORATORY DATA: Sodium 142, potassium 5.4, chloride 105, bicarb 17, BUN 182, and creatinine 3.59. For some reason, blood gas was not done this morning. We will reorder blood gases. IMPRESSION: 1. COVID pneumonia. 2. Respiratory failure with severe metabolic acidosis secondary to acute renal failure. He needs to be dialyzed today. Nephrology is following. CRITICAL CARE TIME: 30 minutes. Job ID: [id number]
[2019-12-01] MEDS: Mometasone 200 MCG/Formoterol 5 MCG 120 PUFF INHALER INH SCH ×2 (12:37→18:51)
[2019-12-01] MEDS: Sodium Bicarbonate 150 MEQ in Dextrose 5% in Water 1,000 ML IV SCH (12:56)
[2019-12-01 14:18] VITALS: BMI 44.9
--- NOTE | 2019-12-01 18:50 | PDOC.HOSPP ---
- Subjective Encounter Date: 12/01/19 Encounter Time: 11:15 Subjective: pt intubated - Objective Vital Signs & Weight: Vital Signs (12 hours) Temp Pulse Resp BP Pulse Ox 12/01/19 18:00 28 H 12/01/19 16:00 97.2 F L 28 H 12/01/19 14:52 65 130/75 12/01/19 14:00 28 H 12/01/19 12:08 65 123/63 12/01/19 12:00 97.8 F 28 H 12/01/19 10:00 28 H 12/01/19 08:00 97.8 F 28 H 93 L Weight Admit Weight 302 lb Weight 295 lb 13.765 oz Most Recent Monitor Data Heart Rate from ECG 69 NIBP 130/79 NIBP BP-Mean 96 Respiration from ECG 28 SpO2 100 I&O: 11/30/19 12/01/19 12/02/19 06:59 06:59 06:59 Intake Total 1581.5 2948 1230.3 Output Total 1950 485 156 Balance -368.5 2463 1074.3 Result Diagrams: 12/01/19 04:30 12/01/19 04:30 Additional Labs: Accuchecks 11/30/19 21:29 POC Glucose 128 H Hospitalist ROS - Review of Systems Other: intubated - Medication Medications: Active Medications Generic Name Dose Route Start Last Admin Trade Name Freq PRN Reason Stop Dose Admin Acetaminophen 1,000 mg 11/23/19 15:44 11/27/19 17:09 Acetaminophen 650 Mg/20.3 Ml Udcup PER TUBE 1,000 mg Q6H PRN Administration Headache/Fever/Mild Pain (1-3) Albuterol/Ipratropium 3 ml 11/15/19 14:00 11/27/19 18:48 Ipratropium/Albuterol Sulfate 3 Ml Neb NEB 3 ml Q4H PRN Administration SOB &/or Wheezing Bisacodyl 10 mg 11/19/19 08:46 12/01/19 16:38 Bisacodyl 5 Mg Tab PO 10 mg DAILYPRN PRN Administration Constipation Budesonide 0.5 mg 11/16/19 18:30 12/01/19 09:00 Budesonide 0.5 Mg/2 Ml Neb NEB Not Given BID-RT MARIELLA Cholecalciferol 2,000 units 11/19/19 09:00 12/01/19 10:09 Cholecalciferol 1,000 Units (25 Mcg) Tab PO 2,000 units DAILY MARIELLA Administration Dextrose/Water 25 gm 11/10/19 22:07 11/27/19 17:24 Dextrose 50% Abboject 50 Ml Syringe SLOW IVP 25 gm PRN PRN Administration Hypoglycemia Diphenhydramine HCl 25 mg 11/12/19 12:39 11/21/19 21:24 Diphenhydramine 25 Mg Cap PO 25 mg Q6H PRN Administration Itching & Insomnia Enoxaparin Sodium 40 mg 12/01/19 09:00 12/01/19 10:01 Enoxaparin Sodium 40 Mg/0.4 Ml Syringe SC 40 mg BID MARIELLA Administration Famotidine 20 mg 11/24/19 21:00 11/30/19 21:21 Famotidine/Pf 20 Mg/2ml Vial SLOW IVP 20 mg 2100 MARIELLA Administration Guaifenesin 1,200 mg 11/19/19 21:00 12/01/19 08:28 Guaifenesin Er 600 Mg Tab PO 1,200 mg Q12HR MARIELLA Administration Fentanyl Citrate 2,000 mcg/ 100 mls @ 0 mls/hr 11/23/19 10:45 12/01/19 11:46 Sodium Chloride IV 12/23/19 10:45 100 mls INF MARIELLA Administration Protocol Per Protocol Insulin Glargine 15 units/ 0.15 mls @ 0 mls/hr 11/28/19 21:00 11/30/19 21:22 Miscellaneous Medication SC 0.15 mls HS MARIELLA Administration Levofloxacin 750 mg/ Device 150 mls @ 100 mls/hr 11/30/19 11:00 11/30/19 10:16 IVPB 150 mls Q2D@1100 MARIELLA Administration Sodium Bicarbonate 150 meq/ 1,150 mls @ 75 mls/hr 11/30/19 08:30 12/01/19 12:56 Dextrose/Water IV 1,150 mls .[id number] MARIELLA Administration Cefepime HCl 2 gm/ Sodium 100 mls @ 200 mls/hr 12/01/19 09:00 12/01/19 08:26 Chloride IVPB 100 mls 0900 MARIELLA Administration Insulin Human Lispro 0 units 11/10/19 22:07 11/20/19 21:25 Humalog 300 Units/3 Ml Vial SC 2 unit .BEDTIME SLIDING SC PRN Administration Bedtime Correctional Scale Insulin Human Lispro 0 units 11/14/19 18:15 11/25/19 12:20 Humalog 300 Units/3 Ml Vial SC 2 unit .MODERATE SLIDING SC PRN Administration MODERATE SLIDING SCALE Protocol Lorazepam 2 mg 11/23/19 10:45 11/30/19 07:35 Lorazepam 2 Mg/Ml Vial SLOW IVP 12/23/19 10:45 2 mg Q1H PRN Administration Breakthrough agitation Methylprednisolone Sodium Succinate 40 mg 11/15/19 21:00 12/01/19 08:28 Methylprednisolone Sod Succ 40 Mg Vial IVP 40 mg BID MARIELLA Administration Metoclopramide HCl 10 mg 11/28/19 09:05 11/30/19 07:32 Metoclopramide Hcl 10 Mg/2 Ml Vial IVP 10 mg Q6H PRN Administration Nausea/Vomiting Mometasone Furoate/Formoterol Fumar 2 puff 11/13/19 18:30 12/01/19 12:37 Mometasone 200 Mcg/Formoterol 5 Mcg 120 Puff Inhaler INH Not Given BID-RT MARIELLA Morphine Sulfate 2 mg 11/23/19 10:45 11/26/19 11:08 Morphine 2 Mg/Ml Vial SLOW IVP 12/23/19 10:45 2 mg Q1H PRN Administration Breakthrough Pain/Agitation Niacin 500 mg 11/11/19 21:00 11/30/19 21:22 Niacin Er 500 Mg Tab PO 500 mg HS MARIELLA Administration Propofol 1,000 mg 11/23/19 10:45 12/01/19 16:38 Propofol 1,000 Mg/100 Ml Vial IV 12/23/19 10:45 1,000 mg INF PRN Administration TO ACHIEVE GOAL RASS Protocol Rocuronium [place] 10 mg 11/24/19 09:09 11/30/19 07:49 Rocuronium [place] 10 Mg/Ml (10ml Vial) IVP 10 mg Q3H PRN Administration Anxiety/Agitation Senna/Docusate Sodium 2 tab 11/10/19 22:03 12/01/19 16:38 Senokot S 8.6-50 Mg Tab PO 2 tab BID PRN Administration Constipation Sodium Chloride 10 ml 11/10/19 22:03 11/27/19 20:43 Flush - Normal Saline 10 Ml Syringe IVF 10 ml PRN PRN Administration Saline Flush - Exam Heart: negative: RRR, no murmur, no gallops, no rubs, normal peripheral pulses, irregular, diminshed peripheral pulses, murmur present, II/IV, III/IV Respiratory: negative: CTAB, no wheezes, no rales, no ronchi, normal chest expansion, no tachypnea, normal percussion, rales, rhonchi, tachypneic, wheezes Gastrointestinal: negative: soft, non-tender, non-distended, normal bowel sounds, no palpable masses, no hepatomegaly, no splenomegaly, no bruit, no guarding, no rigidity, tender to palpation, distended, diminished bowl sounds, voluntary guarding Extremities: 2+ LE edema Hosp A/P (1) Acute respiratory failure with hypoxemia Code(s): J96.01 - ACUTE RESPIRATORY FAILURE WITH HYPOXIA Status: Acute (2) CAD (coronary artery disease) Code(s): I25.10 - ATHSCL HEART DISEASE OF [place] CORONARY ARTERY W/O ANG PCTRS Status: Chronic (3) DM type 2 (diabetes mellitus, type 2) Status: Chronic (4) Morbid obesity Code(s): E66.01 - MORBID (SEVERE) OBESITY DUE TO EXCESS CALORIES Status: Chronic (5) Obstructive sleep apnea on CPAP Code(s): G47.33 - OBSTRUCTIVE SLEEP APNEA (ADULT) (PEDIATRIC); Z99.89 - DEPENDENCE ON OTHER ENABLING MACHINES AND DEVICES Status: Chronic (6) Aspiration pneumonia Code(s): J69.0 - PNEUMONITIS DUE TO INHALATION OF FOOD AND VOMIT Status: Acute (7) Dysphagia Code(s): R13.10 - DYSPHAGIA, UNSPECIFIED Status: Acute Qualifiers: Dysphagia type: oropharyngeal phase Qualified Code(s): R13.12 - Dysphagia, oropharyngeal phase (8) COVID-19 Code(s): U07.1 - COVID-19 Status: Acute (9) DORIS (acute kidney injury) Code(s): N17.9 - ACUTE KIDNEY FAILURE, UNSPECIFIED Status: Acute - Plan Patient continues to be short of breath and is currently on high flow and is unable to speak complete sentences. He has been seen by speech who recommends thickened liquids. 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 During that admission he was seen by neurology underwent a stroke work-up including a brain MRI which was negative. There was a question about possible myasthenia gravis however the acetylcholine receptor antibody test was negative. Patient was put on Mestinon and per notes stated that his symptoms improved. He could possibly have a seronegative myasthenia gravis. I did review patient's CTA which does not explain his requirement of high flow. He does have right greater than left lower lobe pneumonia and possible mild pulmonary edema. Patient states that he has been having a cough and shortness of breath for the past 8 weeks. He has had a stress test as an outpatient and echocardiogram. Patient is very compliant with his CPAP. He has been seen by GI in the past. Will start patient on Mestinon and see if this helps. Patient never followed up with neurology as an outpatient. 11/22 patient's respiratory status worsened this morning he was intubated by pulmonary. Patient's Covid test came back positive. Patient's Covid test on November 10 was negative. He is already on steroids convalescent plasma started by pulmonology. Will broaden patient's antibiotics also get infectious disease involved. Will start patient on full dose anticoagulation. Spoke with speech therapy who stated that his dysphagia most likely secondary to muscle weakness. Neurology has been consulted. 11/23 pt's vent setting changed per pulmoanry he seems more comfortable. will continue full dose AC. spoke with pt's son Hany [phone] and updated him about his father. pt on steroids and abx. He is on tube feeds. 11/24 we will continue IV antibiotics for now. Monitor thrombocytopenia since patient is on full dose Lovenox. We will continue steroids also. Patient tolerating tube feeds. 11/25 patient's renal function improving. Patient's platelets are stable. Still has an elevated white count we will continue antibiotics and steroids for now. Vent settings changed by pulmonary patient became very tachycardic. We will continue to monitor. Patient is on full dose anticoagulation. 11/26 patient was seen by pulmonary today. Patient currently on SIMV at 65% FiO2. He is tolerating it well. We will continue DVT prophylaxis with full dose anticoagulation clinical course is guarded. 11/27 patient currently intubated. Hypotensive we will start patient on albumin may require Levophed. Will start may be some gentle hydration. Patient is on antibiotics. Clinical course is guarded. Continue DVT prophylaxis with full dose anticoagulation. Will monitor thrombocytopenia. 11/28 pt intubated, off levophed will monitor. will call pt's son and update him. nephrology consulted for doris. If his thrombocytopenia worsens will cut back on his dvt ppx. 11/29 pt has acidosis will start pt on bicarb drip. Called pt's son left message will call him again. pt's bp is marginal will start him on levophed. He is on abx and on dvt ppx. 11/30 pt's bun and creatinine continues to worsen. He is on bicarb drip but will need dialysis. worsening thrombocytopenia. will continue abx for now. will talk with nephrology for starting dialysis. will continue monitoring his blood work in am. will continue AC for now.
[2019-12-01] MEDS: Famotidine/PF 20 mg/2ml Vial SLOW IVP SCH (19:42)
[2019-12-01] MEDS: Insulin Glargine 15 UNITS in Pre-Filled Syringe 1 EACH SC SCH (22:11)
[2019-12-02] MEDS: fentaNYL Citrate/PF 2,000 MCG in Sodium Chloride 0.9% 60 ML IV SCH ×2 (01:09→13:41)
[2019-12-02] MEDS: Propofol 1,000 MG/100 ML VIAL IV PRN ×6 (01:15→20:52)
[2019-12-02] MEDS: Sodium Bicarbonate 150 MEQ in Dextrose 5% in Water 1,000 ML IV SCH ×2 (04:30→18:13)
[2019-12-02 05:56] LABS: Band 20 % (5-11); Hemoglobin 11.5 g/dL (14.0-18.0); Lymphocytes 1 % (21-51); MDiff Complete? YES; Mean Corpuscular Hemoglobin 32.9 pg (27.0-31.0); Mean Corpuscular Volume 96.9 fL (78.0-98.0); Monocytes 1 % (0-10); Neutrophil 78 % (42-75); Platelet Count 62 thou/uL (130-400); Platelet Morphology Comment Appears Decreased; RBC Distribution Width 13.9 % (11.5-14.5); Red Blood Cell (RBC) Count 3.51 mill/uL (4.70-6.10); White Blood Cell (WBC) Count 13.2 thou/uL (4.8-10.8)
[2019-12-02 06:09] LABS: Anion Gap 29 mmol/L (10-20); Calc. Creatinine Clearance 28 mL/min (70-130); Calcium 6.6 mg/dL (7.8-10.44); Carbon Dioxide 19 mmol/L (23-31); Chloride 98 mmol/L (98-107); Estimated GFR-MDRD 14; Glucose 151 mg/dL (83-110); Potassium 5.7 mmol/L (3.5-5.1); Sodium 140 mmol/L (136-145)
[2019-12-02 06:20] LABS: BUN (Urea Nitrogen) 194 mg/dL (8.4-25.7)
[2019-12-02 07:14] LABS: Actual Bicarbonate (HCO3a) 18.5 mEq/L (22-28); Base Excess (BEa) -5.6 mEq/L (-2.0 to +3.0); CO2 Tension 31.7 mmHg (35.0-45.0); Calcium, Ionized (arterial) 0.84 mmol/L (1.12-1.30); Carboxyhemoglobin (COHb) 0.3 gm% (0.0-3.0); Hemoglobin (Hb) 11.4 g/dL (14.0-18.0); O2 Tension (PaO2), arterial 81.9 mmHg (> 70.0); Potassium - ABG Lab 5.34 mmol/L (3.70-5.30); Puncture Site RRAD; pH, Arterial 7.39 (7.35-7.45)
[2019-12-02 07:15] LABS: ALV-art Gradient 448.875 mmHg (0-20)
[2019-12-02] MEDS: Budesonide 0.5 MG/2 ML NEB NEB SCH ×2 (07:16→18:43)
[2019-12-02] MEDS: Mometasone 200 MCG/Formoterol 5 MCG 120 PUFF INHALER INH SCH ×2 (07:16→18:43)
[2019-12-02] MEDS: HumaLOG 300 UNITS/3 ML VIAL SC PRN (07:38)
[2019-12-02] MEDS: Cholecalciferol 1,000 UNITS (25 MCG) TAB PO SCH (10:00)
[2019-12-02] MEDS: methylPREDNISolone Sod Succ 40 MG VIAL IVP SCH ×2 (10:00→20:52)
[2019-12-02] MEDS: Cefepime 2 GM in Sodium Chloride 0.9% 100 ML IVPB SCH (10:00)
[2019-12-02] MEDS: Enoxaparin Sodium 40 MG/0.4 ML SYRINGE SC SCH ×2 (10:00→20:51)
[2019-12-02] MEDS: guaiFENesin ER 600 MG TAB PO SCH ×2 (10:01→20:52)
--- NOTE | 2019-12-02 10:31 | PRG ---
DATE OF SERVICE: 12/02/2019 35 minutes critical care time. SUBJECTIVE: The patient remains on mechanical ventilation for COVID-19 pneumonia. OBJECTIVE: VITAL SIGNS: Temperature 97, pulse 76, blood pressure 100/59, O2 saturation 97%. Currently on a propofol drip, 24-hour intake 2827, output 331. HEENT: Unremarkable. NECK: No adenopathy or JVD. LUNGS: Crackles bilaterally. CARDIAC: S1, S2. Regular. ABDOMEN: Soft. EXTREMITIES: No edema. LABORATORY DATA: Sodium 140, potassium 5.7, chloride 98, CO2 19, BUN , creatinine 4.2, and glucose 151. C-reactive protein is 16.5, pH 7.39, pCO2 of 31, pO2 of 81 with an AA gradient of 448. SIMV rate 28 with FiO2 of 80%. White blood cell count 13.2, hematocrit 34 and platelet count 62. ASSESSMENT: 1. COVID-19 pneumonia. 2. Acute respiratory failure requiring mechanical ventilation. 3. Acute renal failure. PLAN: 1. I have been able to go down on his FiO2 and his tidal volume today. I am trying to keep his peak pressures less than 30. 2. The patient is currently on a bicarbonate drip through Nephrology. I do think that he is going to need to be dialyzed fairly soon, because of his worsening hyperkalemia and worsening BUN. I also think removal of volume would probably help his pulmonary situation. 3. We will continue to trend his labs. He will be given steroids and continued on anticoagulation. His prospect for survival is very poor. Job ID: [id number]
--- NOTE | 2019-12-02 11:14 | PDOC.HOSPP ---
- Subjective Encounter Date: 12/02/19 Encounter Time: 11:11 Subjective: Mr. Salas was seen today in follow-up of COVID pneumonia and respiratory failure. He is intubated. No problems voiced by staff. - Objective Vital Signs & Weight: Vital Signs (12 hours) Temp Pulse Resp BP Pulse Ox 12/02/19 10:08 80 12/02/19 10:00 28 H 12/02/19 09:00 98.5 F 12/02/19 08:00 28 H 100 12/02/19 07:16 72 12/02/19 06:00 28 H 12/02/19 04:00 97 F L 28 H 12/02/19 03:11 69 12/02/19 02:00 28 H 12/02/19 00:00 97.3 F L 28 H 12/01/19 23:50 70 100/61 Weight Admit Weight 302 lb Weight 310 lb 13.628 oz Most Recent Monitor Data Heart Rate from ECG 93 NIBP 111/62 NIBP BP-Mean 78 Respiration from ECG 28 SpO2 95 I&O: 12/01/19 12/02/19 12/03/19 06:59 06:59 06:59 Intake Total 2948 2827.0 180 Output Total 485 331 35 Balance 2463 2496.0 145 Result Diagrams: 12/02/19 05:15 12/02/19 05:15 Additional Labs: Accuchecks 12/02/19 01:26 POC Glucose 114 H Hospitalist ROS - Medication Medications: Active Medications Generic Name Dose Route Start Last Admin Trade Name Freq PRN Reason Stop Dose Admin Acetaminophen 1,000 mg 11/23/19 15:44 11/27/19 17:09 Acetaminophen 650 Mg/20.3 Ml Udcup PER TUBE 1,000 mg Q6H PRN Administration Headache/Fever/Mild Pain (1-3) Albuterol/Ipratropium 3 ml 11/15/19 14:00 11/27/19 18:48 Ipratropium/Albuterol Sulfate 3 Ml Neb NEB 3 ml Q4H PRN Administration SOB &/or Wheezing Bisacodyl 10 mg 11/19/19 08:46 12/01/19 16:38 Bisacodyl 5 Mg Tab PO 10 mg DAILYPRN PRN Administration Constipation Budesonide 0.5 mg 11/16/19 18:30 12/02/19 07:16 Budesonide 0.5 Mg/2 Ml Neb NEB 0.5 mg BID-RT MARIELLA Administration Cholecalciferol 2,000 units 11/19/19 09:00 12/02/19 10:00 Cholecalciferol 1,000 Units (25 Mcg) Tab PO 2,000 units DAILY MARIELLA Administration Dextrose/Water 25 gm 11/10/19 22:07 11/27/19 17:24 Dextrose 50% Abboject 50 Ml Syringe SLOW IVP 25 gm PRN PRN Administration Hypoglycemia Diphenhydramine HCl 25 mg 11/12/19 12:39 11/21/19 21:24 Diphenhydramine 25 Mg Cap PO 25 mg Q6H PRN Administration Itching & Insomnia Enoxaparin Sodium 40 mg 12/01/19 09:00 12/02/19 10:00 Enoxaparin Sodium 40 Mg/0.4 Ml Syringe SC 40 mg BID MARIELLA Administration Famotidine 20 mg 11/24/19 21:00 12/01/19 19:42 Famotidine/Pf 20 Mg/2ml Vial SLOW IVP 20 mg 2100 MARIELLA Administration Guaifenesin 1,200 mg 11/19/19 21:00 12/02/19 10:01 Guaifenesin Er 600 Mg Tab PO 1,200 mg Q12HR MARIELLA Administration Fentanyl Citrate 2,000 mcg/ 100 mls @ 0 mls/hr 11/23/19 10:45 12/02/19 01:09 Sodium Chloride IV 12/23/19 10:45 100 mls INF MARIELLA Administration Protocol Per Protocol Insulin Glargine 15 units/ 0.15 mls @ 0 mls/hr 11/28/19 21:00 12/01/19 22:11 Miscellaneous Medication SC Not Given HS MARIELLA Levofloxacin 750 mg/ Device 150 mls @ 100 mls/hr 11/30/19 11:00 12/02/19 10:00 IVPB 150 mls Q2D@1100 MARIELLA Administration Sodium Bicarbonate 150 meq/ 1,150 mls @ 75 mls/hr 11/30/19 08:30 12/02/19 04:30 Dextrose/Water IV 1,150 mls .[id number] MARIELLA Administration Cefepime HCl 2 gm/ Sodium 100 mls @ 200 mls/hr 12/01/19 09:00 12/02/19 10:00 Chloride IVPB 100 mls 0900 MARIELLA Administration Insulin Human Lispro 0 units 11/10/19 22:07 11/20/19 21:25 Humalog 300 Units/3 Ml Vial SC 2 unit .BEDTIME SLIDING SC PRN Administration Bedtime Correctional Scale Insulin Human Lispro 0 units 11/14/19 18:15 12/02/19 07:38 Humalog 300 Units/3 Ml Vial SC 2 unit .MODERATE SLIDING SC PRN Administration MODERATE SLIDING SCALE Protocol Lorazepam 2 mg 11/23/19 10:45 11/30/19 07:35 Lorazepam 2 Mg/Ml Vial SLOW IVP 12/23/19 10:45 2 mg Q1H PRN Administration Breakthrough agitation Methylprednisolone Sodium Succinate 40 mg 11/15/19 21:00 12/02/19 10:00 Methylprednisolone Sod Succ 40 Mg Vial IVP 40 mg BID MARIELLA Administration Metoclopramide HCl 10 mg 11/28/19 09:05 11/30/19 07:32 Metoclopramide Hcl 10 Mg/2 Ml Vial IVP 10 mg Q6H PRN Administration Nausea/Vomiting Mometasone Furoate/Formoterol Fumar 2 puff 11/13/19 18:30 12/02/19 07:16 Mometasone 200 Mcg/Formoterol 5 Mcg 120 Puff Inhaler INH 2 puff BID-RT MARIELLA Administration Morphine Sulfate 2 mg 11/23/19 10:45 11/26/19 11:08 Morphine 2 Mg/Ml Vial SLOW IVP 12/23/19 10:45 2 mg Q1H PRN Administration Breakthrough Pain/Agitation Niacin 500 mg 11/11/19 21:00 12/01/19 19:42 Niacin Er 500 Mg Tab PO 500 mg HS MARIELLA Administration Propofol 1,000 mg 11/23/19 10:45 12/02/19 10:04 Propofol 1,000 Mg/100 Ml Vial IV 12/23/19 10:45 1,000 mg INF PRN Administration TO ACHIEVE GOAL RASS Protocol Rocuronium Rincon 10 mg 11/24/19 09:09 11/30/19 07:49 Rocuronium R[place]con 10 Mg/Ml (10ml Vial) IVP 10 mg Q3H PRN Administration Anxiety/Agitation Senna/Docusate Sodium 2 tab 11/10/19 22:03 12/01/19 16:38 Senokot S 8.6-50 Mg Tab PO 2 tab BID PRN Administration Constipation Sodium Chloride 10 ml 11/10/19 22:03 12/01/19 19:43 Flush - Normal Saline 10 Ml Syringe IVF 10 ml PRN PRN Administration Saline Flush - Exam Eye: PERRL, anicteric sclera Heart: RRR, no murmur, no gallops, no rubs, normal peripheral pulses Respiratory: rales (+ rales at both bases, and occasional rhonchi) Gastrointestinal: soft, non-tender, non-distended, normal bowel sounds Extremities: 2+ LE edema (+ edema in both upper and lower extremities) Hosp A/P (1) DORIS (acute kidney injury) Code(s): N17.9 - ACUTE KIDNEY FAILURE, UNSPECIFIED Status: Acute (2) Acute respiratory failure with hypoxemia Code(s): J96.01 - ACUTE RESPIRATORY FAILURE WITH HYPOXIA Status: Acute (3) COVID-19 Code(s): U07.1 - COVID-19 Status: Acute (4) CAD (coronary artery disease) Code(s): I25.10 - ATHSCL HEART DISEASE OF [place] CORONARY ARTERY W/O ANG PCTRS Status: Chronic (5) DM type 2 (diabetes mellitus, type 2) Status: Chronic (6) Morbid obesity Code(s): E66.01 - MORBID (SEVERE) OBESITY DUE TO EXCESS CALORIES Status: Chronic - Plan * Acute respiratory failure due to COVID pneumonia.- continue supportive care * He is on Solumedrol IV * He continue to require ventilator support * Acute kidney injury, now requiring dialysis- plan is to have dialysis catheter placed * DM- blood glucose is stable
--- NOTE | 2019-12-02 13:19 | PRG ---
DATE OF SERVICE: 12/01/2019 SUBJECTIVE: The patient noted to still be in critical condition, still on life support with the following vital signs. OBJECTIVE: VITAL SIGNS: Afebrile, temperature 97.2, pulse 55, respiratory rate of 28, blood pressure 130/75, and O2 saturation . HEENT: Remarkable for endotracheal tube in place. CARDIOVASCULAR SYSTEM: First and second heart sounds were heard. RESPIRATORY SYSTEM: Revealed vented sounds. DIGESTIVE SYSTEM: Positive bowel sounds. EXTREMITIES: No significant edema. LABORATORY INVESTIGATION: Showed a potassium of 5.3, BUN of 182 with a creatinine of 3.52, bicarb of 17, anion gap of 25, and calcium 7.0. IMPRESSION: 1. Worsening acute kidney injury with profound azotemia. 2. Metabolic acidosis. 3. Mild hyperkalemia. 4. Cardiopulmonary failure in the context of COVID infection. PLAN: 1. The patient is currently on BiPAP however, the patient's renal function continues to deteriorate with potassium being mildly persistently high. Renal replacement therapy (hemodialysis) is the modality of treatment likely to be initiated within 24 hours if the patient's renal status continues in this trajectory. 2. Continue to renally dose all medications. 3. Avoid potentially nephrotoxic agents. 4. Further management to be dependent on the clinical course. Job ID: [id number]
--- NOTE | 2019-12-02 13:22 | PRG ---
DATE OF SERVICE: 11/30/2019 SUBJECTIVE: The patient is seen and examined, still very sick in a prone position on life support. Noted with the following vital signs. SUBJECTIVE: VITAL SIGNS: Pulse of , blood pressure 119/63, respiratory rate of 85 with saturation 100%. HEENT: Unremarkable. Endotracheal tube in place. CARDIOVASCULAR SYSTEM: First and second heart sounds were heard. RESPIRATORY SYSTEM: Revealed vented sounds. DIGESTIVE SYSTEM: Obese abdomen. EXTREMITIES: Some peripheral edema. LABORATORY INVESTIGATION: Showed a white count of 33,000, and chemistry showed a sodium of 148, potassium 3.2, bicarb of 22, BUN of 50, creatinine 2.51. Blood gas showed a pH of 7.08 with pCO2 of 93. IMPRESSION: 1. Cardiopulmonary failure in the context of problem #2. 2. COVID infestation. 3. Acute kidney injury. 4. Severe respiratory acidosis. PLAN: 1. The patient will not benefit from bicarb infusion. We will continue renal supportive measures. 2. The patient's prognosis is very poor. 3. The patient to benefit from adjustment of vent to improve carbon oxide blowout, inhalation and exhalation. 4. Further management to be dependent on the clinical course. Job ID: [id number]
[2019-12-02 13:49] LABS: HBSAB Concentration Less than 8.00 mIU/mL; HBSAg Index 0.15 S/CO (0-0.99); Hep B Core Total Ab Non-Reactive (NonReactive); Hep B Core Total Index 0.06 S/CO (0-0.79); Hep B Surf AB Non-Reactive (NonReactive); Hep B Surf Ag Non-Reactive S/CO (NonReactive)
[2019-12-02 13:50] LABS: Hep C IgG Ab Non-Reactive (NonReactive); Hep C Index 0.08 S/CO (0-0.79)
--- NOTE | 2019-12-02 13:56 | PDOC.GSCN ---
Surgery Consult: HPI - Consult details Date: 12/02/19 Time: 13:54 History of present illness: 12/02/19 13:54 Chief complaint-unobtainable History of present illness-the patient is a 79-year-old gentleman who has been in the hospital for several weeks, initially with shortness of breath, now intubated with Covid, pneumonia, and renal failure. Nephrology has been mon itoring his renal function for the last several days. He is now at the point of needing dialysis. Consent was obtained over the phone from the patient's family Surgery Consult: ROS - Review of Systems ROS unobtainable: due to endotracheal tube Surgery Consult: [facility] Past Medical History: Sleep apnea, morbid obesity, coronary artery disease Past Surgical History: CABG, right hip replacement - Past Family History Pertinent family history: Cardiac and cancer - Past Social History Smoking Status: Former smoker Alcohol Use: none Drug Use History: none Surgery Consult: Exam - Vital signs Vital signs: Vital Signs - Most Recent Temp Pulse Resp BP Pulse Ox 98.2 F 80 28 H 100/61 100 12/02/19 12:00 12/02/19 10:08 12/02/19 12:00 12/01/19 23:50 12/02/19 08:00 - Physical Exam Additional exam: General-obese, sedated and on the ventilator Head-[normocephalic, atraumatic] HEENT- [EOMI], [PERRLA] Neck-[trachea midline, supple] Lungs-decreased breath sounds bilaterally, [normal air movement] Heart-[regular regular], [no murmurs] Abdomen-[soft], [nondistended], [nontender], [normal active bowel sounds] Musculosketal-[full range of motion], [no gross deformity] Psychiatric-[good insight, good judgment] Skin-[good turgor, no jaundice] Neuro- sedated and ventilated Surgery Consult: Meds - Medications Medications: Current Medications Acetaminophen (Acetaminophen 650 Mg/20.3 Ml Udcup) 1,000 mg PER TUBE Q6H PRN PRN Reason: Headache/Fever/Mild Pain (1-3) Last Admin: 11/27/19 17:09 Dose: 1,000 mg Documented by: Albuterol/Ipratropium (Ipratropium/Albuterol Sulfate 3 Ml Neb) 3 ml NEB Q4H PRN PRN Reason: SOB &/or Wheezing Last Admin: 11/27/19 18:48 Dose: 3 ml Documented by: Bisacodyl (Bisacodyl 5 Mg Tab) 10 mg PO DAILYPRN PRN PRN Reason: Constipation Last Admin: 12/01/19 16:38 Dose: 10 mg Documented by: Budesonide (Budesonide 0.5 Mg/2 Ml Neb) 0.5 mg NEB BID-RT [facility] Last Admin: 12/02/19 07:16 Dose: 0.5 mg Documented by: Calcium Carbonate (Calcium Carbonate 500 Mg Chewtab) 1,000 mg PO Q4H PRN PRN Reason: Heartburn or Indigestion Cholecalciferol (Cholecalciferol 1,000 Units (25 Mcg) Tab) 2,000 units PO DAILY [facility] Last Admin: 12/02/19 10:00 Dose: 2,000 units Documented by: Clonidine (Clonidine 0.1 Mg Tab) 0.1 mg PO Q4H PRN PRN Reason: Blood Pressure Dextrose/Water (Dextrose 50% Abboject 50 Ml Syringe) 25 gm SLOW IVP PRN PRN PRN Reason: Hypoglycemia Last Admin: 11/27/19 17:24 Dose: 25 gm Documented by: Diphenhydramine HCl (Diphenhydramine 25 Mg Cap) 25 mg PO Q6H PRN PRN Reason: Itching & Insomnia Last Admin: 11/21/19 21:24 Dose: 25 mg Documented by: Enoxaparin Sodium (Enoxaparin Sodium 40 Mg/0.4 Ml Syringe) 40 mg SC BID [facility] Last Admin: 12/02/19 10:00 Dose: 40 mg Documented by: Famotidine (Famotidine/Pf 20 Mg/2ml Vial) 20 mg SLOW IVP 2100 [facility] Last Admin: 12/01/19 19:42 Dose: 20 mg Documented by: Glucagon (Glucagon 1 Mg/Ml Vial) 1 mg IM PRN PRN PRN Reason: Hypoglycemia Guaifenesin (Guaifenesin Er 600 Mg Tab) 1,200 mg PO Q12HR [facility] Last Admin: 12/02/19 10:01 Dose: 1,200 mg Documented by: Hydralazine HCl (Hydralazine 20 Mg/Ml Vial) 10 mg SLOW IVP Q4H PRN PRN Reason: Blood Pressure Dextrose/Water (D5w) 1,000 mls @ 0 mls/hr IV .Q0M PRN PRN Reason: Hypoglycemia Fentanyl Citrate 2,000 mcg/ (Sodium Chloride) 100 mls @ 0 mls/hr IV INF MARIELLA; Protocol Stop: 12/23/19 10:45 Last Admin: 12/02/19 13:41 Dose: 100 mls Documented by: Fentanyl Citrate (Fentanyl Bolus) 250 mls @ 0 mls/hr IVPB PRN PRN PRN Reason: Breakthrough pain/agitation Stop: 12/23/19 10:45 Insulin Glargine 15 units/ (Miscellaneous Medication) 0.15 mls @ 0 mls/hr SC HS [facility] Last Admin: 12/01/19 22:11 Dose: Not Given Documented by: Norepinephrine Bitartrate (Levophed) 250 mls @ 0 mls/hr IVPB INF MARIELLA; Protocol Levofloxacin 750 mg/ Device 150 mls @ 100 mls/hr IVPB Q2D@1100 [facility] Last Admin: 12/02/19 10:00 Dose: 150 mls Documented by: Sodium Bicarbonate 150 meq/ (Dextrose/Water) 1,150 mls @ 75 mls/hr IV .[id number] [facility] Last Admin: 12/02/19 04:30 Dose: 1,150 mls Documented by: Cefepime HCl 2 gm/ Sodium (Chloride) 100 mls @ 200 mls/hr IVPB 0900 [facility] Last Admin: 12/02/19 10:00 Dose: 100 mls Documented by: Insulin Human Lispro (Humalog 300 Units/3 Ml Vial) 0 units SC .BEDTIME SLIDING SC PRN PRN Reason: Bedtime Correctional Scale Last Admin: 11/20/19 21:25 Dose: 2 unit Documented by: Insulin Human Lispro (Humalog 300 Units/3 Ml Vial) 0 units SC .MODERATE SLIDING SC PRN; Protocol PRN Reason: MODERATE SLIDING SCALE Last Admin: 12/02/19 07:38 Dose: 2 unit Documented by: Loperamide HCl (Loperamide Hcl 2 Mg Cap) 2 mg PO PRN PRN PRN Reason: Diarrhea/Loose Stools Lorazepam (Lorazepam 2 Mg/Ml Vial) 2 mg SLOW IVP Q1H PRN PRN Reason: Breakthrough agitation Stop: 12/23/19 10:45 Last Admin: 11/30/19 07:35 Dose: 2 mg Documented by: Methylprednisolone Sodium Succinate (Methylprednisolone Sod Succ 40 Mg Vial) 40 mg IVP BID [facility] Last Admin: 12/02/19 10:00 Dose: 40 mg Documented by: Metoclopramide HCl (Metoclopramide Hcl 10 Mg/2 Ml Vial) 10 mg IVP Q6H PRN PRN Reason: Nausea/Vomiting Last Admin: 11/30/19 07:32 Dose: 10 mg Documented by: Mometasone Furoate/Formoterol Fumar (Mometasone 200 Mcg/Formoterol 5 Mcg 120 Puff Inhaler) 2 puff INH BID-RT [facility] Last Admin: 12/02/19 07:16 Dose: 2 puff Documented by: Morphine Sulfate (Morphine 2 Mg/Ml Vial) 2 mg SLOW IVP Q1H PRN PRN Reason: Breakthrough Pain/Agitation Stop: 12/23/19 10:45 Last Admin: 11/26/19 11:08 Dose: 2 mg Documented by: Niacin (Niacin Er 500 Mg Tab) 500 mg PO HS [facility] Last Admin: 12/01/19 19:42 Dose: 500 mg Documented by: Ondansetron HCl (Ondansetron Odt 4 Mg Tab) 4 mg PO Q6H PRN PRN Reason: Nausea/Vomiting Ondansetron HCl (Ondansetron Pf 4 Mg/2 Ml Vial) 4 mg IVP Q6H PRN PRN Reason: Nausea/Vomiting Propofol (Propofol 1,000 Mg/100 Ml Vial) 1,000 mg IV INF PRN; Protocol PRN Reason: TO ACHIEVE GOAL RASS Stop: 12/23/19 10:45 Last Admin: 12/02/19 10:04 Dose: 1,000 mg Documented by: Propofol (Propofol Bolus 1,000 Mg/100 Ml Vial) 20 mg IV Q5MIN PRN PRN Reason: BREAKTHROUGH AGITATION Stop: 12/23/19 10:45 Rocuronium [place] (Rocuronium [place] 10 Mg/Ml (10ml Vial)) 10 mg IVP Q3H PRN PRN Reason: Anxiety/Agitation Last Admin: 11/30/19 07:49 Dose: 10 mg Documented by: Senna/Docusate Sodium (Senokot S 8.6-50 Mg Tab) 2 tab PO BID PRN PRN Reason: Constipation Last Admin: 12/01/19 16:38 Dose: 2 tab Documented by: Sodium Chloride (Flush - Normal Saline 10 Ml Syringe) 10 ml IVF PRN PRN PRN Reason: Saline Flush Last Admin: 12/01/19 19:43 Dose: 10 ml Documented by: Sodium Chloride (Sodium Chloride 0.65% Nasal 44 Ml Bot) 0 ml EA NARE QIDPRN PRN PRN Reason: Nasal Congestion Sterile Water (Bacteriostatic Water 30 Ml Vial) 1 ml FS PRN PRN PRN Reason: RECONSTITUTION Throat Lozenges (Cepastat Lozenges 1 Yissel) 1 yissel PO Q2H PRN PRN Reason: Sore Throat - Allergies Allergies/Adverse Reactions: Allergies Allergy/AdvReac Type Severity Reaction Status Date / Time iodine Allergy Verified 11/11/19 00:20 Surgery Consult: Results - Labs Result Diagrams: 12/02/19 05:15 12/02/19 05:15 Lab results: Laboratory Results WBC 13.2 thou/uL (4.8-10.8) H 12/02/19 05:15 RBC 3.51 mill/uL (4.70-6.10) L 12/02/19 05:15 Hgb 11.5 g/dL (14.0-18.0) L 12/02/19 05:15 Hct 34.0 % (42.0-52.0) L 12/02/19 05:15 MCV 96.9 fL (78.0-98.0) 12/02/19 05:15 MCH 32.9 pg (27.0-31.0) H 12/02/19 05:15 MCHC 34.0 g/dL (32.0-36.0) 12/02/19 05:15 RDW 13.9 % (11.5-14.5) 12/02/19 05:15 Plt Count 62 thou/uL (130-400) L 12/02/19 05:15 MPV 12.0 fL (7.4-10.4) H 12/02/19 05:15 Neutrophils % 96.6 % (42.0-75.0) H 11/29/19 03:00 Neutrophils % (Manual) 78 % (42-75) H 12/02/19 05:15 Band Neuts % (Manual) 20 % (5-11) H 12/02/19 05:15 Lymphocytes % 1.9 % (21.0-51.0) L 11/29/19 03:00 Lymphocytes % (Manual) 1 % (21-51) L 12/02/19 05:15 Reactive Lymphs % 3 % (0-10) 11/16/19 15:40 Monocytes % 1.4 % (0.0-10.0) 11/29/19 03:00 Monocytes % (Manual) 1 % (0-10) 12/02/19 05:15 Eosinophils % 0.1 % (0.0-10.0) 11/29/19 03:00 Basophils % 0.0 % (0.0-1.0) 11/29/19 03:00 Basophils % (Manual) 2 % (0-2) 11/11/19 04:16 Neutrophils # 14.3 thou/uL (1.40-6.50) H 11/29/19 03:00 Lymphocytes # 0.3 thou/uL (1.20-3.40) L 11/29/19 03:00 Monocytes # 0.2 thou/uL (0.11-0.59) 11/29/19 03:00 Eosinophils # 0.0 thou/uL (0.0-0.7) 11/29/19 03:00 Basophils # 0.0 thou/uL (0.0-0.2) 11/29/19 03:00 Hypochromia SLIGHT = 6-15 cells (100X) (0-5/hpf) 11/27/19 04:00 Large Platelets SLIGHT 11/26/19 09:39 Plt Morphology Comment Appears Decreased L 12/02/19 05:15 Polychromasia SLIGHT = 2-3 cells (100X) (0-2/hpf) 11/16/19 15:40 Elliptocytes SLIGHT = 2-5 cells (100X) (0-1/hpf) 11/25/19 03:18 RBC Morph Comment Normal 11/23/19 14:39 PT 17.1 sec (12.0-14.7) H 11/30/19 08:41 INR 1.4 11/30/19 08:41 APTT 45.3 sec (22.9-36.1) H 11/30/19 08:41 D-Dimer 0.82 *mcg/mL (0.27-0.43) H 11/15/19 18:47 Specimen Type ARTERIAL 12/02/19 06:59 Puncture Site RRAD 12/02/19 06:59 Bicarbonate Actual 18.5 mEq/L (22-28) L 12/02/19 06:59 ABG pH 7.39 (7.35-7.45) 12/02/19 06:59 ABG pCO2 31.7 mmHg (35.0-45.0) L 12/02/19 06:59 ABG pO2 81.9 mmHg (> 70.0) H 12/02/19 06:59 ABG O2 Sat (Measured) 95.3 % (94.0-98.0) 12/02/19 06:59 ABG O2 Content 15.3 vol% (18.0-21.0) L 12/02/19 06:59 ABG Base Excess -5.6 mEq/L (-2.0 to +3.0) L 12/02/19 06:59 ABG Hematocrit 34.0 % (42.0-52.0) L 12/02/19 06:59 ABG Hemoglobin 11.4 g/dL (14.0-18.0) L 12/02/19 06:59 ABG Oxyhemoglobin 94.7 % (94.0-98.0) 12/02/19 06:59 ABG Carboxyhemoglobin 0.3 gm% (0.0-3.0) 12/02/19 06:59 ABG Methemoglobin 0.30 gm% (0.04-1.52) 12/02/19 06:59 ABG Deoxyhemoglobin 4.7 % (0.0-2.9) H 12/02/19 06:59 Rosas Test POSITIVE 12/02/19 06:59 A-a O2 Gradient 448.875 mmHg (0-20) H 12/02/19 06:59 Sodium 135 mmol/L (135-148) 12/02/19 06:59 Potassium 5.34 mmol/L (3.70-5.30) H 12/02/19 06:59 Chloride 100 mmol/L (98-106) 12/02/19 06:59 Ionized Calcium 0.84 mmol/L (1.12-1.30) L 12/02/19 06:59 Mode of Support SIMV 12/02/19 06:59 % Minute Volume 18.1 L 12/02/19 06:59 Mechanical Rate 28 min 12/02/19 06:59 Spontaneous Rate 8 min 11/26/19 07:04 Inspired O2 80 % 12/02/19 06:59 Inspiratory Time 0.90 sec 11/26/19 07:04 Tidal Volume 600 ml 12/02/19 06:59 Spontaneous Tidal Vol 676 ml 11/29/19 07:00 Peak Inspir Pressure 26 cmH2O 11/29/19 07:00 Pressure Support 14 cmH2O 12/02/19 06:59 PEEP or CPAP 11.0 cmH2O 12/02/19 06:59 Sodium 140 mmol/L (136-145) 12/02/19 05:15 Potassium 5.7 mmol/L (3.5-5.1) H 12/02/19 05:15 Chloride 98 mmol/L (98-107) 12/02/19 05:15 Carbon Dioxide 19 mmol/L (23-31) L 12/02/19 05:15 Anion Gap 29 mmol/L (-20) H 12/02/19 05:15 BUN 194 mg/dL (8.4-25.7) H 12/02/19 05:15 Creatinine 4.17 mg/dL (0.7-1.3) H 12/02/19 05:15 Estimated GFR (MDRD) 14 12/02/19 05:15 Glucose 151 mg/dL (83-110) H 12/02/19 05:15 POC Glucose 105 mg/dL (70-100) H 12/02/19 12:29 Calcium 6.6 mg/dL (7.8-10.44) L 12/02/19 05:15 Phosphorus 6.6 mg/dL (2.3-4.7) H 11/29/19 02:30 Magnesium 3.2 mg/dL (1.6-2.6) H 11/29/19 02:30 Ferritin 1108.72 ng/mL (22-322) H 11/30/19 08:41 Total Bilirubin 0.3 mg/dL (0.2-1.2) 11/28/19 03:50 Direct Bilirubin 0.2 mg/dL (0.1-0.3) 11/28/19 03:50 AST 32 U/L (5-34) 11/28/19 03:50 ALT 17 U/L (8-55) 11/28/19 03:50 Alkaline Phosphatase 103 U/L (40-110) 11/28/19 03:50 Lactate Dehydrogenase 664 U/L (125-220) H 11/23/19 14:39 Troponin I 0.023 ng/mL (< 0.028) 11/11/19 06:11 C-Reactive Protein 16.54 mg/dL (= or < 0.5) H 12/02/19 05:15 B-Natriuretic Peptide 50.4 pg/mL (0-100) 11/17/19 03:38 Serum Total Protein 5.8 g/dL (5.8-8.1) 11/28/19 03:50 Albumin 1.8 g/dL (3.4-4.8) L 11/28/19 03:50 Globulin 3.2 g/dL (2.4-3.5) 11/24/19 03:41 Albumin/Globulin Ratio 0.7 g/dL (1.2-2.2) L 11/24/19 03:41 25-OH Vitamin D Total 25.1 ng/ml (> 30.0) L 11/18/19 03:48 TSH 3rd Generation 1.1394 uIU/mL (0.35-4.94) 11/10/19 22:20 PTH Intact 13.8 pg/mL (19.8-88.0) L 11/18/19 03:48 Cortisol 12.10 ug/dL (See Ranges) 11/13/19 12:24 Urine Color Yellow (Yellow) 11/17/19 15:30 Urine Clarity Clear (Clear) 11/17/19 15:30 Urine pH 6.0 (5.0-9.0) 11/17/19 15:30 Ur Specific [place] 1.029 (1.002-1.036) 11/17/19 15:30 Urine Protein 30 mg/dL (Neg-Trace) A 11/17/19 15:30 Urine Glucose (UA) 200 mg/dL (Negative) A 11/17/19 15:30 Urine Ketones Negative mg/dL (Negative) 11/17/19 15:30 Urine Blood Negative (Negative) 11/17/19 15:30 Urine Nitrite Negative (Negative) 11/17/19 15:30 Urine Bilirubin Negative (Negative) 11/17/19 15:30 Urine Urobilinogen Normal mg/dL (Less than 2) 11/17/19 15:30 Ur Leukocyte Esterase Negative Butch/uL (Negative) 11/17/19 15:30 Urine RBC 0-3 HPF (0-3) 11/17/19 15:30 Urine WBC 0-3 HPF (0-3) 11/17/19 15:30 Ur Squamous Epith Cells 0-3 HPF (0-3) 11/17/19 15:30 Calcium Oxalate Crystal 2+ HPF (None Seen) A 11/10/19 07:57 Urine Bacteria None Seen HPF (None Seen) 11/17/19 15:30 Hyaline Casts 0-3 LPF (0-3) 11/17/19 15:30 IgG Subclasses 59 mg/dL (2-96) 11/22/19 16:09 SARS-CoV-2 (PCR) DETECTED (NotDetected) A* 11/22/19 15:55 Hep Bs Antigen Non-Reactive S/CO (NonReactive) 12/02/19 12:25 Hep Bs Antibody Non-Reactive (NonReactive) 12/02/19 12:25 Hep Bs Antibody Index Less than 8.00 mIU/mL 12/02/19 12:25 Hep B Core Total Ab Non-Reactive (NonReactive) 12/02/19 12:25 Hepatitis C Antibody Non-Reactive (NonReactive) 12/02/19 12:25 SARS-CoV-2 Rap RNA(RT-PCR) Not Detected (NotDetected) 11/11/19 22:21 SARS-CoV-2 IgG Ab Reactive (NonReactive) 11/23/19 14:39 SARS-CoV-2 IgG Ab Index 5.12 S/CO (< 1.40) 11/23/19 14:39 Blood Type AB POSITIVE 11/23/19 16:46 Antibody Screen NEGATIVE 11/23/19 16:46 Surgery Consult: A/P - Problem (1) DORIS (acute kidney injury) Current Visit: Yes Code(s): N17.9 - ACUTE KIDNEY FAILURE, UNSPECIFIED Status: Acute Assessment and Plan: Nephrology is determine the need for dialysis access. Consent was obtained from the patient's son. This will be done at bedside. (2) Morbid obesity Current Visit: Yes Code(s): E66.01 - MORBID (SEVERE) OBESITY DUE TO EXCESS CALORIES Status: Chronic Assessment and Plan: BMI of 47.
--- NOTE | 2019-12-02 14:03 | PDOC.OP ---
Operative Note - Operative Note Operative Note: Date of surgery-02 November 2019 Preop diagnosis-renal failure Postop diagnosis-renal failure Procedure performed-right internal jugular placement of dialysis catheter Anesthesia- [General] EBL- [minimal] Specimen- [none] Complications- [none] Sponge and needle count were correct x2 Indication for procedure-The patient is a 79-year-old gentleman in the ICU on the ventilator. He is in renal failure Conduct of the operation-After written preoperative informed consent from the patient's family, the right groin was prepared and draped in sterile fashion. A timeout was performed. Ultrasound was used to identify the right femoral vein. Needle was brought in under single pass. Wire threaded forward easily and was confirmed to be within the vein on ultrasound. Skin incision was made. Dilators were placed. Upon trying to pass the catheter, there was resistance. Given the patient's rolling anatomy secondary to his weight, his leg and pannus were readjusted and the wire was confirmed to still be within the vein on ultrasound. The dilators were passed again, but when the catheter was attempted to be advanced, it continued to hang up. The catheter and wire were removed. Pressure was held until hemostasis was noted. The right neck was prepared draped in sterile fashion. Timeout was performed. Ultrasound was used to identify the right internal jugular vein. A single pass was used to access the vein. Wire was thread forward. Dilator was threaded over wire. Catheter was threaded over wire. The catheter did not come with suture yet with a catheter lock. This was placed. Biopatch was placed. Sterile dressings were placed. Both lumens aspirated and flushed easily. The patient's right groin was rechecked and was hemostatic.
[2019-12-02] MEDS ORDERED: Heparin 10,000 UNITS/ 10 ML VIAL ONE (14:31)
[2019-12-02] MEDS ORDERED: Norepinephrine 8 MG/0.9% NS 250 ML IVPB SCH (16:00)
--- NOTE | 2019-12-02 19:23 | PRG ---
DATE OF SERVICE: 12/02/2019 SUBJECTIVE: Patient is seen and examined today, still in critical condition, dependent on life support with the following vital signs. OBJECTIVE: VITAL SIGNS: Blood pressure 109/75 with a pulse of 107, respiratory rate of 28. HEENT: Remarkable for endotracheal tube in place. CARDIOVASCULAR SYSTEM: First and second heart sounds were heard. RESPIRATORY SYSTEM: Revealed vented sounds. DIGESTIVE SYSTEM: Revealed benign abdomen. Positive bowel sounds. EXTREMITIES: Showed no significant peripheral edema. NEUROLOGIC: Patient is sedated and intubated. LABORATORY INVESTIGATIONS: Significant for the following. Potassium of 5.7, bicarb of 19 with 29 anion gap, BUN of 194 with creatinine of 4.17, calcium 6.6. IMPRESSION: 1. Acute kidney injury with profound azotemia. 2. Hyperkalemia in the context of problem #1. 3. High anion gap metabolic acidosis related to problem #1 plus or minus lactic acidemia from sepsis. 4. Cardiopulmonary failure in the context of COVID infection. PLAN: 1. Given the profound azotemia and worsening hyperkalemia, we will initiate hemodialysis today. Patient's dialysis to be gradually escalated. Today, the patient to undergo about 1-1/2 hours to avoid precipitating disequilibrium syndrome because of the profound azotemia in this patient. 2. Continue to renally dose all medications and avoid potentially nephrotoxic agents. 3. Further management will be dependent on the clinical course. Job ID: [id number]
[2019-12-02] MEDS: Famotidine/PF 20 mg/2ml Vial SLOW IVP SCH (20:52)
[2019-12-02] MEDS: Insulin Glargine 15 UNITS in Pre-Filled Syringe 1 EACH SC SCH ×2 (20:52→22:52)
--- NOTE | 2019-12-02 21:00 | RAD ---
AP CHEST: 12/02/19 HISTORY: Catheter placement. COMPARISON: 11/30/19 exam. Endotracheal and NG tubes remain in satisfactory position. A right sided central line is seen. Cathet er tip overlies the superior vena cava. No signs of pneumothorax. The interstitial alveolar lung garcia ges are similar to what was seen on the previous study. IMPRESSION: Placement of right sided central line. Catheter tip overlies the superior vena cava. No signs of pne umothorax. POS: OFF
[2019-12-03] MEDS: Propofol 1,000 MG/100 ML VIAL IV PRN ×4 (00:46→11:00)
[2019-12-03] MEDS: fentaNYL Citrate/PF 2,000 MCG in Sodium Chloride 0.9% 60 ML IV SCH (02:17)
[2019-12-03 05:04] LABS: Anion Gap 30 mmol/L (10-20); Calc. Creatinine Clearance 29 mL/min (70-130); Calcium 6.2 mg/dL (7.8-10.44); Carbon Dioxide 18 mmol/L (23-31); Chloride 95 mmol/L (98-107); Estimated GFR-MDRD 14; Glucose 158 mg/dL (83-110); Potassium 5.5 mmol/L (3.5-5.1); Sodium 137 mmol/L (136-145)
[2019-12-03 05:17] LABS: BUN (Urea Nitrogen) 169 mg/dL (8.4-25.7)
[2019-12-03 07:03] LABS: Band 47 % (5-11); Hemoglobin 11.1 g/dL (14.0-18.0); Lymphocytes 3 % (21-51); MDiff Complete? YES; Mean Corpuscular HGB CONC 34.4 g/dL (32.0-36.0); Mean Corpuscular Hemoglobin 32.9 pg (27.0-31.0); Mean Corpuscular Volume 95.6 fL (78.0-98.0); Mean Platelet Volume 12.8 fL (7.4-10.4); Monocytes 4 % (0-10); Neutrophil 46 % (42-75); Nucleated RBC 1 % (0); Platelet Count 50 thou/uL (130-400); Platelet Morphology Comment Appears Decreased; RBC Distribution Width 13.8 % (11.5-14.5); Red Blood Cell (RBC) Count 3.36 mill/uL (4.70-6.10); White Blood Cell (WBC) Count 10.5 thou/uL (4.8-10.8)
[2019-12-03 07:28] LABS: Actual Bicarbonate (HCO3a) 18.7 mEq/L (22-28); Base Excess (BEa) -7.2 mEq/L (-2.0 to +3.0); CO2 Tension 39.2 mmHg (35.0-45.0); Calcium, Ionized (arterial) 0.81 mmol/L (1.12-1.30); Carboxyhemoglobin (COHb) 0.3 gm% (0.0-3.0); Hemoglobin (Hb) 14.4 g/dL (14.0-18.0); Potassium - ABG Lab 5.22 mmol/L (3.70-5.30)
[2019-12-03 07:44] LABS: O2 Tension (PaO2), arterial 56.6 mmHg (> 70.0); Puncture Site RRAD
[2019-12-03] MEDS: Budesonide 0.5 MG/2 ML NEB NEB SCH (07:45)
[2019-12-03] MEDS: Mometasone 200 MCG/Formoterol 5 MCG 120 PUFF INHALER INH SCH (07:45)
[2019-12-03] MEDS: Cefepime 2 GM in Sodium Chloride 0.9% 100 ML IVPB SCH (08:28)
[2019-12-03] MEDS: guaiFENesin ER 600 MG TAB PO SCH (08:28)
[2019-12-03] MEDS: Enoxaparin Sodium 40 MG/0.4 ML SYRINGE SC SCH (08:28)
[2019-12-03] MEDS: Cholecalciferol 1,000 UNITS (25 MCG) TAB PO SCH (08:34)
[2019-12-03] MEDS: Sodium Bicarbonate 150 MEQ in Dextrose 5% in Water 1,000 ML IV SCH (09:11)
--- NOTE | 2019-12-03 09:25 | PDOC.HOSPP ---
- Subjective Encounter Date: 12/03/19 Encounter Time: 09:23 Subjective: Mr. Salas was seen today in follow-up of COVID pneumonia. He is intubated. He appears a little more dyspneic, and with a slight increase in his work of breathing. - Objective Vital Signs & Weight: Vital Signs (12 hours) Temp Pulse Resp BP 12/03/19 08:00 98.1 F 28 H 12/03/19 07:46 113 H 12/03/19 06:00 28 H 12/03/19 04:00 98.1 F 28 H 12/03/19 03:49 108 H 12/03/19 02:00 28 H 12/03/19 00:00 97.4 F L 28 H 12/02/19 23:01 107 H 100/53 L 12/02/19 22:00 28 H Weight Admit Weight 302 lb Weight 317 lb 7.45 oz Most Recent Monitor Data Heart Rate from ECG 118 NIBP 116/57 NIBP BP-Mean 76 Respiration from ECG 18 SpO2 90 I&O: 12/02/19 12/03/19 12/04/19 06:59 06:59 06:59 Intake Total 2827.0 3124 Output Total 331 200 5 Balance 2496.0 2924 -5 Result Diagrams: 12/03/19 03:45 12/03/19 03:45 Additional Labs: Accuchecks 12/03/19 12/02/19 12/02/19 05:14 21:12 16:10 POC Glucose 152 H 92 122 H 12/02/19 12/01/19 12/01/19 12:29 12:37 10:32 POC Glucose 105 H 100 94 12/01/19 05:32 POC Glucose 86 Hospitalist ROS - Medication Medications: Active Medications Generic Name Dose Route Start Last Admin Trade Name Freq PRN Reason Stop Dose Admin Acetaminophen 1,000 mg 11/23/19 15:44 11/27/19 17:09 Acetaminophen 650 Mg/20.3 Ml Udcup PER TUBE 1,000 mg Q6H PRN Administration Headache/Fever/Mild Pain (1-3) Albuterol/Ipratropium 3 ml 11/15/19 14:00 12/02/19 18:42 Ipratropium/Albuterol Sulfate 3 Ml Neb NEB 3 ml Q4H PRN Administration SOB &/or Wheezing Bisacodyl 10 mg 11/19/19 08:46 12/01/19 16:38 Bisacodyl 5 Mg Tab PO 10 mg DAILYPRN PRN Administration Constipation Budesonide 0.5 mg 11/16/19 18:30 12/03/19 07:45 Budesonide 0.5 Mg/2 Ml Neb NEB 0.5 mg BID-RT MARIELLA Administration Cholecalciferol 2,000 units 11/19/19 09:00 12/03/19 08:34 Cholecalciferol 1,000 Units (25 Mcg) Tab PO 2,000 units DAILY MARIELLA Administration Dextrose/Water 25 gm 11/10/19 22:07 11/27/19 17:24 Dextrose 50% Abboject 50 Ml Syringe SLOW IVP 25 gm PRN PRN Administration Hypoglycemia Diphenhydramine HCl 25 mg 11/12/19 12:39 11/21/19 21:24 Diphenhydramine 25 Mg Cap PO 25 mg Q6H PRN Administration Itching & Insomnia Enoxaparin Sodium 40 mg 12/01/19 09:00 12/03/19 08:28 Enoxaparin Sodium 40 Mg/0.4 Ml Syringe SC 40 mg BID MARIELLA Administration Famotidine 20 mg 11/24/19 21:00 12/02/19 20:52 Famotidine/Pf 20 Mg/2ml Vial SLOW IVP 20 mg 2100 MARIELLA Administration Guaifenesin 1,200 mg 11/19/19 21:00 12/03/19 08:28 Guaifenesin Er 600 Mg Tab PO 1,200 mg Q12HR MARIELLA Administration Fentanyl Citrate 2,000 mcg/ 100 mls @ 0 mls/hr 11/23/19 10:45 12/03/19 02:17 Sodium Chloride IV 12/23/19 10:45 100 mls INF MARIELLA Administration Protocol Per Protocol Insulin Glargine 15 units/ 0.15 mls @ 0 mls/hr 11/28/19 21:00 12/02/19 22:52 Miscellaneous Medication SC Not Given HS MARIELLA Levofloxacin 750 mg/ Device 150 mls @ 100 mls/hr 11/30/19 11:00 12/02/19 10:00 IVPB 150 mls Q2D@1100 MARIELLA Administration Sodium Bicarbonate 150 meq/ 1,150 mls @ 75 mls/hr 11/30/19 08:30 12/03/19 09:11 Dextrose/Water IV 1,150 mls .[id number] MARIELLA Administration Cefepime HCl 2 gm/ Sodium 100 mls @ 200 mls/hr 12/01/19 09:00 12/03/19 08:28 Chloride IVPB 100 mls 0900 MARIELLA Administration Insulin Human Lispro 0 units 11/10/19 22:07 11/20/19 21:25 Humalog 300 Units/3 Ml Vial SC 2 unit .BEDTIME SLIDING SC PRN Administration Bedtime Correctional Scale Insulin Human Lispro 0 units 11/14/19 18:15 12/02/19 07:38 Humalog 300 Units/3 Ml Vial SC 2 unit .MODERATE SLIDING SC PRN Administration MODERATE SLIDING SCALE Protocol Lorazepam 2 mg 11/23/19 10:45 11/30/19 07:35 Lorazepam 2 Mg/Ml Vial SLOW IVP 12/23/19 10:45 2 mg Q1H PRN Administration Breakthrough agitation Methylprednisolone Sodium Succinate 40 mg 11/15/19 21:00 12/02/19 20:52 Methylprednisolone Sod Succ 40 Mg Vial IVP 40 mg BID MARIELLA Administration Metoclopramide HCl 10 mg 11/28/19 09:05 11/30/19 07:32 Metoclopramide Hcl 10 Mg/2 Ml Vial IVP 10 mg Q6H PRN Administration Nausea/Vomiting Mometasone Furoate/Formoterol Fumar 2 puff 11/13/19 18:30 12/03/19 07:45 Mometasone 200 Mcg/Formoterol 5 Mcg 120 Puff Inhaler INH 2 puff BID-RT MARIELLA Administration Morphine Sulfate 2 mg 11/23/19 10:45 11/26/19 11:08 Morphine 2 Mg/Ml Vial SLOW IVP 12/23/19 10:45 2 mg Q1H PRN Administration Breakthrough Pain/Agitation Niacin 500 mg 11/11/19 21:00 12/02/19 20:52 Niacin Er 500 Mg Tab PO 500 mg HS MARIELLA Administration Propofol 1,000 mg 11/23/19 10:45 12/03/19 08:28 Propofol 1,000 Mg/100 Ml Vial IV 12/23/19 10:45 1,000 mg INF PRN Administration TO ACHIEVE GOAL RASS Protocol Rocuronium [place] 10 mg 11/24/19 09:09 11/30/19 07:49 Rocuronium [place] 10 Mg/Ml (10ml Vial) IVP 10 mg Q3H PRN Administration Anxiety/Agitation Senna/Docusate Sodium 2 tab 11/10/19 22:03 12/01/19 16:38 Senokot S 8.6-50 Mg Tab PO 2 tab BID PRN Administration Constipation Sodium Chloride 10 ml 11/10/19 22:03 12/01/19 19:43 Flush - Normal Saline 10 Ml Syringe IVF 10 ml PRN PRN Administration Saline Flush - Exam Eye: PERRL, anicteric sclera Heart: RRR, no murmur, no gallops, no rubs, normal peripheral pulses Respiratory: rales (+ rales at both bases) Gastrointestinal: soft, non-tender, non-distended, normal bowel sounds, no palpable masses, no hepatomegaly Extremities: 1+ LE edema (+ edema in both upper and lower extremities) Hosp A/P (1) DORIS (acute kidney injury) Code(s): N17.9 - ACUTE KIDNEY FAILURE, UNSPECIFIED Status: Acute (2) Acute respiratory failure with hypoxemia Code(s): J96.01 - ACUTE RESPIRATORY FAILURE WITH HYPOXIA Status: Acute (3) COVID-19 Code(s): U07.1 - COVID-19 Status: Acute (4) CAD (coronary artery disease) Code(s): I25.10 - ATHSCL HEART DISEASE OF [place] CORONARY ARTERY W/O ANG PCTRS Status: Chronic (5) DM type 2 (diabetes mellitus, type 2) Status: Chronic (6) Morbid obesity Code(s): E66.01 - MORBID (SEVERE) OBESITY DUE TO EXCESS CALORIES Status: Chronic (7) Thrombocytopenia associated with COVID-19 Code(s): U07.1 - COVID-19; D69.59 - OTHER SECONDARY THROMBOCYTOPENIA Status: Acute - Plan * Acute respiratory failure due to COVID pneumonia.- continue supportive care * He is on Solumedrol IV * He continues to require ventilator support- continue to wean as tolerated * Acute kidney injury- he will be initiated on dialysis * DM- blood glucose is stable * Thrombocytopenia- Likely from COVID infection- worsening- will need to discontinue Lovenox for now, as he is having some oozing around the ET tube. Will transfuse as needed
[2019-12-03] MEDS: methylPREDNISolone Sod Succ 40 MG VIAL IVP SCH (11:00)
--- NOTE | 2019-12-03 11:27 | PRG ---
DATE OF SERVICE: 12/03/2019 TIME SPENT: 35 minutes of critical care time. SUBJECTIVE: The patient remains intubated, on mechanical ventilation. He is currently receiving dialysis. He looks very bad. OBJECTIVE: VITAL SIGNS: Temperature 98.1, pulse 112, blood pressure 114/55, and O2 sat 94%. Total intake 3124; output 200. HEENT: He has some hemorrhaging in his oral mucosa. NECK: No JVD. LUNGS: Coarse breath sounds. CARDIAC: S1 and S2. Tachycardic. ABDOMEN: Soft. EXTREMITIES: Edematous. IMAGING DATA: His chest x-ray shows bilateral infiltrates. ET tube is in good position. LABORATORY DATA: ABG; pH 7.30, pCO2 of 39, pO2 of 56 on SIMV rate 28, tidal volume 550, PEEP 14, FiO2 65%. Sodium 137, potassium 5.5, chloride 95, CO2 of 18, BUN of 169, creatinine 4.1, glucose 158. White blood cell count 10.5, hematocrit 32.2, and platelet count 15. ASSESSMENT: 1. COVID-19 pneumonia. 2. Acute respiratory failure requiring mechanical ventilation. 3. Acute renal failure. PLAN: The patient will continue dialysis as current ventilator management. I do not anticipate him surviving his current illness. He remains on the ventilator and dialysis, but he is a DNAR should he arrest. Job ID: [id number]
[2019-12-03 12:29] VITALS: TEMP 97.2
[2019-12-03] MEDS ORDERED: fentaNYL Citrate/PF 2,000 MCG in Sodium Chloride 0.9% 60 ML IV SCH (13:00)
[2019-12-03 14:22] VITALS: BP 105/66
[2019-12-03] MEDS ORDERED: Heparin 10,000 UNITS/ 10 ML VIAL ONE (14:28)
--- NOTE | 2019-12-03 20:23 | PRG ---
DATE OF SERVICE: 12/03/2019 SUBJECTIVE: The patient noted with the following vital signs. OBJECTIVE: VITAL SIGNS: 105/65 blood pressure, heart rate is 129, respiratory rate of 28, O2 sat of 95% on ventilator. HEENT: Remarkable for endotracheal tube in place. CARDIOVASCULAR SYSTEM: First and second heart sounds were heard. RESPIRATORY SYSTEM: Revealed vented sounds. DIGESTIVE SYSTEM: Revealed obese abdomen. EXTREMITIES: No significant edema. IMPRESSION: 1. Acute kidney injury in the context of COVID infection. 2. Hyperkalemia. 3. Metabolic acidosis. PLAN: The dialysis of this patient is proven to be very difficult as the patient's hemodynamics is very labile and I ended up giving this patient IV fluid bolus despite the patient remains very tachycardic, therefore decision has been taken to prematurely end dialysis for today. Further management depending on the clinical course. The prognosis is very poor. Job ID: [id number]
--- NOTE | 2019-12-05 07:22 | PQF ---
CLINICAL DOCUMENTATION CLARIFICATION FORM: Dear : Onur Garcia Date / Time: 12/05/2019 0722 Please exercise your independent, professional judgment in responding to the clarification form. Clinical indicators are provided on the bottom of this form for your review Based on the clinical indicators on admit, can you determine if Sepsis was present at the time of admission? Diagnosis: Sepsis Present on Admission (POA): [ X Date/Time: For continuity of documentation, please document condition throughout progress notes and discharge summary. Thank You. To be completed by CDI/Coding staff for physician review: Present Clinical Indicators - Signs / Symptoms / Labs Results and Location in Medical Record [X] WBC 5.4, Plt count 199, Neutrophils 60, Band 6 Laboratory 11/09 [X] SARS-Cov 2-Rap RNA: Not detected Serology 11/10 [X] SARS-Cov 2-Rap RNA: Detected Serology 11/21 [X] BP 165/128, Pulse 111, resp 25, Temp 99.8 Vital signs 11/09 [X] SIRS scoring: Yes pt did meet criteria ED notes p2 [X] Reports developing SOB with a nonproductive cough for the past 8 weeks H&P p1 11/09 [facility] [X] Presented tachycardic, tachypneic, Hypoxic H&P p5 11/09 [facility] [X] Acute respiratory failure HPN p3 Dr Siu 11/23 [X] Aspiration Pneumonia, Covid infection HPN p3 Dr Siu 11/23 [X] Acute kidney injury PN p1 12/01 Dr Barboza [X] High anion gap metabolic acidosis related to DORIS or minus lactic acidemia from Sepsis PN p1 12/01 Dr Barboza Present Risk Factors Results and Location in Medical Record [X] 79 year-old Male H&P p1 10 [facility] [X] Morbid Obesity H&P p1 11/09 [facility] [X] DM H&P p1 11/09 [facility] [X] Former Smoker H&P p1 11/09 [facility] [X] HTN H&P p1 11/09 [facility] [X] Aspiration Pneumonia, Covid infection HPN p3 Dr Siu 11/23 Present Treatments Results and Location in Medical Record [X] Documentation to support POA status [X] SARS-Cov 2-Rap RNA: Serology 11/10 [X] Oxygen 4L Respiratory panel 11/09 [X] Bipap Respiratory panel 11/10 [X] Mechanical ventilator Respiratory panel 11/22 [X] Transfused: Convalescent apher plasma Blood bank 11/22 [X] IVF NS 1L APR 17 [X] IV Zosyn 4.5 gm APR 17 [X] IV Levoped 250mls MNAR 11/27 [X] Chest/Thorax CTA Imaging Dr Shah 11/09 [X] ID consult Consult Stevenson Hutton 11/23 CDS/Mill Roll Operator Signature: Emilee Le Thomas Phone #: [phone] Date/Time: 12/05/2019 This is a permanent part of the Medical Record [facility]
--- NOTE | 2019-12-06 10:00 | DIS ---
DATE OF ADMISSION: 11/10/2019 DATE OF DISCHARGE: 12/03/2019 DATE OF : 12/03/2019. DIAGNOSES: 1. Acute respiratory failure with hypoxemia. 2. COVID-19 pneumonia. 3. Acute kidney injury requiring dialysis. 4. Coronary artery disease. 5. Diabetes mellitus type 2. 6. Obesity. 7. Obstructive sleep apnea. 8. Dyslipidemia. IMAGING DONE DURING THE HOSPITAL STAY: The patient had a CT angiogram of the chest, which was negative for pulmonary embolism, but did reveal bilateral lung infiltrates in the right adrenal nodule. The patient had bilateral lower extremity venous Dopplers which were negative for DVT bilaterally. The patient had a CT of the abdomen showing a right adrenal nodule and consolidation in the right lung base and left atelectasis. There was a nonobstructing left renal calculus. The patient had a renal ultrasound which was negative for any mass or cyst or signs of obstruction. However, there was evidence of cortical thinning. CODE STATUS: DNAR. ALLERGIES: IODINE. HOSPITAL COURSE: Mr. Salas was a 79-year-old gentleman, who presented to the emergency room with complaints of shortness of breath as well as a nonproductive cough. He had these symptoms for the past 8 weeks. He was admitted and found to have COVID-19 pneumonia. He was initially thought to possibly have some component of aspiration pneumonia, but was later found to have COVID positive. He decompensated during his hospital stay and required intubation. Also during the hospital stay, he developed acute kidney injury which unfortunately continued to worsen during his hospital stay despite treatment by Nephrology. His renal function got to the point where he was going to require dialysis and a dialysis catheter had actually been placed. However, he was never initiated on dialysis as the patient's sons came to visit him and saw the grave condition of their father and they knew that he would not want to live like this. He had been requiring mechanical ventilation for several days and had proved to not be able to be weaned from the ventilator. They made the decision to withdraw aggressive care and the patient was taken off the ventilator and he shortly thereafter and he was pronounced at approximately 3:52 p.m. His three sons were outside of the room when this occurred. Job ID: [id number]
== END 2019-12-03 15:52 | disposition expired | DRG 870 ==
LOC: ERS 19:36 → 2NO 21:40 → IMCU/EMU 11-15 18:58 → CCU 11-23 10:22
PROVIDERS: ADMIT Internal Medicine; ATTEND Internal Medicine
PROC: 5A09357 Assistance with Respiratory Ventilation, Less than 24 Consecutive Hours, Continuous Positive Airway Pressure (ICD-10-PCS; 2019-11-11)
PROC: 8E0ZXY6 Isolation (ICD-10-PCS; 2019-11-11)
PROC: 5A1955Z Respiratory Ventilation, Greater than 96 Consecutive Hours (ICD-10-PCS; principal; 2019-11-23)
PROC: XW13325 Transfusion of Convalescent Plasma (Nonautologous) into Peripheral Vein, Percutaneous Approach, New Technology Group 5 (ICD-10-PCS; 2019-11-23)
PROC: 0BH17EZ Insertion of Endotracheal Airway into Trachea, Via Natural or Artificial Opening (ICD-10-PCS; 2019-11-23)
PROC: 3E033XZ Introduction of Vasopressor into Peripheral Vein, Percutaneous Approach (ICD-10-PCS; 2019-11-28)
PROC: 02HV33Z Insertion of Infusion Device into Superior Vena Cava, Percutaneous Approach (ICD-10-PCS; 2019-12-02)
PROC: B548ZZA Ultrasonography of Superior Vena Cava, Guidance (ICD-10-PCS; 2019-12-02)
PROC: 5A1D70Z Performance of Urinary Filtration, Intermittent, Less than 6 Hours Per Day (ICD-10-PCS; 2019-12-03)
DX: A41.9 Sepsis, unspecified organism (principal); J69.0 Pneumonitis due to inhalation of food and vomit; U07.1 COVID-19; J96.01 Acute respiratory failure with hypoxia; J12.89 Other viral pneumonia; Z68.42 Body mass index [BMI] 45.0-49.9, adult; N17.9 Acute kidney failure, unspecified; J44.0 Chronic obstructive pulmonary disease with (acute) lower respiratory infection; I42.8 Other cardiomyopathies; J44.1 Chronic obstructive pulmonary disease with (acute) exacerbation; E87.2 Acidosis; Z66 Do not resuscitate; I25.10 Atherosclerotic heart disease of native coronary artery without angina pectoris; E78.5 Hyperlipidemia, unspecified; G47.33 Obstructive sleep apnea (adult) (pediatric); E66.01 Morbid (severe) obesity due to excess calories; K21.9 Gastro-esophageal reflux disease without esophagitis; Z96.641 Presence of right artificial hip joint; E86.0 Dehydration; D35.01 Benign neoplasm of right adrenal gland; E11.65 Type 2 diabetes mellitus with hyperglycemia; G70.00 Myasthenia gravis without (acute) exacerbation; N18.9 Chronic kidney disease, unspecified; E11.22 Type 2 diabetes mellitus with diabetic chronic kidney disease; I12.9 Hypertensive chronic kidney disease with stage 1 through stage 4 chronic kidney disease, or unspecified chronic kidney disease; R13.12 Dysphagia, oropharyngeal phase; D69.6 Thrombocytopenia, unspecified; E87.5 Hyperkalemia; R31.9 Hematuria, unspecified; Z78.1 Physical restraint status; Z95.1 Presence of aortocoronary bypass graft; Z79.899 Other long term (current) drug therapy; Z79.82 Long term (current) use of aspirin; Z79.84 Long term (current) use of oral hypoglycemic drugs; Z87.891 Personal history of nicotine dependence; Z91.041 Radiographic dye allergy status
CPT/HCPCS: 31624; 36415; 36416; 36430; 71045; 71046; 71275; 74170; 74230; 76770; 80048; 80053; 80076; 81001; 81003; 81015; 82306; 82533; 82728; 82787; 82805; 83615; 83735; 83880; 83970; 84100; 84443; 84484; 85007; 85025; 85027; 85379; 85610; 85730; 86140; 86704; 86706; 86769; 86803; 86850; 86900; 86901; 87070; 87077; 87186; 87205; 87340; 87635; 90935; 93005; 93010; 93306; 93970; 94002; 94003; 94640; 94660; 94760; C9113; G0257; J0692; J0696; J1200; J1642; J1644; J1650; J1720; J1815; J1940; J1956; J2001; J2060; J2250; J2270; J2543; J2704; J2765; J2920; J3010; J3490; J7050; J7070; J7512; J7620; J7626; P9017; P9047; Q0163; Q9967; S0028; U0002; U0003